=== PATIENT | female | born 1935 | race Caucasian/White ===

== ENCOUNTER → 2016-11-16 | Outpatient (CLI) | payer MEDICARE, BC ==
[2016-11-16 08:33] LABS: Appearance,Urine Clear (Clear); Bilirubin,Urine Negative (Negative); Glucose,Urine (UA) Negative (Negative); Ketones,Urine Negative (Negative); Leukocyte Esterase,Urine Negative (Negative); Nitrite,Urine Negative (Negative); PH, Urine 5.5 (5.0-8.0); Protein,Urine Trace (Negative); Specific Gravity,Urine 1.008 (1.001-1.035); UA Billing (MACRO vs. MICRO) CHEM; Urobilinogen,Urine <2.0 mg/dL (<2.0)
[2016-11-16 08:43] LABS: CH 29.8; CHCM 31.8; HCT 41.2 % (34.0-46.0); HDW 2.59; HGB 13.1 gm/dL (11.4-16.0); MCH 29.9 pg (25.0-35.0); MCHC 31.7 g/dL (31.0-37.0); MCV 94.3 fL (80.0-100.0); Mean Platelet Volume 8.5; RBC 4.37 m/uL (3.80-5.40); RDW 14.5 % (11.5-15.5); WBC 6.6 k/uL (3.8-10.6)
[2016-11-16 11:36] LABS: Magnesium 2.4 mg/dL (1.6-2.3); Phosphorous 4.2 mg/dL (2.5-4.5)
[2016-11-16 11:46] LABS: % Iron Saturation 26.4 % (20-50); Potassium 4.2 mmol/L (3.5-5.1)
== END | disposition home or self-care (01) ==
LOC: LABWHC1 07:32
PROVIDERS: ATTEND Nurse Practitioner Family
DX: D63.1 Anemia in chronic kidney disease (principal); N25.81 Secondary hyperparathyroidism of renal origin; N18.3 Chronic kidney disease, stage 3 (moderate); N39.0 Urinary tract infection, site not specified; E83.39 Other disorders of phosphorus metabolism; R80.9 Proteinuria, unspecified; M10.9 Gout, unspecified
CPT/HCPCS: 36415; 80048; 81003; 82043; 82306; 82728; 83540; 83550; 83735; 83970; 84100; 84550; 85027

== ENCOUNTER → 2017-01-28 | Outpatient (CLI) | payer MEDICARE, BC ==
[2017-01-28 10:37] LABS: Calcium 9.3 mg/dL (8.4-10.2); Potassium 4.5 mmol/L (3.5-5.1)
== END | disposition home or self-care (01) ==
LOC: LABWHC1 09:25
PROVIDERS: ATTEND Nurse Practitioner Family
DX: N18.3 Chronic kidney disease, stage 3 (moderate) (principal)
CPT/HCPCS: 36415; 80048

== ENCOUNTER → 2017-03-21 | Outpatient (CLI) | payer MEDICARE, BC ==
[2017-03-21 08:11] LABS: Appearance,Urine Clear (Clear); Bacteria,Urine Rare /hpf; Bilirubin,Urine Negative (Negative); Glucose,Urine (UA) Negative (Negative); Ketones,Urine Negative (Negative); Leukocyte Esterase,Urine Moderate (Negative); Mucus,Urine Rare /hpf; Nitrite,Urine Negative (Negative); Particle Count 2143; Protein,Urine Trace (Negative); RBC,Urine 1 /hpf (0-5); Specific Gravity,Urine 1.009 (1.001-1.035); Squamous Epithelial Cell,Urine 1 /hpf (0-4); UA Billing (MACRO vs. MICRO) MICRO; Urobilinogen,Urine <2.0 mg/dL (<2.0); WBC,Urine 7 /hpf (0-5)
[2017-03-21 08:36] LABS: CH 29.7; CHCM 32.3; HCT 42.3 % (34.0-46.0); HDW 2.65; HGB 13.6 gm/dL (11.4-16.0); MCH 29.8 pg (25.0-35.0); MCHC 32.2 g/dL (31.0-37.0); MCV 92.5 fL (80.0-100.0); RBC 4.58 m/uL (3.80-5.40); RDW 14.3 % (11.5-15.5); WBC 7.5 k/uL (3.8-10.6)
[2017-03-21 11:06] LABS: Calcium 9.3 mg/dL (8.4-10.2); Magnesium 2.4 mg/dL (1.6-2.3); Phosphorous 4.2 mg/dL (2.5-4.5); Potassium 4.4 mmol/L (3.5-5.1); Uric Acid 6.2 mg/dL (3.7-7.4)
[2017-03-21 11:15] LABS: % Iron Saturation 48.1 % (20-50)
== END | disposition home or self-care (01) ==
LOC: LABWHC1 07:30
PROVIDERS: ATTEND Nurse Practitioner Family
DX: N25.81 Secondary hyperparathyroidism of renal origin (principal); D63.1 Anemia in chronic kidney disease; N18.3 Chronic kidney disease, stage 3 (moderate); N39.0 Urinary tract infection, site not specified; M10.9 Gout, unspecified; R80.9 Proteinuria, unspecified
CPT/HCPCS: 36415; 80048; 81001; 82043; 82306; 82728; 83540; 83550; 83735; 83970; 84100; 84550; 85027

== ENCOUNTER → 2017-05-30 | Outpatient (CLI) | payer MEDICARE, BC ==
[2017-05-30 08:10] LABS: Calcium 8.9 mg/dL (8.4-10.2); Potassium 4.8 mmol/L (3.5-5.1)
== END | disposition home or self-care (01) ==
LOC: LABWHC1 07:07
PROVIDERS: ATTEND Nurse Practitioner Family
DX: N18.3 Chronic kidney disease, stage 3 (moderate) (principal)
CPT/HCPCS: 36415; 80048

== ENCOUNTER 2017-06-15 09:55 | Inpatient (IN) | payer MEDICARE, BC ==
[~2017-06-15 09:55] MED LIST: NITROGLYCERIN SL TABS 0.4 MG TAB SUBLINGUAL ONE
[2017-06-15] MEDS ORDERED: ALPRAZolam 0.25 MG TAB PO PRN (10:50)
[2017-06-15] MEDS ORDERED: ASPIRIN 325 MG TAB PO STA (10:50)
[2017-06-15] MEDS ORDERED: ALPRAZolam 0.5 MG TAB PO PRN (10:50)
[2017-06-15] MEDS ORDERED: ATORVASTATIN 80 MG TAB PO STA (10:50)
[2017-06-15] MEDS ORDERED: SODIUM CHLORIDE 0.9% 1,000 ML in EMPTY BAG 1 BAG IV ONE (10:50)
[2017-06-15] MEDS ORDERED: NITROGLYCERIN SL TABS 0.4 MG TAB SUBLINGUAL PRN (10:50)
[2017-06-15 11:46] LABS: Glucose,Whole Blood 134 mg/dL (75-99)
[2017-06-15] MEDS ORDERED: HEPARIN SODIUM,PORCINE 5,000 UNIT/ML 1 ML VIAL IV ONE (12:20)
[2017-06-15] MEDS ORDERED: HEPARIN SODIUM,PORCINE 5,000 UNIT/ML 1 ML VIAL IV PRN (12:20)
[2017-06-15] MEDS ORDERED: HEPARIN SODIUM,PORCINE/D5W PMX 25,000 UNIT in DEXTROSE/WATER 1 500ML.BAG IV SCH (12:30)
--- NOTE | 2017-06-15 13:10 | EST ---
DATE OF SERVICE: 06/15/2017 TYPE OF REPORT: Regular Stress Test INDICATION: BASELINE HEART RATE: 86 BASELINE BLOOD PRESSURE: 158/88 MAXIMUM HEART RATE: 110 MAXIMUM BLOOD PRESSURE: 153/88 85% MPHR: 116 100% MPHR: 137 METS: MAX STAGE REACHED: II TOTAL EXERCISE TIME: 4 minutes Baseline EKG revealed sinus mechanism with an inferolateral nonspecific ST abnormality, baseline artifact, poor R wave progression. Patient walked for 4 minutes on a standard Best protocol, developed chest pain suggestive of angina with ST segment depression indicative of ischemia. Inferolateral ST segment depression was noted. Patient received sublingual nitroglycerin and obtained relief of chest discomfort. By EKG criteria, this is a positive stress test in the inferolateral distribution suggestive of ischemia. Results were discussed with the patient and family and she will be admitted to the hospital with unstable angina and will undergo cardiac catheterization tomorrow. I discussed my thoughts with the patient and her grandson who was available. I also made an effort to contact Dr. Bai and he was paged and a message was left at his office. Positive stress test suggestive of ischemia by EKG criteria. ELVIS
[2017-06-15] MEDS: ASPIRIN 81 MG CHEW PO SCH (13:59)
[2017-06-15] MEDS: LOSARTAN 25 MG TAB PO SCH (14:00)
[2017-06-15] MEDS: SODIUM CHLORIDE 0.9% 1,000 ML IV SCH (14:01)
[2017-06-15] MEDS: INSULIN LISPRO (humaLOG) 300 UNIT/3 ML VIAL SQ SCH ×2 (14:01→17:54)
--- NOTE | 2017-06-15 14:53 | CONS ---
CONSULTATION Chantell Tom is an 82-year-old lady with history of type 2 diabetes, hypertension, hypercholesterolemia and CAD with a previous bypass surgery that was performed in 1998. She used to see Dr. Aviva Blue and has not seen him in a few months. Because of increasing shortness of breath, she saw her primary care physician, was sent for a stress test here. She was scheduled for a stress echo, did not wish to have dobutamine, but I had her walk on the treadmill no more than 4 minute. She developed chest pain and inferolateral ST-segment depression. Therefore, I stopped the stress test. Did not do an echocardiogram, did not do any stress echo but I advised cardiac catheterization. Explained to the patient and her grandson that she will require coronary angiography and selective injection of bypass grafts. The rationale, risks, benefits, and options were discussed. Patient understands and wishes to proceed with the procedure that is scheduled for tomorrow. Her blood sugar control apparently is good. She has a questionable allergy to IODINE CONTRAST and therefore I am giving her Benadryl and Pepcid and also 2 doses of steroids only. Patient understands the rationale, risks, benefits, options and wishes to proceed with cardiac catheterization. PAST MEDICAL HISTORY: 1. CAD with previous bypass surgery in 1998, details are not available. 2. Hypertension. 3. Hypercholesterolemia. 4. Type 2 diabetes mellitus. MEDICATIONS: At home included glargine and NovoLog insulin, she also takes Zestril, Lopressor 50 mg b.i.d., and sublingual nitroglycerin p.r.n. and also simvastatin. PHYSICAL EXAMINATION: Blood pressure was 130/80, pulse rate was about 84 per minute. HEENT unremarkable, fundus was not examined by me. Neck is supple. There is evidence of a soft right carotid bruit. Heart exam reveals S1, S2 with a short systolic murmur along left lower sternal border. Lungs are clear. Abdomen is soft, nontender. Lower extremities reveal diminished pulses. Central nervous system is grossly within normal limits. EKG revealed inferior sinus mechanism with nonspecific ST-T changes, but the stress test revealed inferolateral ST-segment depression suggestive of ischemia. IMPRESSION: 1. Unstable angina with a strongly positive stress test in a patient with a prior aortocoronary bypass surgery. 2. Type 2 diabetes mellitus. 3. Hypertension. 4. Hypercholesterolemia. 5. History of abnormal stress test. RECOMMENDATION: I am recommending hospitalization, IV heparin, serial troponins, resume beta blockers, add nitrates. Proceed with cardiac catheterization and selective bypass graft rejection. Rationale, risks, benefits, and options were explained to the patient and family. They understand and wish to proceed with the procedure scheduled for tomorrow. I also spoke to her primary care physician, Dr. Bai. Thank you very much for the consult. BRENDA / KAREEMN: [id number] /
[2017-06-15 15:24] LABS: Basophils % (A) 0 %; CH 29.7; CHCM 32.1; Eosinophils # (A) 0.2 k/uL (0-0.7); Eosinophils % (A) 3 %; HCT 39.3 % (34.0-46.0); HDW 2.39; HGB 12.9 gm/dL (11.4-16.0); Luc # (Auto) 0.12; Luc % (Auto) 2; Lymphocytes # (A) 1.7 k/uL (1.0-4.8); Lymphocytes % (A) 25 %; MCH 30.5 pg (25.0-35.0); MCHC 32.8 g/dL (31.0-37.0); MCV 92.9 fL (80.0-100.0); Mean Platelet Volume 8.6; Monocytes # (A) 0.4 k/uL (0-1.0); Monocytes % (A) 5 %; Neutrophils # (A) 4.3 k/uL (1.3-7.7); Neutrophils % (A) 64 %; RBC 4.23 m/uL (3.80-5.40); RDW 14.5 % (11.5-15.5); WBC 6.8 k/uL (3.8-10.6); WBC (Perox) 6.96
[2017-06-15 15:34] LABS: INR 1.1 (<1.2); Prothrombin Time 11.4 sec (9.0-12.0)
[2017-06-15 15:47] LABS: Calcium 8.4 mg/dL (8.4-10.2); Potassium 4.2 mmol/L (3.5-5.1)
[2017-06-15 15:50] LABS: Partial Thromboplastin Time 99.1 sec (22.0-30.0)
[2017-06-15 16:48] LABS: Glucose,Whole Blood 136 mg/dL (75-99)
[2017-06-15] MEDS ORDERED: INSULIN ASPART 6 UNIT SQ PRN (16:53)
--- NOTE | 2017-06-15 16:53 | P.HPIM ---
History of Present Illness H&P Date: 06/15/17 Chief Complaint: Chest pressure. The patient is an 82-year-old white female with known history of previous coronary disease diabetes and hypertension who saw me about a week ago and was complaining of dyspnea on exertion. EKG showed some odd changes and I referred her for appropriate stress testing. Cardiology has called me and stated that because of her symptomatology and previous history, she will need cardiac catheterization. The patient was seen prior to this. She states no significant insomnia. She has not underlying history of well-controlled blood sugar. She is fairly compliant but unfortunate, she recently lost her about 5 months ago due to illness. She did not complain of any nausea or diaphoresis but mainly mostly dyspnea on exertion. No syncope or dizziness stated. No visual loss. No TIA type symptoms or amaurosis fugax stated. Review of Systems Constitutional: Denies chills, Denies fever Eyes: denies blurred vision, denies pain Ears, nose, mouth and throat: Reports as per HPI Cardiovascular: Reports chest pain, Reports lightheadedness, Reports shortness of breath, Denies edema, Denies irregular heart beat Respiratory: Denies cough Gastrointestinal: Denies abdominal pain, Denies diarrhea, Denies nausea, Denies vomiting Genitourinary: Denies dysuria, Denies hematuria Past Medical History Past Medical History: Coronary Artery Disease (CAD), Diabetes Mellitus, GERD/ Reflux, Hyperlipidemia, Hypertension, Osteoarthritis (OA), Thyroid Disorder Additional Past Medical History / Comment(s): HEPATITIS FROM BLOOD TRANSFUSION ( 1971)., BACK PAIN, CYST ON KIDNEY, STATES SORE ON RIGHT HAND., STATES "BURNING" IN HER LEGS AND "SHORT WINDED" WITH ACTIVITY. SEE CARDIOLOGY H & P. History of Any Multi-Drug Resistant Organisms: None Reported Past Surgical History: Appendectomy, Cholecystectomy, Hernia Repair Additional Past Surgical History / Comment(s): carpal tunnel; right and left finger release; CABG - 1998. Spinal cord stimulator implantation (2009) AND REMOVED. Bilateral cataract removal. Right hip surgery - too put in. HIATAL HERNIA REPAIR. Additional Past Anesthesia/Blood Transfusion Reaction / Comment(s): contracted hepatits after blood transfusion (1971) Past Psychological History: No Psychological Hx Reported Smoking Status: Never smoker Past Alcohol Use History: Rare Past Drug Use History: None Reported - Past Family History Mother Family Medical History: Cancer Additional Family Medical History / Comment(s): HODGKINS Son(s) Family Medical History: Cancer Additional Family Medical History / Comment(s): KIDNEY CANCER Medications and Allergies Home Medications Medication Instructions Recorded Confirmed Type Levothyroxine Sodium [Synthroid] 125 mcg PO DAILY 07/07/14 06/15/17 History Aspirin 81 mg PO DAILY 10/16/14 06/15/17 History Atorvastatin [Lipitor] 80 mg PO HS 10/16/14 06/15/17 History Cholecalciferol [Vitamin D3] 5,000 unit PO DAILY 10/16/14 06/15/17 History Metoprolol Tartrate [Lopressor] 50 mg PO BID 10/16/14 06/15/17 History Nitroglycerin Sl Tabs [Nitrostat] 0.4 mg SUBLINGUAL Q5M PRN 11/07/14 06/15/17 History Gabapentin [Neurontin] 800 mg PO QID 02/21/15 06/15/17 History Insulin Aspart [NovoLOG] 6 units SQ AC-BID PRN 04/03/15 06/15/17 History Calcitriol 0.25 mcg PO SUTH 09/09/16 06/15/17 History Insulin Glargine,Hum.rec.anlog 24 units SQ HS@2100 09/09/16 06/15/17 History [T[place]o Solostar] Ferrous Sulfate [Iron] 325 mg PO DAILY 06/15/17 06/15/17 History Furosemide [Lasix] 40 mg PO DAILY@1500 06/15/17 06/15/17 History Furosemide [Lasix] 80 mg PO DAILY 06/15/17 06/15/17 History Allergies Allergy/AdvReac Type Severity Reaction Status Date / Time Iodinated Contrast- Oral and Allergy Severe Anaphylaxis Verified 06/15/17 11:59 IV Dye [Iodinated Contrast Media - IV Dye] captopril [From Capoten] Allergy Unknown PASSED OUT Verified 06/15/17 11:59 morphine Allergy Unknown Verified 06/15/17 11:59 Penicillins Allergy Unknown Verified 06/15/17 11:59 sulfamethoxazole AdvReac Unknown Diarrhea Verified 06/15/17 11:59 [From Bactrim] trimethoprim [From Bactrim] AdvReac Unknown Diarrhea Verified 06/15/17 11:59 X-RAY CONTRAST Allergy Unknown Unknown Uncoded 12/01/16 16:16 Physical Exam Vitals: Intake and Output 06/15/17 06/15/17 06/15/17 06:59 14:59 22:59 Other: Weight 84.822 kg Patient Weight 06/16/17 06:59 Weight 84.822 kg - Constitutional General appearance: no acute distress - EENT Eyes: EOMI - Neck Neck: no lymphadenopathy - Respiratory Respiratory: bilateral: CTA - Cardiovascular Rhythm: regular Heart sounds: normal: S1, S2 - Gastrointestinal General gastrointestinal: soft, no tenderness - Integumentary Integumentary: no cellulitis - Musculoskeletal Musculoskeletal: generalized weakness - Psychiatric Psychiatric: A&O x's 3 Results CBC & Chem 7: 06/15/17 14:57 06/15/17 14:57 Labs: Abnormal Lab Results - Last 24 Hours (Table) 06/15/17 06/15/17 06/15/17 Range/Units 11:38 14:57 14:57 APTT 99.1 H* (22.0-30.0) sec BUN 38 H (7-17) mg/dL Creatinine 1.83 H (0.52-1.04) mg/dL Glucose 158 H (74-99) mg/dL POC Glucose (mg/dL) 134 H (75-99) mg/dL 06/15/17 Range/Units 16:41 APTT (22.0-30.0) sec BUN (7-17) mg/dL Creatinine (0.52-1.04) mg/dL Glucose (74-99) mg/dL POC Glucose (mg/dL) 136 H (75-99) mg/dL Assessment and Plan (1) Lipidemia Status: Chronic (2) Hypertension Status: Chronic (3) Coronary artery disease Status: Chronic (4) Unstable angina pectoris Status: Acute (5) Type II diabetes mellitus with peripheral circulatory disorder, uncontrolled Status: Chronic Plan: Await cardiac catheterization in the a.m. I do appreciate cardiology input, obviously. Reconcile home medications. I discussed CODE STATUS with the patient, she wishes to be full code at this time. However, in a vegetative or poor prognostic state with life-support, she does not wish to continue any type of aggressive treatment. See orders otherwise. Time with Patient: Greater than 30
[2017-06-15] MEDS: GABAPENTIN 400 MG CAP PO SCH ×2 (17:55→20:45)
[2017-06-15] MEDS: NITROGLYCERIN OINT 1 INCH/GM PACKET TOPICAL SCH ×2 (17:57→23:20)
[2017-06-15] MEDS: diphenhydrAMINE 25 MG CAP PO SCH (20:46)
[2017-06-15] MEDS: METOPROLOL TARTRATE 50 MG TAB PO SCH (20:46)
[2017-06-15] MEDS: ATORVASTATIN 80 MG TAB PO SCH (20:46)
[2017-06-15 20:59] LABS: Glucose,Whole Blood 73 mg/dL (75-99)
[2017-06-15] MEDS ORDERED: methylPREDNISolone SOD SUCCI 125 MG/2 ML VIAL IV SCH (21:00)
[2017-06-15] MEDS ORDERED: FAMOTIDINE 20 MG TAB PO SCH (21:00)
[2017-06-15] MEDS ORDERED: INSULIN GLARGINE HUM REC ANLOG 12 UNIT SQ SCH (21:00)
[2017-06-15 21:31] VITALS: RESP 16
[2017-06-15] MEDS: INSULIN GLARGINE 100 UNIT/ML 10 ML VIAL SQ SCH (21:43)
[2017-06-15 21:56] LABS: Appearance,Urine Clear (Clear); Bilirubin,Urine Negative (Negative); Glucose,Urine (UA) Negative (Negative); Ketones,Urine Negative (Negative); Leukocyte Esterase,Urine Moderate (Negative); Nitrite,Urine Negative (Negative); PH, Urine 6.5 (5.0-8.0); Particle Count 706; Protein,Urine Trace (Negative); RBC,Urine 1 /hpf (0-5); Specific Gravity,Urine 1.008 (1.001-1.035); Squamous Epithelial Cell,Urine 1 /hpf (0-4); UA Billing (MACRO vs. MICRO) MICRO; Urobilinogen,Urine <2.0 mg/dL (<2.0); WBC,Urine 7 /hpf (0-5)
[2017-06-15 22:03] LABS: Hemoglobin A1C 7.6 % (4.2-6.1)
[2017-06-16] MEDS: SODIUM CHLORIDE 0.9% 1,000 ML IV SCH ×3 (01:40→13:34)
[2017-06-16] MEDS: INSULIN LISPRO (humaLOG) 300 UNIT/3 ML VIAL SQ SCH ×5 (02:20→21:44)
[2017-06-16 03:49] LABS: Basophils % (A) 1 %; CH 30.9; CHCM 33.1; Eosinophils % (A) 0 %; HCT 39.4 % (34.0-46.0); HDW 2.42; HGB 12.4 gm/dL (11.4-16.0); Luc # (Auto) 0.03; Luc % (Auto) 1; Lymphocytes # (A) 0.8 k/uL (1.0-4.8); Lymphocytes % (A) 15 %; MCH 29.6 pg (25.0-35.0); MCHC 31.5 g/dL (31.0-37.0); MCV 93.9 fL (80.0-100.0); Mean Platelet Volume 9.9; Monocytes # (A) 0.1 k/uL (0-1.0); Monocytes % (A) 1 %; Neutrophils # (A) 4.2 k/uL (1.3-7.7); Neutrophils % (A) 83 %; WBC 5.1 k/uL (3.8-10.6); WBC (Perox) 5.26
[2017-06-16 06:01] LABS: Glucose,Whole Blood 281 mg/dL (75-99)
[2017-06-16] MEDS: NITROGLYCERIN OINT 1 INCH/GM PACKET TOPICAL SCH ×3 (06:10→12:19)
[2017-06-16] MEDS: FAMOTIDINE 20 MG TAB PO SCH (06:11)
[2017-06-16] MEDS: LEVOTHYROXINE 100 MCG TAB PO SCH (06:11)
[2017-06-16] MEDS: ASPIRIN 81 MG CHEW PO SCH (06:11)
[2017-06-16] MEDS: FERROUS SULFATE 325 MG TAB PO SCH (06:12)
[2017-06-16] MEDS: LOSARTAN 25 MG TAB PO SCH (06:12)
[2017-06-16] MEDS: METOPROLOL TARTRATE 50 MG TAB PO SCH ×2 (06:12→20:39)
[2017-06-16] MEDS: GABAPENTIN 400 MG CAP PO SCH ×4 (06:12→20:39)
[2017-06-16] MEDS: diphenhydrAMINE 25 MG CAP PO SCH ×2 (06:34→20:39)
--- NOTE | 2017-06-16 07:05 | P.PN ---
Subjective Principal diagnosis: Unstable angina The patient has been a symptomatic with shortness of breath as of yesterday. Await cardiac catheterization today. We did talk about possible scenarios which relate to her discharge plan. Otherwise no voiding difficulties. No significant nausea or vomiting. Objective - Vital Signs Vital signs: Vital Signs Temp 97 F L 06/16/17 03:32 Pulse 65 06/16/17 03:32 Resp 16 06/16/17 03:32 BP 116/94 06/16/17 03:32 Pulse Ox 97 06/16/17 03:32 Intake & Output 06/15/17 06/16/17 06/16/17 18:59 06:59 18:59 Intake Total 180 903.743 Output Total 200 Balance 180 703.743 Weight 84.822 kg 85.2 kg Intake: IV 750 Sodium Chloride 0.9% 1, 750 000 ml @ 75 mls/hr IV . [id number] FRITZ Rx#:[id number] Intake, IV Titration 153.743 Amount Heparin Sodium,Porcine/ 153.743 D5w Pmx 25,000 unit In Dextrose/Water 1 500ml. bag @ 11.8 UNITS/KG/HR 20 .01 mls/hr IV .Q24H FRITZ Rx#:[id number] Oral 180 Output: Urine 200 Other: # Voids 2 - Constitutional General appearance: Present: average body habitus - EENT Eyes: Absent: abnormal pupil - Respiratory Respiratory: bilateral: CTA - Cardiovascular Rhythm: regular Heart sounds: normal: S1, S2 - Gastrointestinal General gastrointestinal: Present: soft. Absent: tenderness - Neurologic Neurologic: Present: CNII-XII intact - Psychiatric Psychiatric: Present: A&O x's 3, appropriate affect, intact judgment & insight - Labs CBC & Chem 7: 06/16/17 03:15 06/15/17 14:57 Labs: Abnormal Lab Results - Last 24 Hours (Table) 06/15/17 06/15/17 06/15/17 Range/Units 11:38 14:57 14:57 Lymphocytes # (1.0-4.8) k/uL APTT 99.1 H* (22.0-30.0) sec BUN 38 H (7-17) mg/dL Creatinine 1.83 H (0.52-1.04) mg/dL Glucose 158 H (74-99) mg/dL POC Glucose (mg/dL) 134 H (75-99) mg/dL Hemoglobin A1c (4.2-6.1) % Urine Protein (Negative) Ur Leukocyte Esterase (Negative) Urine WBC (0-5) /hpf 06/15/17 06/15/17 06/15/17 Range/Units 16:41 20:36 20:36 Lymphocytes # (1.0-4.8) k/uL APTT 92.5 H (22.0-30.0) sec BUN (7-17) mg/dL Creatinine (0.52-1.04) mg/dL Glucose (74-99) mg/dL POC Glucose (mg/dL) 136 H (75-99) mg/dL Hemoglobin A1c 7.6 H (4.2-6.1) % Urine Protein (Negative) Ur Leukocyte Esterase (Negative) Urine WBC (0-5) /hpf 06/15/17 06/15/17 06/16/17 Range/Units 20:58 21:30 03:15 Lymphocytes # 0.8 L (1.0-4.8) k/uL APTT (22.0-30.0) sec BUN (7-17) mg/dL Creatinine (0.52-1.04) mg/dL Glucose (74-99) mg/dL POC Glucose (mg/dL) 73 L (75-99) mg/dL Hemoglobin A1c (4.2-6.1) % Urine Protein Trace H (Negative) Ur Leukocyte Esterase Moderate H (Negative) Urine WBC 7 H (0-5) /hpf 06/16/17 06/16/17 Range/Units 03:15 05:59 Lymphocytes # (1.0-4.8) k/uL APTT 58.8 H (22.0-30.0) sec BUN (7-17) mg/dL Creatinine (0.52-1.04) mg/dL Glucose (74-99) mg/dL POC Glucose (mg/dL) 281 H (75-99) mg/dL Hemoglobin A1c (4.2-6.1) % Urine Protein (Negative) Ur Leukocyte Esterase (Negative) Urine WBC (0-5) /hpf Assessment and Plan (1) Lipidemia Status: Chronic (2) Hypertension Status: Chronic (3) Coronary artery disease Status: Chronic (4) Unstable angina pectoris Status: Acute (5) Type II diabetes mellitus with peripheral circulatory disorder, uncontrolled Status: Chronic Plan: Await cardiac catheterization. Anticipate discharge in next [address] on sliding scale while nothing by mouth. Restart home insulin after she starts eating.
--- NOTE | 2017-06-16 07:11 | ECHOF ---
Referral Reason:chest pain MEASUREMENTS -------- HEIGHT: 149.9 cm WEIGHT: 84.8 kg BP: 158/88 RVIDd: 3.2 cm (< 3.3) IVSd: 1.2 cm (0.6 - 1.1) LVIDd: 4.4 cm (3.9 - 5.3) LVPWd: 1.2 cm (0.6 - 1.1) IVSs: 1.6 cm LVIDs: 3.5 cm LVPWs: 2.0 cm LA Diam: 4.1 cm (2.7 - 3.8) LAESV Index (A-L): 32.69 ml/m Ao Diam: 3.0 cm (2.0 - 3.7) AV Cusp: 1.8 cm (1.5 - 2.6) MV EXCURSION: 10.759 mm (> 18.000) MV EF SLOPE: 39 mm/s (70 - 150) EPSS: 1.3 cm MV E Ezequiel: 0.49 m/s MV DecT: 649 ms MV A Ezequiel: 0.98 m/s MV E/A Ratio: 0.50 RAP: 5.00 mmHg RVSP: 32.12 mmHg FINDINGS -------- Sinus rhythm. This was a technically adequate study. The left ventricular size is normal. There is borderline concentric left ventricular hypertrophy. Overall left ventricular systolic function is mildly impaired with, an EF between 45 - 50 %. Septal wall motion is delayed and consistent with prior cardiac surgery. Apical septum LV wall motion is hypokinetic. Posterior hypokinesis The right ventricle is normal in size. LA is midly dilated 29-33ml/m2. The right atrium is normal in size. The aortic valve is trileaflet and appears structurally normal. The mitral valve leaflets are mildly thickened. Mild mitral annular calcification present. There is trace to mild mitral regurgitation. Mild tricuspid regurgitation present. Right ventricular systolic pressure is normal at < 35 mmHg. There is no pulmonic regurgitation present. The aortic root size is normal. There is no pericardial effusion. CONCLUSIONS -------- 1. Sinus rhythm. 2. LA is midly dilated 29-33ml/m2. 3. The right atrium is normal in size. 4. The aortic valve is trileaflet and appears structurally normal. 5. The mitral valve leaflets are mildly thickened. 6. Mild mitral annular calcification present. 7. There is trace to mild mitral regurgitation. 8. Mild tricuspid regurgitation present. 9. Right ventricular systolic pressure is normal at < 35 mmHg. 10. There is no pulmonic regurgitation present. 11. The aortic root size is normal. 12. This was a technically adequate study. 13. There is no pericardial effusion. 14. The left ventricular size is normal. 15. There is borderline concentric left ventricular hypertrophy. 16. Overall left ventricular systolic function is mildly impaired with, an EF between 45 - 50 %. 17. Septal wall motion is delayed and consistent with prior cardiac surgery. 18. Apical septum LV wall motion is hypokinetic. 19. Posterior hypokinesis 20. The right ventricle is normal in size. UNDERGROUND TRUCK OPERATOR: Martine Campbell RDCS
[2017-06-16] MEDS ORDERED: IV FLUID CONTINUATION 1,000 ML IV ONE (08:20)
[2017-06-16] MEDS ORDERED: CALCITRIOL 0.25 MCG CAP PO SCH (09:00)
[2017-06-16] MEDS ORDERED: diphenhydrAMINE 50 MG/ML 1 ML VIAL IVP ONE (09:16)
[2017-06-16] MEDS ORDERED: MIDAZOLAM 2 MG/2 ML VIAL IV ONE (09:16)
[2017-06-16] MEDS ORDERED: LIDOCAINE 2% INJ 20 MG/ML SQ ONE (09:19)
[2017-06-16] MEDS ORDERED: NITROGLYCERIN SL TABS 0.4 MG TAB SUBLINGUAL ONE (09:24)
[2017-06-16] MEDS ORDERED: IODIXANOL 320 MG/ML 100 ML INTRAARTER ONE (09:43)
[2017-06-16 10:57] LABS: Glucose,Whole Blood 191 mg/dL (75-99)
[2017-06-16] MEDS ORDERED: ISOSORBIDE MONONITRATE ER 30 MG TAB.ER.24H PO STA (12:20)
[2017-06-16] MEDS ORDERED: FUROSEMIDE 40 MG TAB PO SCH (15:00)
[2017-06-16 17:05] LABS: Glucose,Whole Blood 174 mg/dL (75-99)
[2017-06-16] MEDS: ATORVASTATIN 80 MG TAB PO SCH (20:39)
[2017-06-16 21:38] LABS: Glucose,Whole Blood 136 mg/dL (75-99)
[2017-06-16] MEDS: INSULIN GLARGINE 100 UNIT/ML 10 ML VIAL SQ SCH (21:44)
[2017-06-17] MEDS: SODIUM CHLORIDE 0.9% 1,000 ML IV SCH ×2 (01:21→03:46)
[2017-06-17 06:20] LABS: Glucose,Whole Blood 81 mg/dL (75-99)
[2017-06-17] MEDS: INSULIN LISPRO (humaLOG) 300 UNIT/3 ML VIAL SQ SCH ×2 (06:33→11:45)
[2017-06-17 06:38] LABS: Basophils % (A) 1 %; CH 29.4; CHCM 31.8; Eosinophils # (A) 0.2 k/uL (0-0.7); Eosinophils % (A) 3 %; HCT 35.5 % (34.0-46.0); HDW 2.35; HGB 11.4 gm/dL (11.4-16.0); Luc % (Auto) 1; Lymphocytes # (A) 2.2 k/uL (1.0-4.8); Lymphocytes % (A) 29 %; MCH 29.9 pg (25.0-35.0); MCHC 32.1 g/dL (31.0-37.0); Mean Platelet Volume 8.9; Monocytes # (A) 0.4 k/uL (0-1.0); Monocytes % (A) 5 %; Neutrophils # (A) 4.6 k/uL (1.3-7.7); Neutrophils % (A) 61 %; RBC 3.82 m/uL (3.80-5.40); RDW 14.5 % (11.5-15.5); WBC 7.6 k/uL (3.8-10.6); WBC (Perox) 7.82
[2017-06-17] MEDS: LEVOTHYROXINE 100 MCG TAB PO SCH (06:43)
[2017-06-17 07:46] LABS: Calcium 8.6 mg/dL (8.4-10.2); Potassium 4.1 mmol/L (3.5-5.1)
--- NOTE | 2017-06-17 07:57 | CC ---
CARDIAC CATHETERIZATION REPORT DATE OF PROCEDURE: 06/16/2017 PROCEDURE: Left heart catheterization, coronary angiography and selective injection of bypass graft. PERFORMED BY: Dr. Miri Blue. CLINICAL INFORMATION: Mrs. Chantell Tom is an 82-year-old lady with history of type 2 diabetes, hypertension, hyperlipidemia, and also chronic CKD with a creatinine of 1.83. Yesterday she came in for a stress test, had significant ST segment depression, chest pain and therefore she was advised cardiac catheterization. Troponins were normal. She was placed on IV heparin and brought in for the procedure electively after adequate hydration. The patient underwent stenting of LAD in the midportion prior to the graft attachment in 2006. This lady underwent aortocoronary bypass surgery in 1998 with a HERNANDEZ to LAD and vein graft to the obtuse marginal branch of circumflex. Both the grafts were patent in 2006 and proximal LAD had a lesion which was attempted by Dr. Aviva Blue and the proximal portion of the LAD before the attachment of the graft was stented. At that time, she was found to have total occlusion of the RCA and the circumflex had no critical stenosis, but the first obtuse marginal had moderate disease. PROCEDURE NOTE: Under local anesthesia and strict aseptic precautions, a 6-Frisian introducer was placed in the right femoral artery. Using standard left Wenceslao catheter, I performed selective coronary angiography of the left system. Using a Gabe catheter I attempted to gain access into the left subclavian but I noted that there was extreme tortuosity and therefore I did not force the issue. Using the same catheter, I performed selective injection of the vein graft to the obtuse marginal. Right coronary artery was totally occluded. Subselective injection of the subclavian and HERNANDEZ was achieved. I checked LV pressures, but did not performed LV gram. There was no gradient across the aortic valve. I gave only 55 mL of dye and explained to the patient that she will need a left radial catheter to assess the patency of the HERNANDEZ and then consider intervention of the circumflex at the ostium as it came off from the left main. This can be done electively and I will speak to Dr. Callahan who will be seeing her next week. CARDIAC CATHETERIZATION FINDINGS: The left ventricle end-diastolic pressure was about 18 to 19 mmHg and there was no gradient across aortic valve. CORONARY ANGIOGRAPHY FINDINGS: LEFT MAIN CORONARY ARTERY: Short patent vessel that bifurcates into LAD and circumflex. Left main has mild calcification free of significant disease. Distal left main has moderate calcification. LEFT ANTERIOR DESCENDING CORONARY ARTERY: This vessel has a very sluggish flow. It appears to be subtotally occluded right at the ostium as it comes off the left main. LEFT POSTERIOR CIRCUMFLEX CORONARY ARTERY: This gives off a high first obtuse marginal that has a 50% to 60% stenosis. The circumflex itself as it comes off from the left main has a heavy calcification and at least a 70% stenosis at the ostium. It runs in the AV groove and gives off smaller branches. The obtuse marginal was totally occluded and this has already been bypassed. RIGHT CORONARY ARTERY: This was known to be totally occluded. SAPHENOUS VEIN GRAFT TO THE OBTUSE MARGINAL BRANCH OF CIRCUMFLEX: This graft at its origin has a 30% narrowing. In the body of the graft, there is a 40% narrowing but the attachment site is free of significant disease, opacifies the circumflex marginal which is a good distribution. No significant disease is noted in the tangirnaq circumflex other than minor irregularities but the graft itself has a 40% lesion in the body. LEFT INTERNAL MAMMARY ARTERY GRAFT TO LAD: This graft was only subselectively injected from the subclavian because of extreme tortuosity and I feel it is safer and wiser to approach this graft from the left radial approach. However subselectively there appears to be decent flow in the HERNANDEZ. Left ventriculogram was not performed, but LV pressures were checked. FINAL IMPRESSION: This patient has a total occlusion of LAD, which is actually a subtotal occlusion without much antegrade flow. A 70% ostial disease involving circumflex with calcification and first obtuse marginal has a 70% stenosis as well. The RCA is totally occluded, not selectively cannulated. The vein graft to the obtuse marginal has a 40% lesion with some disease at the proximal portion of the body of the graft as well of about 30%. HERNANDEZ to LAD was subselectively opacified appears to be patent; however, this needs to be reinjected from left radial approach at a later date. RECOMMENDATIONS: I am recommending that we will hydrate the patient for now. Recheck kidney function tomorrow. Possibly discharged her on medical therapy. Advised not to do strenuous activity. In the next week or so after checking renal function, we should do a left radial approach to check patency of circumflex and then perform intervention of the proximal portion of the circumflex or the ostium of circumflex which is heavily calcified. This is a very angulated calcified lesion. The risk is high. This was explained to the patient and her family. For now we will do medical therapies, hydrate, check renal function and discharge her on medical therapy. MMBENITO / IJN: [id number] /
[2017-06-17 08:14] VITALS: TEMP 96.7
[2017-06-17] MEDS: FAMOTIDINE 20 MG TAB PO SCH (08:14)
[2017-06-17] MEDS: ASPIRIN 81 MG CHEW PO SCH (08:15)
[2017-06-17] MEDS: LOSARTAN 25 MG TAB PO SCH (08:15)
[2017-06-17] MEDS: GABAPENTIN 400 MG CAP PO SCH (08:15)
--- NOTE | 2017-06-17 08:18 | LTR ---
Date: Dear Dr. Bai: Please find enclosed my detailed cardiac cath report for your records. I am recommending that we pursue medical therapy with the understanding she needs selective angiography from the left radial approach of the HERNANDEZ and consider intervention of the circumflex at the ostium which I will talk to Dr. Callahan. For now, our plan is to optimize medical therapy, add Imdur, and hopefully discharge her tomorrow after checking renal function. Thank you for your referral. Please call for questions. With kindest regards, Sincerely yours, MD BRENDA Moctezuma / CLIVE: [id number] /
[2017-06-17] MEDS ORDERED: ISOSORBIDE MONONITRATE ER 30 MG TAB.ER.24H PO SCH (09:00)
[2017-06-17 11:14] LABS: Glucose,Whole Blood 85 mg/dL (75-99)
[2017-06-17 11:41] VITALS: BP 148/80; PULSE 59
[2017-06-17] MEDS: FERROUS SULFATE 325 MG TAB PO SCH (11:43)
[2017-06-17] MEDS: METOPROLOL TARTRATE 50 MG TAB PO SCH (11:44)
[2017-06-17] MEDS: diphenhydrAMINE 25 MG CAP PO SCH (12:30)
--- NOTE | 2017-06-17 15:30 | P.PN ---
Subjective This is a pleasant 82-year-old female who previously followed with Dr. River and will be following up with Dr. Callahan. She has a history of type 2 diabetes, hypertension, hyperlipidemia and CAD with previous bypass surgery that was performed in 1998. She was having some increasing shortness of breath and was sent for an outpatient stress test here in the hospital by her primary care physician she walked on the treadmill for about 4 minutes and developed chest discomfort with inferolateral ST segment depression and the stress test was stopped. Patient subsequently underwent cardiac catheterization by Dr. BOBBY Blue H revealed any percent ostial disease involving the circumflex with calcification and first obtuse marginal has 70% stenosis as well due to is recommended to follow-up with Dr. Abernathy and undergo cardiac catheterization via radial approach to check patency of circumflex and intervention of the proximal portion of the circumflex or the ostium of the circumflex with it which is heavily calcified. On examination today, patient is resting comfortably in bed. She denies complaints of shortness of breath. She's been advised to avoid all strenuous activities following discharge. Objective - Vital Signs Vital signs: Vital Signs Temp 96.7 F L 06/17/17 08:00 Pulse 59 L 06/17/17 11:41 Resp 16 06/17/17 11:41 BP 148/80 06/17/17 11:41 Pulse Ox 99 06/17/17 11:41 Intake & Output 06/16/17 06/17/17 06/17/17 18:59 06:59 18:59 Intake Total 460 675 360 Output Total 400 1200 400 Balance 60 -525 -40 Weight 86.8 kg Intake: IV 100 675 Sodium Chloride 0.9% 1, 675 000 ml @ 75 mls/hr IV . [id number] [facility] Rx#:[id number] Oral 360 360 Output: Urine 400 1200 400 Other: # Voids 2 - Exam PHYSICAL EXAMINATION: HEENT: Head is atraumatic, normocephalic. Pupils equal, round. Neck is supple. There is no elevated jugular venous pressure. HEART EXAMINATION: Heart sounds regular, S1 and S2 normal with a systolic murmur. CHEST EXAMINATION: Lungs are clear to auscultation and precussion. No chest wall tenderness is noted on palpation or with deep breathing. ABDOMEN: Soft, nontender. Bowel sounds are heard. No organomegaly noted. EXTREMITIES: 2+ peripheral pulses with no evidence of peripheral edema and no calf tenderness noted. Right groin puncture site soft without ecchymosis or hematoma.. NEUROLOGIC patient is awake, alert and oriented x3. . - Labs CBC & Chem 7: 06/17/17 05:50 06/17/17 05:50 Labs: Abnormal Lab Results - Last 24 Hours (Table) 06/16/17 06/16/17 06/17/17 Range/Units 16:55 21:35 05:50 Chloride 111 H (98-107) mmol/L BUN 49 H (7-17) mg/dL Creatinine 1.65 H (0.52-1.04) mg/dL POC Glucose (mg/dL) 174 H 136 H (75-99) mg/dL Assessment and Plan Plan: Assessment and plan #1 unstable angina with strongly positive stress test and heavily calcified ostial circumflex #2 type 2 diabetes #3 hypertension #4 hypercholesterolemia From cardiology perspective, patient may be discharged home today. She will avoid all strenuous activities. She'll follow-up next week with Dr. Callahan in the office and likely be scheduled for further intervention at that time. The above dictated assessment and findings were discussed with signing physician. The impression and plan of care have been directed as dictated. Sara Bauer, Nurse Practitioner, acting as scribe for signing physician.
== END 2017-06-17 15:05 | disposition home or self-care (01) | DRG 287 ==
LOC: RADNMMAIN 09:55 → 6SEL 11:04
PROVIDERS: ADMIT Family Medicine; ATTEND Family Medicine
PROC: B2111ZZ Fluoroscopy of Multiple Coronary Arteries using Low Osmolar Contrast (ICD-10-PCS; principal; 2017-06-16 08:20)
PROC: 4A023N7 Measurement of Cardiac Sampling and Pressure, Left Heart, Percutaneous Approach (ICD-10-PCS; principal; 2017-06-16 08:20)
PROC: B2181ZZ Fluoroscopy of Left Internal Mammary Bypass Graft using Low Osmolar Contrast (ICD-10-PCS; principal; 2017-06-16 08:20)
PROC: B2121ZZ Fluoroscopy of Single Coronary Artery Bypass Graft using Low Osmolar Contrast (ICD-10-PCS; principal; 2017-06-16 08:20)
DX: I25.110 Atherosclerotic heart disease of native coronary artery with unstable angina pectoris (principal); E11.51 Type 2 diabetes mellitus with diabetic peripheral angiopathy without gangrene; I25.82 Chronic total occlusion of coronary artery; I25.710 Atherosclerosis of autologous vein coronary artery bypass graft(s) with unstable angina pectoris; E78.00 Pure hypercholesterolemia, unspecified; E78.5 Hyperlipidemia, unspecified; I10 Essential (primary) hypertension; K21.9 Gastro-esophageal reflux disease without esophagitis; Z79.4 Long term (current) use of insulin; Z79.82 Long term (current) use of aspirin; Z79.899 Other long term (current) drug therapy; Z80.51 Family history of malignant neoplasm of kidney; Z80.7 Family history of other malignant neoplasms of lymphoid, hematopoietic and related tissues; Z88.5 Allergy status to narcotic agent; Z91.041 Radiographic dye allergy status
CPT/HCPCS: 80048; 81001; 83036; 84484; 85025; 85610; 85730; 93017; 93306; 93459

== ENCOUNTER 2017-07-08 06:52 | Day surgery (SDC) | payer MEDICARE, BC ==
[~2017-07-08 06:52] MED LIST changes: +ALPRAZolam 0.25 MG TAB PO PRN; +ALPRAZolam 0.5 MG TAB PO PRN; +ASPIRIN 325 MG TAB PO STA; +ATORVASTATIN 80 MG TAB PO STA; -NITROGLYCERIN SL TABS 0.4 MG TAB SUBLINGUAL ONE; +NITROGLYCERIN SL TABS 0.4 MG TAB SUBLINGUAL PRN; +SODIUM CHLORIDE 0.9% 1,000 ML in EMPTY BAG 1 BAG IV ONE
[2017-07-08] MEDS: SODIUM CHLORIDE 0.9% 1,000 ML IV SCH ×2 (07:32→17:23)
[2017-07-08] MEDS ORDERED: LOSARTAN 25 MG TAB PO STA (07:38)
[2017-07-08] MEDS ORDERED: ISOSORBIDE MONONITRATE ER 30 MG TAB.ER.24H PO STA (07:38)
[2017-07-08] MEDS ORDERED: METOPROLOL TARTRATE 50 MG TAB PO STA (07:38)
[2017-07-08] MEDS ORDERED: GABAPENTIN 400 MG CAP PO STA (07:38)
[2017-07-08] MEDS ORDERED: INSULIN LISPRO (humaLOG) 300 UNIT/3 ML VIAL SQ STA (07:46)
[2017-07-08 07:54] LABS: Calcium 9.4 mg/dL (8.4-10.2); Potassium 4.7 mmol/L (3.5-5.1)
[2017-07-08 08:17] LABS: Glucose,Whole Blood 353 mg/dL (75-99)
[2017-07-08 09:03] LABS: Glucose,Whole Blood 345 mg/dL (75-99)
[2017-07-08] MEDS ORDERED: INSULIN LISPRO (humaLOG) 300 UNIT/3 ML VIAL SQ ONE (09:04)
[2017-07-08] MEDS ORDERED: LIDOCAINE 2% INJ 20 MG/ML (20 ML MDV) ONE (09:22)
[2017-07-08] MEDS ORDERED: MIDAZOLAM 2 MG/2 ML VIAL ONE (09:45)
[2017-07-08] MEDS ORDERED: MIDAZOLAM 2 MG/2 ML VIAL IVP ONE ×2 (10:02→10:24)
[2017-07-08] MEDS ORDERED: LIDOCAINE 2% INJ 20 MG/ML SQ ONE (10:10)
[2017-07-08] MEDS ORDERED: BIVALIRUDIN BOLUS 250 MG/50 ML IV ONE (10:24)
[2017-07-08] MEDS ORDERED: BIVALIRUDIN 250 MG in SODIUM CHLORIDE 0.9% 50 ML IV ONE ×2 (10:25→10:28)
[2017-07-08] MEDS ORDERED: CLOPIDOGREL 75 MG TAB ONE (11:03)
[2017-07-08] MEDS ORDERED: CLOPIDOGREL 75 MG TAB PO ONE (11:05)
[2017-07-08] MEDS ORDERED: NITROGLYCERIN SL TABS 0.4 MG TAB SUBLINGUAL PRN ×2 (11:08→11:10)
[2017-07-08] MEDS ORDERED: IODIXANOL 320 MG/ML 100 ML INTRAARTER ONE (11:08)
[2017-07-08] MEDS ORDERED: ZOLPIDEM 5 MG TAB PO PRN (11:10)
[2017-07-08] MEDS ORDERED: ATROPINE SULFATE 0.1 MG/ML 10ML SYRINGE IV PRN (11:10)
[2017-07-08] MEDS ORDERED: RX INFO: IV CONTRAST WAS GIVEN 1 EACH MISC MISCELLANE PRN (11:10)
[2017-07-08] MEDS ORDERED: MAG HYDROX/AL HYDROX/SIMETH 30 ML CUP PO PRN (11:10)
[2017-07-08] MEDS ORDERED: SODIUM CHLORIDE 0.9% 1,000 ML IV SCH (11:15)
[2017-07-08 12:11] LABS: Glucose,Whole Blood 140 mg/dL (75-99)
--- NOTE | 2017-07-08 12:19 | PTCA ---
PERCUTANEOUSTRANS CORORONARY ANGIOGRAPHY DATE OF SERVICE: July 08, 2017 PERFORMING PHYSICIAN: Dandre Callahan MD, etl informatica architect. PROCEDURE PERFORMED: Successful stenting of the ostial/proximal with good angiographic results. INDICATION: This is a pleasant 82-year-old female patient who presented to the hospital a few weeks ago with chest discomfort and was diagnosed with unstable angina. She underwent a heart catheterization at that time by Dr. Dinorah Blue and was found to have severe disease involving an ostial proximal left circumflex, which was protected. She was brought today to undergo a percutaneous coronary intervention. APPROACH: Right common femoral artery. COMPLICATION: None. LEVEL OF SEDATION: Moderate with sedation length of 55 minutes. PROCEDURE DESCRIPTION: After obtaining an informed consent, the patient was brought to the cardiac label tacker. The right common femoral artery was cannulated using micropuncture technique, the micropuncture wire passed easily. Plavix was given. Then I placed a 6-Guyanese sheath in the right common femoral artery. Subsequently I did start anticoagulation using Angiomax. After that, I did engage the left main using an XB3.5 guide. Subsequently I did wire the left circumflex using a whisper wire. I did predilatation initially using 2.0 x 12 and then 3.0 x 12 mm balloon. After that, I deployed a 3.5 x 16 mm Promus Premier drug-eluting stent where the stent was positioned under fluoroscopy guidance and deployed under 14 atmospheres for 30 seconds. The following angiogram showed good angiographic results. I attempted doing an angiogram of the HERNANDEZ, but I was unable to bypass the proximal left subclavian, which was quite tortuous. The procedure was completed without any complication. POSTPROCEDURE MANAGEMENT: 1. Dual anti-platelet therapy. 2. Risk factors modifications. 3. Follow up with the patient. MMODL / IJN: [id number] /
[2017-07-08 16:42] LABS: Glucose,Whole Blood 76 mg/dL (75-99)
[2017-07-08] MEDS: GABAPENTIN 400 MG CAP PO SCH ×3 (17:21→21:05)
[2017-07-08 20:54] LABS: Glucose,Whole Blood 216 mg/dL (75-99)
[2017-07-08] MEDS ORDERED: INSULIN GLARGINE 100 UNIT/ML 10 ML VIAL SQ SCH (21:00)
[2017-07-08] MEDS ORDERED: ATORVASTATIN 80 MG TAB PO SCH (21:00)
[2017-07-08] MEDS: METOPROLOL TARTRATE 50 MG TAB PO SCH (21:04)
[2017-07-09] MEDS: SODIUM CHLORIDE 0.9% 1,000 ML IV SCH (01:33)
[2017-07-09 01:58] VITALS: RESP 16
[2017-07-09 06:28] LABS: Basophils % (A) 0 %; CH 29.8; CHCM 31.4; Eosinophils # (A) 0.1 k/uL (0-0.7); Eosinophils % (A) 1 %; HCT 39.5 % (34.0-46.0); HDW 2.31; HGB 12.4 gm/dL (11.4-16.0); Luc # (Auto) 0.12; Luc % (Auto) 1; Lymphocytes # (A) 2.1 k/uL (1.0-4.8); Lymphocytes % (A) 25 %; MCH 29.9 pg (25.0-35.0); MCHC 31.4 g/dL (31.0-37.0); MCV 95.2 fL (80.0-100.0); Mean Platelet Volume 7.7; Monocytes # (A) 0.5 k/uL (0-1.0); Monocytes % (A) 6 %; Neutrophils # (A) 5.5 k/uL (1.3-7.7); Neutrophils % (A) 66 %; RBC 4.15 m/uL (3.80-5.40); RDW 14.4 % (11.5-15.5); WBC 8.3 k/uL (3.8-10.6); WBC (Perox) 8.56
[2017-07-09] MEDS ORDERED: LEVOTHYROXINE 100 MCG TAB PO SCH ×2 (06:30)
[2017-07-09 06:37] LABS: Calcium 8.7 mg/dL (8.4-10.2); Potassium 3.7 mmol/L (3.5-5.1)
[2017-07-09 06:41] LABS: Glucose,Whole Blood 135 mg/dL (75-99)
[2017-07-09] MEDS ORDERED: INSULIN LISPRO (humaLOG) 300 UNIT/3 ML VIAL SQ SCH (07:30)
--- NOTE | 2017-07-09 08:24 | DS ---
DISCHARGE SUMMARY HISTORY: This is a pleasant 82-year-old female patient who was admitted to the hospital and underwent successful stenting of the proximal left circumflex with good angiographic results using drug-eluting stent. The patient will be discharged home today on dual anti-platelet therapy as well as statin. The patient will be followed in the office in a week from now. BRENDA / CLIVE: [id number] /
[2017-07-09] MEDS ORDERED: CHOLECALCIFEROL 1,000 UNIT TAB PO SCH (09:00)
[2017-07-09] MEDS ORDERED: CLOPIDOGREL 75 MG TAB PO SCH (09:00)
[2017-07-09] MEDS ORDERED: ASPIRIN 81 MG PO SCH (09:00)
[2017-07-09] MEDS ORDERED: ISOSORBIDE MONONITRATE ER 30 MG TAB.ER.24H PO SCH (09:00)
[2017-07-09] MEDS ORDERED: LOSARTAN 25 MG TAB PO SCH (09:00)
[2017-07-09] MEDS ORDERED: FERROUS SULFATE 325 MG TAB PO SCH (09:00)
[2017-07-09] MEDS: METOPROLOL TARTRATE 50 MG TAB PO SCH (09:29)
[2017-07-09] MEDS: GABAPENTIN 400 MG CAP PO SCH (09:30)
[2017-07-09 09:41] VITALS: BP 160/72; PULSE 65; TEMP 97.7
[2017-07-09 09:57] VITALS: BMI 38.0
[2017-07-09 13:52] LABS: Hemoglobin A1C 8.1 % (4.2-6.1)
[2017-07-10] MEDS ORDERED: CALCITRIOL 0.25 MCG CAP PO SCH (09:00)
== END 2017-07-09 11:21 | disposition home or self-care (01) ==
LOC: CATHCVL 06:52 → 6SEL 11:29 → CATHCVL 07-09 11:21
PROVIDERS: ATTEND Internal Medicine Interventional Cardiology
DX: I25.110 Atherosclerotic heart disease of native coronary artery with unstable angina pectoris (principal); I25.710 Atherosclerosis of autologous vein coronary artery bypass graft(s) with unstable angina pectoris; Q43.8 Other specified congenital malformations of intestine; E78.5 Hyperlipidemia, unspecified; E11.51 Type 2 diabetes mellitus with diabetic peripheral angiopathy without gangrene; N18.9 Chronic kidney disease, unspecified; I12.9 Hypertensive chronic kidney disease with stage 1 through stage 4 chronic kidney disease, or unspecified chronic kidney disease; E03.9 Hypothyroidism, unspecified; G62.9 Polyneuropathy, unspecified; Z88.8 Allergy status to other drugs, medicaments and biological substances; Z79.82 Long term (current) use of aspirin; Z79.899 Other long term (current) drug therapy; Z79.52 Long term (current) use of systemic steroids; Z79.4 Long term (current) use of insulin; Z82.49 Family history of ischemic heart disease and other diseases of the circulatory system; Z88.5 Allergy status to narcotic agent; Z88.0 Allergy status to penicillin; Z95.1 Presence of aortocoronary bypass graft
CPT/HCPCS: 99153 ×3; 99152; 93005; 80048 ×2; 83036; 85025; C9600; C1769 ×7; C1725 ×2; C1887 ×2; C1894; C1874; J2001; J2250; Q9967; J0583

== ENCOUNTER 2017-07-11 05:53 | Inpatient (IN) | payer MEDICARE, BC ==
[2017-07-11 07:19] LABS: ALT 29 U/L (9-52); AST 20 U/L (14-36); Alkaline Phosphatase 103 U/L (38-126); Amylase <30 U/L (30-110); Anion Gap 9 mmol/L; Blood Urea Nitrogen 35 mg/dL (7-17); Calcium 8.8 mg/dL (8.4-10.2); Carbon Dioxide 27 mmol/L (22-30); Chloride 105 mmol/L (98-107); Glucose 215 mg/dL (74-99); Magnesium 2.1 mg/dL (1.6-2.3); Non-African American GFR(MDRD) 30 (>60 ml/min/1.73 sqM); Potassium 3.9 mmol/L (3.5-5.1); Sodium 141 mmol/L (137-145); Total Bilirubin 0.4 mg/dL (0.2-1.3); Total Protein 6.4 g/dL (6.3-8.2)
[2017-07-11 07:26] LABS: Basophils % (A) 1 %; CH 29.8; CHCM 31.6; Eosinophils # (A) 0.3 k/uL (0-0.7); Eosinophils % (A) 5 %; HCT 43.7 % (34.0-46.0); HDW 2.35; HGB 13.9 gm/dL (11.4-16.0); Luc # (Auto) 0.12; Luc % (Auto) 2; Lymphocytes # (A) 2.5 k/uL (1.0-4.8); Lymphocytes % (A) 35 %; MCH 30.1 pg (25.0-35.0); MCHC 31.7 g/dL (31.0-37.0); MCV 94.9 fL (80.0-100.0); Mean Platelet Volume 9.3; Monocytes # (A) 0.5 k/uL (0-1.0); Monocytes % (A) 7 %; Neutrophils # (A) 3.7 k/uL (1.3-7.7); Neutrophils % (A) 52 %; RDW 14.4 % (11.5-15.5); WBC 7.1 k/uL (3.8-10.6); WBC (Perox) 7.34
[2017-07-11] MEDS ORDERED: HYDROmorphone 1 MG/ML 1 ML SYRINGE IVP STA (07:32)
[2017-07-11 07:33] LABS: INR 1.1 (<1.2); Partial Thromboplastin Time 23.4 sec (22.0-30.0); Prothrombin Time 10.8 sec (9.0-12.0)
[2017-07-11] MEDS: HYDROmorphone 0.5 MG/0.5 ML SYRINGE IVP STA ×2 (07:36→12:26)
[2017-07-11] MEDS ORDERED: HEPARIN SODIUM,PORCINE 5,000 UNIT/ML 1 ML VIAL IV PRN (07:38)
[2017-07-11] MEDS ORDERED: HEPARIN SODIUM,PORCINE 5,000 UNIT/ML 1 ML VIAL IV ONE (07:38)
[2017-07-11 07:54] LABS: Troponin I 0.073 ng/mL (0.000-0.034)
--- NOTE | 2017-07-11 08:01 | XR ---
EXAMINATION TYPE: XR chest 1V portable DATE OF EXAM: 07/11/2017 COMPARISON: 07/07/2014 HISTORY: Shortness of breath TECHNIQUE: Frontal and lateral views of the chest are obtained. FINDINGS: Scattered senescent parenchymal changes noted. Hyperinflation compatible with COPD. No evidence for infiltrate. No evidence for atelectasis. Heart size is stable. Mediastinal structures are stable and grossly unremarkable. No evidence for hilar prominence. Degenerative changes dorsal spine. IMPRESSION: 1. No evidence for acute pulmonary disease.
[2017-07-11] MEDS: HEPARIN SODIUM,PORCINE/D5W PMX 25,000 UNIT in DEXTROSE/WATER 1 500ML.BAG IV SCH (08:13)
[2017-07-11] MEDS ORDERED: SODIUM CHLORIDE 0.9% 1,000 ML IV STA (08:20)
--- NOTE | 2017-07-11 10:25 | ED ---
Chest Pain HPI - General Chief Complaint: Chest Pain Stated Complaint: chest pain Time Seen by Provider: 07/11/17 06:24 Source: patient, EMS, RN notes reviewed Mode of arrival: EMS Limitations: no limitations - History of Present Illness Initial Comments: This is an 82-year-old female who was originally seen by Dr. Adan in the emergency department before my shift started who states she had the onset at 5 AM this morning of 24/07 midsternal chest pain it was heavy in nature. She states it is improved at this time however. Is very mild now she denied any fevers chills nausea vomiting sweats or other symptoms. Patient did just recently had a cardiac catheterization and stent placement. She denies any other symptoms MD Complaint: chest pain - Related Data Home Medications Medication Instructions Recorded Confirmed Aspirin 81 mg PO DAILY 10/16/14 07/11/17 Atorvastatin [Lipitor] 80 mg PO HS 10/16/14 07/11/17 Cholecalciferol [Vitamin D3] 5,000 unit PO DAILY 10/16/14 07/11/17 Metoprolol Tartrate [Lopressor] 50 mg PO BID 10/16/14 07/11/17 Nitroglycerin Sl Tabs [Nitrostat] 0.4 mg SUBLINGUAL Q5M PRN 11/07/14 07/11/17 Gabapentin [Neurontin] 800 mg PO QID 02/21/15 07/11/17 Calcitriol 0.25 mcg PO SUTH 09/09/16 07/11/17 Ferrous Sulfate [Iron] 325 mg PO DAILY 06/15/17 07/11/17 Furosemide [Lasix] 40 mg PO TID 06/15/17 07/11/17 INSULIN LISPRO (HumaLOG) [humaLOG] 6 unit SQ -BRKFST 07/08/17 07/11/17 Previous Rx's Medication Instructions Recorded Insulin Glargine,Hum.rec.anlog 20 units SQ HS@2100 #0 06/17/17 [[place] Solostar] Isosorbide Mononitrate ER [Imdur] 30 mg PO DAILY #30 tab 06/17/17 Levothyroxine Sodium [Synthroid] 100 mcg PO DAILY@0630 #30 tab 06/17/17 Losartan [Cozaar] 25 mg PO DAILY #30 tab 06/17/17 Clopidogrel [Plavix] 75 mg PO DAILY #90 tab 07/09/17 Allergies Allergy/AdvReac Type Severity Reaction Status Date / Time Iodinated Contrast- Oral and Allergy Severe Anaphylaxis Verified 07/11/17 08:37 IV Dye [Iodinated Contrast Media - IV Dye] captopril [From Capoten] Allergy Unknown PASSED OUT Verified 07/11/17 08:37 morphine Allergy Unknown Verified 07/11/17 08:37 Penicillins Allergy Unknown Verified 07/11/17 08:37 sulfamethoxazole AdvReac Unknown Diarrhea Verified 07/11/17 08:37 [From Bactrim] trimethoprim [From Bactrim] AdvReac Unknown Diarrhea Verified 07/11/17 08:37 X-RAY CONTRAST Allergy Unknown Unknown Uncoded 07/11/17 06:02 Review of Systems ROS Statement: Those systems with pertinent positive or pertinent negative responses have been documented in the HPI. ROS Other: All systems not noted in ROS Statement are negative. EKG Findings - EKG Results: EKG: interpreted by ERMD, sinus rhythm (Sinus rhythm with first-degree AV block rate was 83. Arrival 214 QRS 94 QT since QTC of 42/472 poor R-wave progression this was compared with EKG dated 06/15/17 no acute changes) Past Medical History Past Medical History: Coronary Artery Disease (CAD), Chest Pain / Angina, Diabetes Mellitus, GERD/Reflux, Hyperlipidemia, Hypertension, Osteoarthritis (OA ), Thyroid Disorder Additional Past Medical History / Comment(s): HEPATITIS FROM BLOOD TRANSFUSION ( 1971), BACK PAIN, CAN ONLY STAND A FEW MINS AT A TIME. CYST ON KIDNEY, STATES "BURNING" FEELING UNDER SKIN AND "SHORT WINDED" WITH ACTIVITY. SEE CARDIOLOGY H & P. History of Any Multi-Drug Resistant Organisms: None Reported Past Surgical History: Appendectomy, Cholecystectomy, Heart Catheterization, Hernia Repair Additional Past Surgical History / Comment(s): carpal tunnel; right and left finger release; CABG - 1998. Spinal cord stimulator implantation (2009) AND REMOVED. Bilateral cataract removal. Right hip surgery - too put in. HIATAL HERNIA REPAIR. Stents placed 07/09/17. Past Anesthesia/Blood Transfusion Reactions: No Reported Reaction Additional Past Anesthesia/Blood Transfusion Reaction / Comment(s): contracted hepatits after blood transfusion (1971) Past Psychological History: No Psychological Hx Reported Smoking Status: Never smoker Past Alcohol Use History: Rare Past Drug Use History: None Reported - Past Family History Mother Family Medical History: Cancer Additional Family Medical History / Comment(s): HODGKINS Son(s) Family Medical History: Cancer Additional Family Medical History / Comment(s): KIDNEY CANCER General Exam - General Exam Comments Initial Comments: Is a well-developed well-nourished awake alert oriented 3 female Limitations: no limitations General appearance: alert, in no apparent distress Head exam: Present: atraumatic, normocephalic, normal inspection Eye exam: Present: normal appearance, PERRL, EOMI. Absent: scleral icterus, conjunctival injection, periorbital swelling ENT exam: Present: normal exam, mucous membranes moist Neck exam: Present: normal inspection. Absent: tenderness, meningismus, lymphadenopathy Respiratory exam: Present: normal lung sounds bilaterally. Absent: respiratory distress, wheezes, rales, rhonchi, stridor Cardiovascular Exam: Present: regular rate, normal rhythm, normal heart sounds. Absent: systolic murmur, diastolic murmur, rubs, gallop, clicks GI/Abdominal exam: Present: soft, normal bowel sounds. Absent: distended, tenderness, guarding, rebound, rigid Extremities exam: Present: normal inspection, full ROM, normal capillary refill. Absent: tenderness, pedal edema, joint swelling, calf tenderness Back exam: Present: normal inspection Neurological exam: Present: alert, oriented X3, CN II-XII intact Psychiatric exam: Present: normal affect, normal mood Skin exam: Present: warm, dry, intact, normal color. Absent: rash Course Vital Signs 07/11/17 07/11/17 07/11/17 05:57 07:30 07:39 Temperature 97.6 F Pulse Rate 97 77 Respiratory 18 18 Rate Blood Pressure 169/95 198/95 187/80 O2 Sat by Pulse 97 96 Oximetry 07/11/17 07/11/17 08:27 09:43 Temperature 97.8 F Pulse Rate 80 76 Respiratory 16 20 Rate Blood Pressure 169/77 169/77 O2 Sat by Pulse 96 99 Oximetry - Reevaluation(s) Reevaluation #1: 07/11/17 10:25 Repeat EKG showed a sinus rhythm a 73 first-degree AV block ME interval 222 QRS 94 daily since QTC of 426/469 nonspecific changes no change seen with compared to previous EKGs. Chest Pain MDM - MDM I did review the imaging and report no acute findings. I did discuss findings with the patient family patient will be admitted I did discuss case with Dr. Bai. Cardiology will be consulted Critical Care Time Critical Care Time: Yes Critical Care Time: 31 minutes of critical care time which includes initial handoff this morning reevaluation the patient history physical labs x-rays reevaluation of the same reevaluation the patient response to treatment admission orders documentation the above discussed with Dr. Bai Disposition Clinical Impression: Unstable angina pectoris, Chest pain Disposition: ADMITTED IP TO THIS [facility] Condition: Stable Referrals: Johan Bai MD [Primary Care Provider] - 1-2 days
[2017-07-11] MEDS ORDERED: NITROGLYCERIN SL TABS 0.4 MG TAB SUBLINGUAL PRN (10:31)
[2017-07-11 12:03] LABS: Hemoglobin A1C 8.1 % (4.2-6.1)
[2017-07-11 12:31] LABS: Creatine Kinase MB 1.4 ng/mL (0.0-2.4)
[2017-07-11] MEDS ORDERED: ONDANSETRON 4 MG/2 ML VIAL IVP STA ×2 (12:34→17:10)
[2017-07-11 12:47] LABS: Troponin I 0.274 ng/mL (0.000-0.034)
[2017-07-11] MEDS ORDERED: FUROSEMIDE 40 MG TAB PO SCH (16:00)
[2017-07-11 16:57] LABS: Glucose,Whole Blood 209 mg/dL (75-99)
[2017-07-11] MEDS: INSULIN LISPRO (humaLOG) 300 UNIT/3 ML VIAL SQ SCH ×3 (17:03→21:28)
[2017-07-11] MEDS: GABAPENTIN 400 MG CAP PO SCH ×3 (17:04→21:26)
[2017-07-11] MEDS: SODIUM CHLORIDE 0.9% 1,000 ML IV SCH (17:12)
[2017-07-11] MEDS: FUROSEMIDE 40 MG TAB PO SCH (17:12)
[2017-07-11] MEDS: amLODIPine 5 MG TAB PO SCH (17:15)
[2017-07-11] MEDS: NITROGLYCERIN SL TABS 0.4 MG TAB SUBLINGUAL PRN ×2 (17:19→17:24)
[2017-07-11] MEDS ORDERED: HYDROmorphone 0.5 MG/0.5 ML SYRINGE IVP PRN (17:54)
[2017-07-11] MEDS ORDERED: ZOLPIDEM 5 MG TAB PO PRN (18:28)
[2017-07-11 19:21] LABS: Creatine Kinase MB 1.9 ng/mL (0.0-2.4)
[2017-07-11 19:25] LABS: Troponin I 0.393 ng/mL (0.000-0.034)
--- NOTE | 2017-07-11 20:06 | P.HPIM ---
History of Present Illness H&P Date: 07/11/17 Chief Complaint: Recurrent chest pain This is a history and physical and 82-year-old white female who was recently admitted for stent placement last week. She states today severe chest pressure without any exertional activity. No significant nausea but the pressure was substernal in nature. Retrosternal has improved her symptomatology but she still feels significant pain. No nausea stated. However lack of sleep in the last several days as made her even more tired. She is a nonsmoker but has history of diabetes with renal impairment.She has enzymatic elevation but I suspect this is related to leakage from recent procedure. After being given pain medication and nitroglycerin, she seems stabilized but tired. Review of Systems Constitutional: Reports fatigue, Denies chills, Denies fever Eyes: denies blurred vision, denies pain Ears, nose, mouth and throat: Denies headache, Denies sore throat Cardiovascular: Reports chest pain, Reports dyspnea on exertion Gastrointestinal: Denies abdominal pain, Denies diarrhea, Denies nausea, Denies vomiting Genitourinary: Denies dysuria, Denies hematuria Musculoskeletal: Denies myalgias Integumentary: Denies pruritus, Denies rash Past Medical History Past Medical History: Coronary Artery Disease (CAD), Chest Pain / Angina, Diabetes Mellitus, GERD/Reflux, Hyperlipidemia, Hypertension, Osteoarthritis (OA ), Renal Disease, Thyroid Disorder Additional Past Medical History / Comment(s): IDDM TYPE II, 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 History of Any Multi-Drug Resistant Organisms: None Reported Past Surgical History: Appendectomy, Cholecystectomy, Heart Catheterization, Heart Catheterization With Stent, Hernia Repair Additional Past Surgical History / Comment(s): 07/08/17 PCI with stent to LCX, bilateral carpal tunnel; right and left finger release; CABG - 1998. Spinal cord stimulator implantation (2009) AND REMOVED. Bilateral cataract removal with lens implants,. Right hip surgery - too put in. HIATAL HERNIA REPAIR. Stents placed 07/09/17. Past Anesthesia/Blood Transfusion Reactions: No Reported Reaction Additional Past Anesthesia/Blood Transfusion Reaction / Comment(s): contracted hepatits after blood transfusion (1971) Date of Last Stent Placement:: 07/08/17 Smoking Status: Never smoker - Past Family History Mother Family Medical History: Cancer Additional Family Medical History / Comment(s): HODGKINS Son(s) Family Medical History: Cancer Additional Family Medical History / Comment(s): KIDNEY CANCER Medications and Allergies Home Medications Medication Instructions Recorded Confirmed Type Aspirin 81 mg PO DAILY 10/16/14 07/11/17 History Atorvastatin [Lipitor] 80 mg PO HS 10/16/14 07/11/17 History Cholecalciferol [Vitamin D3] 5,000 unit PO DAILY 10/16/14 07/11/17 History Metoprolol Tartrate [Lopressor] 50 mg PO BID 10/16/14 07/11/17 History Nitroglycerin Sl Tabs [Nitrostat] 0.4 mg SUBLINGUAL Q5M PRN 11/07/14 07/11/17 History Gabapentin [Neurontin] 800 mg PO QID 02/21/15 07/11/17 History Calcitriol 0.25 mcg PO SUTH 09/09/16 07/11/17 History Ferrous Sulfate [Iron] 325 mg PO DAILY 06/15/17 07/11/17 History Furosemide [Lasix] 40 mg PO TID 06/15/17 07/11/17 History Insulin Glargine,Hum.rec.anlog 20 units SQ HS@2100 #0 06/17/17 07/11/17 Rx [[place] Solostar] Isosorbide Mononitrate ER [Imdur] 30 mg PO DAILY #30 tab 06/17/17 07/11/17 Rx Levothyroxine Sodium [Synthroid] 100 mcg PO DAILY@0630 #30 tab 06/17/17 Rx Losartan [Cozaar] 25 mg PO DAILY #30 tab 06/17/17 07/11/17 Rx INSULIN LISPRO (HumaLOG) [humaLOG] 6 unit SQ AC-BRKFST 07/08/17 07/11/17 History Clopidogrel [Plavix] 75 mg PO DAILY #90 tab 07/09/17 07/11/17 Rx Allergies Allergy/AdvReac Type Severity Reaction Status Date / Time Iodinated Contrast- Oral and Allergy Severe Anaphylaxis Verified 07/11/17 08:37 IV Dye [Iodinated Contrast Media - IV Dye] captopril [From Capoten] Allergy Unknown PASSED OUT Verified 07/11/17 08:37 morphine Allergy Unknown Verified 07/11/17 08:37 Penicillins Allergy Unknown Verified 07/11/17 08:37 sulfamethoxazole AdvReac Unknown Diarrhea Verified 07/11/17 08:37 [From Bactrim] trimethoprim [From Bactrim] AdvReac Unknown Diarrhea Verified 07/11/17 08:37 X-RAY CONTRAST Allergy Unknown Unknown Uncoded 07/11/17 06:02 Physical Exam Vitals: Vital Signs Temp Pulse Pulse Resp BP BP Pulse Ox 07/11/17 15:01 96.5 F L 66 18 161/84 96 07/11/17 14:41 97.8 F 67 16 180/84 97 07/11/17 13:36 97.7 F 65 16 126/78 97 07/11/17 11:55 71 18 171/83 97 07/11/17 09:43 76 20 169/77 99 07/11/17 08:27 97.8 F 80 16 169/77 96 07/11/17 07:39 187/80 07/11/17 07:30 77 18 198/95 96 07/11/17 05:57 97.6 F 97 18 169/95 97 Intake and Output 07/11/17 07/11/17 07/11/17 06:59 14:59 22:59 Output Total 400 Balance -400 Output: Urine 400 Other: # Bowel Movements 0 Weight 83.007 kg - Constitutional General appearance: no acute distress - EENT Eyes: EOMI - Neck Neck: no lymphadenopathy - Respiratory Respiratory: bilateral: CTA - Cardiovascular Rhythm: regular Heart sounds: normal: S1, S2 - Gastrointestinal General gastrointestinal: soft, no tenderness - Integumentary Integumentary: no cellulitis, no cyanotic, normal turgor - Neurologic Neurologic: CNII-XII intact - Psychiatric Psychiatric: A&O x's 3, appropriate affect, intact judgment & insight Results CBC & Chem 7: 07/11/17 06:03 07/11/17 06:03 Labs: Abnormal Lab Results - Last 24 Hours (Table) 07/11/17 07/11/17 07/11/17 Range/Units 06:03 06:03 06:03 D-Dimer 1.30 H (<0.60) mg/L FEU BUN 35 H (7-17) mg/dL Creatinine 1.62 H (0.52-1.04) mg/dL Glucose 215 H (74-99) mg/dL POC Glucose (mg/dL) (75-99) mg/dL Hemoglobin A1c (4.2-6.1) % Troponin I 0.073 H* (0.000-0.034) ng/mL Albumin 3.4 L (3.5-5.0) g/dL Amylase <30 L (30-110) U/L 07/11/17 07/11/17 07/11/17 Range/Units 11:16 11:16 16:37 D-Dimer (<0.60) mg/L FEU BUN (7-17) mg/dL Creatinine (0.52-1.04) mg/dL Glucose (74-99) mg/dL POC Glucose (mg/dL) 209 H (75-99) mg/dL Hemoglobin A1c 8.1 H (4.2-6.1) % Troponin I 0.274 H* (0.000-0.034) ng/mL Albumin (3.5-5.0) g/dL Amylase (30-110) U/L 07/11/17 Range/Units 18:33 D-Dimer (<0.60) mg/L FEU BUN (7-17) mg/dL Creatinine (0.52-1.04) mg/dL Glucose (74-99) mg/dL POC Glucose (mg/dL) (75-99) mg/dL Hemoglobin A1c (4.2-6.1) % Troponin I 0.393 H* (0.000-0.034) ng/mL Albumin (3.5-5.0) g/dL Amylase (30-110) U/L Thrombosis Risk Factor Assmnt - Choose All That Apply Any of the Below Risk Factors Present?: Yes Each Factor Represents 1 point: Obesity (BMI >25) Each Risk Factor Represents 3 Points: Age 75 years or older Other congenital or acquired thrombophilia - If yes, enter type in comment: No Thrombosis Risk Factor Assessment Total Risk Factor Score: 4 Thrombosis Risk Factor Assessment Level: Moderate Risk Assessment and Plan (1) Chest pain Status: Acute (2) Coronary artery disease Status: Chronic (3) Hypertension Status: Chronic (4) Lipidemia Status: Chronic (5) Type II diabetes mellitus with peripheral circulatory disorder, uncontrolled Status: Chronic Plan: Ascertain if she's had any acute injury. This is somewhat unlikely given the fact that she is appropriately anticoagulated. However, given the fact that she has recently had stent placed, this is an obvious risk for her. Reconcile medications. Continue sliding scale insulin. We'll continue to follow with cardiology. Prognosis guarded secondary to her advanced age and multiple comorbidities. Time with Patient: Less than 30
[2017-07-11 20:51] LABS: Glucose,Whole Blood 238 mg/dL (75-99)
[2017-07-11] MEDS ORDERED: ONDANSETRON 4 MG/2 ML VIAL IVP PRN (21:15)
[2017-07-11] MEDS: ATORVASTATIN 80 MG TAB PO SCH (21:26)
[2017-07-11] MEDS: METOPROLOL TARTRATE 50 MG TAB PO SCH (21:26)
[2017-07-11] MEDS: INSULIN GLARGINE 100 UNIT/ML 10 ML VIAL SQ SCH (21:26)
--- NOTE | 2017-07-12 05:17 | CONS ---
CONSULTATION Mrs. Tom is an 82-year-old female with known history of coronary artery disease, status post bypass grafting in 1998, history of recent stenting of the proximal left circumflex done by Dr. Callahan a few days ago and discharged home on Tuesday who at home had chest heaviness that was persistent. Because of that, she came into the emergency room and subsequently admitted. The patient has undergone the cardiac catheterization on June 16 and at that time, she had a total occlusion of the LAD, 70% ostial circumflex and 1st obtuse marginal branch. RCA was totally occluded. The vein graft to the obtuse marginal branch is a 40% lesion involving the body of the graft. The patient has undergone stenting of the left circumflex done on July 08 and at that time received a 3.5 x 16 mm PROMUS stent with good result. She feels the discomfort in the chest at times. At time she feels that it is worse with movement and there is some improvement with nitroglycerin, but according to her, she had those symptoms for a long time. She has some dizziness. She feels fatigue overall. She has some dyspnea on exertion. No clear PND or orthopnea. No syncope. Her coronary risk factors are remarkable for history of diabetes, hypertension, and hyperlipidemia. She is nonsmoker. Her medication include aspirin, Lipitor 80 mg daily, Plavix 75 mg daily, iron, furosemide 40 mg 3 times a day, gabapentin, insulin, isosorbide mononitrate 30 mg daily, levothyroxine, losartan 25 mg daily, and metoprolol tartrate 50 mg twice a day. REVIEW OF SYSTEMS: RESPIRATORY SYSTEM: She had dyspnea on exertion. No recent wheezing or cough. GI SYSTEM: No recent GI bleed. No peptic ulcer disease. SYSTEM: No dysuria or hematuria. NERVOUS SYSTEM: No history of stroke or seizure. Prior echocardiogram revealed ejection fraction of 45-50%. PHYSICAL EXAMINATION: She is an 82-year-old female, alert, oriented, in no apparent distress. Blood pressure running in the 160s with a heart rate in the 60s. HEAD: Normocephalic. EYES: Sclerae anicteric. NECK: No jugular venous distention. LUNGS: Clear to auscultation. HEART: Regular rate and rhythm. S1, S2. No S3 with systolic murmur, 2/6 heard at the left sternal border. No diastolic murmur. No rub. ABDOMEN: Soft, nontender. Positive bowel sounds. No megaly. EXTREMITIES: No edema. LAB DATA: BUN and creatinine 35 and 1.62, potassium 3.9. Troponin 0.073 and 0.274. Her hemoglobin is 13.9. Her EKG revealed a sinus mechanism with a normal axis and intervals and nonspecific ST-T wave changes with no evolution compared with the prior EKG. IMPRESSION: 1. Chest discomfort of unclear etiology in a patient with known history of coronary artery disease and recent stenting. There is no evidence to suggest acute stent thrombosis. 2. Status post bypass grafting. 3. History of chronic kidney disease. 4. Hypertension. 5. Hyperlipidemia. 6. Diabetes mellitus. RECOMMENDATION: I will adjust her medical regimen and will observe her until tomorrow and find out if she has any further symptoms that she will require repeat coronary angiography. I have discussed her case with Dr. Callahan, her primary sergeant at arms. Thank you for this consult. We will follow with you. MMKUNL / IJN: [id number] /
[2017-07-12 06:06] LABS: Glucose,Whole Blood 184 mg/dL (75-99)
[2017-07-12] MEDS: LEVOTHYROXINE 100 MCG TAB PO SCH (06:48)
[2017-07-12 08:40] LABS: Basophils % (A) 0 %; CH 29.6; CHCM 31.2; Eosinophils # (A) 0.2 k/uL (0-0.7); Eosinophils % (A) 2 %; HCT 39.2 % (34.0-46.0); HDW 2.34; HGB 12.5 gm/dL (11.4-16.0); Hypochromasia Slight; Luc # (Auto) 0.05; Luc % (Auto) 1; Lymphocytes # (A) 1.4 k/uL (1.0-4.8); Lymphocytes % (A) 19 %; MCH 30.5 pg (25.0-35.0); MCHC 31.9 g/dL (31.0-37.0); MCV 95.6 fL (80.0-100.0); Mean Platelet Volume 9.4; Monocytes # (A) 0.4 k/uL (0-1.0); Monocytes % (A) 6 %; Neutrophils # (A) 5.2 k/uL (1.3-7.7); Neutrophils % (A) 72 %; RDW 14.5 % (11.5-15.5); WBC 7.2 k/uL (3.8-10.6)
[2017-07-12] MEDS ORDERED: ATORVASTATIN 80 MG TAB PO STA (08:42)
[2017-07-12] MEDS ORDERED: SODIUM CHLORIDE 0.9% 1,000 ML in EMPTY BAG 1 BAG IV ONE (08:42)
[2017-07-12] MEDS ORDERED: ALPRAZolam 0.5 MG TAB PO PRN (08:42)
[2017-07-12] MEDS ORDERED: NITROGLYCERIN SL TABS 0.4 MG TAB SUBLINGUAL PRN (08:42)
[2017-07-12] MEDS ORDERED: ASPIRIN 325 MG TAB PO STA (08:42)
[2017-07-12] MEDS ORDERED: ALPRAZolam 0.25 MG TAB PO PRN (08:42)
[2017-07-12] MEDS: INSULIN LISPRO (humaLOG) 300 UNIT/3 ML VIAL SQ SCH ×5 (08:52→21:19)
[2017-07-12] MEDS: GABAPENTIN 400 MG CAP PO SCH ×4 (08:55→21:20)
[2017-07-12] MEDS: CHOLECALCIFEROL 1,000 UNIT TAB PO SCH (08:55)
[2017-07-12] MEDS: FUROSEMIDE 40 MG TAB PO SCH ×2 (08:55→20:21)
[2017-07-12] MEDS: ASPIRIN 81 MG PO SCH (08:56)
[2017-07-12] MEDS: METOPROLOL TARTRATE 50 MG TAB PO SCH ×2 (08:56→21:20)
[2017-07-12] MEDS: CLOPIDOGREL 75 MG TAB PO SCH (08:56)
[2017-07-12] MEDS: ISOSORBIDE MONONITRATE ER 30 MG TAB.ER.24H PO SCH (08:56)
[2017-07-12] MEDS: LOSARTAN 25 MG TAB PO SCH (08:56)
[2017-07-12] MEDS ORDERED: ISOSORBIDE MONONITRATE ER 30 MG TAB.ER.24H PO SCH (09:00)
[2017-07-12] MEDS ORDERED: ASPIRIN 325 MG TAB PO SCH (09:00)
[2017-07-12 09:02] LABS: Calcium 8.4 mg/dL (8.4-10.2); Potassium 4.2 mmol/L (3.5-5.1)
--- NOTE | 2017-07-12 09:15 | PN ---
PROGRESS NOTE Mrs. Tom is an 82-year-old female with known history of coronary artery disease, status post coronary artery bypass grafting and recent percutaneous revascularization who presented again to the hospital with chest heaviness. She is feeling better today, but she has discomfort when she walks around. She denies any dizziness or palpitation. She denies any change in her breathing. She denies any clear PND nor orthopnea. She continues to be on aspirin once a day, Lipitor 80 mg daily, Plavix 75 mg daily, iron and Lasix 40 mg twice a day, IV heparin, insulin, isosorbide mononitrate 60 mg daily, losartan 25 mg daily. PHYSICAL EXAMINATION: Blood pressure 143/60 with the heart rate in the 70s. LUNGS: Clear. HEART: Regular rate and rhythm. S1, S2. No S3, no rub with a systolic murmur. ABDOMEN: Soft, nontender. EXTREMITIES: No edema. LAB DATA: Lab data revealed troponin 0.393. Her BUN and creatinine are pending this morning. IMPRESSION: 1. Symptoms of chest discomfort and evidence of enzymatic changes consistent with non- ST elevation myocardial infarction in a patient with recent percutaneous revascularization. The trend is upward for her enzymes. 2. Status post coronary artery bypass grafting. 3. Chronic kidney disease. 4. Hypertension. 5. Hyperlipidemia. RECOMMENDATION: I have discussed with the patient the finding, I have recommend proceeding with coronary angiography to assess her status and guide her treatment. The rationale behind the procedure as well as risks and complications were discussed with her. The procedure will be done by Dr. Callahan. Those findings were discussed with Dr. Callahan. BRENDA / CLIVE: [id number] /
[2017-07-12 11:33] LABS: Glucose,Whole Blood 151 mg/dL (75-99)
[2017-07-12] MEDS ORDERED: IV FLUID CONTINUATION 450 ML IV ONE (13:00)
[2017-07-12] MEDS ORDERED: LIDOCAINE 2% INJ 20 MG/ML (20 ML MDV) ONE (13:04)
[2017-07-12] MEDS ORDERED: MIDAZOLAM 2 MG/2 ML VIAL ONE (13:10)
[2017-07-12] MEDS: MIDAZOLAM 2 MG/2 ML VIAL IV ONE ×2 (13:10→13:26)
[2017-07-12] MEDS ORDERED: diphenhydrAMINE 50 MG/ML 1 ML VIAL IVP ONE (13:13)
[2017-07-12] MEDS ORDERED: diphenhydrAMINE 50 MG/ML 1 ML VIAL ONE (13:13)
[2017-07-12] MEDS ORDERED: methylPREDNISolone SOD SUCCI 125 MG/2 ML VIAL ONE (13:16)
[2017-07-12] MEDS ORDERED: LIDOCAINE 2% INJ 20 MG/ML SQ ONE (13:16)
[2017-07-12] MEDS ORDERED: methylPREDNISolone SOD SUCCI 125 MG/2 ML VIAL IV ONE (13:24)
[2017-07-12] MEDS ORDERED: niCARdipine Syringe (1,000 mcg/10 mL) INTRACORON ONE (13:29)
[2017-07-12] MEDS ORDERED: IODIXANOL 320 MG/ML 100 ML INTRAARTER ONE (13:37)
[2017-07-12] MEDS ORDERED: RX INFO: IV CONTRAST WAS GIVEN 1 EACH MISC MISCELLANE PRN (13:37)
[2017-07-12] MEDS ORDERED: SODIUM CHLORIDE 0.9% 1,000 ML IV SCH (13:45)
[2017-07-12 13:56] VITALS: BMI 37.7
[2017-07-12 16:49] LABS: Glucose,Whole Blood 134 mg/dL (75-99)
[2017-07-12] MEDS: HEPARIN SODIUM,PORCINE/D5W PMX 25,000 UNIT in DEXTROSE/WATER 1 500ML.BAG IV SCH (19:48)
--- NOTE | 2017-07-12 20:18 | CC ---
CARDIAC CATHETERIZATION REPORT 07/12/2017 PERFORMING PHYSICIAN: Dandre Callahan MD, interventional risks. PROCEDURE PERFORMED: 1. Selective left coronary angiogram. 2. SVG to a circumflex angiogram. INDICATION: This is a pleasant 82-year-old female patient who presented to the hospital with chest discomfort and ruled in for acute non STEMI. She underwent stenting to the distal left main, proximal left circumflex a few days ago. She was discharged at that time with a stable medical condition. APPROACH: Right common femoral artery. COMPLICATION: None. LEVEL OF SEDATION: Moderate with sedation length of 15 minutes. PROCEDURE DESCRIPTION: After obtaining informed consent, the patient was brought to the cardiac cardiac catheterization technician. The right common femoral artery was cannulated using micropuncture technique, the micropuncture wire passed easily then I placed a 6-Ukrainian sheath in the right common femoral artery. Subsequently I did selective right and left coronary angiogram using JL4 and SVG to left circumflex angiogram using JR4 catheter. The procedure was completed without any complication. SELECTIVE CORONARY ANGIOGRAM: 1. The left main is stented distally and the stent extends to the proximal left circumflex. The stent is patent. The mid and distal left circumflex appeared to be angiographically normal. 2. The LAD is chronically occluded in the proximal portion and is protected by a HERNANDEZ. 3. SVG to left circumflex is patent and there is what seems to be an air bubble in the mid portion of that SVG. CONCLUSION: 1. Patent stent in the distal left main, proximal left circumflex coronary arteries. 2. Patent SVG to left circumflex. POSTPROCEDURE MANAGEMENT: Maximize medical treatment and follow up with the patient. MMODL / IJN: [id number] /
[2017-07-12] MEDS: amLODIPine 5 MG TAB PO SCH (20:20)
[2017-07-12] MEDS: SODIUM CHLORIDE 0.9% 1,000 ML IV SCH (20:20)
[2017-07-12] MEDS: FERROUS SULFATE 325 MG TAB PO SCH (20:21)
[2017-07-12 20:54] LABS: Glucose,Whole Blood 212 mg/dL (75-99)
[2017-07-12] MEDS: INSULIN GLARGINE 100 UNIT/ML 10 ML VIAL SQ SCH (21:19)
[2017-07-12] MEDS: ATORVASTATIN 80 MG TAB PO SCH (21:19)
[2017-07-13] MEDS: HEPARIN SODIUM,PORCINE/D5W PMX 25,000 UNIT in DEXTROSE/WATER 1 500ML.BAG IV SCH (05:18)
[2017-07-13 06:03] LABS: Glucose,Whole Blood 209 mg/dL (75-99)
[2017-07-13 06:15] LABS: Basophils % (A) 0 %; CH 29.7; CHCM 30.6; Eosinophils % (A) 0 %; HCT 37.1 % (34.0-46.0); HDW 2.32; HGB 11.3 gm/dL (11.4-16.0); Hypochromasia Slight; Luc # (Auto) 0.07; Luc % (Auto) 1; Lymphocytes # (A) 1.2 k/uL (1.0-4.8); Lymphocytes % (A) 14 %; MCH 29.8 pg (25.0-35.0); MCHC 30.5 g/dL (31.0-37.0); MCV 97.6 fL (80.0-100.0); Mean Platelet Volume 8.5; Monocytes # (A) 0.5 k/uL (0-1.0); Monocytes % (A) 6 %; Neutrophils # (A) 6.8 k/uL (1.3-7.7); Neutrophils % (A) 80 %; RDW 14.6 % (11.5-15.5); WBC 8.5 k/uL (3.8-10.6); WBC (Perox) 9.23
[2017-07-13 06:32] LABS: Calcium 8.5 mg/dL (8.4-10.2); Potassium 4.1 mmol/L (3.5-5.1)
[2017-07-13] MEDS: INSULIN LISPRO (humaLOG) 300 UNIT/3 ML VIAL SQ SCH ×5 (06:56→21:32)
[2017-07-13] MEDS: LEVOTHYROXINE 100 MCG TAB PO SCH (06:56)
[2017-07-13] MEDS: CHOLECALCIFEROL 1,000 UNIT TAB PO SCH (07:48)
[2017-07-13] MEDS: amLODIPine 5 MG TAB PO SCH (07:48)
[2017-07-13] MEDS: METOPROLOL TARTRATE 50 MG TAB PO SCH ×2 (07:49→21:32)
[2017-07-13] MEDS: LOSARTAN 25 MG TAB PO SCH (07:49)
[2017-07-13] MEDS: GABAPENTIN 400 MG CAP PO SCH ×4 (07:49→21:32)
[2017-07-13] MEDS: FUROSEMIDE 40 MG TAB PO SCH ×2 (07:49→16:56)
[2017-07-13] MEDS: CLOPIDOGREL 75 MG TAB PO SCH (07:49)
[2017-07-13] MEDS: ISOSORBIDE MONONITRATE ER 30 MG TAB.ER.24H PO SCH (07:49)
[2017-07-13] MEDS: FERROUS SULFATE 325 MG TAB PO SCH (07:49)
[2017-07-13] MEDS: ASPIRIN 81 MG PO SCH (07:49)
[2017-07-13] MEDS: SODIUM CHLORIDE 0.9% 1,000 ML IV SCH (11:09)
[2017-07-13 12:25] LABS: Glucose,Whole Blood 214 mg/dL (75-99)
--- NOTE | 2017-07-13 13:01 | P.PN ---
Subjective Progress Note Date: 07/13/17 This is a pleasant 82-year-old female with history of recent stenting to the distal left main and proximal left circumflex. Following this she was discharged in a stable medical condition. She presented yet again to the hospital with complaints of chest discomfort and was ruled in for an non-ST elevated myocardial infarction. She underwent cardiac catheterization yesterday which showed patent stent to the distal left main and proximal left circumflex arteries, patent SVG to left circumflex chronically occluded LAD in the proximal portion protected by a HERNANDEZ. SVG to left circumflex is patent but there seemed to be an air bubble in the midportion of SVG. On examination this morning, patient is resting completely embedded. She continues to complain of a full feeling in her upper chest and throat, since this seems to be related to eating. She is otherwise feeling well. Objective - Vital Signs Vital signs: Vital Signs Temp 97 F L 07/13/17 07:56 Pulse 52 L 07/13/17 11:13 Resp 16 07/13/17 11:15 BP 110/45 07/13/17 11:13 Pulse Ox 99 07/13/17 11:13 Intake & Output 07/12/17 07/13/17 07/13/17 18:59 06:59 18:59 Intake Total 500 1200 236 Balance 500 1200 236 Weight 84.7 kg 85.3 kg Intake: IV 100 Intake, IV Titration 400 1200 Amount Sodium Chloride 0.9% 1, 1200 000 ml @ 100 mls/hr IV . Q10H [facility] Rx#:[id number] Sodium Chloride 0.9% 1, 400 000 ml In Empty Bag 1 bag @ 1 ML/KG/HR 84.7 mls/hr IV .[id number] Rx#: [id number] Oral 236 Other: Voiding Method Toilet Toilet Toilet # Voids 1 1 1 - Exam PHYSICAL EXAMINATION: HEENT: Head is atraumatic, normocephalic. Pupils equal, round. Neck is supple. There is no elevated jugular venous pressure. HEART EXAMINATION: Heart sounds regular, S1 and S2 with a systolic murmur. CHEST EXAMINATION: Lungs are clear to auscultation and precussion. No chest wall tenderness is noted on palpation or with deep breathing. ABDOMEN: Soft, nontender. Bowel sounds are heard. No organomegaly noted. EXTREMITIES: Diminished peripheral pulses with no evidence of peripheral edema and no calf tenderness noted. Right groin puncture site soft without ecchymosis or hematoma. NEUROLOGIC patient is awake, alert and oriented x3. . - Labs CBC & Chem 7: 07/13/17 05:39 07/13/17 05:39 Labs: Abnormal Lab Results - Last 24 Hours (Table) 07/12/17 07/12/17 07/13/17 Range/Units 16:47 20:53 05:39 Hgb 11.3 L (11.4-16.0) gm/dL MCHC 30.5 L (31.0-37.0) g/dL BUN (7-17) mg/dL Creatinine (0.52-1.04) mg/dL Glucose (74-99) mg/dL POC Glucose (mg/dL) 134 H 212 H (75-99) mg/dL 07/13/17 07/13/17 07/13/17 Range/Units 05:39 06:01 11:33 Hgb (11.4-16.0) gm/dL MCHC (31.0-37.0) g/dL BUN 32 H (7-17) mg/dL Creatinine 1.70 H (0.52-1.04) mg/dL Glucose 212 H (74-99) mg/dL POC Glucose (mg/dL) 209 H 214 H (75-99) mg/dL Assessment and Plan Plan: Assessment and plan #1 non-ST elevated DC #2 status post coronary artery bypass grafting #3 status post recent stent placement of the distal left main and proximal left circumflex #4 chronic kidney disease #5 hypertension #6 hyperlipidemia From cardiology's perspective, we will maximize medical therapy. Encourage increase activity. Within the patient will be discharged home tomorrow. We will recheck renal functions in the morning. NAIL SPECIALIST note has been reviewed, I agree with a documented findings and plan of care. Patient was seen and examined.
[2017-07-13 16:40] LABS: Glucose,Whole Blood 174 mg/dL (75-99)
[2017-07-13 21:26] LABS: Glucose,Whole Blood 150 mg/dL (75-99)
[2017-07-13] MEDS: ATORVASTATIN 80 MG TAB PO SCH (21:32)
[2017-07-13] MEDS: INSULIN GLARGINE 100 UNIT/ML 10 ML VIAL SQ SCH (21:33)
--- NOTE | 2017-07-13 22:35 | P.PN ---
Subjective Progress Note Date: 07/13/17 Principal diagnosis: Chest pain/continuing care. This is an 82-year-old white female who was recently had cardiac stenting. She is reported has non-ST elevation OK. Cardiology is following. She still complains of chest pressure. We'll maximize medical management with nitrates and anticoagulants. She seems to be getting up and voiding without difficulty. She does use a walker. Objective - Vital Signs Vital signs: Vital Signs Temp 97 F L 07/13/17 07:56 Pulse 52 L 07/13/17 11:13 Resp 16 07/13/17 11:15 BP 110/45 07/13/17 11:13 Pulse Ox 99 07/13/17 11:13 Intake & Output 07/13/17 07/13/17 07/14/17 06:59 18:59 06:59 Intake Total 1200 652 Balance 1200 652 Weight 85.3 kg Intake: Intake, IV Titration 1200 Amount Sodium Chloride 0.9% 1, 1200 000 ml @ 100 mls/hr IV . Q10H [facility] Rx#:[id number] Oral 652 Other: Voiding Method Toilet Toilet # Voids 1 1 - Constitutional General appearance: Present: average body habitus - EENT Eyes: Absent: abnormal pupil - Neck Neck: Absent: lymphadenopathy - Respiratory Respiratory: bilateral: CTA - Cardiovascular Rhythm: regular Heart sounds: normal: S1, S2 - Gastrointestinal General gastrointestinal: Present: soft. Absent: tenderness - Neurologic Neurologic: Present: CNII-XII intact. Absent: focal deficits - Labs CBC & Chem 7: 07/13/17 05:39 07/13/17 05:39 Labs: Abnormal Lab Results - Last 24 Hours (Table) 07/13/17 07/13/17 07/13/17 Range/Units 05:39 05:39 06:01 Hgb 11.3 L (11.4-16.0) gm/dL MCHC 30.5 L (31.0-37.0) g/dL BUN 32 H (7-17) mg/dL Creatinine 1.70 H (0.52-1.04) mg/dL Glucose 212 H (74-99) mg/dL POC Glucose (mg/dL) 209 H (75-99) mg/dL 07/13/17 07/13/17 07/13/17 Range/Units 11:33 16:24 20:55 Hgb (11.4-16.0) gm/dL MCHC (31.0-37.0) g/dL BUN (7-17) mg/dL Creatinine (0.52-1.04) mg/dL Glucose (74-99) mg/dL POC Glucose (mg/dL) 214 H 174 H 150 H (75-99) mg/dL Assessment and Plan (1) Chest pain Status: Acute (2) Coronary artery disease Status: Chronic (3) Hypertension Status: Chronic (4) Lipidemia Status: Chronic (5) Type II diabetes mellitus with peripheral circulatory disorder, uncontrolled Status: Chronic Plan: We'll continue follow cardiology. Maximize medical treatment. Anticipate discharge in a.m.
[2017-07-14] MEDS: HEPARIN SODIUM,PORCINE/D5W PMX 25,000 UNIT in DEXTROSE/WATER 1 500ML.BAG IV SCH (06:21)
[2017-07-14 06:22] LABS: Glucose,Whole Blood 158 mg/dL (75-99)
[2017-07-14] MEDS: LEVOTHYROXINE 100 MCG TAB PO SCH (06:23)
[2017-07-14] MEDS: INSULIN LISPRO (humaLOG) 300 UNIT/3 ML VIAL SQ SCH ×2 (06:24)
[2017-07-14 06:27] LABS: Basophils % (A) 0 %; CH 30.7; CHCM 32.4; Eosinophils # (A) 0.2 k/uL (0-0.7); Eosinophils % (A) 3 %; HCT 36.9 % (34.0-46.0); HDW 2.37; Luc # (Auto) 0.08; Luc % (Auto) 1; Lymphocytes # (A) 1.6 k/uL (1.0-4.8); Lymphocytes % (A) 25 %; MCHC 32.5 g/dL (31.0-37.0); MCV 95.4 fL (80.0-100.0); Mean Platelet Volume 8.8; Monocytes # (A) 0.5 k/uL (0-1.0); Monocytes % (A) 7 %; Neutrophils % (A) 63 %; RBC 3.87 m/uL (3.80-5.40); RDW 15.5 % (11.5-15.5); WBC 6.4 k/uL (3.8-10.6); WBC (Perox) 5.69
[2017-07-14 06:40] LABS: Calcium 8.4 mg/dL (8.4-10.2); Potassium 3.8 mmol/L (3.5-5.1)
[2017-07-14] MEDS: GABAPENTIN 400 MG CAP PO SCH (08:54)
[2017-07-14] MEDS: CHOLECALCIFEROL 1,000 UNIT TAB PO SCH (08:54)
[2017-07-14] MEDS: FERROUS SULFATE 325 MG TAB PO SCH (08:55)
[2017-07-14] MEDS: METOPROLOL TARTRATE 50 MG TAB PO SCH (08:55)
[2017-07-14] MEDS: FUROSEMIDE 40 MG TAB PO SCH (08:55)
[2017-07-14] MEDS: ISOSORBIDE MONONITRATE ER 30 MG TAB.ER.24H PO SCH (08:55)
[2017-07-14] MEDS: ASPIRIN 81 MG PO SCH (08:55)
[2017-07-14] MEDS: LOSARTAN 25 MG TAB PO SCH (08:55)
[2017-07-14] MEDS: CLOPIDOGREL 75 MG TAB PO SCH (08:55)
[2017-07-14 10:32] VITALS: BP 159/74; PULSE 58; RESP 16; TEMP 96.9
--- NOTE | 2017-07-14 10:41 | PN ---
PROGRESS NOTE Mrs Tom is an 82-year-old female with a history of coronary artery disease who presented with chest discomfort and mild troponin elevation. She underwent repeat cardiac catheterization by Dr. Callahan and was found to have no evidence of progression of disease. She is doing well this morning. She has some epigastric pain but no chest pain. Her breathing has been stable. She denies any dizziness, palpitation. She continues to be on aspirin once a day, Lipitor 80 mg daily, amlodipine 5 mg daily, Plavix 75 mg daily, Lasix 40 mg twice a day, isosorbide mononitrate 60 mg daily, losartan 25 mg daily, metoprolol tartrate 50 mg twice a day. PHYSICAL EXAMINATION: Blood pressure 142/60 with a heart in the 50s. LUNGS: Clear. HEART: Regular rate and rhythm, S1, S2. No S3, no rub, with a systolic murmur. ABDOMEN: Soft, nontender. EXTREMITIES: No significant edema. LAB DATA: Revealed BUN and creatinine 36 and 1.5, which is improved compared with yesterday. Potassium 3.8. IMPRESSION: 1. History of coronary artery disease with no progression of disease with patent stented. 2. Hypertension. 3. Hyperlipidemia. 4. Chronic kidney disease. RECOMMENDATION: She should be able to be discharged home today and follow with Dr. Callahan as an outpatient. MMODL / IJN: [id number] /
--- NOTE | 2017-07-14 11:06 | CDI ---
In responding to this query, please exercise your independent professional judgment. The [facility] Coding Staff and Clinical Documentation Specialists appreciate your assistance in clarifying documentation, maintaining compliance with coding guidelines, accurately documenting patients condition and capturing severity of illness. The fact that a question is asked does not imply that any particular answer is desired or expected. Communication forms are a method of clarifying documentation and are not made part of the Legal Health Record. Thank you in advance for your clarification. Last Revision, August 2015 Darrion Buchanan [address] [place] [address] Documentation Clarification Form Date: 07/14/2017 10:51:00 AM From: Violet Ribera RN, CCDS Admit Date: 07/12/2017 2:09:00 PM Patient Name: Chantell Tom Visit Number: [id number] Dr. Johan Bai Chronic renal failure is documented in progress notes and requires further specificity. History/Risk Factors: CAD, CABG, Stents, hyperlipidemia, HTN, OA, renal disease, IDDM 2 Clinical Indicators: Current BUN: 35/27/32/36 CR: 1.62/1.42/1.7/1.5 GFR: /// Patients Baseline: BUN: 38/49/35/27 CR:1.83/1.56/1.62/1.42 GFR: / Treatment: IVF: 0.9@ 20 In order to capture the severity of condition, please clarify if the condition signifies: CKD Stage 1 (GFR > 90) CKD Stage 2 (GFR 60-89) CKD Stage 3 (GFR 30-59) CKD Stage 4 (GFR 15-29) CKD Stage 5 (GFR <15) ESRD Unable to determine Other condition, please specify Please document in your progress notes and discharge summary in order to capture severity of illness and risk of mortality. Include clinical findings that support your diagnosis. FYI: Press F11 to launch patient chart. ELVIS
[2017-07-14] MEDS ORDERED: CALCITRIOL 0.25 MCG CAP PO SCH (12:00)
== END 2017-07-14 10:42 | disposition home or self-care (01) | DRG 282 ==
LOC: EC 05:53 → 6SEL 10:29 → OBSVTOIN 07-12 14:09
PROVIDERS: ADMIT Family Medicine; ATTEND Family Medicine
PROC: B212YZZ Fluoroscopy of Single Coronary Artery Bypass Graft using Other Contrast (ICD-10-PCS; 2017-07-12)
PROC: B211YZZ Fluoroscopy of Multiple Coronary Arteries using Other Contrast (ICD-10-PCS; principal; 2017-07-12 13:00)
DX: I21.4 Non-ST elevation (NSTEMI) myocardial infarction (principal); E11.22 Type 2 diabetes mellitus with diabetic chronic kidney disease; E11.51 Type 2 diabetes mellitus with diabetic peripheral angiopathy without gangrene; Z95.1 Presence of aortocoronary bypass graft; I12.9 Hypertensive chronic kidney disease with stage 1 through stage 4 chronic kidney disease, or unspecified chronic kidney disease; N18.9 Chronic kidney disease, unspecified; E03.9 Hypothyroidism, unspecified; E78.5 Hyperlipidemia, unspecified; K21.9 Gastro-esophageal reflux disease without esophagitis; G89.29 Other chronic pain; M54.9 Dorsalgia, unspecified; M19.91 Primary osteoarthritis, unspecified site; I44.0 Atrioventricular block, first degree; I25.10 Atherosclerotic heart disease of native coronary artery without angina pectoris; Z79.82 Long term (current) use of aspirin; Z79.02 Long term (current) use of antithrombotics/antiplatelets; Z79.4 Long term (current) use of insulin; Z79.899 Other long term (current) drug therapy; Z95.5 Presence of coronary angioplasty implant and graft; Z96.1 Presence of intraocular lens; Z98.41 Cataract extraction status, right eye; Z98.42 Cataract extraction status, left eye; Z90.49 Acquired absence of other specified parts of digestive tract; Z86.19 Personal history of other infectious and parasitic diseases; Z88.5 Allergy status to narcotic agent; Z88.0 Allergy status to penicillin; Z88.2 Allergy status to sulfonamides; Z88.8 Allergy status to other drugs, medicaments and biological substances; Z91.041 Radiographic dye allergy status
CPT/HCPCS: 36415; 71010; 80048; 80053; 80061; 82150; 82550; 82553; 83036; 83690; 83735; 84484; 85025; 85379; 85610; 85730; 93005; 93455; 96365; 96366; 96375; 96376; 99291

== ENCOUNTER 2018-04-24 16:53 | Observation (INO) | payer MEDICARE, BC ==
[2018-04-24] MEDS ORDERED: ASPIRIN 81 MG PO STA (17:12)
[2018-04-24] MEDS ORDERED: NITROGLYCERIN SL TABS 0.4 MG TAB SUBLINGUAL STA ×3 (17:12)
--- NOTE | 2018-04-24 17:14 | ED ---
General Adult HPI - General Chief complaint: Chest Pain Stated complaint: Chest pain Time Seen by Provider: 04/24/18 17:07 Source: patient, family, RN notes reviewed Mode of arrival: wheelchair Limitations: no limitations - History of Present Illness Initial comments: Patient is a pleasant 83-year-old female presenting to the emergency Department with complaints of chest discomfort. Onset of symptoms was earlier in the day. Discomfort is sharp. Discomfort is moderate at this time. Patient does have some associated dyspnea and sweating. No nausea vomiting. Patient does have a history of similar symptoms previously associated with cardiac disease. Patient has had previous open-heart and previous NM. No leg pain or leg swelling. - Related Data Home Medications Medication Instructions Recorded Confirmed Atorvastatin [Lipitor] 80 mg PO HS 10/16/14 04/24/18 Cholecalciferol [Vitamin D3] 5,000 unit PO DAILY 10/16/14 04/24/18 Metoprolol Tartrate [Lopressor] 50 mg PO BID 10/16/14 04/24/18 Nitroglycerin Sl Tabs [Nitrostat] 0.4 mg SUBLINGUAL Q5M PRN 11/07/14 04/24/18 Gabapentin [Neurontin] 800 mg PO QID 02/21/15 04/24/18 Calcitriol 0.25 mcg PO SUTH 09/09/16 04/24/18 Ferrous Sulfate [Iron] 325 mg PO DAILY 06/15/17 04/24/18 Furosemide [Lasix] 40 mg PO TID 06/15/17 04/24/18 INSULIN LISPRO (HumaLOG) [humaLOG] 6 unit SQ BID 07/08/17 04/24/18 Previous Rx's Medication Instructions Recorded Insulin Glargine,Hum.rec.anlog 20 units SQ HS@2100 #0 06/17/17 [Toujeo Solostar] Levothyroxine Sodium [Synthroid] 100 mcg PO DAILY@0630 #30 tab 06/17/17 Losartan [Cozaar] 25 mg PO DAILY #30 tab 06/17/17 Clopidogrel [Plavix] 75 mg PO DAILY #90 tab 07/09/17 Isosorbide Mononitrate ER [Imdur] 60 mg PO DAILY #30 tab 07/14/17 Allergies Allergy/AdvReac Type Severity Reaction Status Date / Time Iodinated Contrast- Oral and Allergy Severe Anaphylaxis Verified 04/24/18 17:25 IV Dye [Iodinated Contrast Media - IV Dye] captopril [From Capoten] Allergy Unknown PASSED OUT Verified 04/24/18 17:25 morphine Allergy Unknown Verified 04/24/18 17:25 Penicillins Allergy Unknown Verified 04/24/18 17:25 sulfamethoxazole AdvReac Unknown Diarrhea Verified 04/24/18 17:25 [From Bactrim] trimethoprim [From Bactrim] AdvReac Unknown Diarrhea Verified 04/24/18 17:25 X-RAY CONTRAST Allergy Unknown Unknown Uncoded 04/24/18 16:57 Review of Systems ROS Statement: Those systems with pertinent positive or pertinent negative responses have been documented in the HPI. ROS Other: All systems not noted in ROS Statement are negative. Constitutional: Denies: fever Eyes: Denies: eye pain ENT: Denies: ear pain Respiratory: Denies: cough Cardiovascular: Reports: chest pain Endocrine: Denies: fatigue Gastrointestinal: Denies: abdominal pain Genitourinary: Denies: dysuria Musculoskeletal: Denies: back pain Skin: Denies: rash Neurological: Denies: weakness Past Medical History Past Medical History: Coronary Artery Disease (CAD), Chest Pain / Angina, Diabetes Mellitus, GERD/Reflux, Hyperlipidemia, Hypertension, Osteoarthritis (OA ), Renal Disease, Thyroid Disorder Additional Past Medical History / Comment(s): IDDM TYPE II, 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 History of Any Multi-Drug Resistant Organisms: None Reported Past Surgical History: Appendectomy, Cholecystectomy, Heart Catheterization, Heart Catheterization With Stent, Hernia Repair Additional Past Surgical History / Comment(s): 07/08/17 PCI with stent to LCX, bilateral carpal tunnel; right and left finger release; CABG - 1998. Spinal cord stimulator implantation (2009) AND REMOVED. Bilateral cataract removal with lens implants,. Right hip surgery - too put in. HIATAL HERNIA REPAIR. Stents placed 07/09/17. Past Anesthesia/Blood Transfusion Reactions: No Reported Reaction Additional Past Anesthesia/Blood Transfusion Reaction / Comment(s): contracted hepatits after blood transfusion (1971) Date of Last Stent Placement:: 07/08/17 Past Psychological History: No Psychological Hx Reported Smoking Status: Never smoker Past Alcohol Use History: None Reported Past Drug Use History: None Reported - Past Family History Mother Family Medical History: Cancer Additional Family Medical History / Comment(s): HODGKINS Son(s) Family Medical History: Cancer Additional Family Medical History / Comment(s): KIDNEY CANCER General Exam Limitations: no limitations General appearance: alert, in no apparent distress Head exam: Present: atraumatic Eye exam: Present: normal appearance, PERRL ENT exam: Present: normal oropharynx Neck exam: Present: normal inspection Respiratory exam: Present: normal lung sounds bilaterally, chest wall tenderness Cardiovascular Exam: Present: regular rate, normal rhythm Expanded Peripheral pulses: 2+: Radial (R), Radial (L), Posterior Tibialis (R), Posterior Tibialis (L), Dorsalis Pedis (R), Dorsalis Pedis (L) GI/Abdominal exam: Present: soft. Absent: tenderness Extremities exam: Present: normal inspection. Absent: pedal edema, calf tenderness Neurological exam: Present: alert Psychiatric exam: Present: normal affect, normal mood Skin exam: Present: normal color Course Vital Signs 04/24/18 04/24/18 04/24/18 16:57 17:57 18:00 Temperature 98.4 F Pulse Rate 72 70 66 Pulse Rate [ Bilateral Sitting Radial] Respiratory 18 18 18 Rate Blood Pressure 160/74 160/74 161/72 O2 Sat by Pulse 94 L 97 98 Oximetry 04/24/18 04/24/18 04/24/18 18:02 18:11 19:52 Temperature Pulse Rate 66 60 Pulse Rate [ 66 Bilateral Sitting Radial] Respiratory 18 18 18 Rate Blood Pressure 164/61 157/68 O2 Sat by Pulse 97 100 Oximetry EKG Findings - EKG Comments: EKG Findings:: Normal sinus rhythm at 69. For screening AV block with MD of 210. QRS 94. QT 434. QTC 465. Left axis. Normal QRS. Biphasic T waves leads V5 and V6. Medical Decision Making - Medical Decision Making Patient reevaluated and resting comfortably in bed. Patient and family updated on results and plan. Case was discussed in detail with Dr. Bai, who will admit his patient. - Lab Data Result diagrams: 04/24/18 19:29 04/24/18 19:29 Lab Results 04/24/18 04/24/18 04/24/18 Range/Units 19:29 19:29 19:29 WBC 8.4 (3.8-10.6) k/uL RBC 3.93 (3.80-5.40) m/uL Hgb 11.7 (11.4-16.0) gm/dL Hct 35.6 (34.0-46.0) % MCV 90.8 (80.0-100.0) fL MCH 29.9 (25.0-35.0) pg MCHC 32.9 (31.0-37.0) g/dL RDW 14.2 (11.5-15.5) % Plt Count 220 (150-450) k/uL Neutrophils % 69 % Lymphocytes % 21 % Monocytes % 6 % Eosinophils % 3 % Basophils % 0 % Neutrophils # 5.8 (1.3-7.7) k/uL Lymphocytes # 1.7 (1.0-4.8) k/uL Monocytes # 0.5 (0-1.0) k/uL Eosinophils # 0.2 (0-0.7) k/uL Basophils # 0.0 (0-0.2) k/uL PT (9.0-12.0) sec INR (<1.2) APTT (22.0-30.0) sec Sodium 139 (137-145) mmol/L Potassium 4.9 (3.5-5.1) mmol/L Chloride 103 (98-107) mmol/L Carbon Dioxide 31 H (22-30) mmol/L Anion Gap 5 mmol/L BUN 49 H (7-17) mg/dL Creatinine 1.80 H (0.52-1.04) mg/dL Est GFR (CKD-EPI)AfAm 29 (>60 ml/min/1.73 sqM) Est GFR (CKD-EPI)NonAf 25 (>60 ml/min/1.73 sqM) Glucose 108 H (74-99) mg/dL POC Glucose (mg/dL) (75-99) mg/dL POC Glu Refrigeration Manager ID Calcium 8.9 (8.4-10.2) mg/dL Magnesium 2.4 H (1.6-2.3) mg/dL Total Bilirubin 0.3 (0.2-1.3) mg/dL AST 27 (14-36) U/L ALT 29 (9-52) U/L Alkaline Phosphatase 77 (38-126) U/L Total Creatine Kinase 90 (30-135) U/L CK-MB (CK-2) 0.6 (0.0-2.4) ng/mL CK-MB (CK-2) Rel Index 0.7 Troponin I <0.012 (0.000-0.034) ng/mL Total Protein 6.1 L (6.3-8.2) g/dL Albumin 3.5 (3.5-5.0) g/dL 04/24/18 04/24/18 Range/Units 19:29 20:13 WBC (3.8-10.6) k/uL RBC (3.80-5.40) m/uL Hgb (11.4-16.0) gm/dL Hct (34.0-46.0) % MCV (80.0-100.0) fL MCH (25.0-35.0) pg MCHC (31.0-37.0) g/dL RDW (11.5-15.5) % Plt Count (150-450) k/uL Neutrophils % % Lymphocytes % % Monocytes % % Eosinophils % % Basophils % % Neutrophils # (1.3-7.7) k/uL Lymphocytes # (1.0-4.8) k/uL Monocytes # (0-1.0) k/uL Eosinophils # (0-0.7) k/uL Basophils # (0-0.2) k/uL PT 10.1 (9.0-12.0) sec INR 1.0 (<1.2) APTT 23.9 (22.0-30.0) sec Sodium (137-145) mmol/L Potassium (3.5-5.1) mmol/L Chloride (98-107) mmol/L Carbon Dioxide (22-30) mmol/L Anion Gap mmol/L BUN (7-17) mg/dL Creatinine (0.52-1.04) mg/dL Est GFR (CKD-EPI)AfAm (>60 ml/min/1.73 sqM) Est GFR (CKD-EPI)NonAf (>60 ml/min/1.73 sqM) Glucose (74-99) mg/dL POC Glucose (mg/dL) 109 H (75-99) mg/dL POC Glu Refrigeration Manager ID Vivian Ortiz Calcium (8.4-10.2) mg/dL Magnesium (1.6-2.3) mg/dL Total Bilirubin (0.2-1.3) mg/dL AST (14-36) U/L ALT (9-52) U/L Alkaline Phosphatase (38-126) U/L Total Creatine Kinase (30-135) U/L CK-MB (CK-2) (0.0-2.4) ng/mL CK-MB (CK-2) Rel Index Troponin I (0.000-0.034) ng/mL Total Protein (6.3-8.2) g/dL Albumin (3.5-5.0) g/dL - Radiology Data Radiology results: image reviewed (Chest x-ray shows no acute process.) Disposition Clinical Impression: Chest pain Disposition: ADMITTED IP TO THIS HOSP Is patient prescribed a controlled substance at d/c from ED?: No Referrals: Johan Bai MD [Primary Care Provider] - 1-2 days Decision Time: 20:34
[2018-04-24] MEDS ORDERED: HYDROmorphone 0.5 MG/0.5 ML SYRINGE IVP STA (18:46)
--- NOTE | 2018-04-24 18:47 | XR ---
EXAMINATION TYPE: XR chest 2V DATE OF EXAM: 04/24/2018 COMPARISON: 07/11/2017 HISTORY: Chest pain TECHNIQUE: Frontal and lateral views of the chest are obtained. FINDINGS: There is no heart failure nor confluent pneumonic infiltrate. Costophrenic angles are khadar r. There are sternal wires. There is osteopenia. IMPRESSION: No active cardiopulmonary disease. No change.
[2018-04-24 19:38] LABS: Basophils % (A) 0 %; Eosinophils # (A) 0.2 k/uL (0-0.7); Eosinophils % (A) 3 %; HCT 35.6 % (34.0-46.0); HGB 11.7 gm/dL (11.4-16.0); Lymphocytes # (A) 1.7 k/uL (1.0-4.8); Lymphocytes % (A) 21 %; MCH 29.9 pg (25.0-35.0); MCHC 32.9 g/dL (31.0-37.0); MCV 90.8 fL (80.0-100.0); Mean Platelet Volume 7.1; Monocytes # (A) 0.5 k/uL (0-1.0); Monocytes % (A) 6 %; Neutrophils # (A) 5.8 k/uL (1.3-7.7); Neutrophils % (A) 69 %; Platelet Count 220 k/uL (150-450); RBC 3.93 m/uL (3.80-5.40); RDW 14.2 % (11.5-15.5); WBC 8.4 k/uL (3.8-10.6)
[2018-04-24 19:49] LABS: Creatine Kinase 90 U/L (30-135)
[2018-04-24 19:51] LABS: Albumin 3.5 g/dL (3.5-5.0); Calcium 8.9 mg/dL (8.4-10.2); Magnesium 2.4 mg/dL (1.6-2.3); Potassium 4.9 mmol/L (3.5-5.1); Total Bilirubin 0.3 mg/dL (0.2-1.3); Total Protein 6.1 g/dL (6.3-8.2)
[2018-04-24 19:52] LABS: Partial Thromboplastin Time 23.9 sec (22.0-30.0); Prothrombin Time 10.1 sec (9.0-12.0)
[2018-04-24 20:02] LABS: Creatine Kinase MB 0.6 ng/mL (0.0-2.4); Troponin I <0.012 ng/mL (0.000-0.034)
[2018-04-24 20:15] LABS: Glucose,Whole Blood 109 mg/dL (75-99)
[2018-04-24] MEDS ORDERED: NITROGLYCERIN SL TABS 0.4 MG TAB SUBLINGUAL PRN (20:34)
[2018-04-24] MEDS ORDERED: METOPROLOL TARTRATE 50 MG TAB PO SCH (21:00)
[2018-04-24] MEDS ORDERED: ATORVASTATIN 80 MG TAB PO SCH (21:00)
[2018-04-24] MEDS: FUROSEMIDE 40 MG TAB PO SCH (22:22)
[2018-04-25 00:12] LABS: Cholesterol 153 mg/dL (<200); HDL Cholesterol 33 mg/dL (40-60); LDL Cholesterol,Calculated 81 mg/dL (0-99); Triglycerides 196 mg/dL (<150)
[2018-04-25] MEDS: NITROGLYCERIN OINT 1 INCH/GM PACKET TOPICAL SCH ×2 (01:41→05:33)
[2018-04-25 02:48] LABS: Creatine Kinase 78 U/L (30-135)
[2018-04-25 03:01] LABS: Creatine Kinase MB 0.6 ng/mL (0.0-2.4); Troponin I <0.012 ng/mL (0.000-0.034)
[2018-04-25 06:53] LABS: Glucose,Whole Blood 149 mg/dL (75-99)
[2018-04-25 07:58] LABS: Creatine Kinase 74 U/L (30-135)
[2018-04-25 08:03] VITALS: RESP 18
[2018-04-25 08:07] LABS: Creatine Kinase MB 0.7 ng/mL (0.0-2.4)
[2018-04-25 08:11] LABS: Troponin I <0.012 ng/mL (0.000-0.034)
[2018-04-25] MEDS: FUROSEMIDE 40 MG TAB PO SCH (08:58)
[2018-04-25] MEDS ORDERED: CLOPIDOGREL 75 MG TAB PO SCH (09:00)
[2018-04-25] MEDS ORDERED: ASPIRIN 81 MG PO SCH (09:00)
[2018-04-25] MEDS ORDERED: METOPROLOL TARTRATE 25 MG TAB PO SCH (09:00)
[2018-04-25] MEDS ORDERED: ISOSORBIDE MONONITRATE ER 30 MG TAB.ER.24H PO SCH (09:00)
[2018-04-25] MEDS ORDERED: ASPIRIN 325 MG TAB PO SCH (09:00)
[2018-04-25] MEDS ORDERED: METOPROLOL TARTRATE 50 MG TAB PO SCH (09:00)
[2018-04-25] MEDS ORDERED: LOSARTAN 25 MG TAB PO SCH (09:00)
--- NOTE | 2018-04-25 09:46 | P.CRDCN ---
History of Present Illness History of present illness: Mrs. Tom is a pleasant 83-year-old female past medical history significant for coronary artery disease s/p bypass grafting with subsequent angioplasty, diabetes mellitus, dyslipidemia, hypertension, chronic kidney disease and former smoker. She follows with Dr. Callahan in the office. She states since yesterday she has been having sharp pain in the left precordial region, no radiation to the arm, back, neck or jaw. Associated with shortness of breath at times due to the severe pain. She denies dizziness, palpitations, nausea, vomiting or diaphoresis. The pain is very brief but frequent. It has been intermittent since yesterday. She also states on Tuesday she slipped and fell in the bathroom. The pain is reproducible on palpitation and she is grimacing in pain with palpation of the area. EKG reveals sinus mechanism nonspecific ST abnormalities. Not indicative of an acute coronary event. Chest x-ray negative for an acute cardiopulmonary process. Cardiac enzymes negative 2. LSL 81, Cr 1.8, hgb 11.7. Most recent catheterization in July 2017 revealed a patent stent to the left main and circumflex, patent SVG to diagonal and unable to visualize the HERNANDEZ to LAD. Review of Systems At the time of my exam: CONSTITUTIONAL: Denies fever. Denies chills. EYES: Denies blurred vision. Denies vision changes. Denies eye pain. EARS, NOSE, MOUTH & THROAT: Denies headache. Denies sore throat. Denies ear pain. CARDIOVASCULAR: Denies chest pain. Denies shortness of breath. Denies orthopnea. Denies PND. Denies palpitations. RESPIRATORY: Denies cough. GASTROINTESTINAL: Denies abdominal pain. Denies diarrhea. Denies constipation. Denies nausea. Denies vomiting. MUSCULOSKELETAL: Complains of reproducible pleuritic pain. INTEGUMENTARY: Denies pruitis. Denies rash. NEUROLOGIC: Denies numbness. Denies tingling. Denies weakness. PSYCHIATRIC: Denies anxiety. Denies depression. ENDOCRINE: Denies fatigue. Denies weight change. Denies polydipsia. Denies polyurina. GENITOURINARY: Denies burning, hematuria or urgency with micturation. HEMATOLOGIC: Denies history of anemia. Denies bleeding. 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 History of Any Multi-Drug Resistant Organisms: None Reported Past Surgical History: Appendectomy, Cholecystectomy, Heart Catheterization, Heart Catheterization With Stent, Hernia Repair Additional Past Surgical History / Comment(s): 07/08/17 PCI with stent to LCX, bilateral carpal tunnel; right and left finger release; CABG - 1998. Spinal cord stimulator implantation (2009) AND REMOVED. Bilateral cataract removal with lens implants,. Right hip surgery - too put in, T LT HIP REPLACEMENT. HIATAL HERNIA REPAIR. Stents placed 07/09/17. Past Anesthesia/Blood Transfusion Reactions: No Reported Reaction Additional Past Anesthesia/Blood Transfusion Reaction / Comment(s): contracted hepatits after blood transfusion (1971) Date of Last Stent Placement:: 07/08/17 Smoking Status: Never smoker - Past Family History Mother Family Medical History: Cancer Additional Family Medical History / Comment(s): HODGKINS Son(s) Family Medical History: Cancer Additional Family Medical History / Comment(s): KIDNEY CANCER Medications and Allergies Home Medications Medication Instructions Recorded Confirmed Type Atorvastatin [Lipitor] 80 mg PO HS 10/16/14 04/24/18 History Cholecalciferol [Vitamin D3] 5,000 unit PO DAILY 10/16/14 04/24/18 History Metoprolol Tartrate [Lopressor] 50 mg PO BID 10/16/14 04/24/18 History Nitroglycerin Sl Tabs [Nitrostat] 0.4 mg SUBLINGUAL Q5M PRN 11/07/14 04/24/18 History Gabapentin [Neurontin] 800 mg PO QID 02/21/15 04/24/18 History Calcitriol 0.25 mcg PO SUTH 09/09/16 04/24/18 History Ferrous Sulfate [Iron] 325 mg PO DAILY 06/15/17 04/24/18 History Furosemide [Lasix] 40 mg PO TID 06/15/17 04/24/18 History Insulin Glargine,Hum.rec.anlog 20 units SQ HS@2100 #0 06/17/17 04/24/18 Rx [Toujeo Solostar] Levothyroxine Sodium [Synthroid] 100 mcg PO DAILY@0630 #30 tab 06/17/17 Rx Losartan [Cozaar] 25 mg PO DAILY #30 tab 06/17/17 04/24/18 Rx INSULIN LISPRO (HumaLOG) [humaLOG] 6 unit SQ BID 07/08/17 04/24/18 History Clopidogrel [Plavix] 75 mg PO DAILY #90 tab 07/09/17 04/24/18 Rx Isosorbide Mononitrate ER [Imdur] 60 mg PO DAILY #30 tab 07/14/17 04/24/18 Rx Allergies Allergy/AdvReac Type Severity Reaction Status Date / Time Iodinated Contrast- Oral and Allergy Severe Anaphylaxis Verified 04/24/18 17:25 IV Dye [Iodinated Contrast Media - IV Dye] captopril [From Capoten] Allergy Unknown PASSED OUT Verified 04/24/18 17:25 morphine Allergy Unknown Verified 04/24/18 17:25 Penicillins Allergy Unknown Verified 04/24/18 17:25 sulfamethoxazole AdvReac Unknown Diarrhea Verified 04/24/18 17:25 [From Bactrim] trimethoprim [From Bactrim] AdvReac Unknown Diarrhea Verified 04/24/18 17:25 X-RAY CONTRAST Allergy Unknown Unknown Uncoded 04/24/18 16:57 Physical Exam Vitals: Vital Signs Temp Pulse Pulse Pulse Resp BP BP 04/25/18 07:45 97.8 F 59 L 18 04/25/18 03:50 97.7 F 57 L 16 141/58 04/25/18 03:37 56 L 16 04/25/18 00:00 57 L 16 04/24/18 23:50 98.4 F 54 L 16 162/65 04/24/18 21:31 98.1 F 69 16 196/71 04/24/18 20:52 97.7 F 60 18 185/72 04/24/18 19:52 60 18 157/68 04/24/18 18:11 66 18 164/61 04/24/18 18:02 66 18 04/24/18 18:00 66 18 161/72 04/24/18 17:57 70 18 160/74 04/24/18 16:57 98.4 F 72 18 160/74 BP Pulse Ox 04/25/18 07:45 165/78 97 04/25/18 03:50 96 04/25/18 03:37 04/25/18 00:00 04/24/18 23:50 97 04/24/18 21:31 99 04/24/18 20:52 99 04/24/18 19:52 100 04/24/18 18:11 97 04/24/18 18:02 04/24/18 18:00 98 04/24/18 17:57 97 04/24/18 16:57 94 L Intake and Output 04/24/18 04/25/18 04/25/18 22:59 06:59 14:59 Other: Voiding Method Toilet # Voids 2 2 Weight 86.636 kg Blood pressure 141/58 heart rate 57 afebrile maintaining oxygen saturation on room air GENERAL: This is a 83-year-old occasion female in no apparent distress at the time of my examination. Obese. HEENT: Head is atraumatic, normocephalic. Pupils are equal, round. Sclerae anicteric. Conjunctivae are clear. Mucous membranes of the mouth are moist. Neck is supple. There is no jugular venous distention. No carotid bruit is heard. LUNGS: Clear to auscultation no wheezes, rales or rhonchi. No chest wall tenderness is noted on palpation or with deep breathing. HEART: Regular rate and rhythm with systolic ejection murmur at the base, no rubs or gallops. S1 and S2 heard. ABDOMEN: Soft, nontender. Bowel sounds are heard. No organomegaly noted. EXTREMITIES: No evidence of peripheral edema and no calf tenderness noted. VASCULAR: Radial and dorsalis pedis pulses palpated, no evidence of clubbing. NEUROLOGIC: Patient is awake, alert and oriented x3. Results 04/24/18 19:29 04/24/18 19:29 Cardiac Enzymes 04/24/18 04/24/18 04/25/18 Range/Units 19:29 19:29 01:41 AST 27 (14-36) U/L CK-MB (CK-2) 0.6 0.6 (0.0-2.4) ng/mL Troponin I <0.012 <0.012 (0.000-0.034) ng/mL Coagulation 04/24/18 Range/Units 19:29 PT 10.1 (9.0-12.0) sec APTT 23.9 (22.0-30.0) sec Lipids 04/24/18 Range/Units 19:29 Triglycerides 196 H (<150) mg/dL Cholesterol 153 (<200) mg/dL HDL Cholesterol 33 L (40-60) mg/dL CBC 04/24/18 Range/Units 19:29 WBC 8.4 (3.8-10.6) k/uL RBC 3.93 (3.80-5.40) m/uL Hgb 11.7 (11.4-16.0) gm/dL Hct 35.6 (34.0-46.0) % Plt Count 220 (150-450) k/uL Comprehensive Metabolic Panel 04/24/18 Range/Units 19:29 Sodium 139 (137-145) mmol/L Potassium 4.9 (3.5-5.1) mmol/L Chloride 103 (98-107) mmol/L Carbon Dioxide 31 H (22-30) mmol/L BUN 49 H (7-17) mg/dL Creatinine 1.80 H (0.52-1.04) mg/dL Glucose 108 H (74-99) mg/dL Calcium 8.9 (8.4-10.2) mg/dL AST 27 (14-36) U/L ALT 29 (9-52) U/L Alkaline Phosphatase 77 (38-126) U/L Total Protein 6.1 L (6.3-8.2) g/dL Albumin 3.5 (3.5-5.0) g/dL Current Medications Generic Name Dose Route Start Last Admin Trade Name Freq PRN Reason Stop Dose Admin Aspirin 81 mg 04/25/18 09:00 Aspirin PO DAILY [facility] Atorvastatin Calcium 80 mg 04/24/18 21:00 04/24/18 22:22 Lipitor PO 80 mg HS FRITZ Administration Clopidogrel Bisulfate 75 mg 04/25/18 09:00 Plavix PO DAILY [facility] Furosemide 40 mg 04/24/18 22:00 04/24/18 22:22 Lasix PO 40 mg TID FRITZ Administration Losartan Potassium 25 mg 04/25/18 09:00 Cozaar PO DAILY [facility] Nitroglycerin 0.4 mg 04/24/18 20:34 Nitrostat SUBLINGUAL Q5M PRN Chest Pain Intake and Output 04/24/18 04/25/18 04/25/18 22:59 06:59 14:59 Other: Voiding Method Toilet # Voids 2 2 Weight 86.636 kg 04/24/18 19:29 04/24/18 19:29 Assessment and Plan Assessment: ASSESSMENT Musculoskeletal chest pain History of coronary artery disease status post bypass grafting and subsequent angioplasty Hypertension Dyslipidemia Diabetes mellitus Chronic kidney disease PLAN Obtain 2-D echocardiogram and Doppler study to assess cardiac structure and function. Stable from a cardiac perspective. Pain is reproducible and musculoskeletal in nature. Follow-up with Dr. Callahan in 2-3 weeks. Thank you kindly for this consultation. Nurse Practitioner note has been reviewed, I agree with a documented findings and plan of care. Patient was seen and examined.
--- NOTE | 2018-04-25 10:49 | ECHOF ---
Referral Reason:cp MEASUREMENTS -------- HEIGHT: 149.9 cm WEIGHT: 86.6 kg BP: 165/78 RVIDd: 2.7 cm (< 3.3) IVSd: 1.1 cm (0.6 - 1.1) LVIDd: 5.5 cm (3.9 - 5.3) LVPWd: 1.1 cm (0.6 - 1.1) IVSs: 1.2 cm LVIDs: 4.5 cm LVPWs: 1.2 cm LAESV Index (A-L): 33.11 ml/m Ao Diam: 2.9 cm (2.0 - 3.7) AV Cusp: 1.6 cm (1.5 - 2.6) LA Diam: 5.2 cm (2.7 - 3.8) EPSS: 1.6 cm MV E Ezequiel: 0.70 m/s MV DecT: 231 ms MV A Ezequiel: 1.20 m/s MV E/A Ratio: 0.58 RAP: 5.00 mmHg RVSP: 28.02 mmHg MV EF SLOPE: 77.69 mm/s (70 - 150) MV EXCURSION: 1.07 cm (> 18.000) FINDINGS -------- Sinus rhythm. This was a technically difficult study with suboptimal views. The left ventricular size is normal. There is borderline concentric left ventricular hypertrophy. There is moderate global hypokinesis of LV . Overall left ventricular systolic function is moderat buck impaired with, an EF between 35 - 40 %. The right ventricle is normal in size and function. LA is midly dilated 29-33ml/m2. The right atrium is normal in size. 3ml of Lumason was utilized for enhancement of images. Aortic valve is trileaflet and is mildly thickened. There is no evidence of aortic regurgitation. There is no evidence of aortic stenosis. The mitral valve leaflets are mildly thickened. Moderate mitral regurgitation is present. Mild tricuspid regurgitation present. Right ventricular systolic pressure is normal at < 35 mmHg. There is no evidence of pulmonary hypertension. The pulmonic valve was not well visualized. The aortic root size is normal. IVC Not well visulized. There is no pericardial effusion. CONCLUSIONS -------- 1. Sinus rhythm. 2. This was a technically difficult study with suboptimal views. 3. The left ventricular size is normal. 4. There is borderline concentric left ventricular hypertrophy. 5. There is moderate global hypokinesis of LV . 6. Overall left ventricular systolic function is moderately impaired with, an EF between 35 - 40 %. 7. LA is midly dilated 29-33ml/m2. 8. 3ml of Lumason was utilized for enhancement of images. 9. Aortic valve is trileaflet and is mildly thickened. 10. The mitral valve leaflets are mildly thickened. 11. Moderate mitral regurgitation is present. 12. Mild tricuspid regurgitation present. 13. Right ventricular systolic pressure is normal at < 35 mmHg. 14. There is no evidence of pulmonary hypertension. 15. The pulmonic valve was not well visualized. 16. The aortic root size is normal. 17. IVC Not well visulized. 18. There is no pericardial effusion. CARDIAC/VASCULAR SONOGRAPHER: Cal Fraser RDCS
[2018-04-25 12:04] LABS: Glucose,Whole Blood 172 mg/dL (75-99)
[2018-04-25 12:05] VITALS: BP 172/66; PULSE 57; TEMP 98.5
[2018-04-25 12:45] LABS: Hemoglobin A1C 7.7 % (4.0-6.0)
--- NOTE | 2018-04-25 12:51 | P.HPIM ---
History of Present Illness H&P Date: 04/25/18 Chief Complaint: Chest pressure. This is an 83-year-old white female with known history coronary disease who complained of substernal chest pressure without exacerbation with food. No nausea no diaphoresis. She was not doing anything aggressive as far as physical activity at the time. No fever or chills are stated. No cough. She states sternal chest pain otherwise. Given her overall history and advancing age, she was appropriately admitted to rule out myocardial infraction. Cardiology is now consulted. Review of Systems Eyes: denies blurred vision, denies pain Ears, nose, mouth and throat: Denies headache, Denies sore throat Cardiovascular: Reports as per HPI, Reports chest pain, Reports shortness of breath Respiratory: Denies cough Gastrointestinal: Denies abdominal pain, Denies diarrhea, Denies nausea, Denies vomiting Genitourinary: Denies dysuria, Denies hematuria Musculoskeletal: Denies myalgias Integumentary: Denies pruritus, Denies rash Past Medical History Past Medical History: Coronary Artery Disease (CAD), Chest Pain / Angina, Diabetes Mellitus, GERD/Reflux, Hyperlipidemia, Hypertension, Osteoarthritis (OA ), Renal Disease, Thyroid Disorder Additional Past Medical History / Comment(s): IDDM TYPE II, 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 History of Any Multi-Drug Resistant Organisms: None Reported Past Surgical History: Appendectomy, Cholecystectomy, Heart Catheterization, Heart Catheterization With Stent, Hernia Repair Additional Past Surgical History / Comment(s): 07/08/17 PCI with stent to LCX, bilateral carpal tunnel; right and left finger release; CABG - 1998. Spinal cord stimulator implantation (2009) AND REMOVED. Bilateral cataract removal with lens implants,. Right hip surgery - too put in, T LT HIP REPLACEMENT. HIATAL HERNIA REPAIR. Stents placed 07/09/17. Past Anesthesia/Blood Transfusion Reactions: No Reported Reaction Additional Past Anesthesia/Blood Transfusion Reaction / Comment(s): contracted hepatits after blood transfusion (1971) Date of Last Stent Placement:: 07/08/17 Smoking Status: Never smoker - Past Family History Mother Family Medical History: Cancer Additional Family Medical History / Comment(s): HODGKINS Son(s) Family Medical History: Cancer Additional Family Medical History / Comment(s): KIDNEY CANCER Medications and Allergies Home Medications Medication Instructions Recorded Confirmed Type Atorvastatin [Lipitor] 80 mg PO HS 10/16/14 04/24/18 History Cholecalciferol [Vitamin D3] 5,000 unit PO DAILY 10/16/14 04/24/18 History Metoprolol Tartrate [Lopressor] 50 mg PO BID 10/16/14 04/24/18 History Nitroglycerin Sl Tabs [Nitrostat] 0.4 mg SUBLINGUAL Q5M PRN 11/07/14 04/24/18 History Gabapentin [Neurontin] 800 mg PO QID 02/21/15 04/24/18 History Calcitriol 0.25 mcg PO SUTH 09/09/16 04/24/18 History Ferrous Sulfate [Iron] 325 mg PO DAILY 06/15/17 04/24/18 History Furosemide [Lasix] 40 mg PO TID 06/15/17 04/24/18 History Insulin Glargine,Hum.rec.anlog 20 units SQ HS@2100 #0 06/17/17 04/24/18 Rx [Toujeo Solostar] Levothyroxine Sodium [Synthroid] 100 mcg PO DAILY@0630 #30 tab 06/17/17 Rx Losartan [Cozaar] 25 mg PO DAILY #30 tab 06/17/17 04/24/18 Rx INSULIN LISPRO (HumaLOG) [humaLOG] 6 unit SQ BID 07/08/17 04/24/18 History Clopidogrel [Plavix] 75 mg PO DAILY #90 tab 07/09/17 04/24/18 Rx Isosorbide Mononitrate ER [Imdur] 60 mg PO DAILY #30 tab 07/14/17 04/24/18 Rx Allergies Allergy/AdvReac Type Severity Reaction Status Date / Time Iodinated Contrast- Oral and Allergy Severe Anaphylaxis Verified 04/24/18 17:25 IV Dye [Iodinated Contrast Media - IV Dye] captopril [From Capoten] Allergy Unknown PASSED OUT Verified 04/24/18 17:25 morphine Allergy Unknown Verified 04/24/18 17:25 Penicillins Allergy Unknown Verified 04/24/18 17:25 sulfamethoxazole AdvReac Unknown Diarrhea Verified 04/24/18 17:25 [From Bactrim] trimethoprim [From Bactrim] AdvReac Unknown Diarrhea Verified 04/24/18 17:25 X-RAY CONTRAST Allergy Unknown Unknown Uncoded 04/24/18 16:57 Physical Exam Vitals: Vital Signs Temp Pulse Pulse Pulse Resp BP BP 04/25/18 11:50 98.5 F 57 L 18 04/25/18 08:00 18 04/25/18 07:45 97.8 F 59 L 18 04/25/18 03:50 97.7 F 57 L 16 141/58 04/25/18 03:37 56 L 16 04/25/18 00:00 57 L 16 04/24/18 23:50 98.4 F 54 L 16 162/65 04/24/18 21:31 98.1 F 69 16 196/71 04/24/18 20:52 97.7 F 60 18 185/72 04/24/18 19:52 60 18 157/68 04/24/18 18:11 66 18 164/61 04/24/18 18:02 66 18 04/24/18 18:00 66 18 161/72 04/24/18 17:57 70 18 160/74 04/24/18 16:57 98.4 F 72 18 160/74 BP Pulse Ox 04/25/18 11:50 172/66 97 04/25/18 08:00 04/25/18 07:45 165/78 97 04/25/18 03:50 96 04/25/18 03:37 04/25/18 00:00 04/24/18 23:50 97 04/24/18 21:31 99 04/24/18 20:52 99 04/24/18 19:52 100 04/24/18 18:11 97 04/24/18 18:02 04/24/18 18:00 98 04/24/18 17:57 97 04/24/18 16:57 94 L Intake and Output 04/24/18 04/25/18 04/25/18 22:59 06:59 14:59 Other: Voiding Method Toilet # Voids 2 1 1 Weight 86.636 kg - Constitutional General appearance: no acute distress - EENT Eyes: EOMI - Neck Neck: no lymphadenopathy - Respiratory Respiratory: bilateral: CTA - Cardiovascular Rhythm: regular Heart sounds: normal: S1, S2 Abnormal Heart Sounds: no S3 Gallop - Gastrointestinal General gastrointestinal: scaphoid, no tenderness - Musculoskeletal Musculoskeletal: gait normal - Psychiatric Psychiatric: A&O x's 3 Results CBC & Chem 7: 04/24/18 19:29 04/24/18 19:29 Labs: Abnormal Lab Results - Last 24 Hours (Table) 04/24/18 04/24/18 04/24/18 Range/Units 19:29 19:29 20:13 Carbon Dioxide 31 H (22-30) mmol/L BUN 49 H (7-17) mg/dL Creatinine 1.80 H (0.52-1.04) mg/dL Glucose 108 H (74-99) mg/dL POC Glucose (mg/dL) 109 H (75-99) mg/dL Magnesium 2.4 H (1.6-2.3) mg/dL Total Protein 6.1 L (6.3-8.2) g/dL Triglycerides 196 H (<150) mg/dL HDL Cholesterol 33 L (40-60) mg/dL 04/25/18 04/25/18 Range/Units 06:50 12:02 Carbon Dioxide (22-30) mmol/L BUN (7-17) mg/dL Creatinine (0.52-1.04) mg/dL Glucose (74-99) mg/dL POC Glucose (mg/dL) 149 H 172 H (75-99) mg/dL Magnesium (1.6-2.3) mg/dL Total Protein (6.3-8.2) g/dL Triglycerides (<150) mg/dL HDL Cholesterol (40-60) mg/dL Thrombosis Risk Factor Assmnt - Choose All That Apply Each Factor Represents 1 point: Obesity (BMI >25) Each Risk Factor Represents 3 Points: Age 75 years or older Thrombosis Risk Factor Assessment Total Risk Factor Score: 4 Thrombosis Risk Factor Assessment Level: Moderate Risk Assessment and Plan (1) Chest pain Current Visit: Yes Status: Acute Code(s): R07.9 - CHEST PAIN, UNSPECIFIED SNOMED Code(s): 14519381 (2) Chronic kidney disease, stage 3 Current Visit: No Status: Acute Code(s): N18.3 - CHRONIC KIDNEY DISEASE, STAGE 3 (MODERATE) SNOMED Code(s): 927649537 (3) Coronary artery disease Current Visit: No Status: Chronic Code(s): I25.10 - ATHSCL HEART DISEASE OF [place] CORONARY ARTERY W/O ANG PCTRS SNOMED Code(s): 89425781 (4) Hypertension Current Visit: No Status: Chronic Code(s): I10 - ESSENTIAL (PRIMARY) HYPERTENSION SNOMED Code(s): 27428698 (5) Type II diabetes mellitus with peripheral circulatory disorder, uncontrolled Current Visit: No Status: Chronic Priority: Medium Code(s): E11.51 - TYPE 2 DIABETES W DIABETIC PERIPHERAL ANGIOPATH W/O GANGRENE SNOMED Code(s): 17844780 Plan: Rule out myocardial infraction. Echocardiogram is now pending. Cardiology is not consulted. Reconcile home medications. Prognosis is guarded secondary to advancing age. See orders otherwise. Time with Patient: Greater than 30
== END 2018-04-25 15:00 | disposition home or self-care (01) ==
LOC: EC 16:53 → 3OBS 20:34
PROVIDERS: ADMIT Family Medicine; ATTEND Family Medicine
DX: R07.89 Other chest pain (principal); I12.9 Hypertensive chronic kidney disease with stage 1 through stage 4 chronic kidney disease, or unspecified chronic kidney disease; N18.3 Chronic kidney disease, stage 3 (moderate); E11.22 Type 2 diabetes mellitus with diabetic chronic kidney disease; I25.10 Atherosclerotic heart disease of native coronary artery without angina pectoris; E78.5 Hyperlipidemia, unspecified; E11.51 Type 2 diabetes mellitus with diabetic peripheral angiopathy without gangrene; E03.9 Hypothyroidism, unspecified; E11.65 Type 2 diabetes mellitus with hyperglycemia; E66.9 Obesity, unspecified; K21.9 Gastro-esophageal reflux disease without esophagitis; N28.1 Cyst of kidney, acquired; M19.90 Unspecified osteoarthritis, unspecified site; M54.9 Dorsalgia, unspecified; G89.29 Other chronic pain; Z68.38 Body mass index [BMI] 38.0-38.9, adult; I25.2 Old myocardial infarction; Z79.4 Long term (current) use of insulin; Z79.02 Long term (current) use of antithrombotics/antiplatelets; Z79.890 Hormone replacement therapy; Z79.899 Other long term (current) drug therapy; Z88.0 Allergy status to penicillin; Z88.2 Allergy status to sulfonamides; Z88.8 Allergy status to other drugs, medicaments and biological substances; Z88.1 Allergy status to other antibiotic agents; Z91.041 Radiographic dye allergy status; Z90.49 Acquired absence of other specified parts of digestive tract; Z90.89 Acquired absence of other organs; Z95.5 Presence of coronary angioplasty implant and graft; Z95.1 Presence of aortocoronary bypass graft; Z91.81 History of falling; Z87.891 Personal history of nicotine dependence; Z96.642 Presence of left artificial hip joint; Z80.7 Family history of other malignant neoplasms of lymphoid, hematopoietic and related tissues; Z80.51 Family history of malignant neoplasm of kidney
CPT/HCPCS: 99285 ×2; 96374 ×2; 36415; 93005; 80061; 80053; 82550 ×2; 82553 ×2; 83735; 84484 ×2; 85025; 85610; 85730; 83036; 71046; G0378 ×2; C8929; J1170; Q9950; 93306

== ENCOUNTER → 2018-08-02 | Outpatient (CLI) | payer MEDICARE, BC ==
--- NOTE | 2018-08-02 14:36 | US ---
EXAMINATION TYPE: US abdomen complete DATE OF EXAM: 08/02/2018 COMPARISON: CT 02/21/2015 CLINICAL HISTORY: R10.31 R10.11 RT UPPER AND LOWER QUADRANT PAIN. right sided pain for 2 weeks, marizol cystectomy, appendectomy, known renal cyst EXAM MEASUREMENTS: Liver Length: 15.6 cm Gallbladder Wall: Surgically absent cm CBD: 0.9 cm Spleen: 9.8 cm Right Kidney: 9.2 x 3.3 x 5.5 cm Left Kidney: 8.9 x 4.1 x 5.7 cm extreme bowel gas limits exam on elderly patient Pancreas: not seen Liver: very limited views, intercostal only, no obvious abnormality Gallbladder: Surgically absent Evidence for sonographic Alexander's sign: no CBD: dilated Spleen: wnl Right Kidney: 1.2cm superior pole cyst seen and no hydronephrosis Left Kidney: No hydronephrosis Upper IVC: wnl Abd Aorta: not seen Exam is limited. No ascites. Coarse echotexture within the liver could be due to hepatic steatosis or hepatocellular disease. Dilation of the common bile duct may be due to postcholecystectomy change. H ypoechoic focus at the upper pole the right kidney thought likely to be simple cyst. Cortical thinnin g noted within both kidneys. IMPRESSION: There is cortical thinning within the kidneys. Limited exam. The could be underlying hepa tic steatosis, hepatocellular disease. Additional findings above. Postop changes.
== END | disposition home or self-care (01) ==
LOC: RADUSWWP 10:45
PROVIDERS: ATTEND Family Medicine
DX: R10.31 Right lower quadrant pain (principal); R10.11 Right upper quadrant pain; Z98.890 Other specified postprocedural states
CPT/HCPCS: 76700

== ENCOUNTER 2018-08-27 12:09 | Inpatient (IN) | payer MEDICARE, BC ==
--- NOTE | 2018-08-27 12:32 | ED ---
Syncope HPI - General Chief Complaint: Syncope Stated Complaint: Dizziness Time Seen by Provider: 08/27/18 12:11 Source: patient, EMS Mode of arrival: EMS Limitations: no limitations - History of Present Illness Initial Comments: 83-year-old female presenting with multiple syncopal symptoms. Patient states at 3 AM this morning she went to use the restroom and woke up on the bathroom floor. She states prior to arrival she had the same kind of episode. She denies any presyncopal symptoms. At this time she is complaining of midline cervical spine pain but otherwise denies any headache, focal weakness, change in vision. Patient states since the end of July she's been having episodes of room spinning dizziness that occur spontaneously, resolve spontaneously, and her not alleviated or exacerbated by anything. Patient states she is on Plavix but denies any anticoagulation use. She denies any chest pain or shortness of breath. Denies any new medications. She admits to worsening generalized weakness over the last 1 month which is been treating to poor by mouth intake. She currently denies any nausea vomiting or diarrhea. - Related Data Home Medications Medication Instructions Recorded Confirmed Atorvastatin [Lipitor] 80 mg PO HS 10/16/14 08/27/18 Cholecalciferol [Vitamin D3] 5,000 unit PO DAILY 10/16/14 08/27/18 Metoprolol Tartrate [Lopressor] 50 mg PO BID 10/16/14 08/27/18 Nitroglycerin Sl Tabs [Nitrostat] 0.4 mg SUBLINGUAL Q5M PRN 11/07/14 08/27/18 Gabapentin [Neurontin] 800 mg PO QID 02/21/15 08/27/18 Calcitriol 0.25 mcg PO SUTH 09/09/16 08/27/18 Furosemide [Lasix] 40 mg PO TID 06/15/17 08/27/18 INSULIN LISPRO (HumaLOG) [humaLOG] 6 unit SQ BID 07/08/17 04/24/18 Ondansetron [Zofran] 4 mg PO Q8HR PRN 08/27/18 08/27/18 Sertraline [Zoloft] 50 mg PO DAILY 08/27/18 08/27/18 Previous Rx's Medication Instructions Recorded Insulin Glargine,Hum.rec.anlog 20 units SQ HS@2100 #0 06/17/17 [[address]] Levothyroxine Sodium [Synthroid] 100 mcg PO DAILY@0630 #30 tab 06/17/17 Losartan [Cozaar] 25 mg PO DAILY #30 tab 06/17/17 Clopidogrel [Plavix] 75 mg PO DAILY #90 tab 07/09/17 Isosorbide Mononitrate ER [Imdur] 60 mg PO DAILY #30 tab 07/14/17 Allergies Allergy/AdvReac Type Severity Reaction Status Date / Time Iodinated Contrast- Oral and Allergy Severe Anaphylaxis Verified 08/27/18 15:31 IV Dye [Iodinated Contrast Media - IV Dye] captopril [From Capoten] Allergy Unknown PASSED OUT Verified 08/27/18 15:31 morphine Allergy Unknown Verified 08/27/18 15:31 Penicillins Allergy Unknown Verified 08/27/18 15:31 sulfamethoxazole AdvReac Unknown Diarrhea Verified 08/27/18 15:31 [From Bactrim] trimethoprim [From Bactrim] AdvReac Unknown Diarrhea Verified 08/27/18 15:31 X-RAY CONTRAST Allergy Unknown Unknown Uncoded 08/27/18 12:15 Review of Systems ROS Statement: Those systems with pertinent positive or pertinent negative responses have been documented in the HPI. Review of Systems Constitutional: Denies fever, chills Eyes: Denies change in vision, Denies pain Ears, nose, mouth, throat: Denies headaches, Denies sore throat Cardiovascular: Denies chest pain. Denies palpitations. Positive syncope Respiratory: Denies shortness of breath, Denies cough Gastrointestinal: Denies abdominal pain. Denies nausea, vomiting, diarrhea. Genitourinary: Denies hematuria, Denies infections Musculoskeletal: Positive neck pain, Denies swelling Integumentary: Denies rash Neurological: Denies headache, focal weakness, focal numbness Psychiatric: Denies anxiety, Denies depression Hematologic/Lymphatic: Denies easy bleeding or bruising ROS Other: All systems not noted in ROS Statement are negative. 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 History of Any Multi-Drug Resistant Organisms: None Reported Past Surgical History: Appendectomy, Cholecystectomy, Heart Catheterization, Heart Catheterization With Stent, Hernia Repair Additional Past Surgical History / Comment(s): 07/08/17 PCI with stent to LCX, bilateral carpal tunnel; right and left finger release; CABG - 1998. Spinal cord stimulator implantation (2009) AND REMOVED. Bilateral cataract removal with lens implants,. Right hip surgery - too put in, T LT HIP REPLACEMENT. HIATAL HERNIA REPAIR. Stents placed 07/09/17. Past Anesthesia/Blood Transfusion Reactions: No Reported Reaction Additional Past Anesthesia/Blood Transfusion Reaction / Comment(s): contracted hepatits after blood transfusion (1971) Date of Last Stent Placement:: 07/08/17 Past Psychological History: No Psychological Hx Reported Smoking Status: Never smoker Past Alcohol Use History: None Reported Past Drug Use History: None Reported - Past Family History Mother Family Medical History: Cancer Additional Family Medical History / Comment(s): HODGKINS Son(s) Family Medical History: Cancer Additional Family Medical History / Comment(s): KIDNEY CANCER General Exam - General Exam Comments Initial Comments: General: Awake, alert, No acute Distress HENT: Normocephalic. Atraumatic. Eyes: PERRL. EOMI. No scleral icterus. No injected conjunctiva. No nystagmus. No hemotympanum bilaterally, negative Bhandari sign bilaterally, no midface instability or facial trauma. Neck: Full ROM. Midline C4 cervical spine pain. Chest/Lungs: Clear to auscultation bilaterally. No wheezing, rhonchi, or rales Cardiac: Regular rate, rhythm. No murmurs or rubs. No abdominal or carotid bruit Abdomen/GI: Soft, nontender, nondistended. No rebound, guarding, or rigidity. Musculoskeletal: Full ROM. No tenderness to palpation of lumbar or thoracic spine. no tenderness to palpation of the hips bilaterally. Skin: Warm, dry, intact Neurologic: A/Ox3, no weakness, no sensory deficit, no abdnormal gait, no coordination deficit. C5 through T1 sensation intact bilaterally. 5 out of 5 strength in all muscle groups of upper and lower extremities. GCS 15 Limitations: no limitations Course Vital Signs 08/27/18 08/27/1808/27/18 12:12 12:46 14:21 Temperature 96.9 F L Pulse Rate 55 L 60 Respiratory 20 18 Rate Blood Pressure 149/79 88/58 O2 Sat by Pulse 98 98 Oximetry 08/27/18 08/27/18 08/27/18 14:30 15:00 15:30 Temperature Pulse Rate 58 L 57 L 56 L Respiratory 14 15 20 Rate Blood Pressure 88/58 110/58 105/73 O2 Sat by Pulse 100 98 97 Oximetry 08/27/18 08/27/18 08/27/18 16:00 16:30 17:19 Temperature Pulse Rate 59 L 63 64 Respiratory 15 17 16 Rate Blood Pressure 115/62 121/66 93/58 O2 Sat by Pulse 94 L 95 Oximetry Medical Decision Making - Medical Decision Making 83-year-old female presenting with multiple syncopal episodes. Initial exam the patient's awake, alert, no acute distress. VSS. Attempted to place patient in c-collar she is having midline cervical spine tenderness however the patient was unable to tolerate the c-collar refused to wear it. At this time concern for cardiac syncope as the patient is not having any presyncopal symptoms. EKG shows sinus bradycardia with first-degree A-V block similar to April 24 2018. Patient's laboratory workup revealed an elevated BNP but no signs of failure on patient's physical exam or CXR. She ambulates with a walker at home but here was too weak to ambulate to a commode and required a two-person assist. I spoke with the admitting physician who is agreeable to admission with cardiology on consult. Patient currently stable for transfer to the floor. - Lab Data Result diagrams: 08/27/18 12:35 08/27/18 12:35 Lab Results 08/27/18 08/27/18 08/27/18 Range/Units 12:35 12:35 12:35 WBC 7.6 (3.8-10.6) k/uL RBC 4.35 (3.80-5.40) m/uL Hgb 13.2 (11.4-16.0) gm/dL Hct 40.6 (34.0-46.0) % MCV 93.2 (80.0-100.0) fL MCH 30.2 (25.0-35.0) pg MCHC 32.4 (31.0-37.0) g/dL RDW 14.3 (11.5-15.5) % Plt Count 223 (150-450) k/uL Neutrophils % 75 % Lymphocytes % 16 % Monocytes % 7 % Eosinophils % 1 % Basophils % 0 % Neutrophils # 5.7 (1.3-7.7) k/uL Lymphocytes # 1.3 (1.0-4.8) k/uL Monocytes # 0.5 (0-1.0) k/uL Eosinophils # 0.1 (0-0.7) k/uL Basophils # 0.0 (0-0.2) k/uL Sodium 139 (137-145) mmol/L Potassium 3.9 (3.5-5.1) mmol/L Chloride 104 (98-107) mmol/L Carbon Dioxide 27 (22-30) mmol/L Anion Gap 8 mmol/L BUN 22 H (7-17) mg/dL Creatinine 1.97 H (0.52-1.04) mg/dL Est GFR (CKD-EPI)AfAm 26 (>60 ml/min/1.73 sqM) Est GFR (CKD-EPI)NonAf 23 (>60 ml/min/1.73 sqM) Glucose 143 H (74-99) mg/dL Calcium 8.9 (8.4-10.2) mg/dL Magnesium 2.1 (1.6-2.3) mg/dL Troponin I (0.000-0.034) ng/mL NT-Pro-B Natriuret Pep 1330 pg/mL Urine Color Urine Appearance (Clear) Urine pH (5.0-8.0) Ur Specific [place] (1.001-1.035) Urine Protein (Negative) Urine Glucose (UA) (Negative) Urine Ketones (Negative) Urine Blood (Negative) Urine Nitrite (Negative) Urine Bilirubin (Negative) Urine Urobilinogen (<2.0) mg/dL Ur Leukocyte Esterase (Negative) 08/27/18 08/27/18 Range/Units 12:35 14:15 WBC (3.8-10.6) k/uL RBC (3.80-5.40) m/uL Hgb (11.4-16.0) gm/dL Hct (34.0-46.0) % MCV (80.0-100.0) fL MCH (25.0-35.0) pg MCHC (31.0-37.0) g/dL RDW (11.5-15.5) % Plt Count (150-450) k/uL Neutrophils % % Lymphocytes % % Monocytes % % Eosinophils % % Basophils % % Neutrophils # (1.3-7.7) k/uL Lymphocytes # (1.0-4.8) k/uL Monocytes # (0-1.0) k/uL Eosinophils # (0-0.7) k/uL Basophils # (0-0.2) k/uL Sodium (137-145) mmol/L Potassium (3.5-5.1) mmol/L Chloride (98-107) mmol/L Carbon Dioxide (22-30) mmol/L Anion Gap mmol/L BUN (7-17) mg/dL Creatinine (0.52-1.04) mg/dL Est GFR (CKD-EPI)AfAm (>60 ml/min/1.73 sqM) Est GFR (CKD-EPI)NonAf (>60 ml/min/1.73 sqM) Glucose (74-99) mg/dL Calcium (8.4-10.2) mg/dL Magnesium (1.6-2.3) mg/dL Troponin I 0.015 (0.000-0.034) ng/mL NT-Pro-B Natriuret Pep pg/mL Urine Color Light Yellow Urine Appearance Clear (Clear) Urine pH 6.0 (5.0-8.0) Ur Specific [place] 1.008 (1.001-1.035) Urine Protein Trace H (Negative) Urine Glucose (UA) Negative (Negative) Urine Ketones Negative (Negative) Urine Blood Negative (Negative) Urine Nitrite Negative (Negative) Urine Bilirubin Negative (Negative) Urine Urobilinogen <2.0 (<2.0) mg/dL Ur Leukocyte Esterase Negative (Negative) Disposition Clinical Impression: Syncope Disposition: ADMITTED IP TO THIS [facility] Condition: Good Decision to Admit Reason: Admit from EC Decision Date: 08/27/18 Decision Time: 16:23
[2018-08-27 12:50] LABS: Basophils % (A) 0 %; Eosinophils # (A) 0.1 k/uL (0-0.7); Eosinophils % (A) 1 %; HCT 40.6 % (34.0-46.0); HGB 13.2 gm/dL (11.4-16.0); Lymphocytes # (A) 1.3 k/uL (1.0-4.8); Lymphocytes % (A) 16 %; MCH 30.2 pg (25.0-35.0); MCHC 32.4 g/dL (31.0-37.0); MCV 93.2 fL (80.0-100.0); Mean Platelet Volume 7.7; Monocytes # (A) 0.5 k/uL (0-1.0); Monocytes % (A) 7 %; Neutrophils # (A) 5.7 k/uL (1.3-7.7); Neutrophils % (A) 75 %; Platelet Count 223 k/uL (150-450); RBC 4.35 m/uL (3.80-5.40); RDW 14.3 % (11.5-15.5); WBC 7.6 k/uL (3.8-10.6)
--- NOTE | 2018-08-27 13:12 | XR ---
EXAMINATION TYPE: XR chest 2V DATE OF EXAM: 08/27/2018 HISTORY: Pain. REFERENCE: Previous study dated 04/24/2018. FINDINGS: There has been a midline sternotomy. Heart size is upper limits of normal. The lungs are cl ear. Pleural spaces are clear. There is evidence of right-sided rotator cuff disease. IMPRESSION: NO ACTIVE INTRATHORACIC DISEASE.
--- NOTE | 2018-08-27 13:18 | CT ---
EXAMINATION TYPE: CT brain [facility]renden davidson DATE OF EXAM: 08/27/2018 COMPARISON: Previous CT scan of the brain dated 03/09/2012 HISTORY: dizziness, fall CT DLP: 852.3 mGycm Automated exposure control for dose reduction was used. TECHNIQUE: CT scan of the head and cervical spine are performed without contrast. FINDINGS: BRAIN: There are generalized changes of sulcal prominence and ventriculomegaly, compatible with atrop hic change. There is diffuse periventricular white matter lucency, compatible with chronic white devon er ischemic change. There is no acute focal lesion, mass effect or midline shift identified. I do not see evidence of intracranial blood. There is vascular calcification present. There is chronic mucoperiosteal thickening involving the anterior ethmoid air cells bilaterally. The remainder the paranasal sinuses and mastoids are clear. Bony calvarium is intact. IMPRESSION: 1. NO ACUTE OSSEOUS LESION. 2. DEGENERATIVE CHANGE. 3. CHRONIC ETHMOIDAL SINUS MUCOSAL DISEASE. CERVICAL SPINE: Visualized portions of the lungs are clear. There is moderate atheromatous calcification of the carotid bulbs bilaterally. Prevertebral soft tiss ues are otherwise unremarkable. There is a mild, degenerative grade 1 spondylolisthesis of C2 on C3 alignment is otherwise normal. At lantoaxial relationships are normal. There is diffuse degenerative disc disease with relative sparing of C2-3. This hypertrophic spondylos is most marked at C5-6. There is diffuse uncovertebral joint disease with relative sparing of C2-3 an d C6-7. No fractures are seen. No definite protrusion is identified.
[2018-08-27 13:20] LABS: Calcium 8.9 mg/dL (8.4-10.2); Magnesium 2.1 mg/dL (1.6-2.3); Potassium 3.9 mmol/L (3.5-5.1)
[2018-08-27] MEDS ORDERED: SODIUM CHLORIDE 0.9% 1,000 ML IV ONE (14:04)
[2018-08-27 15:35] LABS: Appearance,Urine Clear (Clear); Bilirubin,Urine Negative (Negative); Blood,Urine Negative (Negative); Color,Urine Light Yellow; Glucose,Urine (UA) Negative (Negative); Ketones,Urine Negative (Negative); Leukocyte Esterase,Urine Negative (Negative); Nitrite,Urine Negative (Negative); Protein,Urine Trace (Negative); Specific Gravity,Urine 1.008 (1.001-1.035); Urobilinogen,Urine <2.0 mg/dL (<2.0)
[2018-08-27] MEDS ORDERED: ACETAMINOPHEN TAB 325 MG TAB PO PRN (16:18)
[2018-08-27] MEDS ORDERED: ONDANSETRON 4 MG/2 ML VIAL IVP PRN (16:18)
[2018-08-27] MEDS ORDERED: NALOXONE 0.4 MG/ML 1 ML VIAL IV PRN (16:18)
[2018-08-27] MEDS ORDERED: BISACODYL 5 MG TABLET.DR PO PRN (16:18)
[2018-08-27 17:46] LABS: Glucose,Whole Blood 163 mg/dL (75-99)
[2018-08-27] MEDS: CALCITRIOL 0.25 MCG CAP PO SCH (17:53)
[2018-08-27] MEDS: GABAPENTIN 400 MG CAP PO SCH ×2 (18:05→21:19)
[2018-08-27 19:25] LABS: Creatine Kinase MB 0.6 ng/mL (0.0-2.4)
[2018-08-27 20:45] LABS: Glucose,Whole Blood 191 mg/dL (75-99)
[2018-08-27] MEDS ORDERED: METOPROLOL TARTRATE 50 MG TAB PO SCH (21:00)
[2018-08-27] MEDS: ATORVASTATIN 80 MG TAB PO SCH (21:19)
[2018-08-27] MEDS: INSULIN ASPART 100 UNIT/ML 1 ML 10 ML VIAL SQ SCH (21:20)
[2018-08-27] MEDS: INSULIN DETEMIR 100 UNIT/ML 10 ML VIAL SQ SCH (21:20)
[2018-08-27] MEDS ORDERED: FUROSEMIDE 40 MG TAB PO SCH (22:00)
--- NOTE | 2018-08-27 22:27 | P.HPIM ---
History of Present Illness H&P Date: 08/27/18 Chief Complaint: Syncope Patient is a 83-year-old female with a known history of coronary artery disease and stent placement, diabetes type 2, hypertension, hyperlipidemia, hypothyroidism and other multiple medical problems came to ER with complaints of syncopal episode. Patient states at 3 AM this morning she went to use the restroom and woke up on the bathroom floor. She states prior to arrival she had the same kind of episode. Patient lives in assisted living Facility. Patient went to the bathroom this morning and suddenly fell and hit her head. Patient presents emergency button and assess arrived to the scene and ambulance was called. Patient was recently treated for urinary tract infection with ciprofloxacin. Since then she has been having multiple episodes of dizziness and room spinning. Denied any complaints of chest pain or shortness of breath. She admits to worsening generalized weakness over the last 1 month which is been treating to poor by mouth intake. She currently denies any nausea vomiting or diarrhea. BUN and creatinine 1.97 BNP 1330 UA negative for infection Chest x-ray showed no acute process CT head and cervical spine showed no acute abnormality. EKG showed sinus bradycardia and first-degree AV block. Troponin 0.015 Review of Systems Constitutional: Patient denies any fever or chills . Does have generalized weakness.. Abdomen: Patient denied nausea vomiting and diarrhea and abdominal pain. Cardiovascular: Patient denies any chest pain or short of breath no palpitations. Respiratory: patient denied any cough is from production. No shortness of breath Neurologic: Patient denied any numbness or tingling headache. Musculoskeletal: Patient denies any complaints of joint swelling or deformity. Skin: Negative Psychiatric: Negative Endocrine: No heat or cold intolerance. No recent weight gain. Genitourinary: No dysuria or hematuria. All other 14 point ROS negative except the above Past Medical History Past Medical History: Coronary Artery Disease (CAD), Chest Pain / Angina, Diabetes Mellitus, GERD/Reflux, Hyperlipidemia, Hypertension, Osteoarthritis (OA ), Renal Disease, Thyroid Disorder Additional Past Medical History / Comment(s): IDDM TYPE II, 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 History of Any Multi-Drug Resistant Organisms: None Reported Past Surgical History: Appendectomy, Cholecystectomy, Heart Catheterization, Heart Catheterization With Stent, Hernia Repair Additional Past Surgical History / Comment(s): 07/08/17 PCI with stent to LCX, bilateral carpal tunnel; right and left finger release; CABG - 1998. Spinal cord stimulator implantation (2009) AND REMOVED. Bilateral cataract removal with lens implants,. Right hip surgery - too put in, T LT HIP REPLACEMENT. HIATAL HERNIA REPAIR. Stents placed 07/09/17. Past Anesthesia/Blood Transfusion Reactions: No Reported Reaction Additional Past Anesthesia/Blood Transfusion Reaction / Comment(s): contracted hepatits after blood transfusion (1971) Date of Last Stent Placement:: 07/08/17 Past Psychological History: No Psychological Hx Reported Smoking Status: Never smoker Past Alcohol Use History: None Reported Past Drug Use History: None Reported - Past Family History Mother Family Medical History: Cancer Additional Family Medical History / Comment(s): HODGKINS Son(s) Family Medical History: Cancer Additional Family Medical History / Comment(s): KIDNEY CANCER Medications and Allergies Home Medications Medication Instructions Recorded Confirmed Type Atorvastatin [Lipitor] 80 mg PO HS 10/16/14 08/27/18 History Cholecalciferol [Vitamin D3] 5,000 unit PO DAILY 10/16/14 08/27/18 History Metoprolol Tartrate [Lopressor] 50 mg PO BID 10/16/14 08/27/18 History Nitroglycerin Sl Tabs [Nitrostat] 0.4 mg SUBLINGUAL Q5M PRN 11/07/14 08/27/18 History Gabapentin [Neurontin] 800 mg PO QID 02/21/15 08/27/18 History Calcitriol 0.25 mcg PO SUTH 09/09/16 08/27/18 History Furosemide [Lasix] 40 mg PO TID 06/15/17 08/27/18 History Insulin Glargine,Hum.rec.anlog 20 units SQ HS@2100 #0 06/17/17 04/24/18 Rx [Toujeo Solostar] Levothyroxine Sodium [Synthroid] 100 mcg PO DAILY@0630 #30 tab 06/17/17 Rx Losartan [Cozaar] 25 mg PO DAILY #30 tab 06/17/17 08/27/18 Rx INSULIN LISPRO (HumaLOG) [humaLOG] 6 unit SQ BID 07/08/17 04/24/18 History Clopidogrel [Plavix] 75 mg PO DAILY #90 tab 07/09/17 08/27/18 Rx Isosorbide Mononitrate ER [Imdur] 60 mg PO DAILY #30 tab 07/14/17 08/27/18 Rx Ondansetron [Zofran] 4 mg PO Q8HR PRN 08/27/18 08/27/18 History Sertraline [Zoloft] 50 mg PO DAILY 08/27/18 08/27/18 History Allergies Allergy/AdvReac Type Severity Reaction Status Date / Time Iodinated Contrast- Oral and Allergy Severe Anaphylaxis Verified 08/27/18 15:31 IV Dye [Iodinated Contrast Media - IV Dye] captopril [From Capoten] Allergy Unknown PASSED OUT Verified 08/27/18 15:31 morphine Allergy Unknown Verified 08/27/18 15:31 Penicillins Allergy Unknown Verified 08/27/18 15:31 sulfamethoxazole AdvReac Unknown Diarrhea Verified 08/27/18 15:31 [From Bactrim] trimethoprim [From Bactrim] AdvReac Unknown Diarrhea Verified 08/27/18 15:31 X-RAY CONTRAST Allergy Unknown Unknown Uncoded 08/27/18 12:15 Physical Exam Vitals: Vital Signs Temp Pulse Pulse Resp BP BP Pulse Ox 08/27/18 20:00 16 08/27/18 19:33 97.9 F 63 16 95/59 95 08/27/18 18:01 62 16 08/27/18 17:29 97.4 F L 62 16 123/69 95 08/27/18 17:19 64 16 93/58 95 08/27/18 16:30 63 17 121/66 94 L 08/27/18 16:00 59 L 15 115/62 08/27/18 15:30 56 L 20 105/73 97 08/27/18 15:00 57 L 15 110/58 98 08/27/18 14:30 58 L 14 88/58 100 08/27/18 14:21 60 18 88/58 98 08/27/18 12:46 96.9 F L 08/27/18 12:12 55 L 20 149/79 98 Intake and Output 08/27/18 08/27/18 08/27/18 06:59 14:59 22:59 Other: Voiding Method Toilet Weight 84.368 kg 84.368 kg PHYSICAL EXAMINATION: Patient is lying in the bed comfortably, no acute distress, awake alert and oriented.. HEENT: Normocephalic. Neck is supple. Pupils reactive. Nostrils clear. Oral cavity is moist. Ears reveal no drainage. Neck reveals no JVD, carotid bruits, or thyromegaly. CHEST EXAMINATION: Trachea is central. Symmetrical expansion. Bibasilar diminished air entry. Lung chao clear to auscultation and percussion. CARDIAC: Normal S1, S2 with no gallops. No murmurs ABDOMEN: Soft. Bowel sounds normal. No organomegaly. No abdominal bruits. Extremities: reveal no edema. No clubbing or cyanosis Neurologically awake, alert, oriented x3 with well-coordinated movements. No focal deficits noted Skin: No rash or skin lesions. Psychiatric: Coperative. Nonsuicidal Musculoskeletal: No joint swelling or deformity. Normal range of motion. Results CBC & Chem 7: 08/27/18 12:35 08/27/18 12:35 Labs: Abnormal Lab Results - Last 24 Hours (Table) 08/27/18 08/27/18 08/27/18 Range/Units 12:35 14:15 17:44 BUN 22 H (7-17) mg/dL Creatinine 1.97 H (0.52-1.04) mg/dL Glucose 143 H (74-99) mg/dL POC Glucose (mg/dL) 163 H (75-99) mg/dL Urine Protein Trace H (Negative) 08/27/18 Range/Units 20:36 BUN (7-17) mg/dL Creatinine (0.52-1.04) mg/dL Glucose (74-99) mg/dL POC Glucose (mg/dL) 191 H (75-99) mg/dL Urine Protein (Negative) Thrombosis Risk Factor Assmnt - DVT/VTE Prophylaxis DVT/VTE Prophylaxis: Pharmacologic Prophylaxis ordered - Choose All That Apply Any of the Below Risk Factors Present?: Yes Each Factor Represents 1 point: Obesity (BMI >25) Each Risk Factor Represents 3 Points: Age 75 years or older Thrombosis Risk Factor Assessment Total Risk Factor Score: 4 Thrombosis Risk Factor Assessment Level: Moderate Risk Assessment and Plan Assessment: Syncope likely due to orthostatic hypotension Sinus bradycardia with heart rate 55 on admission Poor oral intake and dehydration Hypotension Recent urinary tract infection and antibiotic use in the form of ciprofloxacin Nonoliguric Acute kidney injury Coronary artery disease with history of stent placement and GERD Diabetes type 2 insulin-dependent Hypertension Hyperlipidemia Osteoarthritis Chronic back pain Chronic bilateral leg numbness and burning Diabetic peripheral neuropathy DVT prophylaxis Plan: Patient was given fluid bolus in the ER. will check orthostatic vitals. Hold Lasix and continue with metoprolol and low-dose losartan. Follow-up renal function. Encourage oral intake. Cardiology was consulted. Further recommendations based on the clinical course. Prognosis is guarded. Time with Patient: Greater than 30
[2018-08-28] MEDS: HEPARIN SODIUM,PORCINE 5,000 UNIT/ML 1 ML VIAL SQ SCH ×4 (00:02→23:04)
[2018-08-28 01:42] LABS: Creatine Kinase MB 0.5 ng/mL (0.0-2.4)
[2018-08-28] MEDS: LEVOTHYROXINE 100 MCG TAB PO SCH (05:08)
[2018-08-28 06:37] LABS: Glucose,Whole Blood 110 mg/dL (75-99)
[2018-08-28] MEDS ORDERED: LOSARTAN 25 MG TAB PO SCH ×2 (09:00)
[2018-08-28] MEDS ORDERED: ISOSORBIDE MONONITRATE ER 60 MG TAB.ER.24H PO SCH (09:00)
[2018-08-28 09:57] LABS: Basophils % (A) 0 %; Eosinophils # (A) 0.2 k/uL (0-0.7); Eosinophils % (A) 3 %; HCT 38.7 % (34.0-46.0); HGB 12.3 gm/dL (11.4-16.0); Lymphocytes # (A) 1.6 k/uL (1.0-4.8); Lymphocytes % (A) 22 %; MCHC 31.9 g/dL (31.0-37.0); MCV 94.2 fL (80.0-100.0); Mean Platelet Volume 8.7; Monocytes # (A) 0.5 k/uL (0-1.0); Monocytes % (A) 6 %; Neutrophils # (A) 5.1 k/uL (1.3-7.7); Neutrophils % (A) 68 %; Platelet Count 171 k/uL (150-450); RBC 4.11 m/uL (3.80-5.40); RDW 14.4 % (11.5-15.5); WBC 7.5 k/uL (3.8-10.6)
[2018-08-28 10:02] LABS: Calcium 9.2 mg/dL (8.4-10.2); Potassium 3.9 mmol/L (3.5-5.1)
[2018-08-28] MEDS ORDERED: SODIUM CHLORIDE 0.9% 500 ML 250 ML IV ONE (10:07)
[2018-08-28] MEDS: CLOPIDOGREL 75 MG TAB PO SCH (10:19)
[2018-08-28] MEDS: GABAPENTIN 400 MG CAP PO SCH ×4 (10:19→21:34)
[2018-08-28] MEDS: CHOLECALCIFEROL 1,000 UNIT TAB PO SCH (10:20)
[2018-08-28] MEDS: INSULIN ASPART 100 UNIT/ML 1 ML 10 ML VIAL SQ SCH ×2 (10:20→21:34)
[2018-08-28] MEDS: ISOSORBIDE MONONITRATE ER 30 MG TAB.ER.24H PO SCH (10:20)
[2018-08-28] MEDS: SERTRALINE 50 MG TAB PO SCH (10:21)
[2018-08-28] MEDS: SODIUM CHLORIDE 0.9% 1,000 ML IV SCH (10:22)
--- NOTE | 2018-08-28 10:41 | P.CRDCN ---
History of Present Illness History of present illness: This is a pleasant 83-year-old female past medical history significant for coronary artery disease status post bypass grafting with subsequent angioplasty with an SVG to the diagonal branch and HERNANDEZ to LAD, diabetes mellitus, dyslipidemia, hypertension, chronic kidney disease and former nicotine dependence. She follows with Dr. Callahan in the office. We have been asked to see him in consultation for dizziness with possible syncope and fall. She states she went to the restroom yesterday morning upon waking up and urinated without difficulty. She denies feeling dizzy, chest pain, nausea, vomiting, diaphoresis ro shortness of breath. Upon standing from the toilet she became acutely dizzy and fell. She is unsure if she lost consciousness or not but doesn't recall exactly what happened. She denies having any chest pain, shortness of breath, nausea, vomiting or diaphoresis thereafter. She states she recently was diagnosed and treated for a kidney infection around [facility] and since then she has been increasingly weak, tired and has had a poor appetite. She states she has not been eating or drinking much at all. EKG reveals sinus bradycardia with first degree AVB with T-wave inversion in lateral leads. No change from previous. Chest x-ray is negative for an acute cardiopulmonary process. CT brain negative for an acute intracranial process. Laboratory data reviewed, WBC 7.5, hemoglobin 12.3, platelets 171, sodium 138, potassium 3.9, creatinine 2.5 with a GFR of 17, cardiac enzymes negative 3, NT proBNP 1330. Current cardiac medications include imdur 60 mg daily, lopressor 50 mg BID, losartan 25 mg daily, plavix 75 mg daily, lasix 40 mg TID and atorvastatin 80 mg daily. Most recent catheterization in July 2017 revealed patent stent to the left main and circumflex artery as well as a patent SVG to diagonal branch. Unable to visualize HERNANDEZ to LAD. Most recent echocardiogram performed April 2018 reveals moderately impaired LV systolic function with EF 35-40%, mildly dilated LA, moderate MR and mild TR. At the time of my exam: CONSTITUTIONAL: Denies fever. Denies chills. EYES: Denies blurred vision. Denies vision changes. Denies eye pain. EARS, NOSE, MOUTH & THROAT: Denies headache. Denies sore throat. Denies ear pain. CARDIOVASCULAR: Denies chest pain. Denies shortness of breath. Denies orthopnea. Denies PND. Denies palpitations. RESPIRATORY: Denies cough. GASTROINTESTINAL: Denies abdominal pain. Denies diarrhea. Denies constipation. Denies nausea. Denies vomiting. MUSCULOSKELETAL: Denies myalgias. INTEGUMENTARY: Denies pruitis. Denies rash. NEUROLOGIC: Denies numbness. Denies tingling. Denies weakness. PSYCHIATRIC: Denies anxiety. Denies depression. ENDOCRINE: Denies fatigue. Denies weight change. Denies polydipsia. Denies polyurina. GENITOURINARY: Denies burning, hematuria or urgency with micturation. HEMATOLOGIC: Denies history of anemia. Denies bleeding. blood pressure 100/62 heart rate 54 afebrile maintaining oxygen saturation on room air. GENERAL: This is a 83-year-old female in no apparent distress at the time of my examination. Obese. HEENT: Head is atraumatic, normocephalic. Pupils are equal, round. Sclerae anicteric. Conjunctivae are clear. Mucous membranes of the mouth are moist. Neck is supple. There is no jugular venous distention. No carotid bruit is heard. LUNGS: Clear to auscultation no wheezes, rales or rhonchi. No chest wall tenderness is noted on palpation or with deep breathing. HEART: Regular rate and rhythm with systolic ejection murmur at the left sternal border, no rubs or gallops. S1 and S2 heard. ABDOMEN: Soft, nontender. Bowel sounds are heard. No organomegaly noted. EXTREMITIES: No evidence of peripheral edema and no calf tenderness noted. VASCULAR: Radial and dorsalis pedis pulses palpated, no evidence of clubbing. NEUROLOGIC: Patient is awake, alert and oriented x3. ASSESSMENT Syncope with orthostatic changes noted and ongoing dizziness. History of coronary artery disease s/p bypass grafting. Hypertension, currently with low blood pressures Dyslipidemia Diabetes mellitus Acute on chronic kidney disease, GFR 17. Secondary to hypotension. Recent kidney infection Poor oral intake and generalized weakness PLAN Repeat orthostatic vital signs. Decrease imdur to 30 mg daily and lopressor to 25 mg BID. Hold losartan and today. Hydrate the patient with 0.9% sodium chloride bolus of 250 cc then 75cc/hr. Continue to monitor closely and provide assistance with ambulation. Further recommendations to follow based on clinical course. Thank you kindly for this consultation. Nurse Practitioner note has been reviewed, I agree with a documented findings and plan of care. Patient was seen and examined. 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 History of Any Multi-Drug Resistant Organisms: None Reported Past Surgical History: Appendectomy, Cholecystectomy, Heart Catheterization, Heart Catheterization With Stent, Hernia Repair Additional Past Surgical History / Comment(s): 07/08/17 PCI with stent to LCX, bilateral carpal tunnel; right and left finger release; CABG - 1998. Spinal cord stimulator implantation (2009) AND REMOVED. Bilateral cataract removal with lens implants,. Right hip surgery - too put in, T LT HIP REPLACEMENT. HIATAL HERNIA REPAIR. Stents placed 07/09/17. Past Anesthesia/Blood Transfusion Reactions: No Reported Reaction Additional Past Anesthesia/Blood Transfusion Reaction / Comment(s): contracted hepatits after blood transfusion (1971) Date of Last Stent Placement:: 07/08/17 Past Psychological History: No Psychological Hx Reported Smoking Status: Never smoker Past Alcohol Use History: None Reported Past Drug Use History: None Reported - Past Family History Mother Family Medical History: Cancer Additional Family Medical History / Comment(s): HODGKINS Son(s) Family Medical History: Cancer Additional Family Medical History / Comment(s): KIDNEY CANCER Medications and Allergies Home Medications Medication Instructions Recorded Confirmed Type Atorvastatin [Lipitor] 80 mg PO HS 10/16/14 08/27/18 History Cholecalciferol [Vitamin D3] 5,000 unit PO DAILY 10/16/14 08/27/18 History Metoprolol Tartrate [Lopressor] 50 mg PO BID 10/16/14 08/27/18 History Nitroglycerin Sl Tabs [Nitrostat] 0.4 mg SUBLINGUAL Q5M PRN 11/07/14 08/27/18 History Gabapentin [Neurontin] 800 mg PO QID 02/21/15 08/27/18 History Calcitriol 0.5 mcg PO SUTH 09/09/16 08/28/18 History Furosemide [Lasix] 40 mg PO TID 06/15/17 08/27/18 History Insulin Glargine,Hum.rec.anlog 20 units SQ HS@2100 #0 06/17/17 04/24/18 Rx [Toujeo Solostar] Levothyroxine Sodium [Synthroid] 100 mcg PO DAILY@0630 #30 tab 06/17/17 Rx Losartan [Cozaar] 25 mg PO DAILY #30 tab 06/17/17 08/27/18 Rx INSULIN LISPRO (HumaLOG) [humaLOG] 6 unit SQ BID 07/08/17 04/24/18 History Clopidogrel [Plavix] 75 mg PO DAILY #90 tab 07/09/17 08/27/18 Rx Isosorbide Mononitrate ER [Imdur] 60 mg PO DAILY #30 tab 07/14/17 08/27/18 Rx Ondansetron [Zofran] 4 mg PO Q8HR PRN 08/27/18 08/27/18 History Sertraline [Zoloft] 50 mg PO DAILY 08/27/18 08/27/18 History Allergies Allergy/AdvReac Type Severity Reaction Status Date / Time Iodinated Contrast- Oral and Allergy Severe Anaphylaxis Verified 08/27/18 15:31 IV Dye [Iodinated Contrast Media - IV Dye] captopril [From Capoten] Allergy Unknown PASSED OUT Verified 08/27/18 15:31 morphine Allergy Unknown Verified 08/27/18 15:31 Penicillins Allergy Unknown Verified 08/27/18 15:31 sulfamethoxazole AdvReac Unknown Diarrhea Verified 08/27/18 15:31 [From Bactrim] trimethoprim [From Bactrim] AdvReac Unknown Diarrhea Verified 08/27/18 15:31 X-RAY CONTRAST Allergy Unknown Unknown Uncoded 08/27/18 12:15 Physical Exam Vitals: Vital Signs Temp Pulse Pulse Pulse Pulse Pulse Resp 08/28/18 08:00 54 L 18 08/28/18 07:00 98.0 F 54 L 18 08/28/18 03:53 16 08/28/18 03:46 98.3 F 55 L 16 08/28/18 00:00 97.6 F 64 79 57 L 18 08/27/18 20:00 16 08/27/18 19:33 97.9 F 63 16 18 18:01 62 16 18 17:29 97.4 F L 62 16 18 17:19 64 16 18 16:30 63 17 18 16:00 59 L 15 08/27/18 15:30 56 L 20 08/27/18 15:00 57 L 15 08/27/18 14:30 58 L 14 08/27/18 14:21 60 18 08/27/18 12:46 96.9 F L 08/27/18 12:12 55 L 20 BP BP BP BP Pulse Ox 08/28/18 08:00 08/28/18 07:00 100/62 95 08/28/18 03:53 08/28/18 03:46 97/58 96 08/28/18 00:00 82/49 100/62 93 L 08/27/18 20:00 08/27/18 19:33 95/59 95 08/27/18 18:01 08/27/18 17:29 123/69 95 18 17:19 93/58 95 08/27/18 16:30 121/66 94 L 08/27/18 16:00 115/62 08/27/18 15:30 105/73 97 08/27/18 15:00 110/58 98 18 14:30 88/58 100 18 14:21 88/58 98 18 12:46 08/27/18 12:12 149/79 98 Intake and Output 08/27/18 08/28/18 08/28/18 22:59 06:59 14:59 Other: Voiding Method Toilet Toilet Toilet # Voids 1 Weight 84.368 kg Results 08/27/18 12:35 08/27/18 12:35 Cardiac Enzymes 08/27/18 08/27/18 08/27/18 Range/Units 12:35 18:24 18:24 CK-MB (CK-2) 0.6 (0.0-2.4) ng/mL Troponin I 0.015 0.028 (0.000-0.034) ng/mL 08/28/18 08/28/18 Range/Units 00:32 00:32 CK-MB (CK-2) 0.5 (0.0-2.4) ng/mL Troponin I 0.028 (0.000-0.034) ng/mL CBC 08/27/18 Range/Units 12:35 WBC 7.6 (3.8-10.6) k/uL RBC 4.35 (3.80-5.40) m/uL Hgb 13.2 (11.4-16.0) gm/dL Hct 40.6 (34.0-46.0) % Plt Count 223 (150-450) k/uL Comprehensive Metabolic Panel 08/27/18 Range/Units 12:35 Sodium 139 (137-145) mmol/L Potassium 3.9 (3.5-5.1) mmol/L Chloride 104 (98-107) mmol/L Carbon Dioxide 27 (22-30) mmol/L BUN 22 H (7-17) mg/dL Creatinine 1.97 H (0.52-1.04) mg/dL Glucose 143 H (74-99) mg/dL Calcium 8.9 (8.4-10.2) mg/dL Current Medications Generic Name Dose Route Start Last Admin Trade Name Freq PRN Reason Stop Dose Admin Acetaminophen 650 mg 08/27/18 16:18 Tylenol Tab PO Q6HR PRN Mild Pain or Fever > 100.5 Atorvastatin Calcium 80 mg 08/27/18 21:00 08/27/18 21:19 Lipitor PO 80 mg HS FRITZ Administration Bisacodyl 5 mg 08/27/18 16:18 Dulcolax PO DAILY PRN Constipation Calcitriol 0.25 mcg 08/27/18 09:00 08/27/18 17:53 Rocaltrol PO Not Given [facility] Cholecalciferol 5,000 unit 08/28/18 09:00 Vitamin D3 PO DAILY [facility] Clopidogrel Bisulfate 75 mg 08/28/18 09:00 Plavix PO DAILY [facility] Gabapentin 800 mg 08/27/18 18:00 08/27/18 21:19 Neurontin PO 800 mg QID [facility] Administration Heparin Sodium (Porcine) 5,000 unit 08/28/18 00:00 08/28/18 00:02 Heparin SQ 5,000 unit Q8HR FRITZ Administration Insulin Aspart 6 unit 08/27/18 21:00 08/27/18 21:20 Novolog SQ 6 unit BID FRITZ Administration Insulin Detemir 20 unit 08/27/18 21:00 08/27/18 21:20 Levemir SQ 20 unit HS@2100 FRITZ Administration Isosorbide Mononitrate 30 mg 08/28/18 09:00 Imdur PO DAILY FRITZ Levothyroxine Sodium 100 mcg 08/28/18 06:30 08/28/18 05:08 Synthroid PO 100 mcg DAILY@0630 FRITZ Administration Losartan Potassium 12.5 mg 08/28/18 09:00 Cozaar PO DAILY FRITZ Metoprolol Tartrate 25 mg 08/28/18 09:00 Lopressor PO BID FRITZ Naloxone HCl 0.2 mg 08/27/18 16:18 Narcan IV Q2M PRN Opioid Reversal Ondansetron HCl 4 mg 08/27/18 16:18 Zofran IVP Q8HR PRN Nausea And Vomiting Sertraline HCl 50 mg 08/28/18 09:00 Zoloft PO DAILY FRITZ Intake and Output 08/27/18 08/28/18 08/28/18 22:59 06:59 14:59 Other: Voiding Method Toilet Toilet Toilet # Voids 1 Weight 84.368 kg 08/27/18 12:35 08/27/18 12:35
[2018-08-28] MEDS: METOPROLOL TARTRATE 25 MG TAB PO SCH ×2 (11:54→20:02)
[2018-08-28 12:03] LABS: Glucose,Whole Blood 110 mg/dL (75-99)
[2018-08-28 13:58] VITALS: BMI 37.5
[2018-08-28 16:54] LABS: Glucose,Whole Blood 144 mg/dL (75-99)
[2018-08-28] MEDS: ATORVASTATIN 80 MG TAB PO SCH (20:02)
[2018-08-28 21:16] LABS: Glucose,Whole Blood 131 mg/dL (75-99)
[2018-08-28] MEDS: INSULIN DETEMIR 100 UNIT/ML 10 ML VIAL SQ SCH (21:34)
--- NOTE | 2018-08-28 23:17 | P.PN ---
Subjective Progress Note Date: 08/28/18 Principal diagnosis: The patient is here essentially because of significant syncopal episodes. Multiple falls are noted. She has had significant hypotension at home. Heart rate has been somewhat the low side as far as heart rate. Appreciate cardiac input. She seems fatigued this morning. As per chief complaint Objective - Vital Signs Vital signs: Vital Signs Temp 97.6 F 08/28/18 19:00 Pulse 63 08/28/18 19:00 Resp 18 08/28/18 19:57 BP 134/69 08/28/18 19:00 Pulse Ox 97 08/28/18 19:00 Intake & Output 08/28/18 08/28/18 08/29/18 06:59 18:59 06:59 Intake Total 622 Balance 622 Weight 84.368 kg Intake: Oral 622 Other: Voiding Method Toilet Toilet Toilet # Voids 1 1 - Constitutional General appearance: Present: obese - EENT Eyes: Absent: abnormal pupil - Respiratory Respiratory: bilateral: CTA - Cardiovascular Rhythm: regular Heart sounds: normal: S1, S2 Abnormal Heart Sounds: Absent: S3 Gallop - Gastrointestinal General gastrointestinal: Present: normal bowel sounds - Musculoskeletal Musculoskeletal: Present: generalized weakness - Psychiatric Psychiatric: Present: A&O x's 3 - Labs CBC & Chem 7: 08/28/18 09:16 08/28/18 09:16 Labs: Abnormal Lab Results - Last 24 Hours (Table) 08/28/18 08/28/18 08/28/18 Range/Units 00:32 06:35 09:16 BUN 32 H (7-17) mg/dL Creatinine 2.50 H (0.52-1.04) mg/dL POC Glucose (mg/dL) 110 H (75-99) mg/dL Total Creatine Kinase 28 L (30-135) U/L 08/28/18 08/28/18 08/28/18 Range/Units 12:01 16:45 20:54 BUN (7-17) mg/dL Creatinine (0.52-1.04) mg/dL POC Glucose (mg/dL) 110 H 144 H 131 H (75-99) mg/dL Total Creatine Kinase (30-135) U/L Assessment and Plan (1) Syncope Current Visit: Yes Status: Acute Code(s): R55 - SYNCOPE AND COLLAPSE SNOMED Code(s): 334888105 (2) Hypertension Current Visit: No Status: Chronic Code(s): I10 - ESSENTIAL (PRIMARY) HYPERTENSION SNOMED Code(s): 07601489 (3) Type II diabetes mellitus with peripheral circulatory disorder, uncontrolled Current Visit: No Status: Chronic Priority: Medium Code(s): E11.51 - TYPE 2 DIABETES W DIABETIC PERIPHERAL ANGIOPATH W/O GANGRENE SNOMED Code(s): 89200371 Plan: Titrate cardiac medications as per cardiology. Check CMP in the a.m. Question need to repeat echocardiogram if no better. Increase ambulation as possible. New preop consider PT.
[2018-08-29] MEDS: SODIUM CHLORIDE 0.9% 1,000 ML IV SCH (00:11)
[2018-08-29] MEDS: LEVOTHYROXINE 100 MCG TAB PO SCH (04:48)
[2018-08-29 06:38] LABS: Glucose,Whole Blood 72 mg/dL (75-99)
--- NOTE | 2018-08-29 07:23 | P.PN ---
Subjective Principal diagnosis: The patient is here essentially because of significant syncopal episodes. Multiple falls are noted. She has had significant hypotension at home. Heart rate has been somewhat the low side as far as heart rate. Appreciate cardiac input. She seems fatigued this morning. This is a continue progress on an 83-year-old white female essentially admitted for multiple episodes of fall and syncope. The patient has had bradycardia and hypotension recently. Medications have been adjusted by cardiology. No new complaints stated. No more falling. She seems to have no significant voiding difficulties. But has significant weakness. We will go ahead and ask physical therapy to see the patient today. Objective - Vital Signs Vital signs: Vital Signs Temp 98 F 08/29/18 03:05 Pulse 53 L 08/29/18 03:05 Resp 18 08/29/18 03:18 BP 154/66 08/29/18 03:05 Pulse Ox 97 08/29/18 03:05 Intake & Output 08/28/18 08/29/18 08/29/18 18:59 06:59 18:59 Intake Total 622 375 Balance 622 375 Weight 84.368 kg Intake: IV 375 Sodium Chloride 0.9% 1, 375 000 ml @ 75 mls/hr IV . [id number] Rx#:[id number] Oral 622 Other: Voiding Method Toilet Bedside Commode # Voids 1 2 - Constitutional General appearance: Present: obese - EENT Eyes: Absent: abnormal pupil - Neck Neck: Absent: lymphadenopathy - Respiratory Respiratory: bilateral: CTA - Cardiovascular Rhythm: regular Abnormal Heart Sounds: Absent: S3 Gallop - Gastrointestinal General gastrointestinal: Present: soft. Absent: tenderness - Neurologic Neurologic: Present: CNII-XII intact - Musculoskeletal Musculoskeletal: Present: generalized weakness - Psychiatric Psychiatric: Present: A&O x's 3 - Labs CBC & Chem 7: 08/28/18 09:16 08/28/18 09:16 Labs: Abnormal Lab Results - Last 24 Hours (Table) 08/28/18 08/28/18 08/28/18 Range/Units 09:16 12:01 16:45 BUN 32 H (7-17) mg/dL Creatinine 2.50 H (0.52-1.04) mg/dL POC Glucose (mg/dL) 110 H 144 H (75-99) mg/dL 11/19/18 11/20/18 Range/Units 20:54 06:35 BUN (7-17) mg/dL Creatinine (0.52-1.04) mg/dL POC Glucose (mg/dL) 131 H 72 L (75-99) mg/dL Assessment and Plan (1) Syncope Current Visit: Yes Status: Acute Code(s): R55 - SYNCOPE AND COLLAPSE SNOMED Code(s): 486003469 (2) Hypertension Current Visit: No Status: Chronic Code(s): I10 - ESSENTIAL (PRIMARY) HYPERTENSION SNOMED Code(s): 20524964 (3) Type II diabetes mellitus with peripheral circulatory disorder, uncontrolled Current Visit: No Status: Chronic Priority: Medium Code(s): E11.51 - TYPE 2 DIABETES W DIABETIC PERIPHERAL ANGIOPATH W/O GANGRENE SNOMED Code(s): 58327772 Plan: Continue watch vital signs closely with orthostatics. PT for ambulatory assistance. Question need for discharge planning for possible ECF if weakness continues. Anticipate discharge in next 24-48 hours. Time with Patient: Less than 30
[2018-08-29] MEDS: HEPARIN SODIUM,PORCINE 5,000 UNIT/ML 1 ML VIAL SQ SCH ×3 (08:17→23:17)
[2018-08-29] MEDS: CHOLECALCIFEROL 1,000 UNIT TAB PO SCH (08:17)
[2018-08-29] MEDS: CLOPIDOGREL 75 MG TAB PO SCH (08:17)
[2018-08-29] MEDS: GABAPENTIN 400 MG CAP PO SCH ×4 (08:17→20:21)
[2018-08-29] MEDS: ISOSORBIDE MONONITRATE ER 30 MG TAB.ER.24H PO SCH (08:17)
[2018-08-29] MEDS: SERTRALINE 50 MG TAB PO SCH (08:18)
[2018-08-29] MEDS: METOPROLOL TARTRATE 25 MG TAB PO SCH ×2 (08:19→20:21)
[2018-08-29 10:30] LABS: Calcium 8.8 mg/dL (8.4-10.2); Potassium 4.1 mmol/L (3.5-5.1)
--- NOTE | 2018-08-29 10:40 | P.PN ---
Subjective This is a pleasant 83-year-old female past medical history significant for coronary artery disease status post bypass grafting with subsequent angioplasty with an SVG to the diagonal branch and HERNANDEZ to LAD, diabetes mellitus, dyslipidemia, hypertension, chronic kidney disease and former nicotine dependence. She follows with Dr. Callahan in the office. She is seen and examined resting comfortably in bed in no acute distress. She states she has been getting up from using the commode without difficulty. She states she is feeling better, but not completely back to baseline. She continues to feel generally weak. She denies chest pain, shortness of breath, dizziness or palpitations. Blood pressure this morning 160/70 heart rate 57 afebrile and maintaining oxygen saturation on room air. Labs for today pending. PT has been consulted per primary. GENERAL: No acute distress. HEENT: No JVD or thyromegaly. LUNGS: Clear to auscultation no wheezes, rales or rhonchi. No chest wall tenderness is noted on palpation or with deep breathing. HEART: Regular rate and rhythm with systolic ejection murmur at the left sternal border, no rubs or gallops. S1 and S2 heard. EXTREMITIES: No evidence of peripheral edema and no calf tenderness noted. VASCULAR: Radial and dorsalis pedis pulses palpated, no evidence of clubbing. ASSESSMENT Syncope with orthostatic changes noted and ongoing dizziness. Slowly improving. History of coronary artery disease s/p bypass grafting. Hypertension, currently with low blood pressures. Losartan discontinued. Dyslipidemia Diabetes mellitus Acute on chronic kidney disease, GFR 17. Secondary to hypotension. Recent kidney infection Poor oral intake and generalized weakness PLAN Repeat orthostatic vital signs. Follow up on renal function. Ongoing medical management. Agree with the need for physical therapy. Nurse Practitioner note has been reviewed, I agree with a documented findings and plan of care. Patient was seen and examined. Objective - Vital Signs Vital signs: Vital Signs Temp 97.8 F 08/29/18 07:36 Pulse 57 L 08/29/18 08:00 Resp 18 08/29/18 08:00 BP 160/70 08/29/18 07:36 Pulse Ox 97 08/29/18 07:36 Intake & Output 08/28/18 08/29/18 08/29/18 18:59 06:59 18:59 Intake Total 622 375 340 Balance 622 375 340 Weight 84.368 kg Intake: IV 375 Sodium Chloride 0.9% 1, 375 000 ml @ 75 mls/hr IV . [id number] [facility] Rx#:[id number] Oral 622 240 Other 100 Other: Voiding Method Toilet Bedside Commode Bedside Commode # Voids 1 2 1 - Labs CBC & Chem 7: 08/28/18 09:16 08/28/18 09:16 Labs: Abnormal Lab Results - Last 24 Hours (Table) 08/28/18 08/28/18 08/28/18 Range/Units 12:01 16:45 20:54 POC Glucose (mg/dL) 110 H 144 H 131 H (75-99) mg/dL 08/29/18 Range/Units 06:35 POC Glucose (mg/dL) 72 L (75-99) mg/dL
[2018-08-29 12:22] LABS: Glucose,Whole Blood 137 mg/dL (75-99)
[2018-08-29] MEDS: INSULIN ASPART 100 UNIT/ML 1 ML 10 ML VIAL SQ SCH ×2 (14:01→20:21)
[2018-08-29 16:43] LABS: Glucose,Whole Blood 129 mg/dL (75-99)
[2018-08-29] MEDS: ATORVASTATIN 80 MG TAB PO SCH (20:21)
[2018-08-29] MEDS: INSULIN DETEMIR 100 UNIT/ML 10 ML VIAL SQ SCH (20:21)
[2018-08-29 20:26] LABS: Glucose,Whole Blood 209 mg/dL (75-99)
[2018-08-30] MEDS: LEVOTHYROXINE 100 MCG TAB PO SCH (06:16)
[2018-08-30 06:40] LABS: Glucose,Whole Blood 103 mg/dL (75-99)
[2018-08-30] MEDS: INSULIN ASPART 100 UNIT/ML 1 ML 10 ML VIAL SQ SCH ×2 (08:45→21:52)
[2018-08-30] MEDS: METOPROLOL TARTRATE 25 MG TAB PO SCH ×2 (08:46→20:33)
[2018-08-30] MEDS: CHOLECALCIFEROL 1,000 UNIT TAB PO SCH (08:46)
[2018-08-30] MEDS: CLOPIDOGREL 75 MG TAB PO SCH (08:46)
[2018-08-30] MEDS: GABAPENTIN 400 MG CAP PO SCH ×4 (08:46→20:33)
[2018-08-30] MEDS: HEPARIN SODIUM,PORCINE 5,000 UNIT/ML 1 ML VIAL SQ SCH ×3 (08:46→23:05)
[2018-08-30] MEDS: ISOSORBIDE MONONITRATE ER 30 MG TAB.ER.24H PO SCH (08:46)
[2018-08-30] MEDS: SERTRALINE 50 MG TAB PO SCH (08:47)
[2018-08-30 09:34] LABS: Calcium 8.8 mg/dL (8.4-10.2); Potassium 4.8 mmol/L (3.5-5.1); Total Bilirubin 0.5 mg/dL (0.2-1.3); Total Protein 5.5 g/dL (6.3-8.2)
--- NOTE | 2018-08-30 09:41 | P.PN ---
Subjective This is a pleasant 83-year-old female past medical history significant for coronary artery disease status post bypass grafting with subsequent angioplasty with an SVG to the diagonal branch and HERNANDEZ to LAD, diabetes mellitus, dyslipidemia, hypertension, chronic kidney disease and former nicotine dependence. She follows with Dr. Callahan in the office. She is seen and examined resting comfortably in bed in no acute distress. She states she has been getting up using the restroom without significant dizziness. She denies chest pain, shortness of breath or palpitations. This morning she feels nauseated with no vomiting. Blood pressure 159/77 heart rate 60. Drop in blood pressure noted from sitting to standing. Laboratory data reviewed, creatinine 1.71, sodium 139, potassium 4.8. Currently maintained on atorvastatin, plavix, lopressor and imdur. Losartan and lasix have been discontinued since admission. GENERAL: No acute distress seen laying flat in bed. HEENT: No JVD or thyromegaly. LUNGS: Clear to auscultation no wheezes, rales or rhonchi. No chest wall tenderness is noted on palpation or with deep breathing. HEART: Regular rate and rhythm with systolic ejection murmur at the left sternal border, no rubs or gallops. S1 and S2 heard. EXTREMITIES: No evidence of peripheral edema and no calf tenderness noted. VASCULAR: Radial and dorsalis pedis pulses palpated, no evidence of clubbing. ASSESSMENT Syncope with orthostatic changes noted and ongoing dizziness. Slowly improving. History of coronary artery disease s/p bypass grafting. Hypertension, currently with low blood pressures. Losartan discontinued. Dyslipidemia Diabetes mellitus Acute on chronic kidney disease, GFR 17. Secondary to hypotension. Recent kidney infection Poor oral intake and generalized weakness PLAN Stable from a cardiac perspective. 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 We will continue to see as needed, please feel free to call with further questions of concerns. Follow up with Dr. Callahan in 2 weeks. Nurse Practitioner note has been reviewed, I agree with a documented findings and plan of care. Patient was seen and examined. Objective - Vital Signs Vital signs: Vital Signs Temp 98.3 F 08/30/18 08:00 Pulse 60 08/30/18 08:54 Resp 18 08/30/18 08:00 BP 159/77 08/30/18 08:54 Pulse Ox 98 08/30/18 08:00 Intake & Output 08/29/18 08/30/18 08/30/18 18:59 06:59 18:59 Intake Total 920 Balance 920 Intake: Oral 720 Other 200 Other: Voiding Method Bedside Commode Toilet # Voids 1 2 - Labs CBC & Chem 7: 08/28/18 09:16 08/30/18 08:36 Labs: Abnormal Lab Results - Last 24 Hours (Table) 08/29/18 08/29/18 08/29/18 Range/Units 08:20 12:02 16:40 Chloride 108 H (98-107) mmol/L BUN 33 H (7-17) mg/dL Creatinine 2.02 H (0.52-1.04) mg/dL Glucose (74-99) mg/dL POC Glucose (mg/dL) 137 H 129 H (75-99) mg/dL Total Protein (6.3-8.2) g/dL Albumin (3.5-5.0) g/dL 08/29/18 08/30/18 08/30/18 Range/Units 20:16 06:35 08:36 Chloride (98-107) mmol/L BUN 32 H (7-17) mg/dL Creatinine 1.71 H (0.52-1.04) mg/dL Glucose 158 H (74-99) mg/dL POC Glucose (mg/dL) 209 H 103 H (75-99) mg/dL Total Protein 5.5 L (6.3-8.2) g/dL Albumin 3.0 L (3.5-5.0) g/dL
[2018-08-30 12:06] LABS: Glucose,Whole Blood 138 mg/dL (75-99)
--- NOTE | 2018-08-30 14:24 | P.DS ---
Providers Date of admission: 08/28/18 15:50 Expected date of discharge: 08/30/18 Attending physician: Johan Bai Consults: 08/27/18 16:19 Consult Physician Routine Consulting Provider: Dandre Callahan Consult Reason/Comments: Syncope Do you want consulting provider notified?: Yes Primary care physician: Johan Bai - Discharge Diagnosis(es) (1) Syncope Current Visit: Yes Status: Acute (2) Hypertension Current Visit: No Status: Chronic (3) Type II diabetes mellitus with peripheral circulatory disorder, uncontrolled Current Visit: No Status: Chronic Priority: Medium Hospital Course: This is discharge summary an 83-year-old white female essentially admitted for syncope and fall. The patient has had significant cardiac workup which is negative at this time. She has an underlying history of diabetes which is fairly stable. However, due to her overall weakness she will be transferred to [facility] care facility for appropriate rehabilitation. Patient Condition at Discharge: Good Plan - Discharge Summary Discharge Rx Participant: No New Discharge Prescriptions: New Metoprolol Tartrate [Lopressor] 25 mg PO BID tab Acetaminophen Tab [Tylenol] 650 mg PO Q6HR PRN tab PRN Reason: Mild Pain Or Fever > 100.5 Bisacodyl [Dulcolax] 5 mg PO DAILY PRN tablet. PRN Reason: Constipation Furosemide [Lasix] 20 mg PO BID #180 tab Insulin Aspart [NovoLOG (formulary)] 6 unit SQ BID vial Insulin Detemir [Levemir] 20 unit SQ HS@2100 syr Continue Atorvastatin [Lipitor] 80 mg PO HS Cholecalciferol [Vitamin D3] 5,000 unit PO DAILY Nitroglycerin Sl Tabs [Nitrostat] 0.4 mg SUBLINGUAL Q5M PRN PRN Reason: Chest Pain Gabapentin [Neurontin] 800 mg PO QID Calcitriol 0.5 mcg PO SUTH Levothyroxine Sodium [Synthroid] 100 mcg PO DAILY@0630 #30 tab Clopidogrel [Plavix] 75 mg PO DAILY #90 tab Isosorbide Mononitrate ER [Imdur] 60 mg PO DAILY #30 tab Sertraline [Zoloft] 50 mg PO DAILY Ondansetron [Zofran] 4 mg PO Q8HR PRN PRN Reason: Nausea Discontinued Metoprolol Tartrate [Lopressor] 50 mg PO BID Furosemide [Lasix] 40 mg PO TID Losartan [Cozaar] 25 mg PO DAILY #30 tab Insulin Glargine,Hum.rec.anlog [Toujeo Solostar] 24 units SQ HS Insulin Aspart [NovoLOG (formulary)] 7 unit SQ AC-BID Discharge Medication List Atorvastatin [Lipitor] 80 mg PO HS 10/16/14 [History] Cholecalciferol [Vitamin D3] 5,000 unit PO DAILY 10/16/14 [History] Nitroglycerin Sl Tabs [Nitrostat] 0.4 mg SUBLINGUAL Q5M PRN 11/07/14 [History] Gabapentin [Neurontin] 800 mg PO QID 02/21/15 [History] Calcitriol 0.5 mcg PO SUTH 09/09/16 [History] Levothyroxine Sodium [Synthroid] 100 mcg PO DAILY@0630 #30 tab 06/17/17 [Rx] Clopidogrel [Plavix] 75 mg PO DAILY #90 tab 07/09/17 [Rx] Isosorbide Mononitrate ER [Imdur] 60 mg PO DAILY #30 tab 07/14/17 [Rx] Ondansetron [Zofran] 4 mg PO Q8HR PRN 08/27/18 [History] Sertraline [Zoloft] 50 mg PO DAILY 08/27/18 [History] Acetaminophen Tab [Tylenol] 650 mg PO Q6HR PRN tab 08/30/18 [Rx] Bisacodyl [Dulcolax] 5 mg PO DAILY PRN tablet. 08/30/18 [Rx] Furosemide [Lasix] 20 mg PO BID #180 tab 08/30/18 [Rx] Insulin Aspart [NovoLOG (formulary)] 6 unit SQ BID vial 08/30/18 [Rx] Insulin Detemir [Levemir] 20 unit SQ HS@2100 syr 08/30/18 [Rx] Metoprolol Tartrate [Lopressor] 25 mg PO BID tab 08/30/18 [Rx] Follow up Appointment(s)/Referral(s): Dandre Callahan MD [STAFF PHYSICIAN] - 2 Weeks Johan Bai MD [Primary Care Provider] - 1 Week Discharge Disposition: TRANSFER TO SNF/ECF
--- NOTE | 2018-08-30 14:32 | CDI ---
Last Revision, September 2017 Documentation Clarification Form Date: 08/30/2018 2:11:22 PM From: Beth Soto RN, CCDS Admit Date: 08/28/2018 3:50:00 PM Patient Name: Chantell Tom Visit Number: [id number] Discharge Date: ATTENTION: The Clinical Documentation Specialists (CDI) and [facility] Coding Staff appreciate your assistance in clarifying documentation. Please respond to the clarification below the line at the bottom and electronically sign. The CDI & [facility] Coding staff will review the response and follow-up if needed. Please note: Queries are made part of the Legal Health Record. If you have any questions, please contact the author of this message via ITS. Johan Brennan MD Type II diabetes mellitus with peripheral circulatory disorder, uncontrolled in noted in your progress note on 08/28 and on going progress notes. Patient history/risk factors Diabetes Mellitus, Hypertension Clinical Indicators: Present with generalized weakness, multiple falls and was hypotensive at home. Lab findings: Glucose 163, 191,110, 144, 131, 72 Treatment: Monitor Glucose Nevolog SQ per orders Levemir SQ per orders In your professional opinion, can you please further clarify Type II diabetes mellitus, ,uncontrolled? Hyperglycemia Hypoglycemia Other, please specify Unable to determine Please continue to document in your progress notes and discharge summary in order to capture severity of illness and risk of mortality. Include clinical findings that support your diagnosis. MTDD
[2018-08-30 17:04] LABS: Glucose,Whole Blood 159 mg/dL (75-99)
[2018-08-30] MEDS: ATORVASTATIN 80 MG TAB PO SCH (20:33)
[2018-08-30 20:37] LABS: Glucose,Whole Blood 207 mg/dL (75-99)
[2018-08-30] MEDS: INSULIN DETEMIR 100 UNIT/ML 10 ML VIAL SQ SCH (21:52)
[2018-08-31 04:06] VITALS: RESP 18
[2018-08-31] MEDS: LEVOTHYROXINE 100 MCG TAB PO SCH (05:48)
[2018-08-31 06:45] LABS: Glucose,Whole Blood 98 mg/dL (75-99)
[2018-08-31 07:15] VITALS: BP 94/62; PULSE 62; TEMP 97.8
[2018-08-31] MEDS: INSULIN ASPART 100 UNIT/ML 1 ML 10 ML VIAL SQ SCH (08:38)
[2018-08-31] MEDS: CHOLECALCIFEROL 1,000 UNIT TAB PO SCH (08:40)
[2018-08-31] MEDS: ISOSORBIDE MONONITRATE ER 30 MG TAB.ER.24H PO SCH (08:41)
[2018-08-31] MEDS: HEPARIN SODIUM,PORCINE 5,000 UNIT/ML 1 ML VIAL SQ SCH (08:41)
[2018-08-31] MEDS: CLOPIDOGREL 75 MG TAB PO SCH (08:41)
[2018-08-31] MEDS: SERTRALINE 50 MG TAB PO SCH (08:41)
[2018-08-31] MEDS: CALCITRIOL 0.25 MCG CAP PO SCH (08:41)
[2018-08-31] MEDS: METOPROLOL TARTRATE 25 MG TAB PO SCH (08:41)
[2018-08-31] MEDS: GABAPENTIN 400 MG CAP PO SCH (08:41)
--- NOTE | 2018-09-14 07:49 | CDI ---
Last Revision, September 2017 Documentation Clarification Form Date: 09/14/18 From: FREDDY Godfrey Phone: If you have question, contact Nuvia Quijano at [phone] M-F 8:30 am to 6pm Admit Date: 08/28/2018 3:50:00 PM Patient Name: Chantell Tom Visit Number: [id number] Discharge Date: 08/31/18 ATTENTION: The Clinical Documentation Specialists (CDI) and [facility] Coding Staff appreciate your assistance in clarifying documentation. Please respond to the clarification below the line at the bottom and electronically sign. The CDI & [facility] Coding staff will review the response and follow-up if needed. Please note: Queries are made part of the Legal Health Record. If you have any questions, please contact the author of this message via ITS. Johan Brennan MD Type II diabetes mellitus with peripheral circulatory disorder , uncontrolled in noted in your progress note on 08/28 and on going progress notes. Patient history/risk factors Diabetes Mellitus, Hypertension Clinical Indicators: Present with generalized weakness, multiple falls and was hypotensive at home. Lab findings: Glucose 163, 191,110, 144, 131, 72 Treatment: Monitor Glucose Nevolog SQ per orders Levemir SQ per orders In your professional opinion, can you please further clarify Type II diabetes mellitus, uncontrolled? Hyperglycemia Hypoglycemia Other, please specify Unable to determine MTDD
== END 2018-08-31 10:15 | DRG 312 ==
LOC: EC 12:09 → 1SOBS 16:52 → OBSVTOIN 08-28 15:50
PROVIDERS: ADMIT Family Medicine; ATTEND Family Medicine
DX: I95.1 Orthostatic hypotension (principal); N17.9 Acute kidney failure, unspecified; N18.4 Chronic kidney disease, stage 4 (severe); R29.6 Repeated falls; I10 Essential (primary) hypertension; E11.51 Type 2 diabetes mellitus with diabetic peripheral angiopathy without gangrene; I25.10 Atherosclerotic heart disease of native coronary artery without angina pectoris; E78.5 Hyperlipidemia, unspecified; E03.9 Hypothyroidism, unspecified; E11.42 Type 2 diabetes mellitus with diabetic polyneuropathy; E86.0 Dehydration; M46.90 Unspecified inflammatory spondylopathy, site unspecified; I12.9 Hypertensive chronic kidney disease with stage 1 through stage 4 chronic kidney disease, or unspecified chronic kidney disease; K21.9 Gastro-esophageal reflux disease without esophagitis; Z96.1 Presence of intraocular lens; Z96.642 Presence of left artificial hip joint; I08.1 Rheumatic disorders of both mitral and tricuspid valves; I44.0 Atrioventricular block, first degree; E11.22 Type 2 diabetes mellitus with diabetic chronic kidney disease; W01.198A Fall on same level from slipping, tripping and stumbling with subsequent striking against other object, initial encounter; Z79.899 Other long term (current) drug therapy; Z79.4 Long term (current) use of insulin; Z79.02 Long term (current) use of antithrombotics/antiplatelets; Z79.890 Hormone replacement therapy; Z88.5 Allergy status to narcotic agent; Z88.0 Allergy status to penicillin; Z88.2 Allergy status to sulfonamides; Z88.8 Allergy status to other drugs, medicaments and biological substances; Z91.041 Radiographic dye allergy status; Z95.1 Presence of aortocoronary bypass graft; Z87.891 Personal history of nicotine dependence; Z95.5 Presence of coronary angioplasty implant and graft; Y93.9 Activity, unspecified; Y92.091 Bathroom in other non-institutional residence as the place of occurrence of the external cause; Z87.440 Personal history of urinary (tract) infections; Z98.42 Cataract extraction status, left eye; Z98.41 Cataract extraction status, right eye; Z90.49 Acquired absence of other specified parts of digestive tract; Z86.19 Personal history of other infectious and parasitic diseases; Z80.7 Family history of other malignant neoplasms of lymphoid, hematopoietic and related tissues; E11.65 Type 2 diabetes mellitus with hyperglycemia; Z80.51 Family history of malignant neoplasm of kidney
CPT/HCPCS: 36415; 70450; 71046; 72125; 80048; 80053; 81003; 82550; 82553; 83735; 83880; 84484; 85025; 93005; 96360; 96361; 99285

== ENCOUNTER 2019-02-02 12:52 | Observation (INO) | payer MEDICARE, BC ==
[2019-02-02] MEDS ORDERED: SODIUM CHLORIDE 0.9% 500 ML 500 ML IV STA (13:14)
--- NOTE | 2019-02-02 13:20 | ED ---
General Adult HPI - General Chief complaint: Syncope Stated complaint: near syncope Time Seen by Provider: 02/02/19 13:07 Source: patient, EMS, RN notes reviewed, old records reviewed Mode of arrival: EMS - History of Present Illness Initial comments: 83-year-old female patient past history of coronary artery disease, type 2 diabetes, hyperlipidemia, hypertension presents to ED for evaluation of possible syncopal episode. Patient [facility] that she was [facility] when she states that she was told that her head drooped down and she may have had a transient loss of consciousness. Patient states that she was told that she was quickly arousable. Patient did not fall. Patient is otherwise asymptomatic. Patient denies any headache, weakness, paresthesias, chest pain, shortness of breath, abdominal pain, nausea vomiting or diarrhea. Patient does report that she has had episodes of hypotension recently, she states that she believes this is what occurred. Systemic: Pt denies fatigue, myalgia, fever/chills, rash. Pt denies weakness, night sweats, weight loss. Neuro: Pt denies headache, syncope or pre-syncope. HEENT: Pt denies ocular discharge or irritation, otalgia, rhinorrhea, pharyngitis or notable lymphadenopathy. Cardiopulmonary: Pt denies chest pain, SOB, heart palpitations, dyspnea on exertion. Abdominal/GI: Pt denies abdominal pain, n/v/d. : Pt denies dysuria, burning w/ urination, frequency/urgency. Denies new onset urinary or bowel incontinence. MSK: Pt denies myalgia, loss of strength or function in extremities. Neuro: Pt denies new onset weakness, paresthesias. - Related Data Home Medications Medication Instructions Recorded Confirmed Atorvastatin [Lipitor] 80 mg PO HS 10/16/14 02/02/19 Nitroglycerin Sl Tabs [Nitrostat] 0.4 mg SUBLINGUAL Q5M PRN 11/07/14 02/02/19 Gabapentin [Neurontin] 800 mg PO QID 02/21/15 02/02/19 Calcitriol 0.5 mcg PO SUTH 09/09/16 02/02/19 Ondansetron [Zofran] 4 mg PO Q8HR PRN 08/27/18 02/02/19 Sertraline [Zoloft] 50 mg PO DAILY 08/27/18 02/02/19 Cholecalciferol [Vitamin D3] 1,000 unit PO DAILY 02/02/19 02/02/19 Isosorbide Mononitrate ER [Imdur] 60 mg PO DAILY 02/02/19 02/02/19 Losartan [Cozaar] 25 mg PO BID 02/02/19 02/02/19 Metoprolol Tartrate [Lopressor] 50 mg PO BID 02/02/19 02/02/19 Previous Rx's Medication Instructions Recorded Levothyroxine Sodium [Synthroid] 100 mcg PO DAILY@0630 #30 tab 06/17/17 Clopidogrel [Plavix] 75 mg PO DAILY #90 tab 07/09/17 Acetaminophen Tab [Tylenol] 650 mg PO Q6HR PRN tab 08/30/18 Furosemide [Lasix] 20 mg PO BID #180 tab 08/30/18 INSULIN ASPART (NovoLOG) [NovoLOG 6 unit SQ BID vial 08/30/18 (formulary)] Insulin Detemir (Levemir) [Levemir] 20 unit SQ HS@2100 syr 08/30/18 Allergies Allergy/AdvReac Type Severity Reaction Status Date / Time Iodinated Contrast- Oral and Allergy Severe Anaphylaxis Verified 02/02/19 13:30 IV Dye [Iodinated Contrast Media - IV Dye] captopril [From Capoten] Allergy Unknown PASSED OUT Verified 02/02/19 13:30 morphine Allergy Unknown Verified 02/02/19 13:30 Penicillins Allergy Unknown Verified 02/02/19 13:30 sulfamethoxazole AdvReac Unknown Diarrhea Verified 02/02/19 13:30 [From Bactrim] trimethoprim [From Bactrim] AdvReac Unknown Diarrhea Verified 02/02/19 13:30 X-RAY CONTRAST Allergy Unknown Unknown Uncoded 08/27/18 12:15 Review of Systems ROS Statement: Those systems with pertinent positive or pertinent negative responses have been documented in the HPI. ROS Other: All systems not noted in ROS Statement are negative. 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 History of Any Multi-Drug Resistant Organisms: None Reported Past Surgical History: Appendectomy, Cholecystectomy, Heart Catheterization, Heart Catheterization With Stent, Hernia Repair Additional Past Surgical History / Comment(s): 07/08/17 PCI with stent to LCX, bilateral carpal tunnel; right and left finger release; CABG - 1998. Spinal cord stimulator implantation (2009) AND REMOVED. Bilateral cataract removal with lens implants,. Right hip surgery - too put in, T LT HIP REPLACEMENT. HIATAL HERNIA REPAIR. Stents placed 07/09/17. Past Anesthesia/Blood Transfusion Reactions: No Reported Reaction Additional Past Anesthesia/Blood Transfusion Reaction / Comment(s): contracted hepatits after blood transfusion (1971) Date of Last Stent Placement:: 07/08/17 Past Psychological History: No Psychological Hx Reported Smoking Status: Never smoker Past Alcohol Use History: None Reported Past Drug Use History: None Reported - Past Family History Mother Family Medical History: Cancer Additional Family Medical History / Comment(s): HODGKINS Son(s) Family Medical History: Cancer Additional Family Medical History / Comment(s): KIDNEY CANCER General Exam - General Exam Comments Initial Comments: Constitutional: NAD, AOX3, Pt has pleasant affect. HEENT: NC/AT, trachea midline, neck supple, no lymphadenopathy. Posterior pharynx non erythematous, without exudates. External ears appear normal, without discharge. Mucous membranes moist. Eyes PERRLA, EOM intact. There is no scleral icterus. No pallor noted. Cardiopulmonary: RRR, no murmurs, rubs or gallops, no JVD noted. Lungs CTAB in anterior and posterior chao. No peripheral edema. Abdominal exam: Abdomen soft and non-distended. Abdomen non-tender to palpation in all 4 quadrants. Bowel sounds active in LLQ. No hepatosplenomegaly. No ecchymosis Neuro: CN II-XII intact. No nuchal rigidity. No focal deficit, no facial droop. MSK: No posterior calf tenderness bilaterally, homans sign negative bilaterally. Posterior tibialis and radial pulse +2 bilaterally. Sensation intact in upper and lower extremities. Full active ROM in upper and lower extremities, 5/5 stregnth. Course Vital Signs 02/02/19 02/02/19 12:55 15:57 Temperature 98 F Pulse Rate 83 Pulse Rate [ 74 Sitting] Pulse Rate [ 75 Standing] Pulse Rate [ 63 Supine] Respiratory 18 Rate Blood Pressure 108/62 Blood Pressure 124/67 [Sitting] Blood Pressure 132/73 [Standing] Blood Pressure 145/68 [Supine] O2 Sat by Pulse 96 Oximetry Medical Decision Making - Medical Decision Making 83-year-old female patient past history of coronary artery disease, type 2 diabetes, hyperlipidemia, hypertension presents to ED for evaluation of possible syncopal episode. Patient works that she was at the [employer] when she states that she was told that her head drooped down and she may have had a transient loss of consciousness. Patient states that she was told that she was quickly arousable. Patient did not fall. Patient is otherwise asymptomatic. Patient denies any headache, weakness, paresthesias, chest pain, shortness of breath, abdominal pain, nausea vomiting or diarrhea. Patient does report that she has had episodes of hypotension recently, she states that she believes this is what occurred. Patient vital signs stable, afebrile. Physical exam displayed: CN II- XII intact. No nuchal rigidity. No focal deficit, no facial droop. Physical exam did not display any acute pathology. Labs investigation revealed non- impressive CBC. CMP revealed mild increase in creatinine. Troponin negative. UA displayed mild urinary tract infection. Chest x-ray brain CT did not display acute process. EKG not concerning for acute ischemia. No significant change from prior EKG. Patient will be admitted observation for evaluation of syncope and cardiology evaluation. case discussed with Dr. Bryant. - Lab Data Result diagrams: 02/02/19 13:40 02/02/19 14:18 Lab Results 02/02/19 02/02/19 02/02/19 Range/Units 13:40 13:40 14:18 WBC 7.7 (3.8-10.6) k/uL RBC 3.84 (3.80-5.40) m/uL Hgb 11.7 (11.4-16.0) gm/dL Hct 35.3 (34.0-46.0) % MCV 91.9 (80.0-100.0) fL MCH 30.6 (25.0-35.0) pg MCHC 33.3 (31.0-37.0) g/dL RDW 14.6 (11.5-15.5) % Plt Count 175 D (150-450) k/uL Neutrophils % 76 % Lymphocytes % 15 % Monocytes % 5 % Eosinophils % 2 % Basophils % 0 % Neutrophils # 5.9 (1.3-7.7) k/uL Lymphocytes # 1.1 (1.0-4.8) k/uL Monocytes # 0.4 (0-1.0) k/uL Eosinophils # 0.2 (0-0.7) k/uL Basophils # 0.0 (0-0.2) k/uL PT 10.2 (9.0-12.0) sec INR 0.9 (<1.2) APTT 24.1 (22.0-30.0) sec Sodium 141 (137-145) mmol/L Potassium 5.0 (3.5-5.1) mmol/L Chloride 109 H (98-107) mmol/L Carbon Dioxide 27 (22-30) mmol/L Anion Gap 5 mmol/L BUN 56 H (7-17) mg/dL Creatinine 2.14 H (0.52-1.04) mg/dL Est GFR (CKD-EPI)AfAm 24 (>60 ml/min/1.73 sqM) Est GFR (CKD-EPI)NonAf 21 (>60 ml/min/1.73 sqM) Glucose 106 H (74-99) mg/dL Calcium 9.0 (8.4-10.2) mg/dL Magnesium 2.5 H (1.6-2.3) mg/dL Total Bilirubin 0.4 (0.2-1.3) mg/dL AST 22 (14-36) U/L ALT 28 (9-52) U/L Alkaline Phosphatase 86 (38-126) U/L Troponin I (0.000-0.034) ng/mL Total Protein 6.2 L (6.3-8.2) g/dL Albumin 3.5 (3.5-5.0) g/dL Urine Color Urine Appearance (Clear) Urine pH (5.0-8.0) Ur Specific Foll[place]bee (1.001-1.035) Urine Protein (Negative) Urine Glucose (UA) (Negative) Urine Ketones (Negative) Urine Blood (Negative) Urine Nitrite (Negative) Urine Bilirubin (Negative) Urine Urobilinogen (<2.0) mg/dL Ur Leukocyte Esterase (Negative) Urine RBC (0-5) /hpf Urine WBC (0-5) /hpf Ur Squamous Epith Cells (0-4) /hpf Amorphous Sediment (None) /hpf Urine Bacteria (None) /hpf Hyaline Casts (0-2) /lpf Urine Mucus (None) /hpf 02/02/19 02/02/19 Range/Units 14:18 15:55 WBC (3.8-10.6) k/uL RBC (3.80-5.40) m/uL Hgb (11.4-16.0) gm/dL Hct (34.0-46.0) % MCV (80.0-100.0) fL MCH (25.0-35.0) pg MCHC (31.0-37.0) g/dL RDW (11.5-15.5) % Plt Count (150-450) k/uL Neutrophils % % Lymphocytes % % Monocytes % % Eosinophils % % Basophils % % Neutrophils # (1.3-7.7) k/uL Lymphocytes # (1.0-4.8) k/uL Monocytes # (0-1.0) k/uL Eosinophils # (0-0.7) k/uL Basophils # (0-0.2) k/uL PT (9.0-12.0) sec INR (<1.2) APTT (22.0-30.0) sec Sodium (137-145) mmol/L Potassium (3.5-5.1) mmol/L Chloride (98-107) mmol/L Carbon Dioxide (22-30) mmol/L Anion Gap mmol/L BUN (7-17) mg/dL Creatinine (0.52-1.04) mg/dL Est GFR (CKD-EPI)AfAm (>60 ml/min/1.73 sqM) Est GFR (CKD-EPI)NonAf (>60 ml/min/1.73 sqM) Glucose (74-99) mg/dL Calcium (8.4-10.2) mg/dL Magnesium (1.6-2.3) mg/dL Total Bilirubin (0.2-1.3) mg/dL AST (14-36) U/L ALT (9-52) U/L Alkaline Phosphatase (38-126) U/L Troponin I <0.012 (0.000-0.034) ng/mL Total Protein (6.3-8.2) g/dL Albumin (3.5-5.0) g/dL Urine Color Yellow Urine Appearance Cloudy H (Clear) Urine pH 5.0 (5.0-8.0) Ur Specific Foll[place]bee 1.013 (1.001-1.035) Urine Protein 1+ H (Negative) Urine Glucose (UA) Negative (Negative) Urine Ketones Negative (Negative) Urine Blood Negative (Negative) Urine Nitrite Negative (Negative) Urine Bilirubin Negative (Negative) Urine Urobilinogen <2.0 (<2.0) mg/dL Ur Leukocyte Esterase Large H (Negative) Urine RBC 5 (0-5) /hpf Urine WBC 49 H (0-5) /hpf Ur Squamous Epith Cells 7 H (0-4) /hpf Amorphous Sediment Rare H (None) /hpf Urine Bacteria Occasional H (None) /hpf Hyaline Casts 61 H (0-2) /lpf Urine Mucus Rare H (None) /hpf Disposition Clinical Impression: Syncope Disposition: ADMITTED IP TO THIS [facility] Condition: Serious Is patient prescribed a controlled substance at d/c from ED?: No Referrals: Johan Bai MD [Primary Care Provider] - 1-2 days
--- NOTE | 2019-02-02 13:52 | CT ---
EXAMINATION TYPE: CT brain wo con DATE OF EXAM: 02/02/2019 COMPARISON: 08/27/2018 HISTORY: syncopal episode. CT DLP: 1068.[address] of the brain was performed. The ventricles, basal cisterns and sulci overlying the cerebral convexities demonstrate mild enlargem ent. There is no evidence for intracranial hemorrhage or sulcal effacement. There is decreased attenuation about the periventricular white matter and deep white matter of both c erebral hemispheres, compatible with chronic small vessel ischemia. Differential diagnosis does inclu de demyelination. No mass effects are seen.No midline shift. Osseous calvarium is intact. If symptoms persist consider MRI. IMPRESSION: 1. Age related atrophic and chronic small vessel ischemic change without acute intracranial process s een at this time.
[2019-02-02 13:53] LABS: Basophils % (A) 0 %; Eosinophils # (A) 0.2 k/uL (0-0.7); Eosinophils % (A) 2 %; HCT 35.3 % (34.0-46.0); HGB 11.7 gm/dL (11.4-16.0); Lymphocytes # (A) 1.1 k/uL (1.0-4.8); Lymphocytes % (A) 15 %; MCH 30.6 pg (25.0-35.0); MCHC 33.3 g/dL (31.0-37.0); MCV 91.9 fL (80.0-100.0); Mean Platelet Volume 8.6; Monocytes # (A) 0.4 k/uL (0-1.0); Monocytes % (A) 5 %; Neutrophils # (A) 5.9 k/uL (1.3-7.7); Neutrophils % (A) 76 %; RBC 3.84 m/uL (3.80-5.40); RDW 14.6 % (11.5-15.5); WBC 7.7 k/uL (3.8-10.6)
[2019-02-02 14:08] LABS: Platelet Count 175 k/uL (150-450)
--- NOTE | 2019-02-02 14:18 | XR ---
EXAMINATION TYPE: XR chest 2V DATE OF EXAM: 02/02/2019 COMPARISON: 08/27/2018 HISTORY: Shortness of breath TECHNIQUE: Frontal and lateral views of the chest are obtained. FINDINGS: Scattered senescent parenchymal changes noted. Hyperinflation compatible with COPD. No evidence for infiltrate. No evidence for atelectasis. Heart size is stable. Mediastinal structures are stable and grossly unremarkable. No evidence for hilar prominence. Degenerative changes dorsal spine. IMPRESSION: 1. No evidence for acute pulmonary disease.
[2019-02-02 14:19] LABS: INR 0.9 (<1.2); Partial Thromboplastin Time 24.1 sec (22.0-30.0); Prothrombin Time 10.2 sec (9.0-12.0)
[2019-02-02 14:39] LABS: Albumin 3.5 g/dL (3.5-5.0); Magnesium 2.5 mg/dL (1.6-2.3); Total Bilirubin 0.4 mg/dL (0.2-1.3); Total Protein 6.2 g/dL (6.3-8.2)
[2019-02-02 16:23] LABS: Amorphous Sediment,Urine Rare /hpf; Appearance,Urine Cloudy (Clear); Bacteria,Urine Occasional /hpf; Bilirubin,Urine Negative (Negative); Blood,Urine Negative (Negative); Color,Urine Yellow; Glucose,Urine (UA) Negative (Negative); Hyaline Casts,Urine 61 /lpf (0-2); Ketones,Urine Negative (Negative); Leukocyte Esterase,Urine Large (Negative); Mucus,Urine Rare /hpf; Nitrite,Urine Negative (Negative); Protein,Urine 1+ (Negative); RBC,Urine 5 /hpf (0-5); Specific Gravity,Urine 1.013 (1.001-1.035); Squamous Epithelial Cell,Urine 7 /hpf (0-4); Urobilinogen,Urine <2.0 mg/dL (<2.0); WBC,Urine 49 /hpf (0-5)
[2019-02-02] MEDS ORDERED: NALOXONE 0.4 MG/ML 1 ML VIAL IV PRN (16:47)
[2019-02-02] MEDS: SODIUM CHLORIDE 0.9% 1,000 ML IV SCH (17:54)
[2019-02-02] MEDS ORDERED: NITROGLYCERIN SL TABS 0.4 MG TAB SUBLINGUAL PRN (19:49)
[2019-02-02] MEDS ORDERED: ONDANSETRON 4 MG/2 ML VIAL IVP PRN (19:57)
[2019-02-02] MEDS: GABAPENTIN 300 MG CAP PO SCH (20:32)
[2019-02-02] MEDS: METOPROLOL TARTRATE 50 MG TAB PO SCH (20:32)
[2019-02-02] MEDS: ISOSORBIDE MONONITRATE ER 60 MG TAB.ER.24H PO SCH (20:33)
[2019-02-02] MEDS ORDERED: ATORVASTATIN 80 MG TAB PO SCH (21:00)
[2019-02-02] MEDS ORDERED: INSULIN DETEMIR (LEVEMIR) 100 UNIT/ML SYR SQ SCH (21:00)
[2019-02-02] MEDS ORDERED: LOSARTAN 25 MG TAB PO SCH (21:00)
[2019-02-02] MEDS ORDERED: CEPHALEXIN 500 MG CAP PO SCH (21:00)
[2019-02-02 21:04] LABS: Glucose,Whole Blood 162 mg/dL (75-99)
[2019-02-02] MEDS: INSULIN ASPART (NovoLOG) 100 UNIT/ML VIAL SQ SCH (21:24)
[2019-02-02] MEDS: ACETAMINOPHEN TAB 325 MG TAB PO PRN (21:25)
[2019-02-03 03:14] LABS: Basophils % (A) 0 %; Eosinophils # (A) 0.2 k/uL (0-0.7); Eosinophils % (A) 3 %; HCT 33.4 % (34.0-46.0); HGB 10.8 gm/dL (11.4-16.0); Lymphocytes # (A) 1.3 k/uL (1.0-4.8); Lymphocytes % (A) 19 %; MCH 29.7 pg (25.0-35.0); MCHC 32.3 g/dL (31.0-37.0); MCV 92.1 fL (80.0-100.0); Mean Platelet Volume 8.5; Monocytes # (A) 0.5 k/uL (0-1.0); Monocytes % (A) 7 %; Neutrophils # (A) 4.8 k/uL (1.3-7.7); Neutrophils % (A) 69 %; Platelet Count 235 k/uL (150-450); RBC 3.63 m/uL (3.80-5.40); RDW 14.4 % (11.5-15.5)
[2019-02-03 03:25] LABS: Albumin 3.1 g/dL (3.5-5.0); Potassium 4.9 mmol/L (3.5-5.1); Total Bilirubin 0.4 mg/dL (0.2-1.3); Total Protein 5.6 g/dL (6.3-8.2)
[2019-02-03] MEDS ORDERED: LEVOTHYROXINE 100 MCG TAB PO SCH (06:30)
[2019-02-03 06:45] LABS: Glucose,Whole Blood 76 mg/dL (75-99)
[2019-02-03] MEDS: INSULIN ASPART (NovoLOG) 100 UNIT/ML VIAL SQ SCH ×3 (07:59→17:29)
--- NOTE | 2019-02-03 08:34 | CONS ---
CONSULTATION Mrs. Tom is an 83-year-old female with known history of coronary artery disease status post coronary artery bypass grafting who presented with possible syncopal episode. She is not quite sure about what happened. According to her, she was at the chair and she may have her head dropped down. There may have been a loss of conscious, but very brief. She did not have any associated chest discomfort. She did not have any palpitation or change in her breathing. She came into the emergency room and subsequently admitted. At the time of my evaluation, she is feeling well except that she is feeling tired, but that has been going on according to her since . The patient denies any palpitation. She has chronic peripheral edema. No clear PND. No orthopnea. She has been followed by Dr. Callahan on a regular basis and in 2017, has underwent a percutaneous revascularization. She had bypass surgery in 1998. She had stenting of the proximal left circumflex. She has a totally occluded LAD, significant stenosis in the proximal circumflex and totally occluded right coronary artery with a subsequent stenting of the left circumflex. She had no anginal symptoms. She has some right-sided chest discomfort that appears to be positional. She has no history of malignant arrhythmia. In the past, her left ventricular systolic function was moderately impaired, most recently by echocardiography done less than a year ago. The patient was admitted to the hospital in August of 2018 for dizziness and possible syncope and at that time, no acute changes were noted. Her ejection fraction in the past was 35-40 percent. Her coronary risk factors are positive for history of hypertension, hyperlipidemia and diabetes. She is nonsmoker. MEDICATION: Her medications at home include Lipitor 80 mg daily, vitamin D, Plavix 75 mg daily, Lasix 20 mg twice a day, insulin, isosorbide mononitrate 60 mg daily, levothyroxine 100 mcg daily, losartan 25 mg twice a day, metoprolol tartrate 50 mg twice a day, and Zoloft. REVIEW OF SYSTEMS: RESPIRATORY system: She has no documented history of asthma, emphysema or bronchitis. GI system: No recent GI bleed. No peptic ulcer disease. She has diarrhea. system: No dysuria or hematuria. NERVOUS SYSTEM: No history of stroke or seizure. PHYSICAL EXAMINATION: She is an 83-year-old female, alert, oriented, in no apparent distress. Blood pressure running in the 150s with a heart rate in 60s. HEAD: Normocephalic. EYES: Sclerae anicteric. NECK: Good upstroke. No bruit. No jugular venous distention. LUNGS: Clear to auscultation. HEART: Regular rate and rhythm. S1, S2. No S3. No S4 with a systolic murmur. No diastolic murmur. No rub. ABDOMEN: Soft, nontender. EXTREMITIES: No edema. LAB DATA: Lab data revealed a hemoglobin of 10.8. BUN and creatinine 54 and 1.84. Troponin less than 0.012. On admission, her BUN and creatinine were 56 and 2.14. Her EKG revealed a sinus mechanism with normal axis, first-degree block with nonspecific T-wave inversion in the lateral leads that could be ischemia unchanged. Her chest x-ray shows no acute infiltrate. IMPRESSION: 1. Probable syncopal episode, could be related to orthostatic hypotension. 2. History of coronary artery disease status post coronary artery bypass grafting and percutaneous revascularization. No evidence of acute coronary syndrome. 3. Chronic kidney disease with possible dehydration. 4. Hypertension. 5. Hyperlipidemia. 6. Diabetes mellitus. 7. Anemia. 8. History of moderate cardiomyopathy with no evidence of heart failure. RECOMMENDATIONS: From the cardiac standpoint, I will continue present therapy. I see no evidence of active ischemic heart disease at this time. Her syncopal episode does not appear to be related to a malignant arrhythmia. I will increase her activity, continue hydration. If she remains stable, expect she should be able to be discharged home soon and followed as an outpatient with Dr. Callahan. Thank you for this consult. We will follow with you. MMODL / IJN: [id number] /
[2019-02-03] MEDS ORDERED: ASPIRIN 81 MG PO SCH (09:00)
[2019-02-03] MEDS ORDERED: CHOLECALCIFEROL 1,000 UNIT TAB PO SCH (09:00)
[2019-02-03] MEDS ORDERED: SERTRALINE 50 MG TAB PO SCH (09:00)
[2019-02-03] MEDS ORDERED: CLOPIDOGREL 75 MG TAB PO SCH (09:00)
[2019-02-03] MEDS: ISOSORBIDE MONONITRATE ER 60 MG TAB.ER.24H PO SCH (09:31)
[2019-02-03] MEDS: GABAPENTIN 300 MG CAP PO SCH ×3 (09:31→18:21)
[2019-02-03] MEDS: METOPROLOL TARTRATE 50 MG TAB PO SCH (09:31)
[2019-02-03 11:46] LABS: Glucose,Whole Blood 128 mg/dL (75-99)
[2019-02-03] MEDS: ACETAMINOPHEN TAB 325 MG TAB PO PRN (12:00)
[2019-02-03 12:40] VITALS: RESP 18
[2019-02-03 16:18] VITALS: BP 147/73; PULSE 56; TEMP 98.1
[2019-02-03 16:43] LABS: Glucose,Whole Blood 92 mg/dL (75-99)
--- NOTE | 2019-02-03 17:07 | P.DS ---
Providers Date of admission: 02/02/19 16:32 Attending physician: Glo Pickering Consults: 02/02/19 16:47 Consult Physician Stat Consulting Provider: Lisa Hanna Consult Reason/Comments: syncope, uti, chacorta Do you want consulting provider notified?: Yes Primary care physician: Johan Bai [facility] Course: Please refer to my HPI for further details Patient Condition at Discharge: Serious Plan - Discharge Summary New Discharge Prescriptions: New hydrALAZINE HCL [Apresoline] 75 mg PO TID #90 tab Pregabalin [Lyrica] 150 mg PO BID 14 Days #30 cap Continue Atorvastatin [Lipitor] 80 mg PO HS Nitroglycerin Sl Tabs [Nitrostat] 0.4 mg SUBLINGUAL Q5M PRN PRN Reason: Chest Pain Calcitriol 0.5 mcg PO SUTH Levothyroxine Sodium [Synthroid] 100 mcg PO DAILY@0630 #30 tab Clopidogrel [Plavix] 75 mg PO DAILY #90 tab Sertraline [Zoloft] 50 mg PO DAILY Ondansetron [Zofran] 4 mg PO Q8HR PRN PRN Reason: Nausea Acetaminophen Tab [Tylenol] 650 mg PO Q6HR PRN tab PRN Reason: Mild Pain Or Fever > 100.5 INSULIN ASPART (NovoLOG) [NovoLOG (formulary)] 6 unit SQ BID vial Insulin Detemir (Levemir) [Levemir] 20 unit SQ HS@2100 syr Isosorbide Mononitrate ER [Imdur] 60 mg PO DAILY Metoprolol Tartrate [Lopressor] 50 mg PO BID Cholecalciferol [Vitamin D3] 1,000 unit PO DAILY Changed Furosemide [Lasix] 20 mg PO DAILY #180 tab Discontinued Gabapentin [Neurontin] 800 mg PO QID Losartan [Cozaar] 25 mg PO BID Discharge Medication List Atorvastatin [Lipitor] 80 mg PO HS 10/16/14 [History] Nitroglycerin Sl Tabs [Nitrostat] 0.4 mg SUBLINGUAL Q5M PRN 11/07/14 [History] Calcitriol 0.5 mcg PO SUTH 09/09/16 [History] Levothyroxine Sodium [Synthroid] 100 mcg PO DAILY@0630 #30 tab 06/17/17 [Rx] Clopidogrel [Plavix] 75 mg PO DAILY #90 tab 07/09/17 [Rx] Ondansetron [Zofran] 4 mg PO Q8HR PRN 08/27/18 [History] Sertraline [Zoloft] 50 mg PO DAILY 08/27/18 [History] Acetaminophen Tab [Tylenol] 650 mg PO Q6HR PRN tab 08/30/18 [Rx] INSULIN ASPART (NovoLOG) [NovoLOG (formulary)] 6 unit SQ BID vial 08/30/18 [Rx] Insulin Detemir (Levemir) [Levemir] 20 unit SQ HS@2100 syr 08/30/18 [Rx] Cholecalciferol [Vitamin D3] 1,000 unit PO DAILY 02/02/19 [History] Isosorbide Mononitrate ER [Imdur] 60 mg PO DAILY 02/02/19 [History] Metoprolol Tartrate [Lopressor] 50 mg PO BID 02/02/19 [History] Furosemide [Lasix] 20 mg PO DAILY #180 tab 02/03/19 [Rx] Pregabalin [Lyrica] 150 mg PO BID 14 Days #30 cap 02/03/19 [Rx] hydrALAZINE HCL [Apresoline] 75 mg PO TID #90 tab 02/03/19 [Rx] Follow up Appointment(s)/Referral(s): Dandre Callahan MD [STAFF PHYSICIAN] - 02/16/19 3:00 pm Johan Bai MD [Primary Care Provider] - 3 Days Discharge Disposition: HOME SELF-CARE
--- NOTE | 2019-02-03 17:07 | P.HPIM ---
History of Present Illness 83-year-old female with history of coronary artery bypass grafting in the can start failure chronic distal systolic dysfunction ejection fraction of around 35-40% that came in with the complaints of the loss of consciousness appears to have a syncopal episode did have some lightheadedness patient's blood pressure was low yesterday. Patient appears to have chronic kidney disease stage III with baseline creatinine around 1.7 when she came in her creatinine was about 2 patient is also on 20 twice a day of Lasix she says uses it for both bilateral pedal edema although she denied any hospitalization related to heart failure exacerbation. Patient denied any fever chills patient and dysuria patient Urine is abnormal and is a contaminated urine sample with elevated epithelial cells and will not require any antibiotics for that patient is feeling better today is hoping to go home if she is medically stable. is having diarrhea mostly soft stools 1 loose stools secondary to Rocephin which we do not believe is necessary upon discharge as the patient has contaminated urine sample and did not believe patient has urinary tract infection patient doesn't have any symptoms of that patient denied any fever doesn't have any leukocytosis. Patient was evaluated by cardiology and the cleared for discharge Review of Systems REVIEW OF SYSTEMS: CONSTITUTIONAL: No fever, no malaise, no fatigue. HEENT: No recent visual problems or hearing problems. Denied any sore throat. CARDIOVASCULAR: No chest pain, orthopnea, PND, no palpitations, PULMONARY: No shortness of breath, no cough, no hemoptysis. GASTROINTESTINAL: No diarrhea, no nausea, no vomiting, no abdominal pain. NEUROLOGICAL: No headaches, no weakness, no numbness. HEMATOLOGICAL: Denies any bleeding or petechiae. GENITOURINARY: Denies any burning micturition, frequency, or urgency. MUSCULOSKELETAL/RHEUMATOLOGICAL: Denies any joint pain, swelling, or any muscle pain. ENDOCRINE: Denies any polyuria or polydipsia. The rest of the 14-point review of systems is negative. Past Medical History Past Medical History: Coronary Artery Disease (CAD), Chest Pain / Angina, Diabetes Mellitus, GERD/Reflux, Hyperlipidemia, Hypertension, Osteoarthritis (OA), Renal Disease, Thyroid Disorder Additional Past Medical History / Comment(s): IDDM TYPE II, ARTHRITIS GENERALI ZED AND ESPECIALLY IN BACK, CHRONIC BACK PAIN-CAN ONLY STAND FEW MINUTES AT A TIME, CHRONIC BILATERAL LEG NUMBNESS/BURNING, HYPOTHYROID, PAST HEPATITIS IN 1971 R/T BLOOD TRANSFUSION, CURRENT KIDNEY CYST, SOB WITH ACTIVITY. History of Any Multi-Drug Resistant Organisms: None Reported Past Surgical History: Appendectomy, Cholecystectomy, Heart Catheterization, Heart Catheterization With Stent, Hernia Repair Additional Past Surgical History / Comment(s): 07/08/17 PCI with stent to LCX, bilateral carpal tunnel; right and left finger release; CABG - 1998. Spinal cord stimulator implantation (2009) AND REMOVED. Bilateral cataract removal with lens implants,. Right hip surgery - too put in, T LT HIP REPLACEMENT. HIATAL HERNIA REPAIR. Stents placed 07/09/17. Past Anesthesia/Blood Transfusion Reactions: No Reported Reaction Additional Past Anesthesia/Blood Transfusion Reaction / Comment(s): contracted hepatits after blood transfusion (1971) Date of Last Stent Placement:: 07/08/17 Past Psychological History: No Psychological Hx Reported Smoking Status: Never smoker Past Alcohol Use History: None Reported Past Drug Use History: None Reported - Past Family History Mother Family Medical History: Cancer Additional Family Medical History / Comment(s): HODGKINS Son(s) Family Medical History: Cancer Additional Family Medical History / Comment(s): KIDNEY CANCER Medications and Allergies Home Medications Medication Instructions Recorded Confirmed Type Atorvastatin [Lipitor] 80 mg PO HS 10/16/14 02/02/19 History Nitroglycerin Sl Tabs [Nitrostat] 0.4 mg SUBLINGUAL Q5M PRN 11/07/14 02/02/19 History Calcitriol 0.5 mcg PO SUTH 09/09/16 02/02/19 History Levothyroxine Sodium [Synthroid] 100 mcg PO DAILY@0630 #30 tab 06/17/17 02/02/19 Rx Clopidogrel [Plavix] 75 mg PO DAILY #90 tab 07/09/17 02/02/19 Rx Ondansetron [Zofran] 4 mg PO Q8HR PRN 08/27/18 02/02/19 History Sertraline [Zoloft] 50 mg PO DAILY 08/27/18 02/02/19 History Acetaminophen Tab [Tylenol] 650 mg PO Q6HR PRN tab 08/30/18 02/02/19 Rx INSULIN ASPART (NovoLOG) [NovoLOG 6 unit SQ BID vial 08/30/18 02/02/19 Rx (formulary)] Insulin Detemir (Levemir) [Levemir] 20 unit SQ HS@2100 syr 08/30/18 02/02/19 Rx Cholecalciferol [Vitamin D3] 1,000 unit PO DAILY 02/02/19 02/02/19 History Isosorbide Mononitrate ER [Imdur] 60 mg PO DAILY 02/02/19 02/02/19 History Metoprolol Tartrate [Lopressor] 50 mg PO BID 02/02/19 02/02/19 History Furosemide [Lasix] 20 mg PO DAILY #180 tab 02/03/19 02/02/19 Rx Pregabalin [Lyrica] 150 mg PO BID 14 Days #30 cap 02/03/19 Rx hydrALAZINE HCL [Apresoline] 75 mg PO TID #90 tab 02/03/19 Rx Allergies Allergy/AdvReac Type Severity Reaction Status Date / Time Iodinated Contrast- Oral and Allergy Severe Anaphylaxis Verified 02/02/19 13:30 IV Dye [Iodinated Contrast Media - IV Dye] captopril [From Capoten] Allergy Unknown PASSED OUT Verified 02/02/19 13:30 morphine Allergy Unknown Verified 02/02/19 13:30 Penicillins Allergy Unknown Verified 02/02/19 13:30 sulfamethoxazole AdvReac Unknown Diarrhea Verified 02/02/19 13:30 [From Bactrim] trimethoprim [From Bactrim] AdvReac Unknown Diarrhea Verified 02/02/19 13:30 X-RAY CONTRAST Allergy Unknown Unknown Uncoded 08/27/18 12:15 Physical Exam Vitals: Vital Signs Temp Pulse Pulse Resp BP BP BP 02/03/19 16:32 02/03/19 16:00 98.1 F 56 L 18 147/73 02/03/19 12:00 97.6 F 61 18 180/81 02/03/19 06:16 97.9 F 62 16 162/76 02/03/19 03:40 17 02/03/19 03:29 97.5 F L 63 17 155/66 02/03/19 00:00 16 02/02/19 23:40 97.8 F 56 L 16 151/64 02/02/19 20:00 18 02/02/19 18:15 97.4 F L 68 18 175/73 02/02/19 17:00 80 132/73 Pulse Ox 02/03/19 16:32 97 02/03/19 16:00 96 02/03/19 12:00 98 02/03/19 06:16 97 02/03/19 03:40 02/03/19 03:29 98 02/03/19 00:00 02/02/19 23:40 99 02/02/19 20:00 02/02/19 18:15 92 L 02/02/19 17:00 98 Intake and Output 02/03/19 02/03/19 02/03/19 06:59 14:59 22:59 Other: Voiding Method Toilet Toilet # Voids 1 1 # Bowel Movements 1 PHYSICAL EXAMINATION: GENERAL: The patient is alert and oriented x3, not in any acute distress. Well developed, well nourished. HEENT: Pupils are round and equally reacting to light. EOMI. No scleral icterus. No conjunctival pallor. Normocephalic, atraumatic. No pharyngeal erythema. No thyromegaly. CARDIOVASCULAR: S1 and S2 present. No murmurs, rubs, or gallops. PULMONARY: Chest is clear to auscultation, no wheezing or crackles. ABDOMEN: Soft, nontender, nondistended, normoactive bowel sounds. No palpable organomegaly. MUSCULOSKELETAL: No joint swelling or deformity. EXTREMITIES: No cyanosis, clubbing, or pedal edema. NEUROLOGICAL: Gross neurological examination did not reveal any focal deficits. SKIN: No rashes. Results CBC & Chem 7: 02/03/19 02:22 02/03/19 02:22 Labs: Abnormal Lab Results - Last 24 Hours (Table) 02/02/19 02/03/19 02/03/19 Range/Units 21:01 02:22 02:22 RBC 3.63 L (3.80-5.40) m/uL Hgb 10.8 L (11.4-16.0) gm/dL Hct 33.4 L (34.0-46.0) % Chloride 110 H (98-107) mmol/L BUN 54 H (7-17) mg/dL Creatinine 1.84 H (0.52-1.04) mg/dL POC Glucose (mg/dL) 162 H (75-99) mg/dL Total Protein 5.6 L (6.3-8.2) g/dL Albumin 3.1 L (3.5-5.0) g/dL 02/03/19 Range/Units 11:44 RBC (3.80-5.40) m/uL Hgb (11.4-16.0) gm/dL Hct (34.0-46.0) % Chloride (98-107) mmol/L BUN (7-17) mg/dL Creatinine (0.52-1.04) mg/dL POC Glucose (mg/dL) 128 H (75-99) mg/dL Total Protein (6.3-8.2) g/dL Albumin (3.5-5.0) g/dL Thrombosis Risk Factor Assmnt - Choose All That Apply Any of the Below Risk Factors Present?: Yes Each Factor Represents 1 point: Obesity (BMI >25) Other Risk Factors: Yes Each Risk Factor Represents 2 Points: Age 61-74 years Thrombosis Risk Factor Assessment Total Risk Factor Score: 3 Thrombosis Risk Factor Assessment Level: Moderate Risk Assessment and Plan Plan: -Syncope: Secondary to intravascular volume depletion hypotension, JANINA inhibitor will be discontinued and instead I'll had hydralazine because of her heart failure patient is already on Imdur, because of the acute renal failure and I'm discontinuing JANINA inhibitor. We'll also cut down Lasix 20 mg daily not sure whether she will needed are not made not be much effective counseling has CKD stage III today patient will need to closely follow up with the primary care physician and associate research scientist as an outpatient. -Congestive heart failure chronic systolic dysfunction without any acute exacerbation, patient is actually volume depleted. -Coronary artery disease -type 2 diabetes mellitus -Gases visual reflux disease -Hyperlipidemia -Hypertension -Chronic kidney disease secondary to diabetic nephropathy -Acute renal failure secondary to excessive diuretic therapy and JANINA inhibitor. -Asymptomatic bacteriuria will not require any antibiotics -Primary osteoarthritis. For above-mentioned chronic medical problems patient was resumed on appropriate home medications. Patient is presently now being discharged with the above- mentioned medication changes.
[2019-02-03] MEDS: SODIUM CHLORIDE 0.9% 1,000 ML IV SCH (18:21)
[2019-02-04] MEDS ORDERED: CALCITRIOL 0.25 MCG CAP PO SCH (09:00)
== END 2019-02-03 18:37 | disposition home or self-care (01) ==
LOC: EC 12:52 → 1SOBS 16:32
PROVIDERS: ADMIT Internal Medicine; ATTEND Internal Medicine
DX: R55 Syncope and collapse (principal); E03.9 Hypothyroidism, unspecified; E78.5 Hyperlipidemia, unspecified; I25.82 Chronic total occlusion of coronary artery; I25.10 Atherosclerotic heart disease of native coronary artery without angina pectoris; R60.9 Edema, unspecified; N17.9 Acute kidney failure, unspecified; T50.1X5A Adverse effect of loop [high-ceiling] diuretics, initial encounter; E11.22 Type 2 diabetes mellitus with diabetic chronic kidney disease; I13.0 Hypertensive heart and chronic kidney disease with heart failure and stage 1 through stage 4 chronic kidney disease, or unspecified chronic kidney disease; D64.9 Anemia, unspecified; I50.22 Chronic systolic (congestive) heart failure; M19.91 Primary osteoarthritis, unspecified site; N18.3 Chronic kidney disease, stage 3 (moderate); K21.9 Gastro-esophageal reflux disease without esophagitis; Z79.02 Long term (current) use of antithrombotics/antiplatelets; Z79.4 Long term (current) use of insulin; Z79.890 Hormone replacement therapy; Z95.5 Presence of coronary angioplasty implant and graft; Z96.1 Presence of intraocular lens; Z98.41 Cataract extraction status, right eye; Z98.42 Cataract extraction status, left eye; Z96.642 Presence of left artificial hip joint; Z95.1 Presence of aortocoronary bypass graft; Z80.51 Family history of malignant neoplasm of kidney; Z80.7 Family history of other malignant neoplasms of lymphoid, hematopoietic and related tissues
CPT/HCPCS: 96361 ×3; 96365; 96366; 99285; 36415; 93005; 80053 ×2; 83735; 84484 ×2; 85025 ×2; 85610; 85730; 81001; 71046; 70450; G0378 ×2; J0696 ×2

== ENCOUNTER 2019-02-09 14:43 | Emergency (ER) | payer MEDICARE, BC ==
[2019-02-09 14:55] VITALS: TEMP 97.6
[2019-02-09] MEDS ORDERED: methylPREDNISolone SOD SUCCI 125 MG/2 ML VIAL IV STA (15:30)
[2019-02-09] MEDS ORDERED: SODIUM CHLORIDE 0.9% 1,000 ML IV STA (15:30)
[2019-02-09] MEDS ORDERED: FAMOTIDINE 20 MG/2 ML VIAL IV STA (15:31)
[2019-02-09] MEDS ORDERED: diphenhydrAMINE 50 MG/ML 1 ML VIAL IVP STA (15:31)
--- NOTE | 2019-02-09 15:45 | ED ---
General Adult HPI - General Chief complaint: Allergic Reaction Stated complaint: ALLERGY Time Seen by Provider: 02/09/19 15:15 Source: patient Mode of arrival: wheelchair Limitations: no limitations - History of Present Illness Initial comments: Dictation was produced using [employer] dictation software. please excuse any grammatical, word or spelling errors. Chief Complaint: 83-year-old female sent in for premedications prior to CT angiography of the chest for elevated d-dimer. History of Present Illness: Patient's 83-year-old female she was worked up on an outpatient basis by primary care physician for dyspnea. Outpatient labs are performed and outpatient x-ray was performed. She was found to have an elevated d-dimer. She was sent to outpatient CT for outpatient CT angios the chest. Patient had a d-dimer 1.3 outpatient. She was at outpatient CT with breeding technician told patient to come to the emergency department for premedication given that patient has a contrast ALLERGY. Patient does not know what her reaction is to contrast however she was told that she is ALLERGIC. Does not know of one specific time where she's had a ALLERGY to contrast. Patient states she is worked up at Dr. Bai's office for some upper abdomen and lower chest pain. The ROS documented in this emergency department record has been reviewed and confirmed by me. Those systems with pertinent positive or negative responses have been documented in the HPI. All other systems are other negative and/or noncontributory. PHYSICAL EXAM: General Impression: Alert and oriented x3, not in acute distress HEENT: Normocephalic atraumatic, extra-ocular movements intact, pupils equal and reactive to light bilaterally, mucous membranes moist. Cardiovascular: Heart regular rate and rhythm, S1&S2 audible, no murmurs, rubs or gallops Chest: Lungs clear to auscultation bilaterally, no rhonchi, no wheeze, no rales Abdomen: Bowel sounds present, abdomen soft, non-tender, non-distended, no organomegaly Musculoskeletal: Pulses present and equal in all extremities, no peripheral edema Motor: no focal deficits noted Neurological: CN II-XII grossly intact, no focal motor or sensory deficits noted Skin: Intact with no visualized rashes Psych: Normal affect and mood ED course: 83-year-old female presents to the emergency department for premedication prior to CT angioma for contrast ALLERGY. She had a CT angios ordered by her PCP Dr. Bai for elevated d-dimer. Signs upon arrival are within acceptable limits. Patient initially went to outpatient CT however they were not able to give her premedication so they sent her to the emergency department for premedications. I was able to contact Dr. Bai who wants patient to receive premedication. Patient had outpatient labs performed on February 03 approximately 6 days ago which were reviewed by myself. Labs from that time did not show any abnormalities on the CBC, coag panel, metabolic panel. There was not an order for prematurity peptide. Furthermore patient's urine was positive for white blood cells however there was swims epithelial cells. EKG interpretation: Ventricular rate 65, sinus rhythm, NC interval 232 punctures 90, QTC 480. no QTC prolongation, no ST or T-wave changes noted. EKG compared to 02/02/2019 showing no changes. Overall, this EKG is unremarkable Labs reviewed. ProBNP was ordered with elevation in 3850. More history was obtained from patient she states she has been trying to be weaned from her Lasix patient currently takes 20 mg once a day. Nuclear medicine scan was performed showing low scintigraphic evidence for pulmonary embolism. Patient is stable appearing at this time. Patient not showing any signs of respiratory distress. She is however reporting some shortness of breath with exertion. Patient given 5 mg of IV Lasix here. She is told to increase her Lasix to 20 mg twice a day. This plan was discussed with her primary care physician Dr. Bai. Patient told to follow with Dr. Bai early next week. Patient is understandable and agreeable to plan. - Related Data Home Medications Medication Instructions Recorded Confirmed Atorvastatin [Lipitor] 80 mg PO HS 10/16/14 02/09/19 Nitroglycerin Sl Tabs [Nitrostat] 0.4 mg SUBLINGUAL Q5M PRN 11/07/14 02/09/19 Calcitriol 0.5 mcg PO SUTH 09/09/16 02/09/19 Ondansetron [Zofran] 4 mg PO Q8HR PRN 08/27/18 02/09/19 Sertraline [Zoloft] 50 mg PO DAILY 08/27/18 02/09/19 Cholecalciferol [Vitamin D3 (25 1,000 unit PO DAILY 02/02/19 02/09/19 Mcg = 1000 Iu)] Isosorbide Mononitrate ER [Imdur] 60 mg PO DAILY 02/02/19 02/09/19 Metoprolol Tartrate [Lopressor] 50 mg PO BID 02/02/19 02/09/19 Previous Rx's Medication Instructions Recorded Levothyroxine Sodium [Synthroid] 100 mcg PO DAILY@0630 #30 tab 06/17/17 Clopidogrel [Plavix] 75 mg PO DAILY #90 tab 07/09/17 Acetaminophen Tab [Tylenol] 650 mg PO Q6HR PRN tab 08/30/18 INSULIN ASPART (NovoLOG) [NovoLOG 6 unit SQ BID vial 08/30/18 (formulary)] Insulin Detemir (Levemir) [Levemir] 20 unit SQ HS@2100 syr 08/30/18 Furosemide [Lasix] 20 mg PO DAILY #180 tab 02/03/19 Pregabalin [Lyrica] 150 mg PO BID 14 Days #30 cap 02/03/19 hydrALAZINE HCL [Apresoline] 75 mg PO TID #90 tab 02/03/19 Allergies Allergy/AdvReac Type Severity Reaction Status Date / Time Iodinated Contrast- Oral and Allergy Severe Anaphylaxis Verified 02/09/19 15:24 IV Dye [Iodinated Contrast Media - IV Dye] captopril [From Capoten] Allergy Unknown PASSED OUT Verified 02/09/19 15:24 morphine Allergy Unknown Verified 02/09/19 15:24 Penicillins Allergy Unknown Verified 02/09/19 15:24 sulfamethoxazole AdvReac Unknown Diarrhea Verified 02/09/19 15:24 [From Bactrim] trimethoprim [From Bactrim] AdvReac Unknown Diarrhea Verified 02/09/19 15:24 X-RAY CONTRAST Allergy Unknown Unknown Uncoded 02/09/19 14:54 Review of Systems ROS Statement: Those systems with pertinent positive or pertinent negative responses have been documented in the HPI. ROS Other: All systems not noted in ROS Statement are negative. 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 History of Any Multi-Drug Resistant Organisms: None Reported Past Surgical History: Appendectomy, Cholecystectomy, Heart Catheterization, Heart Catheterization With Stent, Hernia Repair Additional Past Surgical History / Comment(s): 07/08/17 PCI with stent to LCX, bilateral carpal tunnel; right and left finger release; CABG - 1998. Spinal cord stimulator implantation (2009) AND REMOVED. Bilateral cataract removal with lens implants,. Right hip surgery - too put in, T LT HIP REPLACEMENT. HIATAL HERNIA REPAIR. Stents placed 07/09/17. Past Anesthesia/Blood Transfusion Reactions: No Reported Reaction Additional Past Anesthesia/Blood Transfusion Reaction / Comment(s): contracted hepatits after blood transfusion (1971) Date of Last Stent Placement:: 07/08/17 Past Psychological History: No Psychological Hx Reported Smoking Status: Never smoker Past Alcohol Use History: Rare Past Drug Use History: None Reported - Past Family History Mother Family Medical History: Cancer Additional Family Medical History / Comment(s): HODGKINS Son(s) Family Medical History: Cancer Additional Family Medical History / Comment(s): KIDNEY CANCER General Exam Limitations: no limitations Course Vital Signs 02/09/19 02/09/19 14:48 16:23 Temperature 97.6 F Pulse Rate 63 74 Respiratory 18 16 Rate Blood Pressure 160/62 186/93 O2 Sat by Pulse 98 97 Oximetry Medical Decision Making - Lab Data Lab Results 02/09/19 Range/Units 16:10 NT-Pro-B Natriuret Pep 3850 pg/mL Disposition Clinical Impression: Elevated d-dimer Disposition: HOME SELF-CARE Condition: Good Instructions (If sedation given, give patient instructions): Dyspnea (ED) Additional Instructions: increase lasix to 20 mg BID. follow up with Dr. Bai Is patient prescribed a controlled substance at d/c from ED?: No Referrals: Johan Bai MD [Primary Care Provider] - 1-2 days Time of Disposition: 19:21
[2019-02-09 16:24] VITALS: RESP 16
--- NOTE | 2019-02-09 19:04 | NM ---
EXAMINATION TYPE: NM pul vent and perfuse DATE OF EXAM: 02/09/2019 COMPARISON: Chest x-ray February 02, 2019. HISTORY: Elevated outpatient d-dimer. TECHNIQUE: Utilizing inhalation of 70 mCi Tc 99m DTPA aerosol and intravenous injection of 5.01 mCi of Tc 99m MAA, ventilation and perfusion images are acquired post injection in multiple projections. FINDINGS: Some central clumping of ventilation images is consistent with underlying COPD. Some small matching d efects are present. There is no evidence of mismatched defects. IMPRESSION: Low scintigraphic evidence for pulmonary embolism.
[2019-02-09] MEDS ORDERED: FUROSEMIDE 10 MG/ML 4 ML VIAL IV STA (19:21)
[2019-02-09 19:41] VITALS: BP 181/88; PULSE 70
== END 2019-02-09 19:45 | disposition home or self-care (01) ==
LOC: EC 14:43
DX: R79.1 Abnormal coagulation profile (principal); I26.99 Other pulmonary embolism without acute cor pulmonale; R06.02 Shortness of breath; I25.119 Atherosclerotic heart disease of native coronary artery with unspecified angina pectoris; E78.5 Hyperlipidemia, unspecified; I10 Essential (primary) hypertension; M19.90 Unspecified osteoarthritis, unspecified site; Z88.0 Allergy status to penicillin; Z88.2 Allergy status to sulfonamides; Z88.5 Allergy status to narcotic agent; Z88.8 Allergy status to other drugs, medicaments and biological substances; Z91.041 Radiographic dye allergy status; Z79.899 Other long term (current) drug therapy; Z95.1 Presence of aortocoronary bypass graft; Z95.5 Presence of coronary angioplasty implant and graft; Z96.642 Presence of left artificial hip joint
CPT/HCPCS: 99284 ×2; 96374 ×2; 96375 ×4; 96361 ×3; 36415; 93005; 83880; 78582; A9540; A9567; J1200; J1940; J2930

== ENCOUNTER 2019-04-25 20:17 | Inpatient (IN) | payer MEDICARE, BC ==
[2019-04-25] MEDS ORDERED: SODIUM CHLORIDE 0.9% 500 ML 500 ML IV ONE (20:37)
[2019-04-25 20:52] LABS: Basophils % (A) 0 %; Eosinophils # (A) 0.2 k/uL (0-0.7); Eosinophils % (A) 1 %; HCT 41.7 % (34.0-46.0); HGB 13.6 gm/dL (11.4-16.0); Lymphocytes # (A) 1.3 k/uL (1.0-4.8); Lymphocytes % (A) 9 %; MCH 29.5 pg (25.0-35.0); MCHC 32.5 g/dL (31.0-37.0); MCV 90.8 fL (80.0-100.0); Mean Platelet Volume 7.6; Monocytes # (A) 0.6 k/uL (0-1.0); Monocytes % (A) 5 %; Neutrophils # (A) 12.1 k/uL (1.3-7.7); Neutrophils % (A) 84 %; Platelet Count 202 k/uL (150-450); RDW 15.2 % (11.5-15.5); WBC 14.3 k/uL (3.8-10.6)
[2019-04-25 20:57] LABS: Albumin 4.1 g/dL (3.5-5.0); Calcium 9.5 mg/dL (8.4-10.2); Phosphorus 3.3 mg/dL (2.5-4.5); Potassium 3.8 mmol/L (3.5-5.1); Total Bilirubin 0.6 mg/dL (0.2-1.3); Total Protein 6.9 g/dL (6.3-8.2)
[2019-04-25 21:00] LABS: INR 0.9 (<1.2); Partial Thromboplastin Time 24.8 sec (22.0-30.0)
--- NOTE | 2019-04-25 21:12 | CT ---
EXAMINATION TYPE: CT brain brenden melo con DATE OF EXAM: 04/25/2019 COMPARISON: 08/27/2018 HISTORY: pt fall CT DLP: 1436.4 mGycm Automated exposure control for dose reduction was used. TECHNIQUE: CT scan of the head and cervical spine are performed without contrast. FINDINGS: There is cerebral cortical atrophy. There is no mass effect nor midline shift. There is n o sign of intracranial hemorrhage. The calvarium is intact. The cervical vertebra have normal alignment. There is narrowing of C5-6 disc space. There is mild com pression deformity of C7 vertebra with 20% loss of height. The skull base is intact. There is mild mu ltilevel hypertrophic facet arthropathy. There is a nondisplaced fracture of the superior articular facet of C6 vertebra and lamina and spinou s process on the right side. IMPRESSION: There is mild compression fracture of C7 vertebra that is a change compared to old exam. This is prob ably an acute fracture. There is nondisplaced facet and lamina fracture of C6 vertebra on the right s candy.. Cerebral atrophy. No acute intracranial abnormality. Brain unchanged compared to old exam.
--- NOTE | 2019-04-25 21:32 | ED ---
General Adult HPI - General Source: patient, family, RN notes reviewed, old records reviewed Mode of arrival: wheelchair <Lalito Moffett - Last Filed: 04/26/19 00:44> <Saúl Adan - Last Filed: 04/29/19 12:34> - General Chief complaint: Fall Stated complaint: Fall Time Seen by Provider: 04/25/19 20:23 - History of Present Illness Initial comments: 84-year-old female patient with extensive past medical history presents to ED after a fall. Patient ports that she fell at her assisted living facility. Patient does not know how she fell. Patient reports pain in neck. Does not know if she lost consciousness. Patient chief complaint is neck pain. Denies any pain in any other locations. Denies any numbness tingling, paresthesias, upper or lower extremity weakness, abdominal pain, back pain, loss of bowel or bladder control, chest pain, shortness of breath, nausea vomiting or diarrhea. Systemic: Pt denies fatigue, fever/chills, rash. Pt denies weakness, night sweats, weight loss. Neuro: Pt denies headache, visual disturbances, syncope or pre-syncope. HEENT: Pt denies ocular discharge or irritation, otalgia, rhinorrhea, pharyngitis or notable lymphadenopathy. Cardiopulmonary: Pt denies chest pain, SOB, heart palpitations, dyspnea on exertion. Abdominal/GI: Pt denies abdominal pain, n/v/d. : Pt denies dysuria, burning w/ urination, frequency/urgency. Denies new onset urinary or bowel incontinence. MSK: Pt denies myalgia, loss of strength or function in extremities. Neuro: Pt denies new onset weakness, paresthesias. (Lalito Moffett) - Related Data Home Medications Medication Instructions Recorded Confirmed Atorvastatin [Lipitor] 80 mg PO HS 10/16/14 04/26/19 Nitroglycerin Sl Tabs [Nitrostat] 0.4 mg SUBLINGUAL Q5M PRN 11/07/14 04/26/19 Calcitriol 0.5 mcg PO SUTH 09/09/16 04/26/19 Sertraline [Zoloft] 50 mg PO DAILY 08/27/18 04/26/19 Cholecalciferol [Vitamin D3 (25 1,000 unit PO DAILY 02/02/19 04/26/19 Mcg = 1000 Iu)] Furosemide [Lasix] 20 mg PO BID 04/26/19 04/26/19 Insulin Aspart [NovoLOG Flexpen] 7 units SQ BID 04/26/19 04/26/19 Insulin Glargine,Hum.rec.anlog 24 units SQ HS 04/26/19 04/26/19 [Lantus Solostar] Metoprolol Succinate (ER) [Toprol 25 mg PO DAILY 04/26/19 04/26/19 XL] Omeprazole Magnesium [PriLOSEC 20 mg PO DAILY 04/26/19 04/26/19 Oral Susp] Tolterodine Tartrate [Detrol LA] 4 mg PO DAILY 04/26/19 04/26/19 Previous Rx's Medication Instructions Recorded Levothyroxine Sodium [Synthroid] 100 mcg PO DAILY@0630 #30 tab 06/17/17 Clopidogrel [Plavix] 75 mg PO DAILY #90 tab 07/09/17 Pregabalin [Lyrica] 150 mg PO BID 14 Days #30 cap 02/03/19 Allergies Allergy/AdvReac Type Severity Reaction Status Date / Time Iodinated Contrast- Oral and Allergy Severe Anaphylaxis Verified 04/26/19 08:19 IV Dye [Iodinated Contrast Media - IV Dye] captopril [From Capoten] Allergy Unknown PASSED OUT Verified 04/26/19 08:19 morphine Allergy Unknown Verified 04/26/19 08:19 Penicillins Allergy Unknown Verified 04/26/19 08:19 sulfamethoxazole AdvReac Unknown Diarrhea Verified 04/26/19 08:19 [From Bactrim] trimethoprim [From Bactrim] AdvReac Unknown Diarrhea Verified 04/26/19 08:19 X-RAY CONTRAST Allergy Unknown Unknown Uncoded 02/09/19 14:54 Review of Systems ROS Other: All systems not noted in ROS Statement are negative. <Lalito Moffett - Last Filed: 04/26/19 00:44> ROS Other: All systems not noted in ROS Statement are negative. <Saúl Adan - Last Filed: 04/29/19 12:34> ROS Statement: Those systems with pertinent positive or pertinent negative responses have been documented in the HPI. 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 History of Any Multi-Drug Resistant Organisms: None Reported Past Surgical History: Appendectomy, Cholecystectomy, Heart Catheterization, Heart Catheterization With Stent, Hernia Repair Additional Past Surgical History / Comment(s): 07/08/17 PCI with stent to LCX, bilateral carpal tunnel; right and left finger release; CABG - 1998. Spinal cord stimulator implantation (2009) AND REMOVED. Bilateral cataract removal with lens implants,. Right hip surgery - too put in, T LT HIP REPLACEMENT. HIATAL HERNIA REPAIR. Stents placed 07/09/17. Past Anesthesia/Blood Transfusion Reactions: No Reported Reaction Additional Past Anesthesia/Blood Transfusion Reaction / Comment(s): contracted hepatits after blood transfusion (1971) Date of Last Stent Placement:: 07/08/17 Past Psychological History: No Psychological Hx Reported Smoking Status: Never smoker Past Alcohol Use History: Rare Past Drug Use History: None Reported - Past Family History Mother Family Medical History: Cancer Additional Family Medical History / Comment(s): HODGKINS Son(s) Family Medical History: Cancer Additional Family Medical History / Comment(s): KIDNEY CANCER <Lalito Moffett - Last Filed: 04/26/19 00:44> - Past Family History Father History Unknown: Yes Additional Family Medical History / Comment(s): Father at the age of 48yrs. Pt was little when he passed and is not sure what his cause of was. <Saúl Adan - Last Filed: 04/29/19 12:34> General Exam <Lalito Moffett - Last Filed: 04/26/19 00:44> - General Exam Comments Initial Comments: Constitutional: NAD, AOX3, Pt has pleasant affect. HEENT: NC/AT, trachea midline, neck supple, no lymphadenopathy. Posterior pharynx non erythematous, without exudates. External ears appear normal, without discharge. Mucous membranes moist. Eyes PERRLA, EOM intact. There is no scleral icterus. No pallor noted. Cardiopulmonary: RRR, no murmurs, rubs or gallops, no JVD noted. Lungs CTAB in anterior and posterior chao. No peripheral edema. Abdominal exam: Abdomen soft and non-distended. Abdomen non-tender to palpation in all 4 quadrants. Bowel sounds active in LLQ. No hepatosplenomegaly. No ecchymosis. NIH 0. Neuro: CN II-XII intact. No nuchal rigidity. No raccon eyes, no balderas sign, no hemotympanum. Mild amount of cervical spinal tenderness. MSK: No posterior calf tenderness bilaterally, homans sign negative bilaterally. Posterior tibialis and radial pulse +2 bilaterally. Full sensation intact in upper and lower extremities. Full active ROM in upper and lower extremities, 5/5 stregnth. (Lalito Moffett) Course <Saúl Adan - Last Filed: 04/29/19 12:34> Vital Signs 04/25/19 04/25/19 04/26/19 20:18 21:46 00:07 Temperature 97.3 F L Pulse Rate 85 68 71 Respiratory 16 18 18 Rate Blood Pressure 182/93 174/72 164/77 O2 Sat by Pulse 97 96 96 Oximetry 04/26/19 06:00 Temperature Pulse Rate 78 Respiratory 16 Rate Blood Pressure 151/77 O2 Sat by Pulse 99 Oximetry - Reevaluation(s) Reevaluation #1: 04/25/19 22:[address] Lo who will review the films and call back. (Saúl Adan) Medical Decision Making - Lab Data Result diagrams: 04/25/19 20:40 04/25/19 20:40 - EKG Data -: EKG Interpreted by Me (and Dr. Polanco) <Lalito Moffett - Last Filed: 04/26/19 00:44> - Lab Data Result diagrams: 04/28/19 06:43 04/28/19 06:43 <Salú Adan - Last Filed: 04/29/19 12:34> - Medical Decision Making 84-year-old female patient with extensive past medical history presents to ED after a fall. Patient ports that she fell at her assisted living facility. Patient does not know how she fell. Patient reports pain in neck. Does not know if she lost consciousness. Patient chief complaint is neck pain. Denies any pain in any other locations. Denies any numbness tingling, paresthesias, upper or lower extremity weakness, abdominal pain, back pain, loss of bowel or bladder control, chest pain, shortness of breath, nausea vomiting or diarrhea. Patient vital signs stable, afebrile. Physical exam displayed mild cervical spinal tenderness. Patient cervical spine was supported and patient was placed in cervical collar. Lymph investigations revealed mild looks cytosis of 14.3. Correlation studies non-impressive. CMP revealed creatinine of 1.37, improved from prior. Troponin elevated 0.070. Patient continues to deny any chest pain. CT brain and C-spine displayed a mild compression fracture of C7 vertebrae that is a change compared to old exam. Nondisplaced facet and lamina fracture of C6 on the right side. No acute intracranial abnormality. CXR revealed no acute disease. Case was discussed in depth with attending physician Dr. Polanco who contacted on-call orthopedic consult Dr. Alexander. Patient case and patient presentation was discussed in depth with orthopedic consult Dr. Lo who reviewed films. His recommendation was to place patient in rigid cervical collar and to admit patient to hospital at this facility. No rigid collar was avilable in the ED, pt will be kept in currect C collar. Patient troponins will be trended due to m ildly elevated troponin cardiology will be consulted. Case discussed in depth with Dr. Polanco. (Lalito Moffett) I saw this patient in conjunction with the physician auction assistant. I performed independent history and physical exam. Agree with case management. (Saúl Adan) - Lab Data Lab Results 04/25/19 04/25/19 04/25/19 Range/Units 20:40 20:40 20:40 WBC 14.3 H (3.8-10.6) k/uL RBC 4.60 (3.80-5.40) m/uL Hgb 13.6 (11.4-16.0) gm/dL Hct 41.7 (34.0-46.0) % MCV 90.8 (80.0-100.0) fL MCH 29.5 (25.0-35.0) pg MCHC 32.5 (31.0-37.0) g/dL RDW 15.2 (11.5-15.5) % Plt Count 202 (150-450) k/uL Neutrophils % 84 % Lymphocytes % 9 % Monocytes % 5 % Eosinophils % 1 % Basophils % 0 % Neutrophils # 12.1 H (1.3-7.7) k/uL Lymphocytes # 1.3 (1.0-4.8) k/uL Monocytes # 0.6 (0-1.0) k/uL Eosinophils # 0.2 (0-0.7) k/uL Basophils # 0.0 (0-0.2) k/uL PT 10.0 (9.0-12.0) sec INR 0.9 (<1.2) APTT 24.8 (22.0-30.0) sec Sodium 136 L (137-145) mmol/L Potassium 3.8 (3.5-5.1) mmol/L Chloride 101 (98-107) mmol/L Carbon Dioxide 24 (22-30) mmol/L Anion Gap 11 mmol/L BUN 29 H (7-17) mg/dL Creatinine 1.37 H (0.52-1.04) mg/dL Est GFR (CKD-EPI)AfAm 41 (>60 ml/min/1.73 sqM) Est GFR (CKD-EPI)NonAf 35 (>60 ml/min/1.73 sqM) Glucose 77 (74-99) mg/dL Estimated Ave Glu mg/dL Hemoglobin A1c (4.0-6.0) % Calcium 9.5 (8.4-10.2) mg/dL Phosphorus 3.3 (2.5-4.5) mg/dL Magnesium 2.0 (1.6-2.3) mg/dL Total Bilirubin 0.6 (0.2-1.3) mg/dL AST 31 (14-36) U/L ALT 25 (9-52) U/L Alkaline Phosphatase 96 (38-126) U/L Troponin I (0.000-0.034) ng/mL Total Protein 6.9 (6.3-8.2) g/dL Albumin 4.1 (3.5-5.0) g/dL Triglycerides (<150) mg/dL Cholesterol (<200) mg/dL LDL Cholesterol, Calc (0-99) mg/dL HDL Cholesterol (40-60) mg/dL 04/25/19 04/25/19 04/25/19 Range/Units 20:40 20:40 20:40 WBC (3.8-10.6) k/uL RBC (3.80-5.40) m/uL Hgb (11.4-16.0) gm/dL Hct (34.0-46.0) % MCV (80.0-100.0) fL MCH (25.0-35.0) pg MCHC (31.0-37.0) g/dL RDW (11.5-15.5) % Plt Count (150-450) k/uL Neutrophils % % Lymphocytes % % Monocytes % % Eosinophils % % Basophils % % Neutrophils # (1.3-7.7) k/uL Lymphocytes # (1.0-4.8) k/uL Monocytes # (0-1.0) k/uL Eosinophils # (0-0.7) k/uL Basophils # (0-0.2) k/uL PT (9.0-12.0) sec INR (<1.2) APTT (22.0-30.0) sec Sodium (137-145) mmol/L Potassium (3.5-5.1) mmol/L Chloride (98-107) mmol/L Carbon Dioxide (22-30) mmol/L Anion Gap mmol/L BUN (7-17) mg/dL Creatinine (0.52-1.04) mg/dL Est GFR (CKD-EPI)AfAm (>60 ml/min/1.73 sqM) Est GFR (CKD-EPI)NonAf (>60 ml/min/1.73 sqM) Glucose (74-99) mg/dL Estimated Ave Glu mg/dL 143 Hemoglobin A1c 6.6 H (4.0-6.0) % Calcium (8.4-10.2) mg/dL Phosphorus (2.5-4.5) mg/dL Magnesium (1.6-2.3) mg/dL Total Bilirubin (0.2-1.3) mg/dL AST (14-36) U/L ALT (9-52) U/L Alkaline Phosphatase (38-126) U/L Troponin I 0.070 H* (0.000-0.034) ng/mL Total Protein (6.3-8.2) g/dL Albumin (3.5-5.0) g/dL Triglycerides 149 (<150) mg/dL Cholesterol 156 (<200) mg/dL LDL Cholesterol, Calc 77 (0-99) mg/dL HDL Cholesterol 49 (40-60) mg/dL - EKG Data EKG Comments: Ventricular rate 74, painful and 98, QRS 88, QT/QTc 472/523. Normal sinus rhythm, nonspecific ST and T-wave abnormality. (Lalito Moffett) Disposition Is patient prescribed a controlled substance at d/c from ED?: No <Lalito Moffett - Last Filed: 04/26/19 00:44> <Saúl Adan - Last Filed: 04/29/19 12:34> Clinical Impression: Compression fracture of C7 vertebra, Fall Disposition: ADMITTED IP TO THIS HOSP Condition: Serious
[2019-04-25] MEDS ORDERED: HYDROmorphone 0.5 MG/0.5 ML SYRINGE IVP STA (22:41)
--- NOTE | 2019-04-26 00:13 | XR ---
EXAM: XR Chest, 1 View CLINICAL HISTORY: ITS.REASON XR Reason: Pain TECHNIQUE: Frontal view of the chest. COMPARISON: Chest radiograph on 02/02/2019 FINDINGS: Hardware: None. Lungs/pleura: Mild left basilar atelectasis. No focal consolidation. No pleural effusion or pneumothorax. Heart/mediastinum: Median sternotomy and CABG changes. Broken third median sternotomy wire again noted. Stable mild enlargement of the cardiac silhouette. Soft tissues: Unremarkable. Bones: No acute fracture. Osteopenia. Degenerative changes of the acromioclavicular joints. Upper abdomen: Normal. IMPRESSION: No acute disease identified. Mild left basilar atelectasis.
[2019-04-26] MEDS: HYDROmorphone 0.5 MG/0.5 ML SYRINGE IVP PRN ×3 (01:59→14:40)
[2019-04-26 02:58] LABS: Cholesterol 156 mg/dL (<200); HDL Cholesterol 49 mg/dL (40-60); LDL Cholesterol,Calculated 77 mg/dL (0-99); Triglycerides 149 mg/dL (<150)
[2019-04-26 03:22] LABS: Appearance,Urine Cloudy (Clear); Bilirubin,Urine Negative (Negative); Blood,Urine Negative (Negative); Color,Urine Light Yellow; Glucose,Urine (UA) Negative (Negative); Ketones,Urine Negative (Negative); Leukocyte Esterase,Urine Large (Negative); Nitrite,Urine Negative (Negative); PH, Urine 5.5 (5.0-8.0); Protein,Urine 2+ (Negative); RBC,Urine 2 /hpf (0-5); Squamous Epithelial Cell,Urine 5 /hpf (0-4); Urobilinogen,Urine <2.0 mg/dL (<2.0); WBC,Urine 74 /hpf (0-5)
[2019-04-26] MEDS ORDERED: NITROGLYCERIN SL TABS 0.4 MG TAB SUBLINGUAL PRN (08:44)
--- NOTE | 2019-04-26 08:44 | P.CONS ---
History of Present Illness - Reason for Consult Consult date: 04/26/19 Medical management Requesting physician: David Lo - Chief Complaint Status post fall with neck pain. - History of Present Illness This is a consultation on an 84-year-old white female who has an underlying history diabetes, hypertension and chronic kidney disease who states that she unwittingly fell. She is to and relates with her walker when she sees me in the office. C7 acute compression fracture has been noted. No fever or chills she is now stabilized with her neck brace. No complaints of numbness or tingling of the upper extremities stated. No voiding difficulties otherwise noted. Blood sugars usually fairly well-controlled in my office with nominal A1c around 8. Review of Systems Constitutional: Denies chills, Denies fever Eyes: denies blurred vision, denies pain Ears, nose, mouth and throat: Denies headache, Denies sore throat Cardiovascular: Denies chest pain, Denies shortness of breath Respiratory: Denies cough Gastrointestinal: Denies abdominal pain, Denies diarrhea, Denies nausea, Denies vomiting Genitourinary: Denies dysuria, Denies hematuria Past Medical History Past Medical History: Coronary Artery Disease (CAD), Chest Pain / Angina, Diabetes Mellitus, GERD/Reflux, Hyperlipidemia, Hypertension, Osteoarthritis (OA), Renal Disease, Thyroid Disorder Additional Past Medical History / Comment(s): IDDM TYPE II, 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 History of Any Multi-Drug Resistant Organisms: None Reported Past Surgical History: Appendectomy, Cholecystectomy, Heart Catheterization, Heart Catheterization With Stent, Hernia Repair Additional Past Surgical History / Comment(s): 07/08/17 PCI with stent to LCX, bilateral carpal tunnel; right and left finger release; CABG - 1998. Spinal cord stimulator implantation (2009) AND REMOVED. Bilateral cataract removal with lens implants,. Right hip surgery - too put in, T LT HIP REPLACEMENT. HIATAL HERNIA REPAIR. Stents placed 07/09/17. Past Anesthesia/Blood Transfusion Reactions: No Reported Reaction Additional Past Anesthesia/Blood Transfusion Reaction / Comm: contracted hepatits after blood transfusion (1971) Date of Last Stent Placement:: 09/29/17 Past Psychological History: No Psychological Hx Reported Smoking Status: Never smoker Past Alcohol Use History: Rare Past Drug Use History: None Reported - Past Family History Mother Family Medical History: Cancer Additional Family Medical History / Comment(s): HODGKINS Son(s) Family Medical History: Cancer Additional Family Medical History / Comment(s): KIDNEY CANCER Medications and Allergies Home Medications Medication Instructions Recorded Confirmed Type Atorvastatin [Lipitor] 80 mg PO HS 10/16/14 04/26/19 History Nitroglycerin Sl Tabs [Nitrostat] 0.4 mg SUBLINGUAL Q5M PRN 11/07/14 04/26/19 History Calcitriol 0.5 mcg PO SUTH 09/09/16 04/26/19 History Levothyroxine Sodium [Synthroid] 100 mcg PO DAILY@0630 #30 tab 06/17/17 04/26/19 Rx Clopidogrel [Plavix] 75 mg PO DAILY #90 tab 07/09/17 04/26/19 Rx Sertraline [Zoloft] 50 mg PO DAILY 08/27/18 04/26/19 History Cholecalciferol [Vitamin D3 (25 1,000 unit PO DAILY 02/02/19 04/26/19 History Mcg = 1000 Iu)] Pregabalin [Lyrica] 150 mg PO BID 14 Days #30 cap 02/03/19 04/26/19 Rx Furosemide [Lasix] 20 mg PO BID 04/26/19 04/26/19 History Insulin Aspart [NovoLOG Flexpen] 7 units SQ BID 04/26/19 04/26/19 History Insulin Glargine,Hum.rec.anlog 24 units SQ HS 04/26/19 04/26/19 History [Lantus Solostar] Metoprolol Succinate (ER) [Toprol 25 mg PO DAILY 04/26/19 04/26/19 History XL] Omeprazole Magnesium [PriLOSEC 20 mg PO DAILY 04/26/19 04/26/19 History Oral Susp] Tolterodine Tartrate [Detrol LA] 4 mg PO DAILY 04/26/19 04/26/19 History Allergies Allergy/AdvReac Type Severity Reaction Status Date / Time Iodinated Contrast- Oral and Allergy Severe Anaphylaxis Verified 04/26/19 08:19 IV Dye [Iodinated Contrast Media - IV Dye] captopril [From Capoten] Allergy Unknown PASSED OUT Verified 04/26/19 08:19 morphine Allergy Unknown Verified 04/26/19 08:19 Penicillins Allergy Unknown Verified 04/26/19 08:19 sulfamethoxazole AdvReac Unknown Diarrhea Verified 04/26/19 08:19 [From Bactrim] trimethoprim [From Bactrim] AdvReac Unknown Diarrhea Verified 04/26/19 08:19 X-RAY CONTRAST Allergy Unknown Unknown Uncoded 02/09/19 14:54 Physical Exam Vitals: Vital Signs Temp Pulse Resp BP Pulse Ox 04/26/19 06:00 78 16 151/77 99 04/26/19 00:07 71 18 164/77 96 04/25/19 21:46 68 18 174/72 96 04/25/19 20:18 97.3 F L 85 16 182/93 97 Intake and Output 04/25/19 04/26/19 04/26/19 22:59 06:59 14:59 Other: Weight 80.286 kg 84 kg - Constitutional General appearance: no no acute distress - EENT Eyes: EOMI - Neck Neck: no lymphadenopathy - Respiratory Respiratory: bilateral: CTA - Cardiovascular Rhythm: regular Heart sounds: normal: S1, S2 Abnormal Heart Sounds: no S3 Gallop - Gastrointestinal General gastrointestinal: soft, no tenderness - Neurologic Neurologic: CNII-XII intact Results CBC & Chem 7: 04/25/19 20:40 04/25/19 20:40 Labs: Abnormal Lab Results - Last 24 Hours (Table) 04/25/19 04/25/19 04/25/19 Range/Units 20:40 20:40 20:40 WBC 14.3 H (3.8-10.6) k/uL Neutrophils # 12.1 H (1.3-7.7) k/uL Sodium 136 L (137-145) mmol/L BUN 29 H (7-17) mg/dL Creatinine 1.37 H (0.52-1.04) mg/dL Troponin I 0.070 H* (0.000-0.034) ng/mL Urine Appearance (Clear) Urine Protein (Negative) Ur Leukocyte Esterase (Negative) Urine WBC (0-5) /hpf Ur Squamous Epith Cells (0-4) /hpf 04/26/19 04/26/19 Range/Units 01:23 03:00 WBC (3.8-10.6) k/uL Neutrophils # (1.3-7.7) k/uL Sodium (137-145) mmol/L BUN (7-17) mg/dL Creatinine (0.52-1.04) mg/dL Troponin I 0.282 H* (0.000-0.034) ng/mL Urine Appearance Cloudy H (Clear) Urine Protein 2+ H (Negative) Ur Leukocyte Esterase Large H (Negative) Urine WBC 74 H (0-5) /hpf Ur Squamous Epith Cells 5 H (0-4) /hpf Assessment and Plan (1) Compression fracture of C7 vertebra Current Visit: Yes Status: Acute Code(s): S12.690A - OTH DISP FX OF SEVENTH CERVICAL VERTEBRA, INIT FOR CLOS FX SNOMED Code(s): 711938798 (2) Fall Current Visit: Yes Status: Acute Code(s): W19.XXXA - UNSPECIFIED FALL, INITIAL ENCOUNTER SNOMED Code(s): 3293683 (3) Chronic kidney disease, stage 3 Current Visit: No Status: Chronic Code(s): N18.3 - CHRONIC KIDNEY DISEASE, STAGE 3 (MODERATE) SNOMED Code(s): 165055585 (4) Coronary artery disease Current Visit: No Status: Chronic Code(s): I25.10 - ATHSCL HEART DISEASE OF [place] CORONARY ARTERY W/O ANG PCTRS SNOMED Code(s): 28207569 (5) Hypertension Current Visit: No Status: Chronic Code(s): I10 - ESSENTIAL (PRIMARY) HYPERTENSION SNOMED Code(s): 31452966 (6) Type II diabetes mellitus with peripheral circulatory disorder, uncontrolled Current Visit: No Status: Chronic Priority: Medium Code(s): E11.51 - TYPE 2 DIABETES W DIABETIC PERIPHERAL ANGIOPATH W/O GANGRENE SNOMED Code(s): 40091413 Plan: Reconcile home medications. Place on sliding scale as necessary. Check CBC and CMP in a.m. Pain control as recommended by orthopedics. PT/OT as needed. Time with Patient: Greater than 30
[2019-04-26] MEDS ORDERED: CIPROFLOXACIN HCL 500 MG TAB PO SCH (09:00)
[2019-04-26] MEDS ORDERED: INSULIN ASPART (NovoLOG) 100 UNIT/ML VIAL SQ SCH (09:00)
[2019-04-26] MEDS: CALCITRIOL 0.25 MCG CAP PO SCH (09:42)
[2019-04-26] MEDS: PREGABALIN 75 MG CAP PO SCH ×2 (09:42→20:36)
[2019-04-26] MEDS: METOPROLOL SUCCINATE (ER) 25 MG TAB.ER.24H PO SCH (09:43)
[2019-04-26] MEDS: CLOPIDOGREL 75 MG TAB PO SCH (09:43)
[2019-04-26] MEDS: FUROSEMIDE 20 MG TAB PO SCH ×2 (09:43→20:36)
[2019-04-26] MEDS: OXYBUTYNIN 10 MG TAB.ER.24 PO SCH (09:43)
[2019-04-26] MEDS: CHOLECALCIFEROL 1,000 UNIT TAB PO SCH (09:43)
[2019-04-26] MEDS: SERTRALINE 50 MG TAB PO SCH (09:43)
[2019-04-26] MEDS: PANTOPRAZOLE 40 MG TABLET PO SCH (09:43)
[2019-04-26 09:54] LABS: Glucose,Whole Blood 138 mg/dL (75-99)
--- NOTE | 2019-04-26 10:10 | P.CRDCN ---
History of Present Illness Consult date: 04/26/19 Requesting physician: David Lo Reason for Consult (text): Abnormal troponins, syncope Chief complaint: Fall, syncope History of present illness: This is a pleasant 84-year-old female who follows regularly with Dr. Abernathy in the office. She has a past medical history significant for coronary artery disease and prior bypass surgery with an SVG to the diagonal branch of the HERNANDEZ to the LAD, prior angioplasty, diabetes, hyperlipidemia, hypertension, chronic kidney disease, former nicotine dependence. On review of prior admissions, it does appear that the patient had an admission to the hospital in August 2018 with syncope, she was found at that time to have significant ort hostatic hypotension. Medication adjustments have been made. On this occasion she presented to the hospital after finding herself on the kitchen floor between the fridge instilled. Patient does not recall passing out, only remembers waking up on the floor. She does state however that she has been more short of breath than usual, with exertion, walking short distances, she also states that she has been quite dizzy, more than her usual. Her appetite overall has been poor and she's recently lost approximately 20 pounds of weight. She denies any recent chest discomfort. Patient had a CT of the brain and C-spine performed which revealed a mild compression fracture of C7 which was new as compared with prior exam, likely representing an acute fracture. There is also a nondisplaced facet and lamina fracture of C6 on the right side. No acute intracranial abnormality. Chest x-ray did not reveal any acute disease. EKG shows a normal sinus rhythm with nonspecific ST-T wave changes noted. Blood pressure on arrival here 182/90 with a heart rate in the 80s, 97% on room air blood pressure this morning 150/70 with a heart rate in the 70s, 99% on room air. White blood cell count 14.3, hemoglobin 13.6, platelet count 202. Sodium 136, potassium 3.8, BUN 29 and creatinine 1.3. Magnesium 2.0. Troponin 0.07, 0.28. Positive UTI. 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 History of Any Multi-Drug Resistant Organisms: None Reported Past Surgical History: Appendectomy, Cholecystectomy, Heart Catheterization, Heart Catheterization With Stent, Hernia Repair Additional Past Surgical History / Comment(s): 07/08/17 PCI with stent to LCX, bilateral carpal tunnel; right and left finger release; CABG - 1998. Spinal cord stimulator implantation (2009) AND REMOVED. Bilateral cataract removal with lens implants,. Right hip surgery - too put in, T LT HIP REPLACEMENT. HIATAL HERNIA REPAIR. Stents placed 07/09/17. Past Anesthesia/Blood Transfusion Reactions: No Reported Reaction Additional Past Anesthesia/Blood Transfusion Reaction / Comment(s): contracted hepatits after blood transfusion (1971) Date of Last Stent Placement:: 07/08/17 Past Psychological History: No Psychological Hx Reported Smoking Status: Never smoker Past Alcohol Use History: Rare Past Drug Use History: None Reported - Past Family History Mother Family Medical History: Cancer Additional Family Medical History / Comment(s): HODGKINS Son(s) Family Medical History: Cancer Additional Family Medical History / Comment(s): KIDNEY CANCER Medications and Allergies Home Medications Medication Instructions Recorded Confirmed Type Atorvastatin [Lipitor] 80 mg PO HS 10/16/14 04/26/19 History Nitroglycerin Sl Tabs [Nitrostat] 0.4 mg SUBLINGUAL Q5M PRN 11/07/14 04/26/19 History Calcitriol 0.5 mcg PO SUTH 09/09/16 04/26/19 History Levothyroxine Sodium [Synthroid] 100 mcg PO DAILY@0630 #30 tab 06/17/17 04/26/19 Rx Clopidogrel [Plavix] 75 mg PO DAILY #90 tab 07/09/17 04/26/19 Rx Sertraline [Zoloft] 50 mg PO DAILY 08/27/18 04/26/19 History Cholecalciferol [Vitamin D3 (25 1,000 unit PO DAILY 02/02/19 04/26/19 History Mcg = 1000 Iu)] Pregabalin [Lyrica] 150 mg PO BID 14 Days #30 cap 02/03/19 04/26/19 Rx Furosemide [Lasix] 20 mg PO BID 04/26/19 04/26/19 History Insulin Aspart [NovoLOG Flexpen] 7 units SQ BID 04/26/19 04/26/19 History Insulin Glargine,Hum.rec.anlog 24 units SQ HS 04/26/19 04/26/19 History [Lantus Solostar] Metoprolol Succinate (ER) [Toprol 25 mg PO DAILY 04/26/19 04/26/19 History XL] Omeprazole Magnesium [PriLOSEC 20 mg PO DAILY 04/26/19 04/26/19 History Oral Susp] Tolterodine Tartrate [Detrol LA] 4 mg PO DAILY 04/26/19 04/26/19 History Allergies Allergy/AdvReac Type Severity Reaction Status Date / Time Iodinated Contrast- Oral and Allergy Severe Anaphylaxis Verified 04/26/19 08:19 IV Dye [Iodinated Contrast Media - IV Dye] captopril [From Capoten] Allergy Unknown PASSED OUT Verified 04/26/19 08:19 morphine Allergy Unknown Verified 04/26/19 08:19 Penicillins Allergy Unknown Verified 04/26/19 08:19 sulfamethoxazole AdvReac Unknown Diarrhea Verified 04/26/19 08:19 [From Bactrim] trimethoprim [From Bactrim] AdvReac Unknown Diarrhea Verified 04/26/19 08:19 X-RAY CONTRAST Allergy Unknown Unknown Uncoded 02/09/19 14:54 Physical Exam Vitals: Vital Signs Temp Pulse Resp BP Pulse Ox 04/26/19 06:00 78 16 151/77 99 04/26/19 00:07 71 18 164/77 96 04/25/19 21:46 68 18 174/72 96 04/25/19 20:18 97.3 F L 85 16 182/93 97 Intake and Output 04/25/19 04/26/19 04/26/19 22:59 06:59 14:59 Other: Weight 80.286 kg 84 kg PHYSICAL EXAMINATION: GENERAL: 84-year-old female in no acute distress at the time of my examination HEENT: Head is atraumatic, normocephalic. Pupils equal, round. Sclera anicteric. Conjunctiva are clear. Mucous membranes of the mouth are moist. Neck is supple. C-collar in place. There is no elevated jugular venous pressure. No carotid bruit is heard. HEART EXAMINATION: Heart S1 and S2 systolic murmur is heard CHEST EXAMINATION: Lungs are clear to auscultation anteriorly . No chest wall tenderness is noted on palpation or with deep breathing. ABDOMEN: Soft, nontender. Bowel sounds are heard. No organomegaly noted. EXTREMITIES: 2+ peripheral pulses with no evidence of peripheral edema and no calf tenderness noted. NEUROLOGIC patient is awake, alert and oriented X3. . Results 04/25/19 20:40 04/25/19 20:40 Cardiac Enzymes 04/25/19 04/25/19 04/26/19 Range/Units 20:40 20:40 01:23 AST 31 (14-36) U/L Troponin I 0.070 H* 0.282 H* (0.000-0.034) ng/mL Coagulation 04/25/19 Range/Units 20:40 PT 10.0 (9.0-12.0) sec APTT 24.8 (22.0-30.0) sec Lipids 04/25/19 Range/Units 20:40 Triglycerides 149 (<150) mg/dL Cholesterol 156 (<200) mg/dL HDL Cholesterol 49 (40-60) mg/dL CBC 04/25/19 Range/Units 20:40 WBC 14.3 H (3.8-10.6) k/uL RBC 4.60 (3.80-5.40) m/uL Hgb 13.6 (11.4-16.0) gm/dL Hct 41.7 (34.0-46.0) % Plt Count 202 (150-450) k/uL Comprehensive Metabolic Panel 04/25/19 Range/Units 20:40 Sodium 136 L (137-145) mmol/L Potassium 3.8 (3.5-5.1) mmol/L Chloride 101 (98-107) mmol/L Carbon Dioxide 24 (22-30) mmol/L BUN 29 H (7-17) mg/dL Creatinine 1.37 H (0.52-1.04) mg/dL Glucose 77 (74-99) mg/dL Calcium 9.5 (8.4-10.2) mg/dL AST 31 (14-36) U/L ALT 25 (9-52) U/L Alkaline Phosphatase 96 (38-126) U/L Total Protein 6.9 (6.3-8.2) g/dL Albumin 4.1 (3.5-5.0) g/dL Current Medications Generic Name Dose Route Start Last Admin Trade Name Freq PRN Reason Stop Dose Admin Atorvastatin Calcium 80 mg 04/26/19 21:00 Lipitor PO HS [facility] Calcitriol 0.5 mcg 04/26/19 09:00 Rocaltrol PO SUTH [facility] Cholecalciferol 1,000 unit 04/26/19 09:00 Vitamin D3 (25 Mcg = 1000 Iu) PO DAILY [facility] Ciprofloxacin 500 mg 04/26/19 09:00 Cipro PO BID [facility] Clopidogrel Bisulfate 75 mg 04/26/19 09:00 Plavix PO DAILY [facility] Furosemide 20 mg 04/26/19 09:00 Lasix PO BID [facility] Hydromorphone HCl 0.5 mg 04/26/19 01:21 04/26/19 06:22 Dilaudid IVP 0.5 mg Q4HR PRN Administration Pain Insulin Aspart 7 unit 04/26/19 09:00 Novolog SQ BID [facility] Insulin Detemir 24 unit 04/26/19 21:00 Levemir SQ HS [facility] Levothyroxine Sodium 100 mcg 04/27/19 06:30 Synthroid PO DAILY@0630 [facility] Metoprolol Succinate 25 mg 04/26/19 09:00 Toprol Xl PO DAILY [facility] Nitroglycerin 0.4 mg 04/26/19 08:44 Nitrostat SUBLINGUAL Q5M PRN Chest Pain Oxybutynin Chloride 10 mg 04/26/19 09:00 Ditropan Xl PO DAILY [facility] Pantoprazole Sodium 40 mg 04/26/19 09:00 Protonix PO AC-BRKFST [facility] Pregabalin 150 mg 04/26/19 09:00 Lyrica PO BID [facility] Sertraline HCl 50 mg 04/26/19 09:00 Zoloft PO DAILY [facility] Intake and Output 04/25/19 04/26/19 04/26/19 22:59 06:59 14:59 Other: Weight 80.286 kg 84 kg Patient Weight 04/27/19 06:59 Weight 84 kg 04/25/19 20:40 04/25/19 20:40 EKG Interpretations (text) EKG shows a normal sinus rhythm with nonspecific ST-T wave changes Assessment and Plan Plan: Assessment and plan #1 syncope and fall with evidence of C7 fracture #2 known history of coronary artery disease with prior bypass surgery and PCI #3 diabetes #4 hypertension #5 hyperlipidemia #6 acute on chronic chronic kidney disease #7 abnormal troponins, cannot rule out acute coronary syndrome, patient however denies any chest discomfort, she has been experiencing exertional dyspnea. #8 2 prior hospitalizations with syncope, evidence of that time of orthostatic hypotension #9 positive UTI Plan We will obtain an echocardiogram with Doppler study, most recent echo performed here was in April 2018 revealed an ejection fraction of 35-40%, we will monitor the patient for any significant orthostatic hypotension, we will also monitor for any tachycardia or bradycardia arrhythmias. We will obtain a d-dimer. Third troponin. Put the patient on a baby aspirin. Continue Lipitor, Plavix, metoprolol, consider the addition of the JANINA inhibitor or angiotensin imani, Aldactone. Further recommendations to follow. DNP note has been reviewed, I agree with a documented findings and plan of care. Patient was seen and examined.
--- NOTE | 2019-04-26 11:21 | P.CNOR ---
History of Present Illness - [facility] Consult date: 04/26/19 Consult reason: neck pain History of present illness: This is an 84-year-old female admitted through the emergency department yesterday after a syncopal episode in her kitchen. She states that she does not recall falling but did wake up on the kitchen floor between the refrigerator and her cupboard. She had neck and head pain when she awoke. She was brought to the emergency department for evaluation. She is admitted for further evaluation of her cervical spine and of the syncope. 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 History of Any Multi-Drug Resistant Organisms: None Reported Past Surgical History: Appendectomy, Cholecystectomy, Heart Catheterization, Heart Catheterization With Stent, Hernia Repair Additional Past Surgical History / Comment(s): 07/08/17 PCI with stent to LCX, bilateral carpal tunnel; right and left finger release; CABG - 1998. Spinal cord stimulator implantation (2009) AND REMOVED. Bilateral cataract removal with lens implants,. Right hip surgery - too put in, T LT HIP REPLACEMENT. HIATAL HERNIA REPAIR. Stents placed 07/09/17. Past Anesthesia/Blood Transfusion Reactions: No Reported Reaction Additional Past Anesthesia/Blood Transfusion Reaction / Comm: contracted hepatits after blood transfusion (1971) Date of Last Stent Placement:: 07/08/17 Past Psychological History: No Psychological Hx Reported Smoking Status: Never smoker Past Alcohol Use History: Rare Past Drug Use History: None Reported - Past Family History Mother Family Medical History: Cancer Additional Family Medical History / Comment(s): HODGKINS Son(s) Family Medical History: Cancer Additional Family Medical History / Comment(s): KIDNEY CANCER Father History Unknown: Yes Additional Family Medical History / Comment(s): Father at the age of 48yrs. Pt was little when he passed and is not sure what his cause of was. Medications and Allergies Home Medications Medication Instructions Recorded Confirmed Type Atorvastatin [Lipitor] 80 mg PO HS 10/16/14 04/26/19 History Nitroglycerin Sl Tabs [Nitrostat] 0.4 mg SUBLINGUAL Q5M PRN 11/07/14 04/26/19 History Calcitriol 0.5 mcg PO SUTH 09/09/16 04/26/19 History Levothyroxine Sodium [Synthroid] 100 mcg PO DAILY@0630 #30 tab 06/17/17 04/26/19 Rx Clopidogrel [Plavix] 75 mg PO DAILY #90 tab 07/09/17 04/26/19 Rx Sertraline [Zoloft] 50 mg PO DAILY 08/27/18 04/26/19 History Cholecalciferol [Vitamin D3 (25 1,000 unit PO DAILY 02/02/19 04/26/19 History Mcg = 1000 Iu)] Pregabalin [Lyrica] 150 mg PO BID 14 Days #30 cap 02/03/19 04/26/19 Rx Furosemide [Lasix] 20 mg PO BID 04/26/19 04/26/19 History Insulin Aspart [NovoLOG Flexpen] 7 units SQ BID 04/26/19 04/26/19 History Insulin Glargine,Hum.rec.anlog 24 units SQ HS 04/26/19 04/26/19 History [Lantus Solostar] Metoprolol Succinate (ER) [Toprol 25 mg PO DAILY 04/26/19 04/26/19 History XL] Omeprazole Magnesium [PriLOSEC 20 mg PO DAILY 04/26/19 04/26/19 History Oral Susp] Tolterodine Tartrate [Detrol LA] 4 mg PO DAILY 04/26/19 04/26/19 History Allergies Allergy/AdvReac Type Severity Reaction Status Date / Time Iodinated Contrast- Oral and Allergy Severe Anaphylaxis Verified 04/26/19 08:19 IV Dye [Iodinated Contrast Media - IV Dye] captopril [From Capoten] Allergy Unknown PASSED OUT Verified 04/26/19 08:19 morphine Allergy Unknown Verified 04/26/19 08:19 Penicillins Allergy Unknown Verified 04/26/19 08:19 sulfamethoxazole AdvReac Unknown Diarrhea Verified 04/26/19 08:19 [From Bactrim] trimethoprim [From Bactrim] AdvReac Unknown Diarrhea Verified 04/26/19 08:19 X-RAY CONTRAST Allergy Unknown Unknown Uncoded 02/09/19 14:54 Physical Examination This is a pleasant 84-year-old female in no acute distress. She is alert and is oriented to person and place at this time. She does not recall her fall yes terday. She is in a hard cervical collar from the emergency department. Exam of the head neck reveal no obvious deformity. There is some tenderness with palpation about the back of her scalp. I am unable to palpate the cervical spine secondary to the collar. Exam of the shoulders reveals no obvious deformity. There is slight tenderness with palpation about the shoulders. She has full range of motion of the shoulders without difficulty or pain. She has full elbow, wrist and finger motion bilaterally. She has good strength with finger extension and thumb extension. 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 Neurovascular status the upper extremities is intact. Exam the lower extremities is unremarkable. No pain with logroll to the hips. She is able to lift each leg off the bed independently. Full foot and ankle motion bilaterally. Good strength with dorsiflexion of the great toe against resistance and plantar flexion bilaterally. Neurovascular status to the lower extremities is intact. Results X-rays and CT of the cervical spine reveal a right-sided facet and laminar fracture, nondisplaced, C6. There is also a slight compression deformity of C7. - Labs Labs: Abnormal Lab Results - Last 24 Hours (Table) 04/25/19 04/25/19 04/25/19 Range/Units 20:40 20:40 20:40 WBC 14.3 H (3.8-10.6) k/uL Neutrophils # 12.1 H (1.3-7.7) k/uL Sodium 136 L (137-145) mmol/L BUN 29 H (7-17) mg/dL Creatinine 1.37 H (0.52-1.04) mg/dL POC Glucose (mg/dL) (75-99) mg/dL Troponin I 0.070 H* (0.000-0.034) ng/mL Urine Appearance (Clear) Urine Protein (Negative) Ur Leukocyte Esterase (Negative) Urine WBC (0-5) /hpf Ur Squamous Epith Cells (0-4) /hpf 04/26/19 04/26/19 04/26/19 Range/Units 01:23 03:00 09:45 WBC (3.8-10.6) k/uL Neutrophils # (1.3-7.7) k/uL Sodium (137-145) mmol/L BUN (7-17) mg/dL Creatinine (0.52-1.04) mg/dL POC Glucose (mg/dL) (75-99) mg/dL Troponin I 0.282 H* 0.165 H* (0.000-0.034) ng/mL Urine Appearance Cloudy H (Clear) Urine Protein 2+ H (Negative) Ur Leukocyte Esterase Large H (Negative) Urine WBC 74 H (0-5) /hpf Ur Squamous Epith Cells 5 H (0-4) /hpf 04/26/19 Range/Units 09:50 WBC (3.8-10.6) k/uL Neutrophils # (1.3-7.7) k/uL Sodium (137-145) mmol/L BUN (7-17) mg/dL Creatinine (0.52-1.04) mg/dL POC Glucose (mg/dL) 138 H (75-99) mg/dL Troponin I (0.000-0.034) ng/mL Urine Appearance (Clear) Urine Protein (Negative) Ur Leukocyte Esterase (Negative) Urine WBC (0-5) /hpf Ur Squamous Epith Cells (0-4) /hpf Microbiology - Last 24 Hours (Table) 04/26/19 03:00 Urine Culture - Preliminary Urine,Voided H & H 04/25/19 Range/Units 20:40 Hgb 13.6 (11.4-16.0) gm/dL Hct 41.7 (34.0-46.0) % Coagulation 04/25/19 Range/Units 20:40 INR 0.9 (<1.2) Result Diagrams: 04/25/19 20:40 04/25/19 20:40 Assessment and Plan (1) Fracture of C6 vertebra, closed Current Visit: Yes Status: Acute Code(s): S12.500A - UNSP DISP FX OF SIXTH CERVICAL VERTEBRA, INIT FOR CLOS FX SNOMED Code(s): 824163180 (2) Compression fracture of C7 vertebra Current Visit: Yes Status: Acute Code(s): S12.690A - OTH DISP FX OF SEVENTH CERVICAL VERTEBRA, INIT FOR CLOS FX SNOMED Code(s): 856167398 (3) Fall Current Visit: Yes Status: Acute Code(s): W19.XXXA - UNSPECIFIED FALL, INITIAL ENCOUNTER SNOMED Code(s): 3787632 Plan: The clinical and x-ray findings are discussed with the patient. It is recommended she remain in a hard collar. I have ordered the [place] collar which will be here tomorrow. Keep her in the current collar. No surgical intervention indicated at this time. She may be up with assistance. We will continue to follow.
[2019-04-26 11:43] LABS: Glucose,Whole Blood 113 mg/dL (75-99)
[2019-04-26] MEDS: LISINOPRIL 2.5 MG TAB PO SCH (12:37)
[2019-04-26] MEDS: CIPROFLOXACIN HCL 500 MG TAB PO SCH ×2 (14:05→18:57)
[2019-04-26 16:45] LABS: Glucose,Whole Blood 206 mg/dL (75-99)
[2019-04-26] MEDS: INSULIN ASPART (NovoLOG) 100 UNIT/ML VIAL SQ SCH ×2 (16:51→20:36)
[2019-04-26 20:34] LABS: Glucose,Whole Blood 125 mg/dL (75-99)
[2019-04-26] MEDS: ATORVASTATIN 80 MG TAB PO SCH (20:36)
[2019-04-26] MEDS: INSULIN DETEMIR (LEVEMIR) 100 UNIT/ML SYR SQ SCH (20:36)
[2019-04-27] MEDS: PANTOPRAZOLE 40 MG TABLET PO SCH (06:18)
[2019-04-27] MEDS: LEVOTHYROXINE 100 MCG TAB PO SCH (06:18)
[2019-04-27 06:28] LABS: Glucose,Whole Blood 86 mg/dL (75-99)
[2019-04-27] MEDS: INSULIN ASPART (NovoLOG) 100 UNIT/ML VIAL SQ SCH ×6 (06:34→21:19)
[2019-04-27] MEDS: OXYBUTYNIN 10 MG TAB.ER.24 PO SCH (08:07)
[2019-04-27] MEDS: METOPROLOL SUCCINATE (ER) 25 MG TAB.ER.24H PO SCH (08:07)
[2019-04-27] MEDS: CHOLECALCIFEROL 1,000 UNIT TAB PO SCH (08:07)
[2019-04-27] MEDS: PREGABALIN 75 MG CAP PO SCH ×4 (08:07→20:52)
[2019-04-27] MEDS: CLOPIDOGREL 75 MG TAB PO SCH (08:07)
[2019-04-27] MEDS: ASPIRIN 81 MG PO SCH (08:07)
[2019-04-27] MEDS: FUROSEMIDE 20 MG TAB PO SCH ×2 (08:07→20:52)
[2019-04-27] MEDS: SERTRALINE 50 MG TAB PO SCH (08:07)
--- NOTE | 2019-04-27 08:50 | P.PN ---
Subjective Progress Note Date: 04/27/19 Principal diagnosis: Syncope with C7 fracture. This is a continue present on an 84-year-old white female with known history of diabetes who has status post fall with C7 fracture. She is now in a Pandora collar and doing well. But she has significant debility issues related to ADL. We will ask case management for possible rehab placement. Continue therapy otherwise. Blood sugar seems to be stable. Objective - Vital Signs Vital signs: Vital Signs Temp 97.8 F 04/27/19 08:00 Pulse 64 04/27/19 08:00 Resp 16 04/27/19 08:00 BP 94/52 04/27/19 08:00 Pulse Ox 96 04/27/19 08:00 Intake & Output 04/26/19 04/27/19 04/27/19 18:59 06:59 18:59 Intake Total 222 Output Total 300 Balance 222 -300 Weight 84 kg 84.5 kg Intake: Oral 222 Output: Urine 300 Other: # Bowel Movements 0 - Constitutional General appearance: Present: average body habitus - EENT Eyes: Absent: abnormal pupil - Neck Neck: Absent: lymphadenopathy - Respiratory Respiratory: bilateral: CTA - Cardiovascular Rhythm: regular Heart sounds: normal: S1, S2 Abnormal Heart Sounds: Absent: S3 Gallop - Gastrointestinal General gastrointestinal: Present: soft. Absent: tenderness - Labs CBC & Chem 7: 04/25/19 20:40 04/25/19 20:40 Labs: Abnormal Lab Results - Last 24 Hours (Table) 04/26/19 04/26/19 04/26/19 Range/Units 09:45 09:50 11:42 POC Glucose (mg/dL) 138 H 113 H (75-99) mg/dL Troponin I 0.165 H* (0.000-0.034) ng/mL 04/26/19 04/26/19 Range/Units 16:42 20:33 POC Glucose (mg/dL) 206 H 125 H (75-99) mg/dL Troponin I (0.000-0.034) ng/mL Microbiology - Last 24 Hours (Table) 04/26/19 03:00 Urine Culture - Preliminary Urine,Voided Assessment and Plan (1) Compression fracture of C7 vertebra Current Visit: Yes Status: Acute Code(s): S12.690A - OTH DISP FX OF SEVENTH CERVICAL VERTEBRA, INIT FOR CLOS FX SNOMED Code(s): 013719030 (2) Fall Current Visit: Yes Status: Acute Code(s): W19.XXXA - UNSPECIFIED FALL, INITIAL ENCOUNTER SNOMED Code(s): 5080081 (3) Chronic kidney disease, stage 3 Current Visit: No Status: Chronic Code(s): N18.3 - CHRONIC KIDNEY DISEASE, STAGE 3 (MODERATE) SNOMED Code(s): 914199369 (4) Coronary artery disease Current Visit: No Status: Chronic Code(s): I25.10 - ATHSCL HEART DISEASE OF [place] CORONARY ARTERY W/O ANG PCTRS SNOMED Code(s): 73366940 (5) Hypertension Current Visit: No Status: Chronic Code(s): I10 - ESSENTIAL (PRIMARY) HYPERTENSION SNOMED Code(s): 80017335 (6) Type II diabetes mellitus with peripheral circulatory disorder, uncontrolled Current Visit: No Status: Chronic Priority: Medium Code(s): E11.51 - TYPE 2 DIABETES W DIABETIC PERIPHERAL ANGIOPATH W/O [place]GR[place] SNOMED Code(s): 60384566 Plan: Continue rehab element. Appreciate cardiology and orthopedics input. Case management for possible placement. See orders otherwise. Time with Patient: Greater than 30
[2019-04-27] MEDS ORDERED: SPIRONOLACTONE 25 MG TAB PO SCH (09:00)
[2019-04-27] MEDS: HYDROmorphone 0.5 MG/0.5 ML SYRINGE IVP PRN ×2 (09:30→13:53)
[2019-04-27] MEDS: LISINOPRIL 2.5 MG TAB PO SCH (09:30)
[2019-04-27] MEDS: CIPROFLOXACIN HCL 500 MG TAB PO SCH (11:22)
[2019-04-27 12:20] LABS: Glucose,Whole Blood 134 mg/dL (75-99)
[2019-04-27 12:52] LABS: Hemoglobin A1C 6.6 % (4.0-6.0)
--- NOTE | 2019-04-27 13:43 | P.PN ---
Subjective Progress Note Date: 04/27/19 Principal diagnosis: Cervical fractures. This is an 84-year-old female who we are following regarding her cervical fractures. She is in a [place] J collar and is fairly comfortable. She began complaining of some weakness to her right arm today as well as some urinary retention. The patient states that she does have a history of urinary retention occasionally in the past. She complains of no numbness or tingling to the extremities at this time. Objective - Vital Signs Vital signs: Vital Signs Temp 97.8 F 04/27/19 11:17 Pulse 60 04/27/19 11:17 Resp 18 04/27/19 11:17 BP 147/65 04/27/19 11:17 Pulse Ox 94 L 04/27/19 11:17 Intake & Output 04/26/19 04/27/19 04/27/19 18:59 06:59 18:59 Intake Total 222 356 Output Total 300 1200 Balance 222 -300 -844 Weight 84 kg 84.5 kg Intake: Oral 222 356 Output: Urine 300 1200 Straight 1200 Other: # Bowel Movements 0 - Exam This is a pleasant 84-year-old female in no acute distress. She is alert and oriented 3. Exam of the head neck reveal that her hard cervical collar is in place and seems to be fitting well. Exam of the upper extremity reveals full shoulder, elbow, wrist and finger motion bilaterally. 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 She is able to extend her thumbs against resistance as well as her fingers. She is able to spread her fingers with some weakness to the right hand. Exam the lower extremities reveals no deformity. She is able to move each leg independently. She has full foot ankle motion bilaterally. Neurovascular status to the upper and lower extremities is intact. - Labs CBC & Chem 7: 04/25/19 20:40 04/25/19 20:40 Labs: Abnormal Lab Results - Last 24 Hours (Table) 04/25/19 04/26/19 04/26/19 Range/Units 20:40 16:42 20:33 POC Glucose (mg/dL) 206 H 125 H (75-99) mg/dL Hemoglobin A1c 6.6 H (4.0-6.0) % 04/27/19 Range/Units 12:04 POC Glucose (mg/dL) 134 H (75-99) mg/dL Hemoglobin A1c (4.0-6.0) % Microbiology - Last 24 Hours (Table) 04/26/19 03:00 Urine Culture - Final Urine,Voided Assessment and Plan (1) Fracture of C6 vertebra, closed Current Visit: Yes Status: Acute Code(s): S12.500A - UNSP DISP FX OF SIXTH CERVICAL VERTEBRA, INIT FOR CLOS FX SNOMED Code(s): 716845494 (2) Compression fracture of C7 vertebra Current Visit: Yes Status: Acute Code(s): S12.690A - OTH DISP FX OF SEVENTH CERVICAL VERTEBRA, INIT FOR CLOS FX SNOMED Code(s): 451872916 (3) Fall Current Visit: Yes Status: Acute Code(s): W19.XXXA - UNSPECIFIED FALL, INITIAL ENCOUNTER SNOMED Code(s): 5502083 Plan: The patient is evaluated by Dr. Lo as well today. Clinically, there is very little change from exam yesterday. The patient does state that she has history of urinary retention in the past. We will place her on site Medrol 60 mg IV 3 doses prophylactically. We will continue to follow and we'll ask nursing staff to report any changes in neurologic status.
--- NOTE | 2019-04-27 14:49 | P.PN ---
Subjective Progress Note Date: 04/27/19 This is a pleasant 84-year-old female who follows regularly with Dr. Abernathy in the office. She has a past medical history significant for coronary artery disease and prior bypass surgery with an SVG to the diagonal branch of the HERNANDEZ to the LAD, prior angioplasty, diabetes, hyperlipidemia, hypertension, chronic kidney disease, former nicotine dependence. On review of prior admissions, it does appear that the patient had an admission to the hospital in August 2018 with syncope, she was found at that time to have significant orthostatic hypotension. Medication adjustments have been made. On this occasion she presented to the hospital after finding herself on the kitchen floor between the fridge instilled. Patient does not recall passing out, only remembers waking up on the floor. She does state however that she has been more short of breath than usual, with exertion, walking short distances, she also states that she has been quite dizzy, more than her usual. Her appetite overall has been poor and she's recently lost approximately 20 pounds of weight. She denies any recent chest discomfort. Patient had a CT of the brain and C-spine performed which revealed a mild compression fracture of C7 which was new as compared with prior exam, likely representing an acute fracture. There is also a nondisplaced facet and lamina fracture of C6 on the right side. No acute intracranial abnormality. Chest x-ray did not reveal any acute disease. EKG shows a normal sinus rhythm with nonspecific ST-T wave changes noted. Blood pressure on arrival here 182/90 with a heart rate in the 80s, 97% on room air blood pressure this morning 150/70 with a heart rate in the 70s, 99% on room air. White blood cell count 14.3, hemoglobin 13.6, platelet count 202. Sodium 136, potassium 3.8, BUN 29 and creatinine 1.3. Magnesium 2.0. Troponin 0.07, 0.28. Positive UTI. 04/27/2019 Patient was seen and examined this morning, she is complaining of some numbness and tingling in her leg, this is apparently chronic for her however she states it was worse than usual. She is running blood pressures in the 90s. No significant arrhythmias have been noted on the monitor. We will decrease her dose of metoprolol to 12-1/2 mg daily, we will also decrease the Aldactone to 12-1/2 mg daily. Continue with lisinopril at 2-1/2 mg daily. Objective - Vital Signs Vital signs: Vital Signs Temp 97.8 F 04/27/19 11:17 Pulse 60 04/27/19 11:17 Resp 18 04/27/19 11:17 BP 147/65 04/27/19 11:17 Pulse Ox 94 L 04/27/19 11:17 Intake & Output 04/26/19 04/27/19 04/27/19 18:59 06:59 18:59 Intake Total 222 356 Output Total 300 1200 Balance 222 -300 -844 Weight 84 kg 84.5 kg Intake: Oral 222 356 Output: Urine 300 1200 Straight 1200 Other: # Bowel Movements 0 - Exam PHYSICAL EXAMINATION: GENERAL: 84-year-old female in no acute distress at the time of my examination HEENT: Head is atraumatic, normocephalic. Pupils equal, round. Sclera anicteric. Conjunctiva are clear. Mucous membranes of the mouth are moist. Neck is supple. C-collar in place. There is no elevated jugular venous pressure. No carotid bruit is heard. HEART EXAMINATION: Heart S1 and S2 systolic murmur is heard CHEST EXAMINATION: Lungs are clear to auscultation anteriorly . No chest wall tenderness is noted on palpation or with deep breathing. ABDOMEN: Soft, nontender. Bowel sounds are heard. No organomegaly noted. EXTREMITIES: 2+ peripheral pulses with no evidence of peripheral edema and no calf tenderness noted. NEUROLOGIC patient is awake, alert and oriented X3. . - Labs CBC & Chem 7: 04/25/19 20:40 04/25/19 20:40 Labs: Abnormal Lab Results - Last 24 Hours (Table) 04/25/19 04/26/19 04/26/19 Range/Units 20:40 16:42 20:33 POC Glucose (mg/dL) 206 H 125 H (75-99) mg/dL Hemoglobin A1c 6.6 H (4.0-6.0) % 04/27/19 Range/Units 12:04 POC Glucose (mg/dL) 134 H (75-99) mg/dL Hemoglobin A1c (4.0-6.0) % Microbiology - Last 24 Hours (Table) 04/26/19 03:00 Urine Culture - Final Urine,Voided Assessment and Plan Plan: Assessment and plan #1 syncope and fall with evidence of C7 fracture #2 known history of coronary artery disease with prior bypass surgery and PCI #3 diabetes #4 hypertension #5 hyperlipidemia #6 acute on chronic chronic kidney disease #7 abnormal troponins, cannot rule out acute coronary syndrome, patient however denies any chest discomfort, she has been experiencing exertional dyspnea. #8 2 prior hospitalizations with syncope, evidence of that time of orthostatic hypotension #9 positive UTI Plan Patient is running blood pressures in the 90 systolic range, we will decrease the dose of beta imani and Aldactone, continue JANINA inhibitor at 2-1/2 mg daily. DNP note has been reviewed, I agree with a documented findings and plan of care. Patient was seen and examined.
[2019-04-27] MEDS: methylPREDNISolone SOD SUCCI 125 MG/2 ML VIAL IV SCH ×2 (15:24→23:15)
[2019-04-27] MEDS ORDERED: HYDROmorphone 0.5 MG/0.5 ML SYRINGE IVP PRN (16:40)
[2019-04-27] MEDS: SODIUM CHLORIDE 0.9% 1,000 ML IV SCH (16:50)
[2019-04-27 17:16] LABS: Glucose,Whole Blood 123 mg/dL (75-99)
[2019-04-27] MEDS: ATORVASTATIN 80 MG TAB PO SCH (20:52)
[2019-04-27 21:08] LABS: Glucose,Whole Blood 219 mg/dL (75-99)
[2019-04-27] MEDS: INSULIN DETEMIR (LEVEMIR) 100 UNIT/ML SYR SQ SCH (21:18)
[2019-04-27 22:41] LABS: Appearance,Urine Clear (Clear); Bilirubin,Urine Negative (Negative); Blood,Urine Negative (Negative); Color,Urine Light Yellow; Glucose,Urine (UA) Negative (Negative); Ketones,Urine Negative (Negative); Leukocyte Esterase,Urine Negative (Negative); Nitrite,Urine Negative (Negative); Protein,Urine Trace (Negative); Specific Gravity,Urine 1.005 (1.001-1.035); Urobilinogen,Urine <2.0 mg/dL (<2.0)
[2019-04-28] MEDS: LEVOTHYROXINE 100 MCG TAB PO SCH (06:34)
[2019-04-28] MEDS: PANTOPRAZOLE 40 MG TABLET PO SCH (06:34)
[2019-04-28] MEDS: CIPROFLOXACIN HCL 500 MG TAB PO SCH (06:34)
[2019-04-28 06:49] LABS: Glucose,Whole Blood 193 mg/dL (75-99)
[2019-04-28] MEDS: INSULIN ASPART (NovoLOG) 100 UNIT/ML VIAL SQ SCH ×6 (06:53→20:27)
[2019-04-28 06:57] LABS: HCT 37.2 % (34.0-46.0); HGB 12.1 gm/dL (11.4-16.0); MCH 29.7 pg (25.0-35.0); MCHC 32.6 g/dL (31.0-37.0); MCV 91.1 fL (80.0-100.0); Mean Platelet Volume 8.1; Platelet Count 176 k/uL (150-450); RBC 4.09 m/uL (3.80-5.40); RDW 14.6 % (11.5-15.5); WBC 5.9 k/uL (3.8-10.6)
[2019-04-28 07:24] LABS: Albumin 3.2 g/dL (3.5-5.0); Calcium 9.1 mg/dL (8.4-10.2); Potassium 4.6 mmol/L (3.5-5.1); Total Bilirubin 0.5 mg/dL (0.2-1.3); Total Protein 5.9 g/dL (6.3-8.2)
[2019-04-28] MEDS: methylPREDNISolone SOD SUCCI 125 MG/2 ML VIAL IV SCH (08:53)
[2019-04-28] MEDS: LISINOPRIL 2.5 MG TAB PO SCH (08:54)
[2019-04-28] MEDS: SPIRONOLACTONE 25 MG TAB PO SCH (08:54)
[2019-04-28] MEDS: CLOPIDOGREL 75 MG TAB PO SCH (08:54)
[2019-04-28] MEDS: PREGABALIN 75 MG CAP PO SCH ×2 (08:54→20:26)
[2019-04-28] MEDS: OXYBUTYNIN 10 MG TAB.ER.24 PO SCH (08:54)
[2019-04-28] MEDS: SERTRALINE 50 MG TAB PO SCH (08:55)
[2019-04-28] MEDS: METOPROLOL SUCCINATE (ER) 25 MG TAB.ER.24H PO SCH (08:55)
[2019-04-28] MEDS: CHOLECALCIFEROL 1,000 UNIT TAB PO SCH (08:55)
[2019-04-28] MEDS: ASPIRIN 81 MG PO SCH (08:56)
[2019-04-28] MEDS: FUROSEMIDE 20 MG TAB PO SCH ×2 (08:56→20:26)
--- NOTE | 2019-04-28 09:06 | P.PN ---
Subjective Progress Note Date: 04/28/19 Principal diagnosis: Cervical fractures. This is an 84-year-old female who we are following regarding her cervical fractures. She is in a [place] J collar and is fairly comfortable. She began complaining of some weakness to her right arm yesterday as well as some urinary retention. The patient states that she does have a history of urinary retention occasionally in the past. She complains of no numbness or tingling to the extremities at this time. She states that she has no neck pain at this time. Objective - Vital Signs Vital signs: Vital Signs Temp 98.4 F 04/28/19 03:35 Pulse 57 L 04/28/19 03:35 Resp 18 04/28/19 03:35 BP 148/67 04/28/19 03:35 Pulse Ox 99 04/28/19 03:35 Intake & Output 04/27/19 04/28/19 04/28/19 18:59 06:59 18:59 Intake Total 896 100 480 Output Total 1200 1000 Balance -304 -900 480 Intake: Oral 896 100 480 Output: Urine 1200 1000 Straight 1200 1000 - Exam This is a pleasant 84-year-old female in no acute distress. She is alert and oriented 3. Exam of the head neck reveal that her hard cervical collar is in place and seems to be fitting well. Exam of the upper extremity reveals full shoulder, elbow, wrist and finger motion bilaterally. 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 She is able to extend her thumbs against resistance as well as her fingers. She is able to spread her fingers with some weakness to the right hand. Upper extremity exam is essentially unchanged from yesterday. Exam the lower extremities reveals no deformity. She is able to move each leg independently. She has full foot ankle motion bilaterally. Neurovascular status to the upper and lower extremities is intact. - Labs CBC & Chem 7: 04/28/19 06:43 04/28/19 06:43 Labs: Abnormal Lab Results - Last 24 Hours (Table) 04/25/19 04/27/19 04/27/19 Range/Units 20:40 12:04 17:02 Sodium (137-145) mmol/L BUN (7-17) mg/dL Creatinine (0.52-1.04) mg/dL Glucose (74-99) mg/dL POC Glucose (mg/dL) 134 H 123 H (75-99) mg/dL Hemoglobin A1c 6.6 H (4.0-6.0) % Total Protein (6.3-8.2) g/dL Albumin (3.5-5.0) g/dL Urine Protein (Negative) 04/27/19 04/27/19 04/28/19 Range/Units 21:06 21:49 06:43 Sodium 133 L (137-145) mmol/L BUN 41 H (7-17) mg/dL Creatinine 1.78 H (0.52-1.04) mg/dL Glucose 191 H (74-99) mg/dL POC Glucose (mg/dL) 219 H (75-99) mg/dL Hemoglobin A1c (4.0-6.0) % Total Protein 5.9 L (6.3-8.2) g/dL Albumin 3.2 L (3.5-5.0) g/dL Urine Protein Trace H (Negative) 04/28/19 Range/Units 06:45 Sodium (137-145) mmol/L BUN (7-17) mg/dL Creatinine (0.52-1.04) mg/dL Glucose (74-99) mg/dL POC Glucose (mg/dL) 193 H (75-99) mg/dL Hemoglobin A1c (4.0-6.0) % Total Protein (6.3-8.2) g/dL Albumin (3.5-5.0) g/dL Urine Protein (Negative) Microbiology - Last 24 Hours (Table) 04/26/19 03:00 Urine Culture - Final Urine,Voided Assessment and Plan (1) Fracture of C6 vertebra, closed Current Visit: Yes Status: Acute Code(s): S12.500A - UNSP DISP FX OF SIXTH CERVICAL VERTEBRA, INIT FOR CLOS FX SNOMED Code(s): 612779440 (2) Compression fracture of C7 vertebra Current Visit: Yes Status: Acute Code(s): S12.690A - OTH DISP FX OF SEVENTH CERVICAL VERTEBRA, INIT FOR CLOS FX SNOMED Code(s): 817746081 (3) Fall Current Visit: Yes Status: Acute Code(s): W19.XXXA - UNSPECIFIED FALL, INITIAL ENCOUNTER SNOMED Code(s): 7939525 (4) Urinary retention Current Visit: Yes Status: Acute Code(s): R33.9 - RETENTION OF URINE, UNSPECIFIED SNOMED Code(s): 074989405 Plan: Clinically, there is very little change from exam yesterday. The patient does state that she has history of urinary retention in the past. I have discussed t he case with Dr. Lo who recommends evaluation by urology for her acute on chronic urinary retention. We will continue to follow and we'll ask nursing staff to report any changes in neurologic status.
[2019-04-28] MEDS: SODIUM CHLORIDE 0.9% 1,000 ML IV SCH (12:15)
[2019-04-28 12:16] LABS: Glucose,Whole Blood 251 mg/dL (75-99)
--- NOTE | 2019-04-28 13:16 | P.PN ---
Subjective On-call hospitalist covering for Dr. Bai over the weekend. This pleasant 84 years old female with past medical history of hypertension, hyperlipidemia, hypothyroidism, insulin-dependent diabetes mellitus type 2, coronary artery disease, diabetes mellitus, GERD, chronic back pain, diabetic neuropathy, he presents with syncope and fall. Elevated troponin. Patient was found to have acute fracture of C7, mild. With no overt neurological defic iency. Patient has been complaining of from some mild weakness in her right upper extremity. Patient is being followed closely by orthopedic team. Patient has cervical collar in place and she feels comfortable, with no headache or neck pain. Neurology team has been consulted for her urinary retention. Repeat urine analysis is negative for infection. Urine culture showed no growth other than normal fidel. Her creatinine is been fluctuating 1.3-1.78. Repeat labs showing no leukocytosis and hemoglobin is stable. Cartilage team has been following the patient and the lower Blood pressure medication of metoprolol down to 12.5 mg, and Aldactone down to 12.5 mg while keeping lisinopril 2.5 mg. Also patient on oral Lasix at small dose. Patient planned to go to [facility] upon discharge for rehab Objective - Vital Signs Vital signs: Vital Signs Temp 98.2 F 04/28/19 12:00 Pulse 59 L 04/28/19 12:00 Resp 20 04/28/19 12:00 BP 148/71 04/28/19 12:00 Pulse Ox 93 L 04/28/19 12:00 Intake & Output 04/27/19 04/28/19 04/28/19 18:59 06:59 18:59 Intake Total 896 100 480 Output Total 1200 1000 Balance -304 -900 480 Intake: Oral 896 100 480 Output: Urine 1200 1000 Straight 1200 1000 Other: Voiding Method Indwelling Catheter - Exam -GENERAL: The patient is alert and oriented x3, not in any acute distress. Neck collar Is in a Place HEENT: Pupils are round and equally reacting to light. EOMI. No scleral icterus. No conjunctival pallor. Normocephalic, atraumatic. No pharyngeal erythema. No thyromegaly. CARDIOVASCULAR: S1 and S2 present. No murmurs, rubs, or gallops. PULMONARY: Chest is clear to auscultation, no wheezing or crackles. ABDOMEN: Soft, nontender, nondistended, normoactive bowel sounds. No palpable organomegaly. MUSCULOSKELETAL: No joint swelling or deformity. EXTREMITIES: No cyanosis, clubbing, or pedal edema. -NEUROLOGICAL: Cranial nerves are grossly intact. Strength is 5/5 in all e xtremities. Including the upper extremity although there was suspicion of mild weakness. Sensation is intact. Meningeal signs are absent SKIN: No rashes. . - Labs CBC & Chem 7: 04/28/19 06:43 04/28/19 06:43 Labs: Abnormal Lab Results - Last 24 Hours (Table) 04/27/19 04/27/19 04/27/19 Range/Units 17:02 21:06 21:49 Sodium (137-145) mmol/L BUN (7-17) mg/dL Creatinine (0.52-1.04) mg/dL Glucose (74-99) mg/dL POC Glucose (mg/dL) 123 H 219 H (75-99) mg/dL Total Protein (6.3-8.2) g/dL Albumin (3.5-5.0) g/dL Urine Protein Trace H (Negative) 04/28/19 04/28/19 04/28/19 Range/Units 06:43 06:45 11:51 Sodium 133 L (137-145) mmol/L BUN 41 H (7-17) mg/dL Creatinine 1.78 H (0.52-1.04) mg/dL Glucose 191 H (74-99) mg/dL POC Glucose (mg/dL) 193 H 251 H (75-99) mg/dL Total Protein 5.9 L (6.3-8.2) g/dL Albumin 3.2 L (3.5-5.0) g/dL Urine Protein (Negative) Microbiology - Last 24 Hours (Table) 04/26/19 03:00 Urine Culture - Final Urine,Voided Assessment and Plan Assessment: Syncope Fall Mild acute cervical spine fracture at C7 Mild urinary tract infection, resolved Elevated troponin Hypertension/orthostatic hypotension. Blood pressure medications were adjusted Urinary retention. Urology team have been consulted Type 2 diabetes mellitus Hypertension Hyperlipidemia Hypothyroidism Diabetic neuropathy Chronic back pain History of GERD History of coronary artery disease status post stent placement Plan: This is a pleasant 84 years old female who presents with multiple problems including syncope, the troponin, C7 fracture and urinary retention and UTI. Repeat urinalysis showing infection cleared and patient is asymptomatic. Therefore we'll DC the Cipro antibiotics. Patient blood pressure medication has been adjusted and [place] by cartilage team. Orthopedic team are following the patient closely for her neck fracture and they placed her on a prophylactic dose of steroids for short course. Her leukocytosis has improved. Creatinine is at baseline, follow-up level closely. Labs and medication were reviewed.. Continue same treatment. Continue with symptomatic treatment. Resume home medication. Monitor lytes and vitals. DVT and GI prophylaxis. Further recommendations of the clinical course of the patient DVT prophylaxis: Subcutaneous heparin GI Prophylaxis: Protonix PT/OT: Patient might benefit from ECF for rehab Prognosis is guarded
--- NOTE | 2019-04-28 16:08 | P.PN ---
Subjective Progress Note Date: 04/28/19 this is a 84-year-old female with history of ischemic heart disease with previous bypass surgery with SVG to the diagonal branch and HERNANDEZ to the LAD, history of angioplasty, diabetes, hyperlipidemia and hypertension. Patient is admitted to the hospital with history of a fall and a fracture of the C7 which is new. Patient had a neck collar. Yesterday her blood pressure was running low. The dose of the metoprolol was cut back to 12.5 mg daily. Aldactone is cut back to 12.5 mg via today. Her blood pressures running high in the range of 140-150 systolic. Denies any chest pain or shortness of breath. I will discontinue lisinopril because her creatinine is going up. I may start her on he amlodipine for blood pressure control.Further recommendations depend upon the critical course Objective - Vital Signs Vital signs: Vital Signs Temp 98.2 F 04/28/19 15:54 Pulse 60 04/28/19 15:54 Resp 20 04/28/19 15:54 BP 152/79 04/28/19 15:54 Pulse Ox 91 L 04/28/19 15:54 Intake & Output 04/27/19 04/28/19 04/28/19 18:59 06:59 18:59 Intake Total 896 100 720 Output Total 1200 1000 Balance -304 -900 720 Intake: Oral 896 100 720 Output: Urine 1200 1000 Straight 1200 1000 Other: Voiding Method Indwelling Catheter # Bowel Movements 1 - Exam GENERAL EXAM: Patient is alert and oriented and doesn't appear to be in any acute distress HEENT: Normocephalic. Normal reaction of pupils, equal size, normal range of extraocular motion. No erythema or exudates in the throat. NECK: No masses, no nuchal rigidity. CHEST: No chest wall deformity. LUNGS: equal air entry. No wheezing or rhonchi HEART: S1 and S2 normal, abdomen is soft CENTRAL NERVOUS SYSTEM: No focal deficits. EXTREMITIES: [No cyanosis, clubbing or edema. - Labs CBC & Chem 7: 04/28/19 06:43 04/28/19 06:43 Labs: Abnormal Lab Results - Last 24 Hours (Table) 04/27/19 04/27/19 04/27/19 Range/Units 17:02 21:06 21:49 Sodium (137-145) mmol/L BUN (7-17) mg/dL Creatinine (0.52-1.04) mg/dL Glucose (74-99) mg/dL POC Glucose (mg/dL) 123 H 219 H (75-99) mg/dL Total Protein (6.3-8.2) g/dL Albumin (3.5-5.0) g/dL Urine Protein Trace H (Negative) 04/28/19 04/28/19 04/28/19 Range/Units 06:43 06:45 11:51 Sodium 133 L (137-145) mmol/L BUN 41 H (7-17) mg/dL Creatinine 1.78 H (0.52-1.04) mg/dL Glucose 191 H (74-99) mg/dL POC Glucose (mg/dL) 193 H 251 H (75-99) mg/dL Total Protein 5.9 L (6.3-8.2) g/dL Albumin 3.2 L (3.5-5.0) g/dL Urine Protein (Negative) Microbiology - Last 24 Hours (Table) 04/26/19 03:00 Urine Culture - Final Urine,Voided Assessment and Plan (1) Compression fracture of C7 vertebra Current Visit: Yes Status: Acute Code(s): S12.690A - OTH DISP FX OF SEVENTH CERVICAL VERTEBRA, INIT FOR CLOS FX SNOMED Code(s): 830090599 (2) Coronary artery disease Current Visit: No Status: Chronic Code(s): I25.10 - ATHSCL HEART DISEASE OF [place] CORONARY ARTERY W/O ANG PCTRS SNOMED Code(s): 25680355 (3) Hypertension Current Visit: No Status: Chronic Code(s): I10 - ESSENTIAL (PRIMARY) HYPERTENSION SNOMED Code(s): 14042378 (4) Lipidemia Current Visit: No Status: Chronic Code(s): E78.5 - HYPERLIPIDEMIA, UNSPECIFIED SNOMED Code(s): 39723734 Plan: her creatinine is going up. I will discontinue lisinopril. I will add amlodipine 2.5 mg. Further recommendations depend upon the clinical course
[2019-04-28 17:12] LABS: Glucose,Whole Blood 258 mg/dL (75-99)
[2019-04-28 20:05] LABS: Glucose,Whole Blood 261 mg/dL (75-99)
[2019-04-28] MEDS: HEPARIN SODIUM,PORCINE 5,000 UNIT/ML 1 ML VIAL SQ SCH (20:26)
[2019-04-28] MEDS: INSULIN DETEMIR (LEVEMIR) 100 UNIT/ML SYR SQ SCH (20:26)
[2019-04-28] MEDS: ATORVASTATIN 80 MG TAB PO SCH (20:26)
[2019-04-29] MEDS: PANTOPRAZOLE 40 MG TABLET PO SCH (06:18)
[2019-04-29] MEDS: LEVOTHYROXINE 100 MCG TAB PO SCH (06:18)
[2019-04-29 06:37] LABS: Glucose,Whole Blood 103 mg/dL (75-99)
[2019-04-29] MEDS: INSULIN ASPART (NovoLOG) 100 UNIT/ML VIAL SQ SCH ×6 (07:09→21:03)
[2019-04-29] MEDS: CHOLECALCIFEROL 1,000 UNIT TAB PO SCH (08:26)
[2019-04-29] MEDS: METOPROLOL SUCCINATE (ER) 25 MG TAB.ER.24H PO SCH (08:26)
[2019-04-29] MEDS: SPIRONOLACTONE 25 MG TAB PO SCH (08:27)
[2019-04-29] MEDS: SERTRALINE 50 MG TAB PO SCH (08:27)
[2019-04-29] MEDS: HEPARIN SODIUM,PORCINE 5,000 UNIT/ML 1 ML VIAL SQ SCH ×2 (08:28→20:51)
[2019-04-29] MEDS: PREGABALIN 75 MG CAP PO SCH ×2 (08:28→20:49)
[2019-04-29] MEDS: amLODIPine 2.5 MG TAB PO SCH (08:28)
[2019-04-29] MEDS: CLOPIDOGREL 75 MG TAB PO SCH (08:28)
[2019-04-29] MEDS: FUROSEMIDE 20 MG TAB PO SCH ×2 (08:28→20:51)
[2019-04-29] MEDS: ASPIRIN 81 MG PO SCH (08:28)
[2019-04-29] MEDS: OXYBUTYNIN 10 MG TAB.ER.24 PO SCH (08:30)
[2019-04-29] MEDS: CALCITRIOL 0.25 MCG CAP PO SCH (08:33)
[2019-04-29] MEDS ORDERED: LISINOPRIL 2.5 MG TAB PO SCH (09:00)
--- NOTE | 2019-04-29 10:06 | P.GSCN ---
History of Present Illness Consult date: 04/29/19 Reason for Consult: Urinary retention History of present illness: The patient is an 84-year-old female who fell sustaining a C7 neck fracture on 04/25. She has been fitted with a neck brace and there are plans for her to go to the [facility] for rehab. She had difficulty voiding on 04/27 and was catheterized on 2 occasions for 1000 mL and then 1200 mL. This morning a catheter was inserted at 4 AM and drained 1400 mL. The catheter has remained in place. I was asked to see the patient due to her urinary retention. The patient said that she had an episode of urinary retention approximately 6 months ago while she was hospitalized and had a catheter for a short period of time. She says over the last 1-2 months she has had sensations of incomplete bladder emptying. She says she usually voids nearly every hour during the day and every 2 hours at night. She denies any urinary incontinence but has had some fecal incontinence related to severe fecal urgency off and on in the past. She does not have a history of recurrent urinary tract infections or gross hematuria. She was suspected to have had a urinary tract infection at the time of this admission due to some pyuria but a urine culture grew genital fidel consistent with contamination. The patient denies any weakness in her legs. She has chronic burning in her feet which she attributes to diabetic neuropathy. This has not changed since she was admitted. Review of Systems - Gastrointestinal Reports as per HPI - Genitourinary Genitourinary: Reports as per HPI Past Medical History Past Medical History: Coronary Artery Disease (CAD), Chest Pain / Angina, Diabetes Mellitus, GERD/Reflux, Hyperlipidemia, Hypertension, Osteoarthritis (OA), Renal Disease, Thyroid Disorder Additional Past Medical History / Comment(s): IDDM TYPE II, 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 History of Any Multi-Drug Resistant Organisms: None Reported Past Surgical History: Appendectomy, Cholecystectomy, Heart Catheterization, Heart Catheterization With Stent, Hernia Repair Additional Past Surgical History / Comment(s): 07/08/17 PCI with stent to LCX, bilateral carpal tunnel; right and left finger release; CABG - 1998. Spinal cord stimulator implantation (2009) AND REMOVED. Bilateral cataract removal with lens implants,. Right hip surgery - too put in, T LT HIP REPLACEMENT. HIATAL HERNIA REPAIR. Stents placed 07/09/17. Past Anesthesia/Blood Transfusion Reactions: No Reported Reaction Additional Past Anesthesia/Blood Transfusion Reaction / Comm: contracted hepatits after blood transfusion (1971) Date of Last Stent Placement:: 07/08/17 Past Psychological History: No Psychological Hx Reported Smoking Status: Never smoker Past Alcohol Use History: Rare Past Drug Use History: None Reported - Past Family History Mother Family Medical History: Cancer Additional Family Medical History / Comment(s): HODGKINS Son(s) Family Medical History: Cancer Additional Family Medical History / Comment(s): KIDNEY CANCER Father History Unknown: Yes Additional Family Medical History / Comment(s): Father at the age of 48yrs. Pt was little when he passed and is not sure what his cause of was. Medications and Allergies Home Medications Medication Instructions Recorded Confirmed Type Atorvastatin [Lipitor] 80 mg PO HS 10/16/14 04/26/19 History Nitroglycerin Sl Tabs [Nitrostat] 0.4 mg SUBLINGUAL Q5M PRN 11/07/14 04/26/19 History Calcitriol 0.5 mcg PO SUTH 09/09/16 04/26/19 History Levothyroxine Sodium [Synthroid] 100 mcg PO DAILY@0630 #30 tab 06/17/17 04/26/19 Rx Clopidogrel [Plavix] 75 mg PO DAILY #90 tab 07/09/17 04/26/19 Rx Sertraline [Zoloft] 50 mg PO DAILY 08/27/18 04/26/19 History Cholecalciferol [Vitamin D3 (25 1,000 unit PO DAILY 02/02/19 04/26/19 History Mcg = 1000 Iu)] Pregabalin [Lyrica] 150 mg PO BID 14 Days #30 cap 02/03/19 04/26/19 Rx Furosemide [Lasix] 20 mg PO BID 04/26/19 04/26/19 History Insulin Aspart [NovoLOG Flexpen] 7 units SQ BID 04/26/19 04/26/19 History Insulin Glargine,Hum.rec.anlog 24 units SQ HS 04/26/19 04/26/19 History [Lantus Solostar] Metoprolol Succinate (ER) [Toprol 25 mg PO DAILY 04/26/19 04/26/19 History XL] Omeprazole Magnesium [PriLOSEC 20 mg PO DAILY 04/26/19 04/26/19 History Oral Susp] Tolterodine Tartrate [Detrol LA] 4 mg PO DAILY 04/26/19 04/26/19 History Allergies Allergy/AdvReac Type Severity Reaction Status Date / Time Iodinated Contrast- Oral and Allergy Severe Anaphylaxis Verified 04/26/19 08:19 IV Dye [Iodinated Contrast Media - IV Dye] captopril [From Capoten] Allergy Unknown PASSED OUT Verified 04/26/19 08:19 morphine Allergy Unknown Verified 04/26/19 08:19 Penicillins Allergy Unknown Verified 04/26/19 08:19 sulfamethoxazole AdvReac Unknown Diarrhea Verified 04/26/19 08:19 [From Bactrim] trimethoprim [From Bactrim] AdvReac Unknown Diarrhea Verified 04/26/19 08:19 X-RAY CONTRAST Allergy Unknown Unknown Uncoded 02/09/19 14:54 Surgical - Exam Vital Signs Temp Pulse Resp BP Pulse Ox 97.3 F L 85 16 182/93 97 04/25/19 20:18 04/25/19 20:18 04/25/19 20:18 04/25/19 20:18 04/25/19 20:18 - General well nourished, no distress - ENT no hearing loss - Neck no masses, no lymphadectomy - Respiratory normal respiratory effort - Abdomen Abdomen: soft, non tender, no organomegaly Results - Labs 04/28/19 06:43 04/28/19 06:43 Abnormal Lab Results - Last 24 Hours (Table) 04/28/19 04/28/19 04/28/19 Range/Units 11:51 17:07 20:04 POC Glucose (mg/dL) 251 H 258 H 261 H (75-99) mg/dL 04/29/19 Range/Units 06:36 POC Glucose (mg/dL) 103 H (75-99) mg/dL Assessment and Plan (1) Urinary retention Narrative/Plan: It's unclear whether the patient developed urinary retention at the time of this admission or whether she had chronic urinary retention. The latter is more consistent with her symptoms over the last few weeks. Unfortunately her bladder has been allowed to over distend to ove 1000 mL on several occasions since she was admitted and even if her urinary retention was acute it is likely that she may have some temporary bladder atony from the overdistention. The patient will not be able to perform intermittent catheterization and at the present time the most reasonable option is an indwelling catheter. Her catheter should remain in place for at least 7-10 days prior to a voiding trial. If she is in a fdc it should be possible to monitor her post void residuals using a bladder scan. If her post void residuals remain persistently elevated then she may require a long-term indwelling catheter. Current Visit: Yes Status: Acute Code(s): R33.9 - RETENTION OF URINE, UNSPECIFIED SNOMED Code(s): 512741071
--- NOTE | 2019-04-29 10:32 | P.PN ---
<Trinity Durant - Last Filed: 04/29/19 10:29> Subjective Progress Note Date: 04/29/19 Principal diagnosis: Cervical fractures. This is an 84-year-old female who we are following regarding her cervical fractures. She is in a [place] collar and is fairly comfortable. She began complaining of some weakness to her right arm yesterday as well as some urinary retention. The patient states that she does have a history of urinary retention occasionally in the past. She complains of no numbness or tingling to the extremities at this time. She states that she has no neck pain at this time. She has some burning to the left leg which is a chronic issue secondary to her neuropathy. She was seen by urology yesterday who recommended a Wang catheter for about 10 days. Objective - Vital Signs Vital signs: Vital Signs Temp 98.2 F 04/29/19 08:00 Pulse 68 04/29/19 08:00 Resp 20 04/29/19 08:00 BP 122/65 04/29/19 08:00 Pulse Ox 94 L 04/29/19 08:00 Intake & Output 04/28/19 04/29/19 04/29/19 18:59 06:59 18:59 Intake Total 1280 Output Total 2850 900 Balance -1570 -900 Weight 86 kg Intake: Intake, IV Titration 320 Amount Sodium Chloride 0.9% 1, 320 000 ml @ 30 mls/hr IV . Q24H [facility] Rx#:[id number] Oral 960 Output: Urine 2850 900 Other: Voiding Method Indwelling Catheter Indwelling Catheter Indwelling Catheter # Bowel Movements 1 - Exam This is a pleasant 84-year-old female in no acute distress. She is alert and oriented 3. Her granddaughter is present at bedside. Exam of the head neck reveal that her hard cervical collar is in place and seems to be fitting well. Exam of the upper extremity reveals full shoulder, elbow, wrist and finger motion bilaterally. Her strength remains pretty good to the upper extremities. 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 She is able to extend her thumbs against resistance as well as her fingers. She is able to spread her fingers against resistance. Exam the lower extremities reveals no deformity. She is able to move each leg independently. She has full foot ankle motion bilaterally. Neurovascular status to the upper and lower extremities is intact. - Labs CBC & Chem 7: 04/28/19 06:43 04/28/19 06:43 Labs: Abnormal Lab Results - Last 24 Hours (Table) 04/28/19 04/28/19 04/28/19 Range/Units 11:51 17:07 20:04 POC Glucose (mg/dL) 251 H 258 H 261 H (75-99) mg/dL 04/29/19 Range/Units 06:36 POC Glucose (mg/dL) 103 H (75-99) mg/dL Assessment and Plan (1) Fracture of C6 vertebra, closed Current Visit: Yes Status: Acute Code(s): S12.500A - UNSP DISP FX OF SIXTH CERVICAL VERTEBRA, INIT FOR CLOS FX SNOMED Code(s): 534028804 (2) Compression fracture of C7 vertebra Current Visit: Yes Status: Acute Code(s): S12.690A - OTH DISP FX OF SEVENTH CERVICAL VERTEBRA, INIT FOR CLOS FX SNOMED Code(s): 518073921 (3) Fall Current Visit: Yes Status: Acute Code(s): W19.XXXA - UNSPECIFIED FALL, INITIAL ENCOUNTER SNOMED Code(s): 8595736 (4) Urinary retention Current Visit: Yes Status: Acute Code(s): R33.9 - RETENTION OF URINE, UNSPECIFIED SNOMED Code(s): 968898850 Plan: The clinical findings are discussed the patient and her granddaughter. She is to remain in the hard cervical collar. She is to follow-up with Dr. Thomas 1-2 weeks after discharge to rehab. Report any neurologic changes to Dr. Thomas. Continue Wang catheter per urology. <Chaparrita Thomas - Last Filed: 04/30/19 14:21> Objective - Vital Signs Vital signs: Vital Signs Temp 97.5 F L 04/30/19 07:00 Pulse 61 04/30/19 08:00 Resp 18 04/30/19 08:00 BP 110/58 04/30/19 07:00 Pulse Ox 95 04/30/19 07:00 Intake & Output 04/29/19 04/30/19 04/30/19 18:59 06:59 18:59 Intake Total 960 100 Output Total 1700 300 Balance -740 -300 100 Weight 86.5 kg Intake: Intake, IV Titration 240 Amount Sodium Chloride 0.9% 1, 240 000 ml @ 30 mls/hr IV . Q24H [facility] Rx#:[id number] Oral 720 100 Output: Urine 1700 300 Other: Voiding Method Indwelling Catheter Indwelling Catheter Indwelling Catheter - Labs CBC & Chem 7: 04/28/19 06:43 04/30/19 06:29 Labs: Abnormal Lab Results - Last 24 Hours (Table) 04/29/19 04/30/19 04/30/19 Range/Units 16:47 06:29 11:50 BUN 57 H (7-17) mg/dL Creatinine 1.97 H (0.52-1.04) mg/dL Glucose 64 L (74-99) mg/dL POC Glucose (mg/dL) 102 H 107 H (75-99) mg/dL Assessment and Plan Plan: I reviewed the images and reviewed the case with any Durant. I reviewed the images today as well. She has a compression fracture at C7 and T1 with a laminar fracture at C7. She is neurologically intact and I think she can continue treatment conservatively with a hard cervical collar. It is okay for her to try to mobilize with the collar intact. She will likely need con servative treatment and bracing for at least 12 weeks to allow the fracture to fully heal before we can start significant motion and therapy for her neck. We will continue her closely as outpatient basis.
--- NOTE | 2019-04-29 11:14 | P.PN ---
Subjective On-call hospitalist covering for Dr. Bai over the weekend. This pleasant 84 years old female with past medical history of hypertension, hyperlipidemia, hypothyroidism, insulin-dependent diabetes mellitus type 2, coronary artery disease, diabetes mellitus, GERD, chronic back pain, diabetic neuropathy, he presents with syncope and fall. Elevated troponin. Patient was found to have acute fracture of C7, mild. With no overt neurological defic iency. Patient has been complaining of from some mild weakness in her right upper extremity. Patient is being followed closely by orthopedic team. Patient has cervical collar in place and she feels comfortable, with no headache or neck pain. Neurology team has been consulted for her urinary retention. Repeat urine analysis is negative for infection. Urine culture showed no growth other than normal fidel. Her creatinine is been fluctuating 1.3-1.78. Repeat labs showing no leukocytosis and hemoglobin is stable. Cartilage team has been following the patient and the lower Blood pressure medication of metoprolol down to 12.5 mg, and Aldactone down to 12.5 mg while keeping lisinopril 2.5 mg. Also patient on oral Lasix at small dose. Patient planned to go to [facility] upon discharge for rehab 04/29/2019 Patient clinically looks the same, she still have same right arm weakness, and the numbness in the legs and the burning of from her diabetic neuropathy. Wang catheter was inserted 2 days ago. Urology evaluation is appreciated, they recommended to keep the Wang for 7-10 days and followed up by a bladder training, if urinary retention persists, patient might need long-term indwelling catheter. This couldn't be part of her chronic urinary retention, as per urologist team and patient herself as well. Vitals is stable with a blood pressure 122/65. Sugar is controlled. Patient remains on hard cervical collar Dr. Bai will resume the care of the patient tomorrow 04/30/2019 Objective - Vital Signs Vital signs: Vital Signs Temp 98.2 F 04/29/19 08:00 Pulse 68 04/29/19 08:00 Resp 20 04/29/19 08:00 BP 122/65 04/29/19 08:00 Pulse Ox 94 L 04/29/19 08:00 Intake & Output 04/28/19 04/29/19 04/29/19 18:59 06:59 18:59 Intake Total 1280 Output Total 2850 900 Balance -1570 -900 Weight 86 kg Intake: Intake, IV Titration 320 Amount Sodium Chloride 0.9% 1, 320 000 ml @ 30 mls/hr IV . Q24H [facility] Rx#:[id number] Oral 960 Output: Urine 2850 900 Other: Voiding Method Indwelling Catheter Indwelling Catheter Indwelling Catheter # Bowel Movements 1 - Exam -GENERAL: The patient is alert and oriented x3, not in any acute distress. Neck collar Is in a Place HEENT: Pupils are round and equally reacting to light. EOMI. No scleral icterus. No conjunctival pallor. Normocephalic, atraumatic. No pharyngeal erythema. No thyromegaly. CARDIOVASCULAR: S1 and S2 present. No murmurs, rubs, or gallops. PULMONARY: Chest is clear to auscultation, no wheezing or crackles. ABDOMEN: Soft, nontender, nondistended, normoactive bowel sounds. No palpable organomegaly. MUSCULOSKELETAL: No joint swelling or deformity. EXTREMITIES: No cyanosis, clubbing, or pedal edema. -NEUROLOGICAL: Cranial nerves are grossly intact. Strength is 5/5 in all extremities. Including the upper extremity although there was suspicion of mild weakness. Sensation is intact. Meningeal signs are absent SKIN: No rashes. . - Labs CBC & Chem 7: 04/28/19 06:43 04/28/19 06:43 Labs: Abnormal Lab Results - Last 24 Hours (Table) 04/28/19 04/28/19 04/28/19 Range/Units 11:51 17:07 20:04 POC Glucose (mg/dL) 251 H 258 H 261 H (75-99) mg/dL 04/29/19 Range/Units 06:36 POC Glucose (mg/dL) 103 H (75-99) mg/dL Assessment and Plan Assessment: Syncope Fall Mild acute cervical spine fracture at C7 Mild urinary tract infection, resolved Urinary retention Ama status post Wang catheter insertion. Elevated troponin Hypertension/orthostatic hypotension. Blood pressure medications were adjusted Type 2 diabetes mellitus Hypertension Hyperlipidemia Hypothyroidism Diabetic neuropathy Chronic back pain History of GERD History of coronary artery disease status post stent placement Plan: This is a pleasant 84 years old female who presents with multiple problems including syncope, the troponin, C7 fracture and urinary retention and UTI. Repeat urinalysis showing infection cleared and patient is asymptomatic. T herefore we'll DC the Cipro antibiotics. Orthopedic team are following the patient closely for her neck fracture and they placed her on a prophylactic dose of steroids for short course. Her leukocytosis has improved. Follow-up with orthopedics in 1-2 weeks. Urology evaluation is appreciated, they recommended to keep the catheter for 7-10 days, after that check postvoid residual, if urinary retention persists patient might need chronic indwelling catheter. Follow-up with urology as an outpatient. Creatinine is at baseline, follow-up level closely. Labs and medication were reviewed.. Continue same treatment. Continue with symptomatic treatment. Resume home medication. Monitor lytes and vitals. DVT and GI prophylaxis. Further recommendations of the clinical course of the patient DVT prophylaxis: Subcutaneous heparin GI Prophylaxis: Protonix PT/OT: Patient might benefit from ECF for rehab Prognosis is guarded Dr. Bai will resume the care of the patient tomorrow 04/30/2019
[2019-04-29 11:53] LABS: Glucose,Whole Blood 81 mg/dL (75-99)
--- NOTE | 2019-04-29 12:51 | P.PN ---
Subjective This is a pleasant 84-year-old female admitted to the hospital status post fall with fracture of C7. Adjustments are being made to her blood pressure regimen secondary fluctuating blood pressures and creatinine elevation. She has also been seen by urology this morning secondary to urinary retention. She is seen and examined resting comfortably in bed with family at the bedside. She denies symptoms of chest discomfort, shortness of breath, dizziness or palpitations. Blood pressure today 118/71 heart rate 61 afebrile maintaining oxygen saturation on room air. No current labs for today. GENERAL: Well-appearing, well-nourished and in no acute distress. NECK: Supple without JVD or thyromegaly. LUNGS: Breath sounds clear to auscultation bilaterally. Respiration equal and unlabored. No wheezes, rales or rhonchi. HEART: Regular rate and rhythm without murmurs, rubs or gallops. S1 and S2 heard. EXTREMITIES: Normal range of motion, no edema. No clubbing or cyanosis. Peripheral pulses intact. ASSESSMENT Compression fracture of C7 History of coronary artery disease Hypertension Dyslipidemia Acute kidney injury Urinary retention PLAN Continue current medical regimen. Follow-up kidney function tomorrow. Nurse Practitioner note has been reviewed, I agree with a documented findings and plan of care. Patient was seen and examined. Objective - Vital Signs Vital signs: Vital Signs Temp 97.6 F 04/29/19 11:26 Pulse 61 04/29/19 11:26 Resp 20 04/29/19 11:26 BP 118/71 04/29/19 11:26 Pulse Ox 92 L 04/29/19 11:26 Intake & Output 04/28/19 04/29/19 04/29/19 18:59 06:59 18:59 Intake Total 1280 480 Output Total 2850 900 Balance -1570 -900 480 Weight 86 kg Intake: Intake, IV Titration 320 Amount Sodium Chloride 0.9% 1, 320 000 ml @ 30 mls/hr IV . Q24H [facility]ACED BY [facility] Rx#:[id number] Oral 960 480 Output: Urine 2850 900 Other: Voiding Method Indwelling Catheter Indwelling Catheter Indwelling Catheter # Bowel Movements 1 - Labs CBC & Chem 7: 04/28/19 06:43 04/28/19 06:43 Labs: Abnormal Lab Results - Last 24 Hours (Table) 07/20/19 07/20/19 07/21/19 Range/Units 17:07 20:04 06:36 POC Glucose (mg/dL) 258 H 261 H 103 H (75-99) mg/dL
[2019-04-29 16:50] LABS: Glucose,Whole Blood 102 mg/dL (75-99)
[2019-04-29] MEDS: SODIUM CHLORIDE 0.9% 1,000 ML IV SCH (17:07)
[2019-04-29] MEDS: ATORVASTATIN 80 MG TAB PO SCH (20:49)
[2019-04-29] MEDS: HYDROcodone/APAP 5-325MG 1 EACH TAB PO PRN (20:49)
[2019-04-29] MEDS: INSULIN DETEMIR (LEVEMIR) 100 UNIT/ML SYR SQ SCH (20:51)
[2019-04-29 20:55] LABS: Glucose,Whole Blood 94 mg/dL (75-99)
[2019-04-30 06:33] LABS: Glucose,Whole Blood 76 mg/dL (75-99)
[2019-04-30] MEDS: INSULIN ASPART (NovoLOG) 100 UNIT/ML VIAL SQ SCH ×3 (06:34→12:19)
[2019-04-30 07:41] LABS: Calcium 9.2 mg/dL (8.4-10.2); Potassium 4.4 mmol/L (3.5-5.1)
--- NOTE | 2019-04-30 08:13 | P.DS ---
Providers Date of admission: 04/25/19 23:02 Attending physician: Johan Bai Consults: 04/25/19 22:43 Consult Physician Stat Consulting Provider: Johan Bai Consult Reason/Comments: C7 compression fx, medical management, mildly elevated troponin Do you want consulting provider notified?: Yes Consult Physician Urgent Consulting Provider: Dandre Callahan Consult Reason/Comments: elevated troponin, no chest pain Do you want consulting provider notified?: Yes, Notify in am 04/26/19 11:12 Consult Physician Stat Consulting Provider: David Lo Consult Reason/Comments: C7 fracture Do you want consulting provider notified?: Already Contacted 04/28/19 08:59 Consult Physician Urgent Consulting Provider: Alex Jeffery Consult Reason/Comments: Eval urinary retention Do you want consulting provider notified?: Yes Primary care physician: Johan Bai - Discharge Diagnosis(es) (1) Compression fracture of C7 vertebra Current Visit: Yes Status: Acute (2) Fall Current Visit: Yes Status: Acute (3) Chronic kidney disease, stage 3 Current Visit: No Status: Chronic (4) Coronary artery disease Current Visit: No Status: Chronic (5) Hypertension Current Visit: No Status: Chronic (6) Type II diabetes mellitus with peripheral circulatory disorder, uncontrolled Current Visit: No Status: Chronic Priority: Medium Hospital Course: This is a discharge summary a 84-year-old white female with history of fall presyncope and diabetes who essentially had C7 fracture. The patient was medically stabilized but developed urinary retention. She now has a Wang catheter. We will continue this for a week to 10 days and discontinue. I had a long discussion with the family about the possibility of having to straight catheter intermittent May versus permanent Wang catheter due to her retention. She is now stabilized with appropriate pain control and will follow-up with me in about 2-3 weeks. Patient Condition at Discharge: Fair Plan - Discharge Summary Discharge Rx Participant: No New Discharge Prescriptions: New Spironolactone [Aldactone] 12.5 mg PO DAILY #30 tab Aspirin 81 mg PO DAILY chew HYDROcodone/APAP 5-325MG [Irving 5-325] 1 each PO Q4HR PRN #150 tab PRN Reason: Pain amLODIPine [Norvasc] 2.5 mg PO DAILY #30 tab Metoprolol Succinate (ER) [Toprol XL] 12.5 mg PO DAILY tab.er.24h Continue Atorvastatin [Lipitor] 80 mg PO HS Nitroglycerin Sl Tabs [Nitrostat] 0.4 mg SUBLINGUAL Q5M PRN PRN Reason: Chest Pain Calcitriol 0.5 mcg PO SUTH Levothyroxine Sodium [Synthroid] 100 mcg PO DAILY@0630 #30 tab Clopidogrel [Plavix] 75 mg PO DAILY #90 tab Sertraline [Zoloft] 50 mg PO DAILY Cholecalciferol [Vitamin D3 (25 Mcg = 1000 Iu)] 1,000 unit PO DAILY Pregabalin [Lyrica] 150 mg PO BID 14 Days #30 cap Omeprazole Magnesium [PriLOSEC Oral Susp] 20 mg PO DAILY Insulin Aspart [NovoLOG Flexpen] 7 units SQ BID Insulin Glargine,Hum.rec.anlog [Lantus Solostar] 24 units SQ HS Tolterodine Tartrate [Detrol LA] 4 mg PO DAILY Furosemide [Lasix] 20 mg PO BID Discontinued Metoprolol Succinate (ER) [Toprol XL] 25 mg PO DAILY Discharge Medication List Atorvastatin [Lipitor] 80 mg PO HS 10/16/14 [History] Nitroglycerin Sl Tabs [Nitrostat] 0.4 mg SUBLINGUAL Q5M PRN 11/07/14 [History] Calcitriol 0.5 mcg PO SUTH 09/09/16 [History] Levothyroxine Sodium [Synthroid] 100 mcg PO DAILY@0630 #30 tab 06/17/17 [Rx] Clopidogrel [Plavix] 75 mg PO DAILY #90 tab 07/09/17 [Rx] Sertraline [Zoloft] 50 mg PO DAILY 08/27/18 [History] Cholecalciferol [Vitamin D3 (25 Mcg = 1000 Iu)] 1,000 unit PO DAILY 02/02/19 [History] Pregabalin [Lyrica] 150 mg PO BID 14 Days #30 cap 02/03/19 [Rx] Furosemide [Lasix] 20 mg PO BID 04/26/19 [History] Insulin Aspart [NovoLOG Flexpen] 7 units SQ BID 04/26/19 [History] Insulin Glargine,Hum.rec.anlog [Lantus Solostar] 24 units SQ HS 04/26/19 [History] Omeprazole Magnesium [PriLOSEC Oral Susp] 20 mg PO DAILY 04/26/19 [History] Tolterodine Tartrate [Detrol LA] 4 mg PO DAILY 04/26/19 [History] Aspirin 81 mg PO DAILY chew 04/30/19 [Rx] HYDROcodone/APAP 5-325MG [Irving 5-325] 1 each PO Q4HR PRN #150 tab 04/30/19 [Rx] Metoprolol Succinate (ER) [Toprol XL] 12.5 mg PO DAILY tab.er.24h 04/30/19 [Rx] Spironolactone [Aldactone] 12.5 mg PO DAILY #30 tab 04/30/19 [Rx] amLODIPine [Norvasc] 2.5 mg PO DAILY #30 tab 04/30/19 [Rx] Follow up Appointment(s)/Referral(s): Chaparrita Thomas DO [Doctor of Osteopathic Medicine] - 2 Weeks [facility], [NON-STAFF] - 1 Week Alex Jeffery MD [STAFF PHYSICIAN] - 1 Week (Neurologist, for urinary retention) Johan Bai MD [Primary Care Provider] - 2 Weeks Activity/Diet/Wound Care/Special Instructions: Her catheter should remain in place for at least 7-10 days prior to a voiding trial. If she is in a alf it should be possible to monitor her post void residuals using a bladder scan. If her post void residuals remain persistently elevated then she may require a long-term indwelling catheter. Follow-up with urology as an outpatient
[2019-04-30] MEDS: PANTOPRAZOLE 40 MG TABLET PO SCH (09:42)
[2019-04-30] MEDS: METOPROLOL SUCCINATE (ER) 25 MG TAB.ER.24H PO SCH (09:42)
[2019-04-30] MEDS: FUROSEMIDE 20 MG TAB PO SCH (09:43)
[2019-04-30] MEDS: PREGABALIN 75 MG CAP PO SCH (09:43)
[2019-04-30] MEDS: SPIRONOLACTONE 25 MG TAB PO SCH (09:43)
[2019-04-30] MEDS: ASPIRIN 81 MG PO SCH (09:43)
[2019-04-30] MEDS: amLODIPine 2.5 MG TAB PO SCH (09:43)
[2019-04-30] MEDS: LEVOTHYROXINE 100 MCG TAB PO SCH (09:43)
[2019-04-30] MEDS: HEPARIN SODIUM,PORCINE 5,000 UNIT/ML 1 ML VIAL SQ SCH (09:43)
[2019-04-30] MEDS: CLOPIDOGREL 75 MG TAB PO SCH (09:43)
[2019-04-30] MEDS: CHOLECALCIFEROL 1,000 UNIT TAB PO SCH (09:43)
[2019-04-30] MEDS: SERTRALINE 50 MG TAB PO SCH (09:44)
[2019-04-30] MEDS: OXYBUTYNIN 10 MG TAB.ER.24 PO SCH (09:44)
[2019-04-30 10:12] VITALS: PULSE 61; RESP 18
[2019-04-30] MEDS: HYDROcodone/APAP 5-325MG 1 EACH TAB PO PRN (11:25)
[2019-04-30 11:32] VITALS: BP 110/58; TEMP 97.5
[2019-04-30 12:18] LABS: Glucose,Whole Blood 107 mg/dL (75-99)
[2019-04-30] MEDS: SODIUM CHLORIDE 0.9% 1,000 ML IV SCH (12:20)
--- NOTE | 2019-04-30 12:27 | P.PN ---
Subjective Progress Note Date: 04/30/19 This is a pleasant 84-year-old female who follows regularly with Dr. Abernathy in the office. She has a past medical history significant for coronary artery disease and prior bypass surgery with an SVG to the diagonal branch of the HERNANDEZ to the LAD, prior angioplasty, diabetes, hyperlipidemia, hypertension, chronic kidney disease, former nicotine dependence. On review of prior admissions, it does appear that the patient had an admission to the hospital in August 2018 with syncope, she was found at that time to have significant orthostatic hypotension. Medication adjustments have been made. On this occasion she presented to the hospital after finding herself on the kitchen floor between the fridge instilled. Patient does not recall passing out, only remembers waking up on the floor. She does state however that she has been more short of breath than usual, with exertion, walking short distances, she also states that she has been quite dizzy, more than her usual. Her appetite overall has been poor and she's recently lost approximately 20 pounds of weight. She denies any recent chest discomfort. Patient had a CT of the brain and C-spine performed which revealed a mild compression fracture of C7 which was new as compared with prior exam, likely representing an acute fracture. There is also a nondisplaced facet and lamina fracture of C6 on the right side. No acute intracranial abnormality. Chest x-ray did not reveal any acute disease. EKG shows a normal sinus rhythm with nonspecific ST-T wave changes noted. Blood pressure on arrival here 182/90 with a heart rate in the 80s, 97% on room air blood pressure this morning 150/70 with a heart rate in the 70s, 99% on room air. White blood cell count 14.3, hemoglobin 13.6, platelet count 202. Sodium 136, potassium 3.8, BUN 29 and creatinine 1.3. Magnesium 2.0. Troponin 0.07, 0.28. Positive UTI. 04/27/2019 Patient was seen and examined this morning, she is complaining of some numbness and tingling in her leg, this is apparently chronic for her however she states it was worse than usual. She is running blood pressures in the 90s. No significant arrhythmias have been noted on the monitor. We will decrease her dose of metoprolol to 12-1/2 mg daily, we will also decrease the Aldactone to 12-1/2 mg daily. Continue with lisinopril at 2-1/2 mg daily. 04/30/2018 Patient was seen and examined this morning, overall doing well. Blood pressure and heart rate stable. Anticipating discharge today. Objective - Vital Signs Vital signs: Vital Signs Temp 97.5 F L 04/30/19 07:00 Pulse 61 04/30/19 08:00 Resp 18 04/30/19 08:00 BP 110/58 04/30/19 07:00 Pulse Ox 95 04/30/19 07:00 Intake & Output 04/29/19 04/30/19 04/30/19 18:59 06:59 18:59 Intake Total 960 100 Output Total 1700 300 Balance -740 -300 100 Weight 86.5 kg Intake: Intake, IV Titration 240 Amount Sodium Chloride 0.9% 1, 240 000 ml @ 30 mls/hr IV . Q24H [facility] Rx#:[id number] Oral 720 100 Output: Urine 1700 300 Other: Voiding Method Indwelling Catheter Indwelling Catheter Indwelling Catheter - Exam PHYSICAL EXAMINATION: GENERAL: 84-year-old female in no acute distress at the time of my examination HEENT: Head is atraumatic, normocephalic. Pupils equal, round. Sclera anicteric. Conjunctiva are clear. Mucous membranes of the mouth are moist. Neck is supple. C-collar in place. There is no elevated jugular venous pr essure. No carotid bruit is heard. HEART EXAMINATION: Heart S1 and S2 systolic murmur is heard CHEST EXAMINATION: Lungs are clear to auscultation anteriorly . No chest wall tenderness is noted on palpation or with deep breathing. ABDOMEN: Soft, nontender. Bowel sounds are heard. No organomegaly noted. EXTREMITIES: 2+ peripheral pulses with no evidence of peripheral edema and no calf tenderness noted. NEUROLOGIC patient is awake, alert and oriented X3. . - Labs CBC & Chem 7: 04/28/19 06:43 04/30/19 06:29 Labs: Abnormal Lab Results - Last 24 Hours (Table) 04/29/19 04/30/19 04/30/19 Range/Units 16:47 06:29 11:50 BUN 57 H (7-17) mg/dL Creatinine 1.97 H (0.52-1.04) mg/dL Glucose 64 L (74-99) mg/dL POC Glucose (mg/dL) 102 H 107 H (75-99) mg/dL Assessment and Plan Plan: Assessment and plan #1 syncope and fall with evidence of C7 fracture #2 known history of coronary artery disease with prior bypass surgery and PCI #3 diabetes #4 hypertension #5 hyperlipidemia #6 acute on chronic chronic kidney disease #7 abnormal troponins, cannot rule out acute coronary syndrome, patient however denies any chest discomfort, she has been experiencing exertional dyspnea. #8 2 prior hospitalizations with syncope, evidence of that time of orthostatic hypotension #9 positive UTI Plan From cardiology's perspective, patient may be able to be discharged home today. We will make a follow-up appointment in the office post discharge. DNP note has been reviewed, I agree with a documented findings and plan of care. Patient was seen and examined.
[2019-04-30 15:07] VITALS: BMI 38.5
== END 2019-04-30 15:50 | DRG 552 ==
LOC: EC 20:17 → 3SCARD 23:02
PROVIDERS: ADMIT Family Medicine; ATTEND Family Medicine
DX: S12.600A Unspecified displaced fracture of seventh cervical vertebra, initial encounter for closed fracture (principal); N17.9 Acute kidney failure, unspecified; N39.0 Urinary tract infection, site not specified; E03.9 Hypothyroidism, unspecified; E11.22 Type 2 diabetes mellitus with diabetic chronic kidney disease; E11.40 Type 2 diabetes mellitus with diabetic neuropathy, unspecified; E11.51 Type 2 diabetes mellitus with diabetic peripheral angiopathy without gangrene; E78.5 Hyperlipidemia, unspecified; G89.29 Other chronic pain; I12.9 Hypertensive chronic kidney disease with stage 1 through stage 4 chronic kidney disease, or unspecified chronic kidney disease; I25.10 Atherosclerotic heart disease of native coronary artery without angina pectoris; K21.9 Gastro-esophageal reflux disease without esophagitis; N18.3 Chronic kidney disease, stage 3 (moderate); W19.XXXA Unspecified fall, initial encounter; Y92.099 Unspecified place in other non-institutional residence as the place of occurrence of the external cause; Z79.02 Long term (current) use of antithrombotics/antiplatelets; Z79.4 Long term (current) use of insulin; Z79.890 Hormone replacement therapy; Z79.899 Other long term (current) drug therapy; Z80.51 Family history of malignant neoplasm of kidney; Z80.7 Family history of other malignant neoplasms of lymphoid, hematopoietic and related tissues; Z87.891 Personal history of nicotine dependence; Z95.1 Presence of aortocoronary bypass graft; Z95.5 Presence of coronary angioplasty implant and graft; Z96.1 Presence of intraocular lens; Z96.642 Presence of left artificial hip joint; Z98.41 Cataract extraction status, right eye; Z98.42 Cataract extraction status, left eye
CPT/HCPCS: 36415; 70450; 71045; 72125; 80048; 80053; 80061; 81001; 81003; 83036; 83735; 84100; 84484; 85025; 85027; 85610; 85730; 87086; 93005; 94760; 96361; 96374; 96376; 99285

== ENCOUNTER → 2019-08-15 | Outpatient (CLI) | payer MEDICARE, BC ==
--- NOTE | 2019-08-17 04:19 | CT ---
EXAMINATION TYPE: CT pelvis wo con DATE OF EXAM: 08/15/2019 COMPARISON: 02/21/2015 HISTORY: 84-year-old female fell 3 months ago, breaking neck, but now experiencing pain in RT hip TECHNIQUE: Contiguous axial scanning of the pelvis without IV contrast. Coronal and sagittal reconstr uctions performed. 3-D reconstructions generated on a dedicated workstation. CT DLP: 570 mGycm Automated exposure control for dose reduction was used. FINDINGS: Posterior lumbar fusion hardware partially visualized. Intramedullary nail with hip screw fixation al so present. Metal hardware artifacts cause some limitation in assessment. Further limitation due to the degree of osteopenia. Moderate stool seen within the visualized colon. Moderate atherosclerotic calcifications throughout t he abdominal aorta and iliac arteries. No abnormal fluid collection in the pelvis or pelvic lymphaden opathy seen. Moderate to advanced degenerative disc disease old fusion at L5-S1 with hypertrophic facet arthropath y and grade 1 anterolisthesis. Some coils along the right lower quadrant anterior abdominal wall from prior mesh repair. Degenerative changes at the right SI joint. There are mild degenerative spurring of both hips. No displaced fracture seen. Small amount of heterotopic ossification or fragmented spurs from the greater trochanter gluteus medi us insertion are unchanged back to 2014. The distal aspect of the intramedullary nail through the proximal right femur is incompletely visuali zed. IMPRESSION: 1. LIMITATIONS DUE TO PROMINENT METAL HARDWARE ARTIFACT RELATED TO THE PATIENT'S LOWER LUMBAR FUSION WELL THE INTRAMEDULLARY NAIL WITH HIP SCREW FIXATION ALONG THE PROXIMAL RIGHT FEMUR. 2. NO DISPLACED FRACTURE SEEN. 3. MODERATE TO ADVANCED DEGENERATIVE DISC DISEASE AND HYPERTROPHIC FACET ARTHROPATHY BELOW THE LUMBAR FUSION AT L5-S1 WITH GRADE 1 ANTEROLISTHESIS. 4. MILD OSTEOARTHROSIS AT BOTH HIPS AND MODERATE AT THE RIGHT SI JOINT.
== END | disposition home or self-care (01) ==
LOC: RADCTMAIN 15:38
PROVIDERS: ATTEND Orthopaedic Surgery
DX: M16.0 Bilateral primary osteoarthritis of hip (principal); M51.36 Other intervertebral disc degeneration, lumbar region; M51.37 Other intervertebral disc degeneration, lumbosacral region; M43.17 Spondylolisthesis, lumbosacral region; M53.3 Sacrococcygeal disorders, not elsewhere classified; Z98.1 Arthrodesis status
CPT/HCPCS: 72192

== ENCOUNTER → 2019-09-10 | Outpatient (CLI) | payer MEDICARE, BC ==
--- NOTE | 2019-09-11 08:33 | MR ---
EXAMINATION TYPE: MR lumbar spine wo con DATE OF EXAM: 09/10/2019 COMPARISON: CT chest abdomen and pelvis February 21, 2015. HISTORY: Low Back Pain, lumbar disc disease L-1-L2 and L2-L3, compression deformity L3, status post f usion L3-L5, and scoliosis are per order. Back pain for long time radiating into right lower extremit y per patient. TECHNIQUE: Multiplanar, multisequence imaging of the lumbar spine is performed without IV contrast. FINDINGS: Sagittal images of the lumbar spine show mild compression plate fracture deformity or heigh t loss L2 level. Alignment is straightened. Artifact from posterior intrapedicular rods and screws tr ansfix L3-L5 levels. Multilevel disc desiccation is seen with relative sparing the L3-L4 level. There is mild to moderate multilevel disc space narrowing with moderate to advanced findings noted L4-L5 l evel. There is moderate multilevel anterior spurring heterogeneous endplate changes. The conus medull ryne is somewhat low in position ending superior L2 level without abnormal signal. Axial images at T12-L1 levels are mild broad disc bulge minimally effaces the anterior thecal sac wit h mild facet degenerative changes ligament hypertrophy. Axial images at L1-L2 level to moderate broad-based posterior disc protrusion effacing anterior theca l sac with mild/moderate facet degenerative changes and ligamentum flavum hypertrophy pedicles effaci ng the posterior lateral thecal sac. There is mild to moderate left greater than right bilateral neur al foraminal narrowing. Axial images at L2-L3 level show artifact from surgical change. There is moderate broad disc bulge ef faces the anterior thecal sac. There is mild marked structures are unchanged with multiple in number protrudes into posterior lateral thecal sac. There is moderate to severe right and mild to moderate l eft-sided neural foraminal narrowing. Axial images at L3-L4 level show artifact from surgical change. Posterior scar tissue is present. The re is mild broad disc bulge minimally effaces the anterior thecal sac. Bilateral neural foramina are patent. Axial images at L4-L5 level show artifact from posterior fusion hardware making evaluation suboptimal . There is facet arthropathy. Right-sided neural foramina shows mild to moderate anterior inferior ne ural foraminal narrowing left-sided neural foramina patent. Axial images at L5-S1 level show artifact from posterior fusion hardware. Spinal canal grossly preser isadora but there is surrounding scar tissue thought present. Artifact limits evaluation of bilateral marquis ral foramina at this level especially on sagittal images. No suspicious incidental retroperitoneal findings. Generalized posterior paraspinal muscular atrophy inferiorly noted. IMPRESSION: Surgical change L3-L5 level with stable and satisfactory alignment. Multilevel degenerati ve changes are present as detailed above. Slightly suboptimal evaluation surgical levels due to artif act noted.
== END | disposition home or self-care (01) ==
LOC: RADMRIMAIN 08:07
PROVIDERS: ATTEND Orthopaedic Surgery Orthopaedic Surgery of the Spine
DX: M47.896 Other spondylosis, lumbar region (principal); Z98.1 Arthrodesis status; Z91.81 History of falling; S12.600D Unspecified displaced fracture of seventh cervical vertebra, subsequent encounter for fracture with routine healing; M50.30 Other cervical disc degeneration, unspecified cervical region; X58.XXXD Exposure to other specified factors, subsequent encounter
CPT/HCPCS: 72148

== ENCOUNTER → 2019-10-23 | Outpatient (CLI) | payer MEDICARE, BC ==
[2019-10-23 09:23] LABS: Anisocytosis Slight; Basophils # (A) 0.2 k/uL (0-0.2); Basophils % (A) 3 %; Eosinophils # (A) 0.3 k/uL (0-0.7); Eosinophils % (A) 5 %; HCT 36.1 % (34.0-46.0); Hypochromasia Slight; Lymphocytes # (A) 1.4 k/uL (1.0-4.8); Lymphocytes % (A) 25 %; MCH 28.4 pg (25.0-35.0); MCHC 30.4 g/dL (31.0-37.0); MCV 93.3 fL (80.0-100.0); Mean Platelet Volume 11.7; Monocytes # (A) 0.3 k/uL (0-1.0); Monocytes % (A) 5 %; Neutrophils # (A) 3.4 k/uL (1.3-7.7); Neutrophils % (A) 60 %; Platelet Count 180 k/uL (150-450); RBC 3.88 m/uL (3.80-5.40); RDW 16.1 % (11.5-15.5); WBC 5.7 k/uL (3.8-10.6)
[2019-10-23 15:56] LABS: % Iron Saturation 20.25 (12.00-45.00); African American GFR (CKD) 31.3 (60.0-200.0); Anion Gap 9.5 mmol/L (4.00-12.00); BUN/Creat Ratio 27.06 Ratio (12.00-20.00); Calcium 9.6 mg/dL (8.7-10.3); Carbon Dioxide 27.5 mmol/L (21.6-31.8); Magnesium 1.9 mg/dL (1.5-2.4); Phosphorus 4.3 mg/dL (2.4-5.1); Potassium 4.4 mmol/L (3.5-5.5); Uric Acid 4.5 mg/dL (2.9-7.7)
[2019-10-23 16:07] LABS: Ferritin 363.4 ng/mL (10.0-291.0)
[2019-10-23 16:15] LABS: Appearance,Urine Clear (Clear); Bilirubin,Urine Negative (Negative); Blood,Urine Negative (Negative); Color,Urine Yellow; Glucose,Urine (UA) Negative (Negative); Hyaline Casts,Urine 1 /lpf (0-2); Ketones,Urine Negative (Negative); Leukocyte Esterase,Urine Large (Negative); Mucus,Urine Rare /hpf; Nitrite,Urine Negative (Negative); Protein,Urine 1+ (Negative); RBC,Urine 1 /hpf (0-5); Specific Gravity,Urine 1.013 (1.001-1.035); Squamous Epithelial Cell,Urine 3 /hpf (0-4); Urobilinogen,Urine <2.0 mg/dL (<2.0); WBC,Urine 45 /hpf (0-5)
[2019-10-24 00:45] LABS: Total Protein,Urine Random 76.1 mg/dL (0.0-13.5)
== END | disposition home or self-care (01) ==
LOC: LABWHC1 08:25
PROVIDERS: ATTEND Nurse Practitioner Family
DX: N39.0 Urinary tract infection, site not specified (principal); M10.9 Gout, unspecified; D63.1 Anemia in chronic kidney disease; N18.4 Chronic kidney disease, stage 4 (severe); E55.0 Rickets, active; N25.81 Secondary hyperparathyroidism of renal origin; R80.9 Proteinuria, unspecified
CPT/HCPCS: 36415; 80048; 81001; 82040; 82570; 82728; 83540; 83550; 83735; 83970; 84100; 84156; 84550; 85025

== ENCOUNTER 2019-11-01 21:51 | Inpatient (IN) | payer MEDICARE, BC ==
[2019-11-01] MEDS ORDERED: IPRATROPIUM-ALBUTEROL 3 ML NEB INHALATION STA (22:33)
--- NOTE | 2019-11-01 22:58 | XR ---
EXAMINATION TYPE: XR chest 1V portable DATE OF EXAM: 11/01/2019 COMPARISON: 04/25/2019 HISTORY: Chest pain TECHNIQUE: Single view FINDINGS: Heart is enlarged. There are sternal wires. There is no gross heart failure. There is coars ening of the lung markings. There is no pleural effusion. IMPRESSION: Mild pulmonary fibrosis. Inspiration decreased compared to old exam. No obvious heart jose lure.
[2019-11-01 23:08] LABS: Anisocytosis Slight; Basophils # (A) 0.2 k/uL (0-0.2); Basophils % (A) 2 %; Eosinophils # (A) 0.2 k/uL (0-0.7); Eosinophils % (A) 2 %; HCT 34.1 % (34.0-46.0); HGB 10.7 gm/dL (11.4-16.0); Hypochromasia Slight; Lymphocytes # (A) 2.8 k/uL (1.0-4.8); Lymphocytes % (A) 27 %; MCH 29.1 pg (25.0-35.0); MCHC 31.5 g/dL (31.0-37.0); MCV 92.4 fL (80.0-100.0); Mean Platelet Volume 13.4; Monocytes # (A) 0.6 k/uL (0-1.0); Monocytes % (A) 6 %; Neutrophils # (A) 6.2 k/uL (1.3-7.7); Neutrophils % (A) 61 %; Platelet Count 188 k/uL (150-450); RBC 3.69 m/uL (3.80-5.40); RDW 16.3 % (11.5-15.5); WBC 10.2 k/uL (3.8-10.6)
[2019-11-01 23:21] LABS: Albumin 3.9 g/dL (3.5-5.0); Calcium 9.2 mg/dL (8.4-10.2); Potassium 4.3 mmol/L (3.5-5.1); Total Bilirubin 0.7 mg/dL (0.2-1.3); Total Protein 6.9 g/dL (6.3-8.2)
[2019-11-01 23:32] LABS: Partial Thromboplastin Time 23.8 sec (22.0-30.0); Prothrombin Time 10.7 sec (9.0-12.0)
[2019-11-01 23:42] LABS: D-Dimer 1.29 mg/L FEU (<0.60)
[2019-11-02 00:38] LABS: Polychromasia Present
[2019-11-02 00:44] LABS: Large Platelets Present; Poikilocytosis (M) Present
--- NOTE | 2019-11-02 00:53 | ED ---
SOB HPI - General Chief Complaint: Shortness of Breath Stated Complaint: Diff Breathing Time Seen by Provider: 11/01/19 22:16 Source: EMS Mode of arrival: EMS Limitations: no limitations - History of Present Illness Initial Comments: This patient is 84-year-old woman who is brought by ambulance to be evaluated for shortness of breath. Patient states her breathing had been worsening for 3 days, so EMS was finally called and brought her here. The report that she was hypoxic on their monitor, and that they placed her on nonrebreather oxygen, they did give dose of Solu-Medrol 125 mg by the. They also did give multiple nebulized treatments, it appears she had 3 albuterol and 2 ipratropium. Patient states that she does feel a little better on arrival. Patient neurologist history of congestive heart failure. She is not aware of having history of COPD however she did live with a smoker who was actively smoking for 40 years. Patient denies history of smoking however there is a previous mentioned in her chart of being nicotine dependent. Patient has not noted fever or chills. She states there is an occasional cough without much sputum. She is not having chest pains. She does find that her breathing is worse if she is lying flat so she usually sleeps in a recliner chair. No other worsening or relieving factors. She believes that her weight has increased over 20 pounds over number weeks. She believes that she is having some bilateral leg edema, but she denies any leg pains. She has not noted change in urination or any bloody or tarry stools. Complaint: shortness of breath Onset/Timin -: days(s) Severity scale (1-10): 0 Improves With: upright position Worsens With: lying flat Known History Of: congestive heart failure Associated Symptoms: denies other symptoms Treatments Prior to Arrival: oxygen, bronchodilator - Related Data Home Oxygen Therapy: No Home Medications Medication Instructions Recorded Confirmed Atorvastatin [Lipitor] 80 mg PO HS 10/16/14 04/26/19 Nitroglycerin Sl Tabs [Nitrostat] 0.4 mg SUBLINGUAL Q5M PRN 11/07/14 04/26/19 Calcitriol 0.5 mcg PO SUTH 09/09/16 04/26/19 Sertraline [Zoloft] 50 mg PO DAILY 08/27/18 04/26/19 Cholecalciferol [Vitamin D3 (25 1,000 unit PO DAILY 02/02/19 04/26/19 Mcg = 1000 Iu)] Furosemide [Lasix] 20 mg PO BID 04/26/19 04/26/19 Insulin Aspart [NovoLOG Flexpen] 7 units SQ BID 04/26/19 04/26/19 Insulin Glargine,Hum.rec.anlog 24 units SQ HS 04/26/19 04/26/19 [Lantus Solostar] Omeprazole Magnesium [PriLOSEC 20 mg PO DAILY 04/26/19 04/26/19 Oral Susp] Tolterodine Tartrate [Detrol LA] 4 mg PO DAILY 04/26/19 04/26/19 Previous Rx's Medication Instructions Recorded Levothyroxine Sodium [Synthroid] 100 mcg PO DAILY@0630 #30 tab 06/17/17 Clopidogrel [Plavix] 75 mg PO DAILY #90 tab 07/09/17 Aspirin 81 mg PO DAILY chew 04/30/19 HYDROcodone/APAP 5-325MG [[place] 1 each PO Q4HR PRN #150 tab 04/30/19 5-325] Metoprolol Succinate (ER) [Toprol 12.5 mg PO DAILY tab.er.24h 04/30/19 XL] Pregabalin [Lyrica] 150 mg PO BID #12 cap 04/30/19 Spironolactone [Aldactone] 12.5 mg PO DAILY #30 tab 04/30/19 amLODIPine [Norvasc] 2.5 mg PO DAILY #30 tab 04/30/19 Allergies Allergy/AdvReac Type Severity Reaction Status Date / Time Iodinated Contrast Media Allergy Severe Anaphylaxis Verified 11/01/19 22:05 [Iodinated Contrast Media - IV Dye] captopril [From Capoten] Allergy Unknown PASSED OUT Verified 11/01/19 22:05 morphine Allergy Unknown Verified 11/01/19 22:05 Penicillins Allergy Unknown Verified 11/01/19 22:05 sulfamethoxazole AdvReac Unknown Diarrhea Verified 11/01/19 22:05 [From Bactrim] trimethoprim [From Bactrim] AdvReac Unknown Diarrhea Verified 11/01/19 22:05 Review of Systems ROS Statement: Those systems with pertinent positive or pertinent negative responses have been documented in the HPI. ROS Other: All systems not noted in ROS Statement are negative. Constitutional: Denies: fever, chills, weakness Respiratory: Reports: as per HPI, dyspnea, wheezes. Denies: cough, hemoptysis, stridor Cardiovascular: Reports: orthopnea, edema. Denies: chest pain, palpitations, syncope Gastrointestinal: Reports: constipation. Denies: abdominal pain, vomiting, diarrhea, melena, hematochezia Genitourinary: Denies: dysuria, hematuria Musculoskeletal: Denies: back pain Skin: Denies: rash Neurological: Denies: headache, weakness, numbness Past Medical History Past Medical History: Coronary Artery Disease (CAD), Chest Pain / Angina, Rox betes Mellitus, GERD/Reflux, Hyperlipidemia, Hypertension, Osteoarthritis (OA), Renal Disease, Thyroid Disorder Additional Past Medical History / Comment(s): IDDM TYPE II, 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 History of Any Multi-Drug Resistant Organisms: None Reported Past Surgical History: Appendectomy, Cholecystectomy, Heart Catheterization, Heart Catheterization With Stent, Hernia Repair Additional Past Surgical History / Comment(s): 07/08/17 PCI with stent to LCX, bilateral carpal tunnel; right and left finger release; CABG - 1998. Spinal cord stimulator implantation (2009) AND REMOVED. Bilateral cataract removal with lens implants,. Right hip surgery - too put in, T LT HIP REPLACEMENT. Pt states she broke her neck in May 2019; was seen by Dr Nelson. HIATAL HERNIA REPAIR. Stents placed 07/09/17. Past Anesthesia/Blood Transfusion Reactions: No Reported Reaction Additional Past Anesthesia/Blood Transfusion Reaction / Comment(s): contracted hepatits after blood transfusion (1971) Date of Last Stent Placement:: 07/08/17 Past Psychological History: No Psychological Hx Reported Smoking Status: Never smoker Past Alcohol Use History: Rare Past Drug Use History: None Reported - Past Family History Mother Family Medical History: Cancer Son(s) Family Medical History: Cancer Father History Unknown: Yes Additional Family Medical History / Comment(s): Father at the age of 48yrs. Pt was little when he passed and is not sure what his cause of was. General Exam Limitations: no limitations General appearance: alert, in no apparent distress Head exam: Present: atraumatic, normocephalic Eye exam: Present: normal appearance. Absent: scleral icterus, conjunctival injection ENT exam: Present: normal oropharynx Neck exam: Present: normal inspection Respiratory exam: Present: respiratory distress (There is mild tachypnea), wheezes, decreased breath sounds. Absent: rales, rhonchi, stridor, accessory muscle use, prolonged expiratory Cardiovascular Exam: Present: regular rate, normal rhythm, normal heart sounds. Absent: systolic murmur, diastolic murmur, rubs, gallop GI/Abdominal exam: Present: soft. Absent: distended, tenderness, guarding, rebound, rigid, mass Extremities exam: Present: normal inspection, normal capillary refill, pedal edema (Trace edema at the ankles bilaterally), other (No Homans sign). Absent: calf tenderness Back exam: Present: normal inspection. Absent: CVA tenderness (R), CVA tenderness (L) Neurological exam: Present: alert Skin exam: Present: warm, dry, intact, normal color. Absent: rash Course Vital Signs 11/01/19 11/01/19 11/01/19 21:56 22:11 22:30 Temperature 97.6 F Pulse Rate 77 79 Respiratory 22 22 17 Rate Blood Pressure 167/94 159/72 O2 Sat by Pulse 100 100 Oximetry 11/01/19 11/01/19 11/01/19 23:00 23:06 23:16 Temperature Pulse Rate 75 78 78 Respiratory 18 Rate Blood Pressure 142/70 O2 Sat by Pulse 100 Oximetry 11/01/19 11/01/19 11/02/19 23:30 23:44 00:00 Temperature Pulse Rate 78 75 76 Respiratory 18 18 17 Rate Blood Pressure 148/80 149/85 149/85 O2 Sat by Pulse 99 99 99 Oximetry 11/02/19 11/02/19 11/02/19 01:00 01:17 01:31 Temperature Pulse Rate 74 76 78 Respiratory 18 Rate Blood Pressure 138/61 O2 Sat by Pulse 98 Oximetry 11/02/19 02:00 Temperature Pulse Rate 75 Respiratory 19 Rate Blood Pressure 134/58 O2 Sat by Pulse 99 Oximetry Medical Decision Making - Medical Decision Making Patient is an 84-year-old woman brought by ambulance for shortness of breath. She states that she is feeling much better after having had the treatment by EMS. The workup does reveal that there is a moderately elevated d-dimer, and not able to CT scanned due to patients kidney function. She is given 1 dose of Lovenox and VQ scan is ordered at her earliest possibility. I patient's BNP is elevated versus her baseline. Patient be admitted for further treatment and to have the VQ scan an echo cardiogram. - Lab Data Result diagrams: 11/01/19 22:00 11/01/19 22:00 Lab Results 11/01/19 11/01/19 11/01/19 Range/Units 22:00 22:00 22:00 WBC 10.2 (3.8-10.6) k/uL RBC 3.69 L (3.80-5.40) m/uL Hgb 10.7 L (11.4-16.0) gm/dL Hct 34.1 (34.0-46.0) % MCV 92.4 (80.0-100.0) fL MCH 29.1 (25.0-35.0) pg MCHC 31.5 (31.0-37.0) g/dL RDW 16.3 H (11.5-15.5) % Plt Count 188 (150-450) k/uL Neutrophils % 61 % Lymphocytes % 27 % Monocytes % 6 % Eosinophils % 2 % Basophils % 2 % Neutrophils # 6.2 (1.3-7.7) k/uL Lymphocytes # 2.8 (1.0-4.8) k/uL Monocytes # 0.6 (0-1.0) k/uL Eosinophils # 0.2 (0-0.7) k/uL Basophils # 0.2 (0-0.2) k/uL Manual Slide Review Performed Large Platelets Present Polychromasia Present Hypochromasia Slight Poikilocytosis (manual Present Anisocytosis Slight PT 10.7 (9.0-12.0) sec INR 1.0 (<1.2) APTT 23.8 (22.0-30.0) sec D-Dimer 1.29 H (<0.60) mg/L FEU Sodium 143 (137-145) mmol/L Potassium 4.3 (3.5-5.1) mmol/L Chloride 108 H (98-107) mmol/L Carbon Dioxide 27 (22-30) mmol/L Anion Gap 8 mmol/L BUN 47 H (7-17) mg/dL Creatinine 1.69 H (0.52-1.04) mg/dL Est GFR (CKD-EPI)AfAm 32 (>60 ml/min/1.73 sqM) Est GFR (CKD-EPI)NonAf 27 (>60 ml/min/1.73 sqM) Glucose 140 H (74-99) mg/dL Plasma Lactic Acid Mal[place] (0.7-2.0) mmol/L Calcium 9.2 (8.4-10.2) mg/dL Total Bilirubin 0.7 (0.2-1.3) mg/dL AST 24 (14-36) U/L ALT 16 (4-34) U/L Alkaline Phosphatase 127 H (38-126) U/L Troponin I (0.000-0.034) ng/mL NT-Pro-B Natriuret Pep pg/mL Total Protein 6.9 (6.3-8.2) g/dL Albumin 3.9 (3.5-5.0) g/dL 11/01/19 11/01/19 11/01/19 Range/Units 22:00 22:00 23:05 WBC (3.8-10.6) k/uL RBC (3.80-5.40) m/uL Hgb (11.4-16.0) gm/dL Hct (34.0-46.0) % MCV (80.0-100.0) fL MCH (25.0-35.0) pg MCHC (31.0-37.0) g/dL RDW (11.5-15.5) % Plt Count (150-450) k/uL Neutrophils % % Lymphocytes % % Monocytes % % Eosinophils % % Basophils % % Neutrophils # (1.3-7.7) k/uL Lymphocytes # (1.0-4.8) k/uL Monocytes # (0-1.0) k/uL Eosinophils # (0-0.7) k/uL Basophils # (0-0.2) k/uL Manual Slide Review Large Platelets Polychromasia Hypochromasia Poikilocytosis (manual Anisocytosis PT (9.0-12.0) sec INR (<1.2) APTT (22.0-30.0) sec D-Dimer (<0.60) mg/L FEU Sodium (137-145) mmol/L Potassium (3.5-5.1) mmol/L Chloride (98-107) mmol/L Carbon Dioxide (22-30) mmol/L Anion Gap mmol/L BUN (7-17) mg/dL Creatinine (0.52-1.04) mg/dL Est GFR (CKD-EPI)AfAm (>60 ml/min/1.73 sqM) Est GFR (CKD-EPI)NonAf (>60 ml/min/1.73 sqM) Glucose (74-99) mg/dL Plasma Lactic Acid [place] 1.1 (0.7-2.0) mmol/L Calcium (8.4-10.2) mg/dL Total Bilirubin (0.2-1.3) mg/dL AST (14-36) U/L ALT (4-34) U/L Alkaline Phosphatase (38-126) U/L Troponin I 0.029 (0.000-0.034) ng/mL NT-Pro-B Natriuret Pep 34382 pg/mL Total Protein (6.3-8.2) g/dL Albumin (3.5-5.0) g/dL - EKG Data -: EKG Interpreted by Nh EKG shows normal: sinus rhythm (With occasional PVC. Rate 78 bpm), axis ([place] axis), intervals (Normal) Interpretation: nonspecific ST-T wave changes Disposition Clinical Impression: Dyspnea, Elevated d-dimer, CHF exacerbation Disposition: ADMITTED IP TO THIS HOSP Condition: Fair Referrals: None,Stated [Primary Care Provider] - 1-2 days
[2019-11-02] MEDS ORDERED: predniSONE 20 MG TAB PO STA (00:54)
[2019-11-02] MEDS ORDERED: ALBUTEROL NEBULIZED 2.5 MG/3 ML INHALATION STA (00:54)
[2019-11-02] MEDS ORDERED: ENOXAPARIN 100 MG/ML SYRINGE SQ ONE (01:00)
[2019-11-02] MEDS ORDERED: ALBUTEROL NEBULIZED 2.5 MG/3 ML INHALATION PRN (05:00)
[2019-11-02 06:55] LABS: Glucose,Whole Blood 378 mg/dL (75-99)
--- NOTE | 2019-11-02 08:56 | NM ---
EXAMINATION TYPE: NM pul vent and perfuse DATE OF EXAM: 11/02/2019 COMPARISON: Chest x-ray 11/01/2019 HISTORY: Elevated d-dimer TECHNIQUE: Utilizing inhalation of 69.5 mCi Tc 99m DTPA aerosol and intravenous injection of 5.14 mC i of Tc 99m MAA, ventilation and perfusion images are acquired post injection in multiple projections . FINDINGS: No moderate or large mismatched defects are evident. Small mismatched defects are not identified. No triple matched defects are evident. IMPRESSION: Low probability for pulmonary embolism.
[2019-11-02] MEDS: predniSONE 20 MG TAB PO SCH (09:09)
[2019-11-02] MEDS: HEPARIN SODIUM,PORCINE 5,000 UNIT/ML 1 ML VIAL SQ SCH ×2 (09:09→20:07)
[2019-11-02] MEDS: INSULIN ASPART (NovoLOG) 100 UNIT/ML VIAL SQ SCH ×5 (09:16→20:21)
[2019-11-02] MEDS: IPRATROPIUM-ALBUTEROL 3 ML NEB INHALATION SCH ×4 (10:59→19:52)
[2019-11-02] MEDS ORDERED: FUROSEMIDE 10 MG/ML 2 ML VIAL IV ONE (11:07)
[2019-11-02 11:17] LABS: Glucose,Whole Blood 349 mg/dL (75-99)
[2019-11-02] MEDS ORDERED: MAG HYDROX/AL HYDROX/SIMETH 30 ML CUP PO PRN (11:37)
[2019-11-02] MEDS ORDERED: NITROGLYCERIN SL TABS 0.4 MG TAB SUBLINGUAL PRN (11:37)
[2019-11-02] MEDS ORDERED: OXYMETAZOLINE 0.05% NASL SPRAY 1 SPRAY BOTTLE EA NOSTRIL PRN (11:37)
[2019-11-02] MEDS ORDERED: ALBUTEROL INHALER 60 PUFF/8 GM INHALER INHALATION PRN (11:37)
[2019-11-02] MEDS ORDERED: HYDROcodone/APAP 5-325MG 1 EACH TAB PO PRN (11:37)
[2019-11-02] MEDS ORDERED: INSULIN ASPART (NovoLOG) 100 UNIT/ML VIAL SQ SCH (12:30)
--- NOTE | 2019-11-02 16:45 | P.HPIM ---
History of Present Illness H&P Date: 11/02/19 Chief Complaint: 2 day history of worsening SOB This is a history and physical on a 84-year-old white female with history of heart failure and COPD who for the last several days has been having worsening shortness of breath. The patient is primarily wheelchair-bound but tries to get up minimally. Multiple falls are otherwise noted. No fever or chills stated. However some cough and productive. No significant nausea, vomiting or diarrhea is stated. Evaluation emergency room did did show element of CHF with her history of COPD, she is appropriately admitted. Review of Systems Constitutional: Denies chills, Denies fever Eyes: denies blurred vision, denies pain Ears, nose, mouth and throat: Denies headache, Denies sore throat Cardiovascular: Reports as per HPI Respiratory: Reports as per HPI, Reports cough, Reports dyspnea, Reports wheezing, Denies hemoptysis Gastrointestinal: Denies abdominal pain, Denies diarrhea, Denies nausea, Denies vomiting Genitourinary: Denies dysuria, Denies hematuria Past Medical History Past Medical History: Coronary Artery Disease (CAD), Chest Pain / Angina, Diabetes Mellitus, GERD/Reflux, Hyperlipidemia, Hypertension, Osteoarthritis (OA), Renal Disease, Thyroid Disorder Additional Past Medical History / Comment(s): IDDM TYPE II, ARTHRITIS GENERALIZED AND ESPECIALLY IN BACK, CHRONIC BACK PAIN-CAN ONLY STAND FEW MINUTES AT A TIME with a wheelchair/walker, CHRONIC BILATERAL LEG NUMBNESS/BURNING, HYPOTHYROID, PAST HEPATITIS IN 1971 R/T BLOOD TRANSFUSION, CURRENT KIDNEY CYST, SOB WITH ACTIVITY, Stage 4 CKD (pt states she urinates 2-3/day). History of Any Multi-Drug Resistant Organisms: None Reported Past Surgical History: Appendectomy, Cholecystectomy, Heart Catheterization, Heart Catheterization With Stent, Hernia Repair Additional Past Surgical History / Comment(s): 07/08/17 PCI with stent to LCX, bilateral carpal tunnel; right and left finger release; CABG - 1998. Spinal cord stimulator implantation (2009) AND REMOVED. Bilateral cataract removal with lens implants,. Right hip surgery - too put in, T LT HIP REPLACEMENT. Pt states she broke her neck in May 2019; was seen by Dr Nelson. HIATAL HERNIA REPAIR. Stents placed 07/09/17. Past Anesthesia/Blood Transfusion Reactions: No Reported Reaction Additional Past Anesthesia/Blood Transfusion Reaction / Comment(s): contracted hepatits after blood transfusion (1971) Date of Last Stent Placement:: 07/08/17 Past Psychological History: No Psychological Hx Reported Additional Psychological History / Comment(s): Pt resides alone at [facility]. She uses a rolling walker to ambulate. She has a glucometer. She manages her own medication. She has installer helper for house work and laundry. She goes to the dining room for lunch, pt does not cook. Smoking Status: Never smoker Past Alcohol Use History: Rare Past Drug Use History: None Reported - Past Family History Mother Family Medical History: Cancer Son(s) Family Medical History: Cancer Father History Unknown: Yes Additional Family Medical History / Comment(s): Father at the age of 48yrs. Pt was little when he passed and is not sure what his cause of was. Medications and Allergies Home Medications Medication Instructions Recorded Confirmed Type Atorvastatin [Lipitor] 80 mg PO HS@2100 10/16/14 11/02/19 History Nitroglycerin Sl Tabs [Nitrostat] 0.4 mg SUBLINGUAL Q5M PRN 11/07/14 11/02/19 History Calcitriol 0.5 mcg PO SUTH@0800 09/09/16 11/02/19 History Sertraline [Zoloft] 50 mg PO DAILY@0800 08/27/18 11/02/19 History Cholecalciferol [Vitamin D3 (25 1,000 unit PO DAILY@0800 02/02/19 11/02/19 History Mcg = 1000 Iu)] Insulin Aspart [NovoLOG Flexpen] 5 units SQ BID@0800,1600 04/26/19 11/02/19 History Insulin Glargine,Hum.rec.anlog 12 units SQ HS@2100 04/26/19 11/02/19 History [Lantus Solostar] Tolterodine Tartrate [Detrol LA] 4 mg PO DAILY@0800 04/26/19 11/02/19 History Metoprolol Succinate (ER) [Toprol 12.5 mg PO DAILY tab.er.24h 04/30/19 11/02/19 Rx XL] Acetaminophen Tab [Tylenol Tab] 650 mg PO BID@0800,1600 11/02/19 11/02/19 History Albuterol Inhaler [Ventolin Hfa 2 puff INHALATION RT-Q6H PRN 11/02/19 11/02/19 History Inhaler] Allopurinol [Zyloprim] 100 mg PO HS@209911/02/19 11/02/19 History Aspirin 81 mg PO DAILY@0800 11/02/19 11/02/19 History Calcium Acetate [Phoslo] 667 mg PO DAILY@1600 11/02/19 11/02/19 History Colchicine [Colcrys] 0.6 mg PO DAILY@0811/02/19 11/02/19 History DULoxetine HCL [Cymbalta] 30 mg PO HS@209911/02/19 11/02/19 History Docusate [Colace] 200 mg PO DAILY PRN 11/02/19 11/02/19 History Furosemide [Lasix] 40 mg PO DAILY@0811/02/19 11/02/19 History HYDROcodone/APAP 5-325MG [[place] 1 tab PO Q6H PRN 11/02/19 11/02/19 History 5-325] Levothyroxine Sodium [Synthroid] 100 mcg PO DAILY@0811/02/19 11/02/19 History Mag Hydrox/Aluminum Hyd/Simeth 30 ml PO Q4H PRN 11/02/19 11/02/19 History [Mylanta Maximum Strength Liq] Omeprazole 20 mg PO DAILY@0800 11/02/19 11/02/19 History Oxymetazoline 0.05% Nasl [place] 1 spray EA NOSTRIL DAILY PRN 11/02/19 11/02/19 History [Afrin 0.05% Nasal [place]] Pregabalin [Lyrica] 150 mg PO BID@0800,1700 11/02/19 11/02/19 History Sennosides/Docusate Sodium [[place] 1 tab PO HS PRN 11/02/19 11/02/19 History Plus 8.6-50 mg Tablet] Spironolactone [Aldactone] 12.5 mg PO DAILY@0800 11/02/19 11/02/19 History Allergies Allergy/AdvReac Type Severity Reaction Status Date / Time Iodinated Contrast Media Allergy Severe Anaphylaxis Verified 11/02/19 08:55 [Iodinated Contrast Media - IV Dye] morphine Allergy Unknown Verified 11/02/19 08:55 Penicillins Allergy Unknown Verified 11/02/19 08:55 captopril [From Capoten] AdvReac Unknown PASSED OUT Verified 11/02/19 08:55 sulfamethoxazole AdvReac Unknown Diarrhea Verified 11/02/19 08:55 [From Bactrim] trimethoprim [From Bactrim] AdvReac Unknown Diarrhea Verified 11/02/19 08:55 Physical Exam Vitals: Vital Signs Temp Pulse Pulse Resp BP BP Pulse Ox 11/02/19 11:08 80 11/02/19 11:03 76 11/02/19 06:24 97.5 F L 78 16 151/70 98 11/02/19 05:59 78 18 130/61 98 11/02/19 02:00 75 19 134/58 99 11/02/19 01:31 78 11/02/19 01:17 76 11/02/19 01:00 74 18 138/61 98 11/02/19 00:00 76 17 149/85 99 11/01/19 23:44 75 18 149/85 99 11/01/19 23:30 78 18 148/80 99 11/01/19 23:16 78 11/01/19 23:06 78 11/01/19 23:00 75 18 142/70 100 11/01/19 22:30 79 17 159/72 100 11/01/19 22:11 22 11/01/19 21:56 97.6 F 77 22 167/94 100 Intake and Output 11/02/19 11/02/19 11/02/19 06:59 14:59 22:59 Other: Voiding Method Bedside Commode Weight 90.265 kg - Constitutional General appearance: mild distress - EENT Eyes: EOMI - Neck Neck: no lymphadenopathy - Respiratory Respiratory: bilateral: wheezing - Cardiovascular Rhythm: regular Heart sounds: normal: S1, S2 Abnormal Heart Sounds: no S3 Gallop - Gastrointestinal General gastrointestinal: soft, no tenderness - Neurologic Neurologic: CNII-XII intact - Musculoskeletal Musculoskeletal: generalized weakness - Psychiatric Psychiatric: A&O x's 3 Results CBC & Chem 7: 11/01/19 22:00 11/01/19 22:00 Labs: Abnormal Lab Results - Last 24 Hours (Table) 11/01/19 11/01/19 11/01/19 Range/Units 22:00 22:00 22:00 RBC 3.69 L (3.80-5.40) m/uL Hgb 10.7 L (11.4-16.0) gm/dL RDW 16.3 H (11.5-15.5) % D-Dimer 1.29 H (<0.60) mg/L FEU Chloride 108 H (98-107) mmol/L BUN 47 H (7-17) mg/dL Creatinine 1.69 H (0.52-1.04) mg/dL Glucose 140 H (74-99) mg/dL POC Glucose (mg/dL) (75-99) mg/dL Alkaline Phosphatase 127 H (38-126) U/L 11/02/19 11/02/19 Range/Units 06:53 11:02 RBC (3.80-5.40) m/uL Hgb (11.4-16.0) gm/dL RDW (11.5-15.5) % D-Dimer (<0.60) mg/L FEU Chloride (98-107) mmol/L BUN (7-17) mg/dL Creatinine (0.52-1.04) mg/dL Glucose (74-99) mg/dL POC Glucose (mg/dL) 378 H 349 H (75-99) mg/dL Alkaline Phosphatase (38-126) U/L Thrombosis Risk Factor Assmnt - Choose All That Apply Any of the Below Risk Factors Present?: Yes Each Factor Represents 1 point: Abnormal pulmonary function (COPD), Medical pt on bed rest Each Risk Factor Represents 3 Points: Age 75 years or older Thrombosis Risk Factor Assessment Total Risk Factor Score: 5 Thrombosis Risk Factor Assessment Level: High Risk Assessment and Plan (1) CHF exacerbation Current Visit: Yes Status: Acute Code(s): I50.9 - HEART FAILURE, UNSPECIFIED SNOMED Code(s): 233479683 (2) Dyspnea Current Visit: Yes Status: Acute Code(s): R06.00 - DYSPNEA, UNSPECIFIED SNOMED Code(s): 048792966 (3) Elevated d-dimer Current Visit: Yes Status: Acute Code(s): R79.89 - OTHER SPECIFIED ABNORMAL FINDINGS OF BLOOD CHEMISTRY SNOMED Code(s): 800249407 (4) Compression fracture of C7 vertebra Current Visit: No Status: Acute Code(s): S12.690A - OTH DISP FX OF SEVENTH CERVICAL VERTEBRA, INIT FOR CLOS FX SNOMED Code(s): 952096974 (5) Chronic kidney disease, stage 3 Current Visit: No Status: Chronic Code(s): N18.3 - CHRONIC KIDNEY DISEASE, STAGE 3 (MODERATE) SNOMED Code(s): 376748239 (6) Coronary artery disease Current Visit: No Status: Chronic Code(s): I25.10 - ATHSCL HEART DISEASE OF [place] CORONARY ARTERY W/O ANG PCTRS SNOMED Code(s): 84871040 (7) Hypertension Current Visit: No Status: Chronic Code(s): I10 - ESSENTIAL (PRIMARY) HYPERTENSION SNOMED Code(s): 25277305 (8) Type II diabetes mellitus with peripheral circulatory disorder, uncontrolled Current Visit: No Status: Chronic Priority: Medium Code(s): E11.51 - TYPE 2 DIABETES W DIABETIC PERIPHERAL ANGIOPATH W/O GANGRENE SNOMED Code(s): 27629450 Plan: Continue appropriate diuresis. Consult appropriate pulmonology and cardiology. GI prophylaxis as necessary. VQ scan is pending. Check CBC and CMP in a.m. Dr. Isbell's group will covering for the weekend.
[2019-11-02 17:34] LABS: Glucose,Whole Blood 233 mg/dL (75-99)
[2019-11-02] MEDS: PREGABALIN 75 MG CAP PO SCH (17:47)
[2019-11-02] MEDS: ACETAMINOPHEN TAB 325 MG TAB PO SCH (17:47)
[2019-11-02] MEDS: CALCIUM ACETATE 667 MG TAB PO SCH (17:47)
[2019-11-02] MEDS: ALLOPURINOL 100 MG TAB PO SCH (20:07)
[2019-11-02] MEDS: ATORVASTATIN 80 MG TAB PO SCH (20:07)
[2019-11-02] MEDS: DULoxetine HCL 30 MG CAPSULE.DR PO SCH (20:07)
[2019-11-02 20:11] LABS: Glucose,Whole Blood 286 mg/dL (75-99)
[2019-11-02] MEDS: INSULIN DETEMIR (LEVEMIR) 100 UNIT/ML SYR SQ SCH (21:28)
[2019-11-03 07:21] LABS: Glucose,Whole Blood 198 mg/dL (75-99)
[2019-11-03] MEDS: PREGABALIN 75 MG CAP PO SCH ×2 (07:42→17:25)
[2019-11-03] MEDS: LEVOTHYROXINE 100 MCG TAB PO SCH (07:42)
[2019-11-03] MEDS: METOPROLOL SUCCINATE (ER) 25 MG TAB.ER.24H PO SCH (07:44)
[2019-11-03 07:45] LABS: Anisocytosis Slight; HCT 30.8 % (34.0-46.0); HGB 9.6 gm/dL (11.4-16.0); Hypochromasia Slight; MCH 29.2 pg (25.0-35.0); Mean Platelet Volume 11.9; Platelet Count 164 k/uL (150-450); RBC 3.28 m/uL (3.80-5.40); RDW 16.3 % (11.5-15.5); WBC 13.4 k/uL (3.8-10.6)
[2019-11-03] MEDS: SERTRALINE 50 MG TAB PO SCH (07:45)
[2019-11-03] MEDS: ACETAMINOPHEN TAB 325 MG TAB PO SCH ×2 (07:45→15:47)
[2019-11-03] MEDS: PANTOPRAZOLE 40 MG TABLET PO SCH (07:46)
[2019-11-03] MEDS: COLCHICINE 0.6 MG EACH PO SCH (07:47)
[2019-11-03] MEDS: OXYBUTYNIN 10 MG TAB.ER.24 PO SCH (07:47)
[2019-11-03] MEDS: ASPIRIN 81 MG PO SCH (07:47)
[2019-11-03] MEDS: predniSONE 20 MG TAB PO SCH (07:47)
[2019-11-03] MEDS: HEPARIN SODIUM,PORCINE 5,000 UNIT/ML 1 ML VIAL SQ SCH ×2 (07:55→21:07)
[2019-11-03] MEDS: INSULIN ASPART (NovoLOG) 100 UNIT/ML VIAL SQ SCH ×6 (07:55→21:07)
[2019-11-03 07:58] LABS: Albumin 3.5 g/dL (3.5-5.0); Calcium 8.9 mg/dL (8.4-10.2); Potassium 4.6 mmol/L (3.5-5.1); Total Bilirubin 0.4 mg/dL (0.2-1.3); Total Protein 6.5 g/dL (6.3-8.2)
[2019-11-03] MEDS ORDERED: SPIRONOLACTONE 25 MG TAB PO SCH (08:00)
[2019-11-03] MEDS: IPRATROPIUM-ALBUTEROL 3 ML NEB INHALATION SCH ×4 (09:21→20:29)
[2019-11-03 12:11] LABS: Glucose,Whole Blood 270 mg/dL (75-99)
--- NOTE | 2019-11-03 14:03 | P.NPCON ---
History of Present Illness - Reason for Consult Consult date: 11/03/19 acute renal failure - Chief Complaint Acute kidney injury. - History of Present Illness 84-year-old white lady coming to the hospital with shortness of breath. She has CKD4 with a baseline creatinine of 1.4-1.8 MG per DL follows with Dr. Ortega as outpatient. She presented to the hospital for shortness of breath. Chest x-ray showed interstitial lung disease. She had a VQ scan which was negative for pulmonary embolism currently on oxygen. She had diarrhea watery for 2-3 days prior to hospital admission. Currently no diarrhea at this time. No nausea or vomiting. No NSAID use or recent contrast studies. She has hospice meeting today. And planning to enroll into hospice soon. Past Medical History Past Medical History: Coronary Artery Disease (CAD), Chest Pain / Angina, Diabetes Mellitus, GERD/Reflux, Hyperlipidemia, Hypertension, Osteoarthritis (OA), Renal Disease, Thyroid Disorder Additional Past Medical History / Comment(s): IDDM TYPE II, ARTHRITIS GENERALIZED AND ESPECIALLY IN BACK, CHRONIC BACK PAIN-CAN ONLY STAND FEW MINUTES AT A TIME with a wheelchair/walker, CHRONIC BILATERAL LEG NUMBNESS/BURNING, HYP OTHYROID, PAST HEPATITIS IN 1971 R/T BLOOD TRANSFUSION, CURRENT KIDNEY CYST, SOB WITH ACTIVITY, Stage 4 CKD (pt states she urinates 2-3/day). History of Any Multi-Drug Resistant Organisms: None Reported Past Surgical History: Appendectomy, Cholecystectomy, Heart Catheterization, Heart Catheterization With Stent, Hernia Repair Additional Past Surgical History / Comment(s): 07/08/17 PCI with stent to LCX, bilateral carpal tunnel; right and left finger release; CABG - 1998. Spinal cord stimulator implantation (2009) AND REMOVED. Bilateral cataract removal with lens implants,. Right hip surgery - too put in, T LT HIP REPLACEMENT. Pt states she broke her neck in May 2019; was seen by Dr Nelson. HIATAL HERNIA REPAIR. Stents placed 07/09/17. Past Anesthesia/Blood Transfusion Reactions: No Reported Reaction Additional Past Anesthesia/Blood Transfusion Reaction / Comment(s): contracted hepatits after blood transfusion (1971) Date of Last Stent Placement:: 07/08/17 Past Psychological History: No Psychological Hx Reported Additional Psychological History / Comment(s): Pt resides alone at [facility]. She uses a rolling walker to ambulate. She has a glucometer. She manages her own medication. She has lead burner helper for house work and laundry. She goes to the dining room for lunch, pt does not cook. Smoking Status: Never smoker Past Alcohol Use History: Rare Past Drug Use History: None Reported - Past Family History Mother Family Medical History: Cancer Son(s) Family Medical History: Cancer Father History Unknown: Yes Additional Family Medical History / Comment(s): Father at the age of 48yrs. Pt was little when he passed and is not sure what his cause of was. Medications and Allergies Home Medications Medication Instructions Recorded Confirmed Type Atorvastatin [Lipitor] 80 mg PO HS@209910/16/14 11/02/19 History Nitroglycerin Sl Tabs [Nitrostat] 0.4 mg SUBLINGUAL Q5M PRN 11/07/14 11/02/19 History Calcitriol 0.5 mcg PO SUTH@0800 09/09/16 11/02/19 History Sertraline [Zoloft] 50 mg PO DAILY@0800 08/27/18 11/02/19 History Cholecalciferol [Vitamin D3 (25 1,000 unit PO DAILY@0800 02/02/19 11/02/19 History Mcg = 1000 Iu)] Insulin Aspart [NovoLOG Flexpen] 5 units SQ BID@0800,1600 04/26/19 11/02/19 History Insulin Glargine,Hum.rec.anlog 12 units SQ HS@209904/26/19 11/02/19 History [Lantus Solostar] Tolterodine Tartrate [Detrol LA] 4 mg PO DAILY@0800 04/26/19 11/02/19 History Metoprolol Succinate (ER) [Toprol 12.5 mg PO DAILY tab.er.24h 04/30/19 11/02/19 Rx XL] Acetaminophen Tab [Tylenol Tab] 650 mg PO BID@0800,1600 11/02/19 11/02/19 History Albuterol Inhaler [Ventolin Hfa 2 puff INHALATION RT-Q6H PRN 11/02/19 11/02/19 History Inhaler] Allopurinol [Zyloprim] 100 mg PO HS@209911/02/19 11/02/19 History Aspirin 81 mg PO DAILY@0800 11/02/19 11/02/19 History Calcium Acetate [Phoslo] 667 mg PO DAILY@1600 11/02/19 11/02/19 History Colchicine [Colcrys] 0.6 mg PO DAILY@0800 11/02/19 11/02/19 History DULoxetine HCL [Cymbalta] 30 mg PO HS@2100 11/02/19 11/02/19 History Docusate [Colace] 200 mg PO DAILY PRN 11/02/19 11/02/19 History Furosemide [Lasix] 40 mg PO DAILY@0800 11/02/19 11/02/19 History HYDROcodone/APAP 5-325MG [[place] 1 tab PO Q6H PRN 11/02/19 11/02/19 History 5-325] Levothyroxine Sodium [Synthroid] 100 mcg PO DAILY@0800 11/02/19 11/02/19 History Mag Hydrox/Aluminum Hyd/Simeth 30 ml PO Q4H PRN 11/02/19 11/02/19 History [Mylanta Maximum Strength Liq] Omeprazole 20 mg PO DAILY@0800 11/02/19 11/02/19 History Oxymetazoline 0.05% Nasl [place] 1 spray EA NOSTRIL DAILY PRN 11/02/19 11/02/19 History [Afrin 0.05% Nasal [place]] Pregabalin [Lyrica] 150 mg PO BID@0800,1700 11/02/19 11/02/19 History Sennosides/Docusate Sodium [Senna 1 tab PO HS PRN 11/02/19 11/02/19 History Plus 8.6-50 mg Tablet] Spironolactone [Aldactone] 12.5 mg PO DAILY@0800 11/02/19 11/02/19 History Allergies Allergy/AdvReac Type Severity Reaction Status Date / Time Iodinated Contrast Media Allergy Severe Anaphylaxis Verified 11/02/19 08:55 [Iodinated Contrast Media - IV Dye] morphine Allergy Unknown Verified 11/02/19 08:55 Penicillins Allergy Unknown Verified 11/02/19 08:55 captopril [From Capoten] AdvReac Unknown PASSED OUT Verified 11/02/19 08:55 sulfamethoxazole AdvReac Unknown Diarrhea Verified 11/02/19 08:55 [From Bactrim] trimethoprim [From Bactrim] AdvReac Unknown Diarrhea Verified 11/02/19 08:55 Physical Exam Vitals: Vital Signs Temp Pulse Pulse Resp BP Pulse Ox 11/03/19 12:43 78 11/03/19 12:32 78 11/03/19 12:05 97.9 F 76 16 148/65 96 11/03/19 09:34 76 11/03/19 09:21 74 99 11/03/19 05:00 97.5 F L 69 16 136/70 100 11/02/19 21:00 97.5 F L 80 16 135/62 96 11/02/19 20:07 74 11/02/19 19:52 74 11/02/19 17:12 80 11/02/19 17:04 72 11/02/19 14:15 98 F 78 18 146/88 93 L Intake and Output 11/02/19 11/03/19 11/03/19 22:59 06:59 14:59 Other: Voiding Method Bedside Commode Bedside Commode Toilet Bedside Commode # Voids 2 1 1 No acute distress S1-S2 heard Decreased breath sounds Abdomen soft Trace edema Results - Lab Results Most recent lab results Calcium 8.9 mg/dL (8.4-10.2) 11/03/19 07:10 11/03/19 07:02 11/03/19 07:10 Assessment and Plan Assessment: #1 acute kidney injury suspect prerenal process from diarrhea. She also takes Lasix at home. #2 chronic kidney disease stage IV secondary to nephrosclerosis with a baseline creatinine of 1.4-1.8 MG per DL. #3 hypertension with chronic kidney disease #4 complicated diabetes #5 metabolic alkalosis Plan: #1 add saline at 75 ML's an hour. Hold Lasix at this time. #2 check bladder scan, urinalysis and urine electrolytes. #3 patient clearly expressed the view of not pursuing for dialysis if need arises. #4 labs in the morning.
[2019-11-03] MEDS: SODIUM CHLORIDE 0.9% 1,000 ML IV SCH (15:47)
[2019-11-03] MEDS: CALCIUM ACETATE 667 MG TAB PO SCH (15:48)
[2019-11-03 16:49] LABS: Glucose,Whole Blood 341 mg/dL (75-99)
--- NOTE | 2019-11-03 17:11 | P.PN ---
Subjective Progress Note Date: 11/03/19 Principal diagnosis: Acute exacerbation CHF Worsening renal failure Elevated d-dimer rule out PE 80-year-old female patient admitted with acute exacerbations CHF and acute on chronic kidney disease stage IV; patient is started on IV diuretic therapy in ED resulting in gradual worsening cough chronic kidney disease 11/03/2019 Patient is seen and evaluated in room with nursing staff at bedside; patient reports improvement in dyspnea; VQ scan is done and shows low probability; lab review shows an increased creatinine up to 12.02 this morning; patient has stage for kidney disease secondary to nephrocalcinosis with baseline creatinine of 1.4-1.8; nephrology is consulted and patient has been started on slow IV fluid hydration with normal saline at a rate of 75 mL an hour; Lasix has been put on hold; nephrology recommending to monitor bladder scan, urinalysis and urine electrolytes; further recommendations after testing is available Objective - Vital Signs Vital signs: Vital Signs Temp 97.9 F 11/03/19 12:05 Pulse 76 11/03/19 12:05 Resp 16 11/03/19 12:05 BP 148/65 11/03/19 12:05 Pulse Ox 96 11/03/19 12:05 Intake & Output 11/02/19 11/03/19 11/03/19 18:59 06:59 18:59 Other: Voiding Method Bedside Commode Bedside Commode Toilet Bedside Commode # Voids 2 1 1 - Exam - Constitutional General appearance: Present: average body habitus, cooperative, no acute distress - EENT Eyes: Present: anicteric sclerae, EOMI, PERRLA, normal appearance ENT: Present: hearing grossly normal, normal oropharynx Ears: bilateral: normal - Neck Neck: Present: normal ROM. Absent: lymphadenopathy, rigidity, thyromegaly Carotids: negative: bruit present Thyroid: bilateral: normal size, negative: enlarged, nodule - Respiratory Respiratory: bilateral: CTA, negative: rales, rhonchi, wheezing - Cardiovascular Rhythm: regular Heart sounds: normal: S1, S2 Abnormal Heart Sounds: Absent: systolic murmur, diastolic murmur - Gastrointestinal General gastrointestinal: Present: normal bowel sounds, soft. Absent: distende d, organomegaly, tenderness - Genitourinary Genitourinary Comment(s): deferred - Integumentary Integumentary: Present: normal turgor. Absent: jaundiced, rash, ulcer - Neurologic Neurologic: Present: CNII-XII intact. Absent: focal deficits - Musculoskeletal Musculoskeletal: Present: gait normal, strength equal bilaterally - Psychiatric Psychiatric: Present: A&O x's 3, appropriate affect, intact judgment & insight - Labs CBC & Chem 7: 11/03/19 07:02 11/03/19 07:10 Labs: Abnormal Lab Results - Last 24 Hours (Table) 11/02/19 11/02/19 11/03/19 Range/Units 17:32 20:09 07:02 WBC 13.4 H (3.8-10.6) k/uL RBC 3.28 L (3.80-5.40) m/uL Hgb 9.6 L (11.4-16.0) gm/dL Hct 30.8 L (34.0-46.0) % RDW 16.3 H (11.5-15.5) % BUN (7-17) mg/dL Creatinine (0.52-1.04) mg/dL Glucose (74-99) mg/dL POC Glucose (mg/dL) 233 H 286 H (75-99) mg/dL 11/03/19 11/03/19 11/03/19 Range/Units 07:10 07:20 12:10 WBC (3.8-10.6) k/uL RBC (3.80-5.40) m/uL Hgb (11.4-16.0) gm/dL Hct (34.0-46.0) % RDW (11.5-15.5) % BUN 54 H (7-17) mg/dL Creatinine 2.02 H (0.52-1.04) mg/dL Glucose 195 H (74-99) mg/dL POC Glucose (mg/dL) 198 H 270 H (75-99) mg/dL Assessment and Plan Assessment: 1. Acute exacerbation CHF 2. Dyspnea 3. Elevated d-dimer rule out PE 4. Compression fracture of C7 vertebra 5. Acute on chronic kidney disease stage IV 6. Hypertension 7. DVT prophylaxis CODE STATUS; full code Plan is to continue with slow IV fluid hydration and hold Lasix as recommended by nephrology; continue all current medications and monitor renal function and electrolytes closely with strict KHANH's
[2019-11-03 20:12] LABS: Glucose,Whole Blood 339 mg/dL (75-99)
[2019-11-03] MEDS: ATORVASTATIN 80 MG TAB PO SCH (21:07)
[2019-11-03] MEDS: DULoxetine HCL 30 MG CAPSULE.DR PO SCH (21:07)
[2019-11-03] MEDS: ALLOPURINOL 100 MG TAB PO SCH (21:07)
[2019-11-03] MEDS: INSULIN DETEMIR (LEVEMIR) 100 UNIT/ML SYR SQ SCH (21:08)
[2019-11-03 21:18] LABS: Appearance,Urine Clear (Clear); Bacteria,Urine Rare /hpf; Bilirubin,Urine Negative (Negative); Blood,Urine Negative (Negative); Color,Urine Light Yellow; Glucose,Urine (UA) Trace (Negative); Hyaline Casts,Urine 6 /lpf (0-2); Ketones,Urine Negative (Negative); Leukocyte Esterase,Urine Small (Negative); Mucus,Urine Rare /hpf; Nitrite,Urine Negative (Negative); PH, Urine 5.5 (5.0-8.0); Protein,Urine 1+ (Negative); RBC,Urine 1 /hpf (0-5); Specific Gravity,Urine 1.015 (1.001-1.035); Squamous Epithelial Cell,Urine 2 /hpf (0-4); Urobilinogen,Urine <2.0 mg/dL (<2.0); WBC,Urine 5 /hpf (0-5)
[2019-11-04] MEDS: SODIUM CHLORIDE 0.9% 1,000 ML IV SCH ×2 (05:34→17:11)
[2019-11-04 07:04] LABS: Glucose,Whole Blood 163 mg/dL (75-99)
[2019-11-04] MEDS: IPRATROPIUM-ALBUTEROL 3 ML NEB INHALATION SCH ×4 (07:20→19:08)
[2019-11-04] MEDS: PREGABALIN 75 MG CAP PO SCH ×2 (07:32→17:10)
[2019-11-04] MEDS: predniSONE 20 MG TAB PO SCH (07:32)
[2019-11-04] MEDS: ACETAMINOPHEN TAB 325 MG TAB PO SCH ×2 (07:33→15:37)
[2019-11-04] MEDS: DOCUSATE 100 MG CAP PO PRN (07:33)
[2019-11-04] MEDS: SERTRALINE 50 MG TAB PO SCH (07:34)
[2019-11-04] MEDS: ASPIRIN 81 MG PO SCH (07:34)
[2019-11-04] MEDS: METOPROLOL SUCCINATE (ER) 25 MG TAB.ER.24H PO SCH (07:34)
[2019-11-04] MEDS: PANTOPRAZOLE 40 MG TABLET PO SCH (07:34)
[2019-11-04] MEDS: HEPARIN SODIUM,PORCINE 5,000 UNIT/ML 1 ML VIAL SQ SCH ×2 (07:34→21:06)
[2019-11-04] MEDS: INSULIN ASPART (NovoLOG) 100 UNIT/ML VIAL SQ SCH ×6 (07:35→21:06)
[2019-11-04] MEDS: COLCHICINE 0.6 MG EACH PO SCH (07:36)
[2019-11-04] MEDS: LEVOTHYROXINE 100 MCG TAB PO SCH (07:36)
[2019-11-04] MEDS: OXYBUTYNIN 10 MG TAB.ER.24 PO SCH (07:36)
[2019-11-04 07:43] LABS: Calcium 8.7 mg/dL (8.4-10.2); Potassium 4.5 mmol/L (3.5-5.1)
[2019-11-04] MEDS ORDERED: CALCITRIOL 0.25 MCG CAP PO SCH (08:00)
[2019-11-04 11:49] LABS: Glucose,Whole Blood 209 mg/dL (75-99)
--- NOTE | 2019-11-04 12:15 | P.PN ---
Subjective Progress Note Date: 11/04/19 Follow-up for acute kidney injury feeling better today. No nausea vomiting diarrhea. Objective - Vital Signs Vital signs: Vital Signs Temp 97.5 F L 11/04/19 05:00 Pulse 70 11/04/19 11:12 Resp 16 11/04/19 05:00 BP 145/74 11/04/19 05:00 Pulse Ox 96 11/04/19 05:00 Intake & Output 11/03/19 11/04/19 11/04/19 18:59 06:59 18:59 Intake Total 1760 1490 Balance 1760 1490 Weight 75 kg Intake: Intake, IV Titration 900 Amount Sodium Chloride 0.9% 1, 900 000 ml @ 75 mls/hr IV . [id number] [facility] Rx#:[id number] Oral 1760 590 Other: Voiding Method Toilet Toilet Bedside Commode Bedside Commode Bedside Commode Diaper # Voids 2 1 2 - Exam No acute distress S1-S2 heard Lungs clear No edema - Labs CBC & Chem 7: 11/03/19 07:02 11/04/19 07:00 Labs: Abnormal Lab Results - Last 24 Hours (Table) 11/03/19 11/03/19 11/03/19 Range/Units 16:48 20:11 20:30 BUN (7-17) mg/dL Creatinine (0.52-1.04) mg/dL Glucose (74-99) mg/dL POC Glucose (mg/dL) 341 H 339 H (75-99) mg/dL Urine Protein 1+ H (Negative) Urine Glucose (UA) Trace H (Negative) Ur Leukocyte Esterase Small H (Negative) Urine WBC Clumps Rare H (None) /hpf Urine Bacteria Rare H (None) /hpf Hyaline Casts 6 H (0-2) /lpf Urine Mucus Rare H (None) /hpf 11/04/19 11/04/19 11/04/19 Range/Units 07:00 07:01 11:39 BUN 57 H (7-17) mg/dL Creatinine 2.09 H (0.52-1.04) mg/dL Glucose 151 H (74-99) mg/dL POC Glucose (mg/dL) 163 H 209 H (75-99) mg/dL Urine Protein (Negative) Urine Glucose (UA) (Negative) Ur Leukocyte Esterase (Negative) Urine WBC Clumps (None) /hpf Urine Bacteria (None) /hpf Hyaline Casts (0-2) /lpf Urine Mucus (None) /hpf Assessment and Plan Assessment: #1 acute kidney injury suspect prerenal process from diarrhea. She also takes Lasix at home. #2 chronic kidney disease stage IV secondary to nephrosclerosis with a baseline creatinine of 1.4-1.8 MG per DL. #3 hypertension with chronic kidney disease #4 complicated diabetes #5 metabolic alkalosis Plan: #1 renal function stable continue with saline 75 ML's an hour. #2 patient clearly expressed the view of not pursuing for dialysis if need arises. #3 avoid nephrotoxic agents and hypotensive episodes.
[2019-11-04] MEDS: CALCIUM ACETATE 667 MG TAB PO SCH (15:37)
--- NOTE | 2019-11-04 15:50 | P.PN ---
Subjective Progress Note Date: 11/04/19 Principal diagnosis: Acute exacerbation CHF Worsening renal failure Elevated d-dimer rule out PE 80-year-old female patient admitted with acute exacerbations CHF and acute on chronic kidney disease stage IV; patient is started on IV diuretic therapy in ED resulting in gradual worsening cough chronic kidney disease 11/03/2019 Patient is seen and evaluated in room with nursing staff at bedside; patient reports improvement in dyspnea; VQ scan is done and shows low probability; lab review shows an increased creatinine up to 12.02 this morning; patient has stage for kidney disease secondary to nephrocalcinosis with baseline creatinine of 1.4-1.8; nephrology is consulted and patient has been started on slow IV fluid hydration with normal saline at a rate of 75 mL an hour; Lasix has been put on hold; nephrology recommending to monitor bladder scan, urinalysis and urine electrolytes; further recommendations after testing is available 11/04/2019 Patient is sitting up in bedside chair; seems to be in no acute distress Lab review shows stabilization and renal function with her creatinine remained stable at 2.09; nephrology is following for worsening renal function and patient has been taken off IV diuretics and is started on slow IV fluid hydration with normal saline at rate of 75 mL an hour; plan to continue with IV fluids for another 24 hours and monitor electrolytes and renal function closely; continue to avoid nephrotoxic agents and hypotension; lab work reveals slight elevation in white blood count and UA was obtained yesterday; patient is afebrile and asymptomatic so we will hold off on using antibiotic treatment and monitor CBC closely and start antibiotics if white blood count continues to trend up Objective - Vital Signs Vital signs: Vital Signs Temp 97.5 F L 11/04/19 05:00 Pulse 70 11/04/19 11:12 Resp 16 11/04/19 05:00 BP 145/74 11/04/19 05:00 Pulse Ox 96 11/04/19 05:00 Intake & Output 11/03/19 11/04/19 11/04/19 18:59 06:59 18:59 Intake Total 1760 1490 Balance 1760 1490 Weight 75 kg Intake: Intake, IV Titration 900 Amount Sodium Chloride 0.9% 1, 900 000 ml @ 75 mls/hr IV . [id number] [facility] Rx#:[id number] Oral 1760 590 Other: Voiding Method Toilet Toilet Bedside Commode Bedside Commode Bedside Commode Diaper # Voids 2 1 2 - Exam - Constitutional General appearance: Present: average body habitus, cooperative, no acute distress - EENT Eyes: Present: anicteric sclerae, EOMI, PERRLA, normal appearance ENT: Present: hearing grossly normal, normal oropharynx Ears: bilateral: normal - Neck Neck: Present: normal ROM. Absent: lymphadenopathy, rigidity, thyromegaly Carotids: negative: bruit present Thyroid: bilateral: normal size, negative: enlarged, nodule - Respiratory Respiratory: bilateral: CTA, negative: rales, rhonchi, wheezing - Cardiovascular Rhythm: regular Heart sounds: normal: S1, S2 Abnormal Heart Sounds: Absent: systolic murmur, diastolic murmur - Gastrointestinal General gastrointestinal: Present: normal bowel sounds, soft. Absent: distended, organomegaly, tenderness - Genitourinary Genitourinary Comment(s): deferred - Integumentary Integumentary: Present: normal turgor. Absent: jaundiced, rash, ulcer - Neurologic Neurologic: Present: CNII-XII intact. Absent: focal deficits - Musculoskeletal Musculoskeletal: Present: gait normal, strength equal bilaterally - Psychiatric Psychiatric: Present: A&O x's 3, appropriate affect, intact judgment & insight - Labs CBC & Chem 7: 11/03/19 07:02 11/04/19 07:00 Labs: Abnormal Lab Results - Last 24 Hours (Table) 11/03/19 11/03/19 11/03/19 Range/Units 12:10 16:48 20:11 BUN (7-17) mg/dL Creatinine (0.52-1.04) mg/dL Glucose (74-99) mg/dL POC Glucose (mg/dL) 270 H 341 H 339 H (75-99) mg/dL Urine Protein (Negative) Urine Glucose (UA) (Negative) Ur Leukocyte Esterase (Negative) Urine WBC Clumps (None) /hpf Urine Bacteria (None) /hpf Hyaline Casts (0-2) /lpf Urine Mucus (None) /hpf 11/03/19 11/04/19 11/04/19 Range/Units 20:30 07:00 07:01 BUN 57 H (7-17) mg/dL Creatinine 2.09 H (0.52-1.04) mg/dL Glucose 151 H (74-99) mg/dL POC Glucose (mg/dL) 163 H (75-99) mg/dL Urine Protein 1+ H (Negative) Urine Glucose (UA) Trace H (Negative) Ur Leukocyte Esterase Small H (Negative) Urine WBC Clumps Rare H (None) /hpf Urine Bacteria Rare H (None) /hpf Hyaline Casts 6 H (0-2) /lpf Urine Mucus Rare H (None) /hpf Assessment and Plan Assessment: 1. Acute exacerbation CHF 2. Dyspnea 3. Elevated d-dimer rule out PE 4. Compression fracture of C7 vertebra 5. Acute on chronic kidney disease stage IV 6. Hypertension 7. DVT prophylaxis CODE STATUS; full code Plan is to continue with slow IV fluid hydration and hold Lasix as recommended by nephrology; continue all current medications and monitor renal function and electrolytes closely with strict KHANH's Time with Patient: Greater than 30
[2019-11-04 16:54] LABS: Glucose,Whole Blood 343 mg/dL (75-99)
[2019-11-04 20:07] LABS: Glucose,Whole Blood 326 mg/dL (75-99)
[2019-11-04] MEDS: ATORVASTATIN 80 MG TAB PO SCH (21:05)
[2019-11-04] MEDS: DULoxetine HCL 30 MG CAPSULE.DR PO SCH (21:05)
[2019-11-04] MEDS: INSULIN DETEMIR (LEVEMIR) 100 UNIT/ML SYR SQ SCH (21:05)
[2019-11-04] MEDS: ALLOPURINOL 100 MG TAB PO SCH (21:05)
[2019-11-05 07:02] LABS: Glucose,Whole Blood 181 mg/dL (75-99)
[2019-11-05] MEDS: IPRATROPIUM-ALBUTEROL 3 ML NEB INHALATION SCH ×4 (07:23→21:41)
--- NOTE | 2019-11-05 07:53 | P.PN ---
Subjective Progress Note Date: 11/05/19 Principal diagnosis: Generalized weakness. SHAMAR This is a continue pressure 84-year-old white female essentially admitted for COPD exacerbation with acute kidney injury. Generalized weakness is otherwise noted. She complains of significant hypersomnia. Overall weakness otherwise stated. Objective - Vital Signs Vital signs: Vital Signs Temp 96.7 F L 11/05/19 04:56 Pulse 72 11/05/19 07:41 Resp 20 11/05/19 04:56 BP 156/87 11/05/19 04:56 Pulse Ox 97 11/05/19 04:56 Intake & Output 11/04/19 11/05/19 11/05/19 18:59 06:59 18:59 Intake Total 900 590 Balance 900 590 Weight 65.5 kg Intake: Intake, IV Titration 900 Amount Sodium Chloride 0.9% 1, 900 000 ml @ 75 mls/hr IV . [id number] [facility] Rx#:[id number] Oral 590 Other: Voiding Method Bedside Commode Bedside Commode Diaper Diaper # Voids 3 2 - Constitutional General appearance: Present: cooperative, no acute distress - EENT Eyes: Absent: abnormal pupil - Respiratory Respiratory: bilateral: diminished - Cardiovascular Rhythm: regular Heart sounds: normal: S1, S2 Abnormal Heart Sounds: Absent: S3 Gallop - Gastrointestinal General gastrointestinal: Present: soft. Absent: tenderness - Psychiatric Psychiatric: Present: A&O x's 3 - Labs CBC & Chem 7: 11/03/19 07:02 11/04/19 07:00 Labs: Abnormal Lab Results - Last 24 Hours (Table) 11/04/19 11/04/19 11/04/19 Range/Units 11:39 16:52 20:05 POC Glucose (mg/dL) 209 H 343 H 326 H (75-99) mg/dL 11/05/19 Range/Units 07:01 POC Glucose (mg/dL) 181 H (75-99) mg/dL Assessment and Plan (1) CHF exacerbation Current Visit: Yes Status: Acute Code(s): I50.9 - HEART FAILURE, UNSPECIFIED SNOMED Code(s): 638742187 (2) Dyspnea Current Visit: Yes Status: Acute Code(s): R06.00 - DYSPNEA, UNSPECIFIED SNOMED Code(s): 325460326 (3) Elevated d-dimer Current Visit: Yes Status: Acute Code(s): R79.89 - OTHER SPECIFIED ABNORMAL FINDINGS OF BLOOD CHEMISTRY SNOMED Code(s): 751679137 (4) Compression fracture of C7 vertebra Current Visit: No Status: Acute Code(s): S12.690A - OTH DISP FX OF SEVENTH CERVICAL VERTEBRA, INIT FOR CLOS FX SNOMED Code(s): 733611066 (5) Chronic kidney disease, stage 3 Current Visit: No Status: Chronic Code(s): N18.3 - CHRONIC KIDNEY DISEASE, STAGE 3 (MODERATE) SNOMED Code(s): 985248646 (6) Coronary artery disease Current Visit: No Status: Chronic Code(s): I25.10 - ATHSCL HEART DISEASE OF [place] CORONARY ARTERY W/O ANG PCTRS SNOMED Code(s): 17320647 (7) Hypertension Current Visit: No Status: Chronic Code(s): I10 - ESSENTIAL (PRIMARY) HYPERTENSION SNOMED Code(s): 72747247 (8) Type II diabetes mellitus with peripheral circulatory disorder, uncontrolled Current Visit: No Status: Chronic Priority: Medium Code(s): E11.51 - TYPE 2 DIABETES W DIABETIC PERIPHERAL ANGIOPATH W/O GANGRENE SNOMED Code(s): 14980071 Plan: Continue appropriate diuresis. Check CBC and CMP in a.m. Prognosis is guarded secondary to multiple comorbidities and advancing age. Hopefully we can discharge in next 24-48 hours. Time with Patient: Less than 30
[2019-11-05] MEDS: ACETAMINOPHEN TAB 325 MG TAB PO SCH ×2 (08:27→16:52)
[2019-11-05] MEDS: INSULIN ASPART (NovoLOG) 100 UNIT/ML VIAL SQ SCH ×6 (08:27→20:23)
[2019-11-05] MEDS: predniSONE 20 MG TAB PO SCH (08:27)
[2019-11-05] MEDS: PANTOPRAZOLE 40 MG TABLET PO SCH (08:28)
[2019-11-05] MEDS: PREGABALIN 75 MG CAP PO SCH ×2 (08:28→16:52)
[2019-11-05] MEDS: METOPROLOL SUCCINATE (ER) 25 MG TAB.ER.24H PO SCH (08:28)
[2019-11-05] MEDS: HEPARIN SODIUM,PORCINE 5,000 UNIT/ML 1 ML VIAL SQ SCH ×2 (08:28→20:23)
[2019-11-05] MEDS: OXYBUTYNIN 10 MG TAB.ER.24 PO SCH (08:29)
[2019-11-05] MEDS: ASPIRIN 81 MG PO SCH (08:29)
[2019-11-05] MEDS: SERTRALINE 50 MG TAB PO SCH (08:29)
[2019-11-05] MEDS: LEVOTHYROXINE 100 MCG TAB PO SCH (08:29)
[2019-11-05] MEDS: COLCHICINE 0.6 MG EACH PO SCH (08:31)
[2019-11-05 08:36] LABS: Calcium 8.7 mg/dL (8.4-10.2); Potassium 4.7 mmol/L (3.5-5.1)
[2019-11-05] MEDS: DOCUSATE 100 MG CAP PO PRN (09:09)
[2019-11-05] MEDS: SODIUM CHLORIDE 0.9% 1,000 ML IV SCH ×2 (09:10→20:28)
[2019-11-05 11:43] LABS: Glucose,Whole Blood 137 mg/dL (75-99)
[2019-11-05 15:39] VITALS: BMI 29.1
[2019-11-05] MEDS: CALCIUM ACETATE 667 MG TAB PO SCH (16:52)
[2019-11-05 17:25] LABS: Glucose,Whole Blood 341 mg/dL (75-99)
[2019-11-05 20:17] LABS: Glucose,Whole Blood 263 mg/dL (75-99)
[2019-11-05] MEDS: INSULIN DETEMIR (LEVEMIR) 100 UNIT/ML SYR SQ SCH (20:23)
[2019-11-05] MEDS: SENNOSIDES-DOCUSATE SODIUM 1 EACH TAB PO PRN (20:23)
[2019-11-05] MEDS: ALLOPURINOL 100 MG TAB PO SCH (20:23)
[2019-11-05] MEDS: DULoxetine HCL 30 MG CAPSULE.DR PO SCH (20:23)
[2019-11-05] MEDS: ATORVASTATIN 80 MG TAB PO SCH (20:23)
--- NOTE | 2019-11-05 21:38 | PN ---
PROGRESS NOTE Patient is seen for followup for acute kidney injury. Her renal function has been fairly stable. The patient had diarrhea initially on admission. She is maintained on IV fluids. Her serum creatinine is down to 1.5 from 2.0 for the last couple of days. PHYSICAL EXAMINATION: On examination today, blood pressure this morning was 156/87, heart rate 76 per minute, she is afebrile. Examination of the heart S1, S2. Examination of the lungs, bilateral breath sounds are heard. Abdomen soft, nontender. Examination of lower extremities shows no evidence of edema. MICROPALEONTOLOGIST exam grossly intact. LABS: Show sodium 139, potassium 4.7, BUN 54, creatinine 1.5. ASSESSMENT: 1. Acute kidney injury, prerenal, now improved, maintained on IV fluids. 2. Volume depletion, improving. 3. Chronic kidney disease, stage IV, secondary to nephrosclerosis. Creatinine 1.4- 1.8. 4. Hypertension with chronic kidney disease. 5. Chronic obstructive pulmonary disease exacerbation, now improved. PLAN: May continue IV fluids, repeat labs in a.m. MMODL / IJN: [id number] /
[2019-11-06 07:03] LABS: Glucose,Whole Blood 152 mg/dL (75-99)
--- NOTE | 2019-11-06 07:25 | P.PN ---
Subjective Principal diagnosis: Generalized weakness. SHAMAR This is a continue pressure 84-year-old white female essentially admitted for COPD exacerbation with acute kidney injury. Generalized weakness is otherwise noted. She complains of significant hypersomnia. Overall weakness otherwise stated. The patient's family bedside commode within normal respiration. No other voiding difficulties otherwise stated Objective - Vital Signs Vital signs: Vital Signs Temp 97.3 F L 11/06/19 05:00 Pulse 94 11/06/19 05:00 Resp 20 11/06/19 05:00 BP 138/76 11/06/19 05:00 Pulse Ox 94 L 11/06/19 05:00 Intake & Output 11/05/19 11/06/19 11/06/19 18:59 06:59 18:59 Intake Total 840 Output Total 500 Balance -500 840 Weight 65.5 kg 72.6 kg Intake: Intake, IV Titration 600 Amount Sodium Chloride 0.9% 1, 600 000 ml @ 75 mls/hr IV . [id number] FRITZ Rx#:[id number] Oral 240 Output: Urine 500 Other: Voiding Method Bedside Commode Diaper # Voids 3 1 # Bowel Movements 1 - Constitutional General appearance: Present: average body habitus - EENT Eyes: Absent: abnormal pupil - Neck Neck: Absent: lymphadenopathy - Respiratory Respiratory: bilateral: wheezing - Cardiovascular Rhythm: regular Heart sounds: normal: S1, S2 Abnormal Heart Sounds: Absent: S3 Gallop - Gastrointestinal General gastrointestinal: Present: soft. Absent: tenderness - Psychiatric Psychiatric: Present: A&O x's 3 - Labs CBC & Chem 7: 11/03/19 07:02 11/05/19 07:34 Labs: Abnormal Lab Results - Last 24 Hours (Table) 11/05/19 11/05/19 11/05/19 Range/Units 07:34 11:42 17:24 BUN 54 H (7-17) mg/dL Creatinine 1.52 H (0.52-1.04) mg/dL Glucose 146 H (74-99) mg/dL POC Glucose (mg/dL) 137 H 341 H (75-99) mg/dL 11/05/19 11/06/19 Range/Units 20:16 06:57 BUN (7-17) mg/dL Creatinine (0.52-1.04) mg/dL Glucose (74-99) mg/dL POC Glucose (mg/dL) 263 H 152 H (75-99) mg/dL Assessment and Plan (1) CHF exacerbation Current Visit: Yes Status: Acute Code(s): I50.9 - HEART FAILURE, UNSPECIFIED SNOMED Code(s): 181996858 (2) Dyspnea Current Visit: Yes Status: Acute Code(s): R06.00 - DYSPNEA, UNSPECIFIED SNOMED Code(s): 977466672 (3) Elevated d-dimer Current Visit: Yes Status: Acute Code(s): R79.89 - OTHER SPECIFIED ABNORMAL FINDINGS OF BLOOD CHEMISTRY SNOMED Code(s): 886380247 (4) Compression fracture of C7 vertebra Current Visit: No Status: Acute Code(s): S12.690A - OTH DISP FX OF SEVENTH CERVICAL VERTEBRA, INIT FOR CLOS FX SNOMED Code(s): 132392261 (5) Chronic kidney disease, stage 3 Current Visit: No Status: Chronic Code(s): N18.3 - CHRONIC KIDNEY DISEASE, STAGE 3 (MODERATE) SNOMED Code(s): 354117438 (6) Coronary artery disease Current Visit: No Status: Chronic Code(s): I25.10 - ATHSCL HEART DISEASE OF [place] CORONARY ARTERY W/O ANG PCTRS SNOMED Code(s): 39705244 (7) Hypertension Current Visit: No Status: Chronic Code(s): I10 - ESSENTIAL (PRIMARY) HYPERTENSION SNOMED Code(s): 73081284 (8) Type II diabetes mellitus with peripheral circulatory disorder, uncontrolled Current Visit: No Status: Chronic Priority: Medium Code(s): E11.51 - TYPE 2 DIABETES W DIABETIC PERIPHERAL ANGIOPATH W/O GANGRENE SNOMED Code(s): 76092299 Plan: Continue appropriate diuresis. Check CBC and CMP in a.m. Prognosis is guarded secondary to multiple comorbidities and advancing age. Anticipate discharge in next 24 hours. Question need for repeat PA and lateral chest x-ray
[2019-11-06] MEDS: IPRATROPIUM-ALBUTEROL 3 ML NEB INHALATION SCH ×4 (07:59→20:44)
[2019-11-06] MEDS: PREGABALIN 75 MG CAP PO SCH ×2 (08:00→17:48)
[2019-11-06] MEDS: LEVOTHYROXINE 100 MCG TAB PO SCH (08:00)
[2019-11-06] MEDS: SERTRALINE 50 MG TAB PO SCH (08:00)
[2019-11-06] MEDS: METOPROLOL SUCCINATE (ER) 25 MG TAB.ER.24H PO SCH (08:00)
[2019-11-06] MEDS: PANTOPRAZOLE 40 MG TABLET PO SCH (08:01)
[2019-11-06] MEDS: ACETAMINOPHEN TAB 325 MG TAB PO SCH ×2 (08:01→17:48)
[2019-11-06] MEDS: predniSONE 20 MG TAB PO SCH (08:01)
[2019-11-06] MEDS: HEPARIN SODIUM,PORCINE 5,000 UNIT/ML 1 ML VIAL SQ SCH ×2 (08:01→21:08)
[2019-11-06] MEDS: ASPIRIN 81 MG PO SCH (08:01)
[2019-11-06] MEDS: COLCHICINE 0.6 MG EACH PO SCH (08:02)
[2019-11-06] MEDS: OXYBUTYNIN 10 MG TAB.ER.24 PO SCH (08:02)
[2019-11-06] MEDS: INSULIN ASPART (NovoLOG) 100 UNIT/ML VIAL SQ SCH ×6 (08:03→21:08)
[2019-11-06] MEDS: SODIUM CHLORIDE 0.9% 1,000 ML IV SCH (08:04)
[2019-11-06 09:54] LABS: Albumin 3.3 g/dL (3.5-5.0); Calcium 8.9 mg/dL (8.4-10.2); Potassium 5.2 mmol/L (3.5-5.1); Total Bilirubin 0.4 mg/dL (0.2-1.3); Total Protein 6.2 g/dL (6.3-8.2)
[2019-11-06 10:06] LABS: Anisocytosis Slight; HCT 34.4 % (34.0-46.0); HGB 10.2 gm/dL (11.4-16.0); Hypochromasia Marked; MCH 28.4 pg (25.0-35.0); MCHC 29.6 g/dL (31.0-37.0); MCV 95.8 fL (80.0-100.0); Mean Platelet Volume 15.4; Platelet Count 156 k/uL (150-450); RBC 3.59 m/uL (3.80-5.40); WBC 7.9 k/uL (3.8-10.6)
[2019-11-06 11:26] LABS: Glucose,Whole Blood 177 mg/dL (75-99)
[2019-11-06 17:01] LABS: Glucose,Whole Blood 260 mg/dL (75-99)
[2019-11-06] MEDS: CALCIUM ACETATE 667 MG TAB PO SCH (17:48)
[2019-11-06 20:31] LABS: Glucose,Whole Blood 278 mg/dL (75-99)
--- NOTE | 2019-11-06 20:46 | PN ---
PROGRESS NOTE Patient is seen for followup for chronic kidney disease and acute kidney injury. The patient is comfortable. She is maintained on IV fluids. She has been eating fairly well. She denies any chest pains or shortness of breath. Renal function has improved with creatinine down to 1.6 from 2.0 mg/dL. PHYSICAL EXAMINATION: On examination, blood pressure 140/64, heart rate 79 per minute, patient is afebrile. Examination of the heart S1, S2. Examination of the lungs, bilateral breath sounds are heard. ABDOMEN: Soft, nontender. Examination of lower extremities shows no significant edema. OVEN HEATER exam grossly intact. LABS: Show sodium 138, potassium 5.2, chloride 108, BUN 48, creatinine 1.6, hemoglobin 10.2. ASSESSMENT: 1. Acute kidney injury, prerenal, improved with IV fluids. 2. Volume depletion, improving. 3. Chronic kidney disease stage III. Baseline creatinine about 1.4-1.8. 4. Hypertension with chronic kidney disease. 5. Chronic obstructive pulmonary disease exacerbation. PLAN: Discontinue IV fluids. Continue to encourage increased oral intake. MMODL / IJN: [id number] /
[2019-11-06] MEDS: DULoxetine HCL 30 MG CAPSULE.DR PO SCH (21:08)
[2019-11-06] MEDS: SENNOSIDES-DOCUSATE SODIUM 1 EACH TAB PO PRN (21:08)
[2019-11-06] MEDS: INSULIN DETEMIR (LEVEMIR) 100 UNIT/ML SYR SQ SCH (21:08)
[2019-11-06] MEDS: ATORVASTATIN 80 MG TAB PO SCH (21:08)
[2019-11-06] MEDS: ALLOPURINOL 100 MG TAB PO SCH (21:08)
[2019-11-07 07:24] LABS: Glucose,Whole Blood 202 mg/dL (75-99)
[2019-11-07] MEDS: IPRATROPIUM-ALBUTEROL 3 ML NEB INHALATION SCH ×2 (07:48→11:31)
[2019-11-07] MEDS: INSULIN ASPART (NovoLOG) 100 UNIT/ML VIAL SQ SCH ×3 (08:11→12:21)
--- NOTE | 2019-11-07 08:50 | P.DS ---
Providers Date of admission: 11/03/19 14:47 Attending physician: Johan Bai Consults: 11/03/19 12:28 Consult Physician Routine Consulting Provider: Shabbir Espinosa Consult Reason/Comments: Worsening renal failure Do you want consulting provider notified?: Yes 11/06/19 13:39 Consult Physician Routine Consulting Provider: Nile Blanc Consult Reason/Comments: mental health status Do you want consulting provider notified?: Already Contacted Primary care physician: Stated None - Discharge Diagnosis(es) (1) CHF exacerbation Current Visit: Yes Status: Acute (2) Dyspnea Current Visit: Yes Status: Acute (3) Elevated d-dimer Current Visit: Yes Status: Acute (4) Compression fracture of C7 vertebra Current Visit: No Status: Acute (5) Chronic kidney disease, stage 3 Current Visit: No Status: Chronic (6) Coronary artery disease Current Visit: No Status: Chronic (7) Hypertension Current Visit: No Status: Chronic (8) Type II diabetes mellitus with peripheral circulatory disorder, uncontrolled Current Visit: No Status: Chronic Priority: Medium Hospital Course: This is a discharge summary 4-year-old white female with known history of labile diabetes generalized weakness and COPD exacerbation with hypertension. The patient was admitted essentially for acute kidney injury. Stabilized with nephrology. The patient has generalized weakness but I suspect this is more to her poor baseline. She is quite fatigued but is stable enough for discharge once cleared by consultants. We will follow-up as needed only because she has visiting physicians due to her immobility. Patient Condition at Discharge: Fair Plan - Discharge Summary New Discharge Prescriptions: Continue Atorvastatin [Lipitor] 80 mg PO HS@2100 Nitroglycerin Sl Tabs [Nitrostat] 0.4 mg SUBLINGUAL Q5M PRN PRN Reason: Chest Pain Calcitriol 0.5 mcg PO SUTH@0800 Sertraline [Zoloft] 50 mg PO DAILY@0800 Cholecalciferol [Vitamin D3 (25 Mcg = 1000 Iu)] 1,000 unit PO DAILY@0800 Insulin Aspart [NovoLOG Flexpen] 5 units SQ BID@0800,1600 Insulin Glargine,Hum.rec.anlog [Lantus Solostar] 12 units SQ HS@2100 Tolterodine Tartrate [Detrol LA] 4 mg PO DAILY@0800 Metoprolol Succinate (ER) [Toprol XL] 12.5 mg PO DAILY tab.er.24h Docusate [Colace] 200 mg PO DAILY PRN PRN Reason: Constipation Sennosides/Docusate Sodium [Senna Plus 8.6-50 mg Tablet] 1 tab PO HS PRN PRN Reason: Constipation HYDROcodone/APAP 5-325MG [[place] 5-325] 1 tab PO Q6H PRN PRN Reason: Pain Albuterol Inhaler [Ventolin Hfa Inhaler] 2 puff INHALATION RT-Q6H PRN PRN Reason: Shortness Of Breath Oxymetazoline 0.05% Nasl [place] [Afrin 0.05% Nasal [place]] 1 spray EA NOSTRIL DAILY PRN PRN Reason: Nasal Congestion Spironolactone [Aldactone] 12.5 mg PO DAILY@0800 Pregabalin [Lyrica] 150 mg PO BID@0800,1700 Omeprazole 20 mg PO DAILY@0800 Levothyroxine Sodium [Synthroid] 100 mcg PO DAILY@0800 Furosemide [Lasix] 40 mg PO DAILY@0800 DULoxetine HCL [Cymbalta] 30 mg PO HS@2100 Colchicine [Colcrys] 0.6 mg PO DAILY@0800 Calcium Acetate [PhosLo] 667 mg PO DAILY@1600 Aspirin 81 mg PO DAILY@0800 Allopurinol [Zyloprim] 100 mg PO HS@2100 Acetaminophen Tab [Tylenol] 650 mg PO BID@0800,1600 Mag Hydrox/Aluminum Hyd/Simeth [Mylanta Maximum Strength Liq] 30 ml PO Q4H PRN PRN Reason: GAS Discharge Medication List Atorvastatin [Lipitor] 80 mg PO HS@2100 10/16/14 [History] Nitroglycerin Sl Tabs [Nitrostat] 0.4 mg SUBLINGUAL Q5M PRN 11/07/14 [History] Calcitriol 0.5 mcg PO SUTH@0800 09/09/16 [History] Sertraline [Zoloft] 50 mg PO DAILY@0800 08/27/18 [History] Cholecalciferol [Vitamin D3 (25 Mcg = 1000 Iu)] 1,000 unit PO DAILY@0800 02/02/19 [History] Insulin Aspart [NovoLOG Flexpen] 5 units SQ BID@0800,1600 04/26/19 [History] Insulin Glargine,Hum.rec.anlog [Lantus Solostar] 12 units SQ HS@209904/26/19 [History] Tolterodine Tartrate [Detrol LA] 4 mg PO DAILY@79904/26/19 [History] Metoprolol Succinate (ER) [Toprol XL] 12.5 mg PO DAILY tab.er.24h 04/30/19 [Rx] Acetaminophen Tab [Tylenol] 650 mg PO BID@0800,159911/02/19 [History] Albuterol Inhaler [Ventolin Hfa Inhaler] 2 puff INHALATION RT-Q6H PRN 11/02/19 [History] Allopurinol [Zyloprim] 100 mg PO HS@209911/02/19 [History] Aspirin 81 mg PO DAILY@79911/02/19 [History] Calcium Acetate [PhosLo] 667 mg PO DAILY@159911/02/19 [History] Colchicine [Colcrys] 0.6 mg PO DAILY@79911/02/19 [History] DULoxetine HCL [Cymbalta] 30 mg PO HS@209911/02/19 [History] Docusate [Colace] 200 mg PO DAILY PRN 11/02/19 [History] Furosemide [Lasix] 40 mg PO DAILY@79911/02/19 [History] HYDROcodone/APAP 5-325MG [[place] 5-325] 1 tab PO Q6H PRN 11/02/19 [History] Levothyroxine Sodium [Synthroid] 100 mcg PO DAILY@79911/02/19 [History] Mag Hydrox/Aluminum Hyd/Simeth [Mylanta Maximum Strength Liq] 30 ml PO Q4H PRN 11/02/19 [History] Omeprazole 20 mg PO DAILY@0811/02/19 [History] Oxymetazoline 0.05% Nasl [place] [Afrin 0.05% Nasal [place]] 1 spray EA NOSTRIL DAILY PRN 11/02/19 [History] Pregabalin [Lyrica] 150 mg PO BID@0800,1700 11/02/19 [History] Sennosides/Docusate Sodium [Senna Plus 8.6-50 mg Tablet] 1 tab PO HS PRN 0 [History] Spironolactone [Aldactone] 12.5 mg PO DAILY@0820 [History] Follow up Appointment(s)/Referral(s): None,Stated [Primary Care Provider] - 1-2 days Discharge Disposition: HOME SELF-CARE
[2019-11-07] MEDS: ACETAMINOPHEN TAB 325 MG TAB PO SCH (10:06)
[2019-11-07] MEDS: predniSONE 20 MG TAB PO SCH (10:07)
[2019-11-07] MEDS: HEPARIN SODIUM,PORCINE 5,000 UNIT/ML 1 ML VIAL SQ SCH (10:07)
[2019-11-07] MEDS: LEVOTHYROXINE 100 MCG TAB PO SCH (10:08)
[2019-11-07] MEDS: SERTRALINE 50 MG TAB PO SCH (10:08)
[2019-11-07] MEDS: PANTOPRAZOLE 40 MG TABLET PO SCH (10:09)
[2019-11-07] MEDS: METOPROLOL SUCCINATE (ER) 25 MG TAB.ER.24H PO SCH (10:09)
[2019-11-07] MEDS: ASPIRIN 81 MG PO SCH (10:10)
[2019-11-07] MEDS: PREGABALIN 75 MG CAP PO SCH (10:10)
[2019-11-07] MEDS: COLCHICINE 0.6 MG EACH PO SCH (10:11)
[2019-11-07] MEDS: OXYBUTYNIN 10 MG TAB.ER.24 PO SCH (10:11)
[2019-11-07 11:45] LABS: Glucose,Whole Blood 181 mg/dL (75-99)
[2019-11-07 12:34] VITALS: BP 169/70; PULSE 73; RESP 18; TEMP 97.9
--- NOTE | 2019-11-07 14:19 | P.CN ---
Psychiatric Consult - . Consult date: 11/07/19 Consult:: 11/07/19 13:25 IDENTIFYING DATA: This patient is a 84-year-old female who currently lives at [facility] with has 4 children and collects Social Security HISTORY OF PRESENT ILLNESS: The patient presented to the hospital with fatigue, weakness and was admitted for a chaotic. Patient has multiple medical comorbidities and has a poor baseline. Patient has a significant history for CHF [place] CAD diabetes mellitus. Psychiatry was consulted for capacity. Job Specification Writer spoke with patient at the bedside who states she couldn't breathe at home as having shortness of breath and chest pain came back in the hospital. Patient claims that she is feeling better now and is ready to go home. She states that where she lives the cleaning and cooking housework and laundry are taking care of and she does need some assistance with toileting. Patient states that her son takes care of her finances as she has trouble reading. She states that her mood is "okay" and states that she did feel sad due to her and her daughter dying within the past couple years. Patient states that she is on Zoloft which she claims is making her have nightmares. She claims that she does have a mild history of depression. Patient has fair judgment and is appropriately during conversation and attempts to cooperate as best she can. At this time patient denies any suicidal or homical ideations, intent or plan. Patient denies any auditory, visual hallucinations and denies any paranoia or delusions. Patient denies using any recreational drugs cigarettes or alcohol. PAST PSYCHIATRIC HISTORY: Patient denies ever being admitted to a psychiatric hospital. Patient admits to having depression which is mild. She denies any psychiatric outpatient follow-up. She currently currently follows up with her primary care physician. She denies any suicide attempts the past. She is currently on Zoloft 50 mg daily and Cymbalta 30 mg daily at bedtime.. PAST MEDICAL HISTORY: CHF, [place] stage III, CAD, hypertension, diabetes mellitus, thyroid disorder. ALLERGIES: as per EMR. CHEMICAL DEPENDENCY HISTORY: as per HPI. FAMILY PSYCHIATRIC/SUBSTANCE USE HISTORY: denies SOCIAL HISTORY: She states that she has born and raised in [facility] and moved to [place]. 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 Patient is currently and lives at [facility] and has 4 children. MENTAL STATUS EXAM: General Appearance: Patient appears to be stated age is alert, pleasant, and attempts to cooperate. Patient has fair hygiene and grooming and is sitting on her chair. Behavior: Patient is calmly sitting on her chair without any agitated behavior. Speech: Patient's speech is fluent and nonpressured. Soft tone at times. Mood/Affect: Patient reports their mood is "ok", affect is congruent Suicidality/Homicidality: Patient denies having any suicidal or homicidal ideation intent or plan. Perceptions: Patient denies any auditory or visual hallucinations. Though content/process: There is no evidence of any delusional thought content and thought process is linear and goal-directed. Memory and concentration: AOX3, patient has fair judgment, fair insight,with the current president is, has 2 out of 3 memory recall after 5 minutes. Patient has fair abstraction and can identify objects. Judgment and insight: Fair IMPRESSIONS: Major depressive disorder, mild PLAN: -At this time patient does NOT meet criteria for inpatient psychiatric admission. -Patient DOES have decision making capacity at this time and is able to reason through and communicate/appreciate the risks, benefits and alternatives to treatment. -Delirium precautions recommended with patient including - avoiding use of narcotics and FRONT END JAVA DEVELOPER sedatives, limit anticholinergic medications when possible, frequent re-orientation, minimize use of restraints, open window shades during the day and close them at night -Would recommend the following medication changes/additions: Decreased Zoloft to 25 mg daily for mood as patient may be exhibiting some side effects and continue to monitor. Continue with Cymbalta at current dose. -Can continue with discharge and outpatient follow-up. Patient will be returning back to [facility]. -Psychiatry will sign off at this point 11/07/19 14:11
--- NOTE | 2019-11-07 15:51 | CDI ---
Documentation Clarification Form Date: 11/07/2019 03:39:07 PM From: Jackeline Maurice CCS, CCDS Admit Date: 11/03/2019 02:47:00 PM Patient Name: Chantell Tom Visit Number: [id number] Discharge Date: 11/07/2019 03:00:00 PM ATTENTION: The Clinical Documentation Specialists (CDI) and [facility] Coding Staff appreciate your assistance in clarifying documentation. Please respond to the clarification below the line at the bottom and electronically sign. The CDI & [facility] Coding staff will review the response and follow-up if needed. Please note: Queries are made part of the Legal Health Record. If you have any questions, please contact the author of this message via ITS. Dr. Johan Bai: CHF exacerbation is documented in the 11/02 History & Physical, subsequent progress notes & the 11/07 Discharge Summary without further specificity. 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 Clinical Indicators: Presented to the ED 11/02 with SOB x2 days. Patient is wheelchair bound, has had multiple falls, has some productive cough, bilateral leg edema, admitted with CHF exacerbation. Admitting VS: T 97.6, ,P 77, R 22 (sob, cough, deep breaths), BP 167/94^, PO 100 2Lnc BNP 11/01: 46,600 Echocardiogram Results (most recent): 04/25/2018: Borderline concentric LVH, left ventricular systolic function moderately impaired with EF 35-40%, Mild TR. Moderate MR. Chest X Ray 11/01: Mild pulmonary fibrosis, Inspiration decreased in comparison, No obvious heart failure. Treatment: INH Albuterol, Lovenox sq, Heparin sq, po Prednisone, Insulin sq, IV Lasix 11/02 In your professional opinion, can you please clarify the acuity and type of CHF if known? Heart Failure ruled out Heart Failure ruled in: Systolic Heart Failure: o Acute o Chronic o Acute on Chronic this is the correct choice for this patient Systolic and/or Diastolic Heart Failure: o Acute o Chronic o Acute on Chronic Heart Failure Unable to Determine Other, please specify (Last Revision: January 2018) MTDD
[2019-11-08] MEDS ORDERED: SERTRALINE 25 MG TAB PO SCH (08:00)
== END 2019-11-07 15:00 | disposition home or self-care (01) | DRG 291 ==
LOC: EC 21:51 → 5NMEDONC 11-02 05:03 → OBSVTOIN 11-03 14:47
PROVIDERS: ADMIT Family Medicine; ATTEND Family Medicine
DX: I13.0 Hypertensive heart and chronic kidney disease with heart failure and stage 1 through stage 4 chronic kidney disease, or unspecified chronic kidney disease (principal); I50.23 Acute on chronic systolic (congestive) heart failure; N17.9 Acute kidney failure, unspecified; E87.3 Alkalosis; J44.1 Chronic obstructive pulmonary disease with (acute) exacerbation; J84.9 Interstitial pulmonary disease, unspecified; N18.4 Chronic kidney disease, stage 4 (severe); E86.9 Volume depletion, unspecified; E83.59 Other disorders of calcium metabolism; E11.22 Type 2 diabetes mellitus with diabetic chronic kidney disease; E11.51 Type 2 diabetes mellitus with diabetic peripheral angiopathy without gangrene; F32.9 Major depressive disorder, single episode, unspecified; E03.9 Hypothyroidism, unspecified; I25.10 Atherosclerotic heart disease of native coronary artery without angina pectoris; E78.5 Hyperlipidemia, unspecified; G47.10 Hypersomnia, unspecified; K21.9 Gastro-esophageal reflux disease without esophagitis; R09.02 Hypoxemia; N28.1 Cyst of kidney, acquired; R19.7 Diarrhea, unspecified; M54.9 Dorsalgia, unspecified; G89.29 Other chronic pain; M15.3 Secondary multiple arthritis; R29.6 Repeated falls; M48.52XD Collapsed vertebra, not elsewhere classified, cervical region, subsequent encounter for fracture with routine healing; Z77.22 Contact with and (suspected) exposure to environmental tobacco smoke (acute) (chronic); Z79.82 Long term (current) use of aspirin; Z79.4 Long term (current) use of insulin; Z79.890 Hormone replacement therapy; Z79.899 Other long term (current) drug therapy; Z95.1 Presence of aortocoronary bypass graft; Z90.49 Acquired absence of other specified parts of digestive tract; Z95.5 Presence of coronary angioplasty implant and graft; Z98.890 Other specified postprocedural states; Z98.42 Cataract extraction status, left eye; Z98.41 Cataract extraction status, right eye; Z96.1 Presence of intraocular lens; Z96.642 Presence of left artificial hip joint; Z99.3 Dependence on wheelchair; Z87.81 Personal history of (healed) traumatic fracture; Z86.19 Personal history of other infectious and parasitic diseases; Z88.5 Allergy status to narcotic agent; Z88.0 Allergy status to penicillin; Z88.2 Allergy status to sulfonamides; Z88.8 Allergy status to other drugs, medicaments and biological substances; Z91.041 Radiographic dye allergy status; Z80.9 Family history of malignant neoplasm, unspecified
CPT/HCPCS: 36415; 71045; 78582; 80048; 80053; 81001; 82570; 83605; 83880; 84300; 84484; 84540; 85025; 85027; 85379; 85610; 85730; 93005; 94640; 94760; 96372; 99285

== ENCOUNTER 2019-11-15 16:50 | Inpatient (IN) | payer MEDICARE, BC ==
--- NOTE | 2019-11-15 17:23 | ED ---
SOB HPI - General Chief Complaint: Nausea/Vomiting/Diarrhea Stated Complaint: Dehydrated Time Seen by Provider: 11/15/19 17:07 Source: patient, EMS, RN notes reviewed, old records reviewed Mode of arrival: EMS Limitations: no limitations - History of Present Illness Initial Comments: This is an 84-year-old female DF for evaluation patient is persistent shortness of breath cough and congestion nausea vomiting and diarrhea going on for a few days now. Sent here by her son for evaluation, clinical history the patient is poor historian history obtained from EMS patient's chart MD Complaint: shortness of breath, cough, anxiety -: days(s) Severity: moderate Severity scale (1-10): 6 Quality: aching (body pain) Consistency: constant Improves With: oxygen, rest, bronchodilators, upright position Worsens With: lying flat, exertion Known History Of: congestive heart failure Associated Symptoms: pain with inspiration, cough Treatments Prior to Arrival: none - Related Data Home Medications Medication Instructions Recorded Confirmed Atorvastatin [Lipitor] 80 mg PO HS@209910/16/14 11/02/19 Nitroglycerin Sl Tabs [Nitrostat] 0.4 mg SUBLINGUAL Q5M PRN 11/07/14 11/02/19 Calcitriol 0.5 mcg PO SUTH@0800 09/09/16 11/02/19 Sertraline [Zoloft] 50 mg PO DAILY@0800 08/27/18 11/02/19 Cholecalciferol [Vitamin D3 (25 1,000 unit PO DAILY@0800 02/02/19 11/02/19 Mcg = 1000 Iu)] Insulin Aspart [NovoLOG Flexpen] 5 units SQ BID@0800,159904/26/19 11/02/19 Insulin Glargine,Hum.rec.anlog 12 units SQ HS@209904/26/19 11/02/19 [Lantus Solostar] Tolterodine Tartrate [Detrol LA] 4 mg PO DAILY@0800 04/26/19 11/02/19 Acetaminophen Tab [Tylenol] 650 mg PO BID@0800,159911/02/19 11/02/19 Albuterol Inhaler [Ventolin Hfa 2 puff INHALATION RT-Q6H PRN 11/02/19 11/02/19 Inhaler] Allopurinol [Zyloprim] 100 mg PO HS@209911/02/19 11/02/19 Aspirin 81 mg PO DAILY@0800 11/02/19 11/02/19 Calcium Acetate [PhosLo] 667 mg PO DAILY@1600 11/02/19 11/02/19 Colchicine [Colcrys] 0.6 mg PO DAILY@0800 11/02/19 11/02/19 DULoxetine HCL [Cymbalta] 30 mg PO HS@2100 11/02/19 11/02/19 Docusate [Colace] 200 mg PO DAILY PRN 11/02/19 11/02/19 Furosemide [Lasix] 40 mg PO DAILY@0800 11/02/19 11/02/19 HYDROcodone/APAP 5-325MG [[place] 1 tab PO Q6H PRN 11/02/19 11/02/19 5-325] Levothyroxine Sodium [Synthroid] 100 mcg PO DAILY@0800 11/02/19 11/02/19 Mag Hydrox/Aluminum Hyd/Simeth 30 ml PO Q4H PRN 11/02/19 11/02/19 [Mylanta Maximum Strength Liq] Omeprazole 20 mg PO DAILY@0800 11/02/19 11/02/19 Oxymetazoline 0.05% Nasl [place] 1 spray EA NOSTRIL DAILY PRN 11/02/19 11/02/19 [Afrin 0.05% Nasal Elizabeth] Pregabalin [Lyrica] 150 mg PO BID@0800,1700 11/02/19 11/02/19 Sennosides/Docusate Sodium [Senna 1 tab PO HS PRN 11/02/19 11/02/19 Plus 8.6-50 mg Tablet] Spironolactone [Aldactone] 12.5 mg PO DAILY@0800 11/02/19 11/02/19 Previous Rx's Medication Instructions Recorded Metoprolol Succinate (ER) [Toprol 12.5 mg PO DAILY tab.er.24h 04/30/19 XL] Allergies Allergy/AdvReac Type Severity Reaction Status Date / Time Iodinated Contrast Media Allergy Severe Anaphylaxis Verified 11/02/19 08:55 [Iodinated Contrast Media - IV Dye] morphine Allergy Unknown Verified 11/02/19 08:55 Penicillins Allergy Unknown Verified 11/02/19 08:55 captopril [From Capoten] AdvReac Unknown PASSED OUT Verified 11/02/19 08:55 sulfamethoxazole AdvReac Unknown Diarrhea Verified 11/02/19 08:55 [From Bactrim] trimethoprim [From Bactrim] AdvReac Unknown Diarrhea Verified 11/02/19 08:55 Review of Systems ROS Statement: Those systems with pertinent positive or pertinent negative responses have been documented in the HPI. ROS Other: All systems not noted in ROS Statement are negative. 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 History of Any Multi-Drug Resistant Organisms: None Reported Past Surgical History: Appendectomy, Cholecystectomy, Heart Catheterization, Heart Catheterization With Stent, Hernia Repair Additional Past Surgical History / Comment(s): 07/08/17 PCI with stent to LCX, bilateral carpal tunnel; right and left finger release; CABG - 1998. Spinal cord stimulator implantation (2009) AND REMOVED. Bilateral cataract removal with lens implants,. Right hip surgery - too put in, T LT HIP REPLACEMENT. Pt states she broke her neck in May 2019; was seen by Dr Nelson. HIATAL HERNIA REPAIR. Stents placed 07/09/17. Past Anesthesia/Blood Transfusion Reactions: No Reported Reaction Additional Past Anesthesia/Blood Transfusion Reaction / Comment(s): contracted hepatits after blood transfusion (1971) Date of Last Stent Placement:: 07/08/17 Past Psychological History: No Psychological Hx Reported Smoking Status: Never smoker Past Alcohol Use History: Rare Past Drug Use History: None Reported - Past Family History Mother Family Medical History: Cancer Son(s) Family Medical History: Cancer Father History Unknown: Yes Additional Family Medical History / Comment(s): Father at the age of 48yrs. Pt was little when he passed and is not sure what his cause of was. General Exam Limitations: no limitations General appearance: alert, anxious, lethargic Head exam: Present: atraumatic, normocephalic, normal inspection Eye exam: Present: normal appearance, PERRL, EOMI. Absent: scleral icterus, conjunctival injection, periorbital swelling ENT exam: Present: normal exam, mucous membranes moist Neck exam: Present: normal inspection. Absent: tenderness, meningismus, lymphadenopathy Respiratory exam: Present: normal lung sounds bilaterally, wheezes, accessory muscle use, decreased breath sounds, prolonged expiratory. Absent: respiratory distress, rales, rhonchi, stridor Cardiovascular Exam: Present: regular rate, normal rhythm, normal heart sounds. Absent: systolic murmur, diastolic murmur, rubs, gallop, clicks GI/Abdominal exam: Present: soft, normal bowel sounds. Absent: distended, tenderness, guarding, rebound, rigid Extremities exam: Present: normal inspection, full ROM, normal capillary refill. Absent: tenderness, pedal edema, joint swelling, calf tenderness Back exam: Present: normal inspection Neurological exam: Present: alert, oriented X3, CN II-XII intact Psychiatric exam: Present: normal affect, normal mood Skin exam: Present: warm, dry, intact, normal color. Absent: rash Course Vital Signs 11/15/19 11/15/19 11/15/19 17:09 17:10 17:12 Temperature 96.9 F L Pulse Rate 84 Respiratory 20 18 Rate Blood Pressure 166/108 O2 Sat by Pulse 96 98 Oximetry 11/15/19 11/15/19 11/15/19 17:30 18:00 18:12 Temperature Pulse Rate 76 Respiratory Rate Blood Pressure 166/108 165/95 O2 Sat by Pulse 99 99 Oximetry 11/15/19 11/15/19 11/15/19 18:30 18:31 18:43 Temperature Pulse Rate 76 77 Respiratory Rate Blood Pressure 166/98 O2 Sat by Pulse 100 Oximetry 11/15/19 19:25 Temperature 97.8 F Pulse Rate 77 Respiratory 18 Rate Blood Pressure 147/95 O2 Sat by Pulse 99 Oximetry - Reevaluation(s) Reevaluation #1: 11/15/19 17:23 Medical records reviewed Reevaluation #2: 11/15/19 20:19 Still unable to give any medical history but is without complaint - Consultations Consultation #1: Spoke with Dr. Bai and was agreeable to admit Medical Decision Making - Medical Decision Making 84 female will admit for persistent troponins otherwise normal x-ray. We'll continue breathing treatments and IV hydration, nausea vomiting management - Lab Data Result diagrams: 11/15/19 18:10 11/15/19 18:10 Lab Results 11/15/19 11/15/19 11/15/19 Range/Units 18:10 18:10 18:10 WBC 9.9 (3.8-10.6) k/uL RBC 3.57 L (3.80-5.40) m/uL Hgb 10.6 L (11.4-16.0) gm/dL Hct 32.9 L (34.0-46.0) % MCV 92.2 (80.0-100.0) fL MCH 29.7 (25.0-35.0) pg MCHC 32.2 (31.0-37.0) g/dL RDW 17.2 H (11.5-15.5) % Plt Count 131 L (150-450) k/uL Neutrophils % 87 % Lymphocytes % 8 % Monocytes % 3 % Eosinophils % 1 % Basophils % 1 % Neutrophils # 8.6 H (1.3-7.7) k/uL Lymphocytes # 0.8 L (1.0-4.8) k/uL Monocytes # 0.3 (0-1.0) k/uL Eosinophils # 0.1 (0-0.7) k/uL Basophils # 0.1 (0-0.2) k/uL Manual Slide Review Performed Hypochromasia Slight Anisocytosis Slight PT (9.0-12.0) sec INR (<1.2) APTT (22.0-30.0) sec Sodium 137 (137-145) mmol/L Potassium 4.9 (3.5-5.1) mmol/L Chloride 103 (98-107) mmol/L Carbon Dioxide 26 (22-30) mmol/L Anion Gap 8 mmol/L BUN 36 H (7-17) mg/dL Creatinine 1.75 H (0.52-1.04) mg/dL Est GFR (CKD-EPI)AfAm 30 (>60 ml/min/1.73 sqM) Est GFR (CKD-EPI)NonAf 26 (>60 ml/min/1.73 sqM) Glucose 262 H (74-99) mg/dL Plasma Lactic Acid Marlo 1.7 (0.7-2.0) mmol/L Calcium 8.7 (8.4-10.2) mg/dL Phosphorus 4.3 (2.5-4.5) mg/dL Magnesium 2.0 (1.6-2.3) mg/dL Total Bilirubin 1.3 (0.2-1.3) mg/dL AST 84 H (14-36) U/L ALT 39 H (4-34) U/L Alkaline Phosphatase 88 (38-126) U/L Creatine Kinase 152 H (30-135) U/L Troponin I (0.000-0.034) ng/mL NT-Pro-B Natriuret Pep pg/mL Total Protein 6.6 (6.3-8.2) g/dL Albumin 3.6 (3.5-5.0) g/dL Lipase 60 (23-300) U/L Influenza Type A RNA (Not Detectd) Influenza Type B (PCR) (Not Detectd) 11/15/19 11/15/19 11/15/19 Range/Units 18:10 18:10 18:10 WBC (3.8-10.6) k/uL RBC (3.80-5.40) m/uL Hgb (11.4-16.0) gm/dL Hct (34.0-46.0) % MCV (80.0-100.0) fL MCH (25.0-35.0) pg MCHC (31.0-37.0) g/dL RDW (11.5-15.5) % Plt Count (150-450) k/uL Neutrophils % % Lymphocytes % % Monocytes % % Eosinophils % % Basophils % % Neutrophils # (1.3-7.7) k/uL Lymphocytes # (1.0-4.8) k/uL Monocytes # (0-1.0) k/uL Eosinophils # (0-0.7) k/uL Basophils # (0-0.2) k/uL Manual Slide Review Hypochromasia Anisocytosis PT 11.1 (9.0-12.0) sec INR 1.1 (<1.2) APTT 23.7 (22.0-30.0) sec Sodium (137-145) mmol/L Potassium (3.5-5.1) mmol/L Chloride (98-107) mmol/L Carbon Dioxide (22-30) mmol/L Anion Gap mmol/L BUN (7-17) mg/dL Creatinine (0.52-1.04) mg/dL Est GFR (CKD-EPI)AfAm (>60 ml/min/1.73 sqM) Est GFR (CKD-EPI)NonAf (>60 ml/min/1.73 sqM) Glucose (74-99) mg/dL Plasma Lactic Acid Marlo (0.7-2.0) mmol/L Calcium (8.4-10.2) mg/dL Phosphorus (2.5-4.5) mg/dL Magnesium (1.6-2.3) mg/dL Total Bilirubin (0.2-1.3) mg/dL AST (14-36) U/L ALT (4-34) U/L Alkaline Phosphatase (38-126) U/L Creatine Kinase (30-135) U/L Troponin I 0.092 H* (0.000-0.034) ng/mL NT-Pro-B Natriuret Pep pg/mL Total Protein (6.3-8.2) g/dL Albumin (3.5-5.0) g/dL Lipase (23-300) U/L Influenza Type A RNA Not Detected (Not Detectd) Influenza Type B (PCR) Not Detected (Not Detectd) 11/15/19 Range/Units 18:10 WBC (3.8-10.6) k/uL RBC (3.80-5.40) m/uL Hgb (11.4-16.0) gm/dL Hct (34.0-46.0) % MCV (80.0-100.0) fL MCH (25.0-35.0) pg MCHC (31.0-37.0) g/dL RDW (11.5-15.5) % Plt Count (150-450) k/uL Neutrophils % % Lymphocytes % % Monocytes % % Eosinophils % % Basophils % % Neutrophils # (1.3-7.7) k/uL Lymphocytes # (1.0-4.8) k/uL Monocytes # (0-1.0) k/uL Eosinophils # (0-0.7) k/uL Basophils # (0-0.2) k/uL Manual Slide Review Hypochromasia Anisocytosis PT (9.0-12.0) sec INR (<1.2) APTT (22.0-30.0) sec Sodium (137-145) mmol/L Potassium (3.5-5.1) mmol/L Chloride (98-107) mmol/L Carbon Dioxide (22-30) mmol/L Anion Gap mmol/L BUN (7-17) mg/dL Creatinine (0.52-1.04) mg/dL Est GFR (CKD-EPI)AfAm (>60 ml/min/1.73 sqM) Est GFR (CKD-EPI)NonAf (>60 ml/min/1.73 sqM) Glucose (74-99) mg/dL Plasma Lactic Acid Marlo (0.7-2.0) mmol/L Calcium (8.4-10.2) mg/dL Phosphorus (2.5-4.5) mg/dL Magnesium (1.6-2.3) mg/dL Total Bilirubin (0.2-1.3) mg/dL AST (14-36) U/L ALT (4-34) U/L Alkaline Phosphatase (38-126) U/L Creatine Kinase (30-135) U/L Troponin I (0.000-0.034) ng/mL NT-Pro-B Natriuret Pep 64836 pg/mL Total Protein (6.3-8.2) g/dL Albumin (3.5-5.0) g/dL Lipase (23-300) U/L Influenza Type A RNA (Not Detectd) Influenza Type B (PCR) (Not Detectd) - EKG Data -: EKG Interpreted by Me (EKG shows sinus a rate of 77, CO 184, QRS 96, QTc 479) - Radiology Data Radiology results: report reviewed (Chest x-rays negative for acute disease), image reviewed Disposition Clinical Impression: Unstable angina pectoris, Dehydration, Nausea and vomiting, Elevated troponin Disposition: ADMITTED IP TO THIS HOSP Condition: Good Is patient prescribed a controlled substance at d/c from ED?: No Referrals: Johan Bai MD [Primary Care Provider] - 1-2 days
[2019-11-15] MEDS ORDERED: IPRATROPIUM-ALBUTEROL 3 ML NEB INHALATION STA (17:24)
[2019-11-15] MEDS ORDERED: ONDANSETRON 4 MG/2 ML VIAL IVP STA (17:24)
[2019-11-15 18:25] LABS: Anisocytosis Slight; Basophils # (A) 0.1 k/uL (0-0.2); Basophils % (A) 1 %; Eosinophils # (A) 0.1 k/uL (0-0.7); Eosinophils % (A) 1 %; HCT 32.9 % (34.0-46.0); HGB 10.6 gm/dL (11.4-16.0); Hypochromasia Slight; Lymphocytes # (A) 0.8 k/uL (1.0-4.8); Lymphocytes % (A) 8 %; MCH 29.7 pg (25.0-35.0); MCHC 32.2 g/dL (31.0-37.0); MCV 92.2 fL (80.0-100.0); Mean Platelet Volume 11.7; Monocytes # (A) 0.3 k/uL (0-1.0); Monocytes % (A) 3 %; Neutrophils # (A) 8.6 k/uL (1.3-7.7); Neutrophils % (A) 87 %; RBC 3.57 m/uL (3.80-5.40); RDW 17.2 % (11.5-15.5); WBC 9.9 k/uL (3.8-10.6)
[2019-11-15 18:32] LABS: INR 1.1 (<1.2); Partial Thromboplastin Time 23.7 sec (22.0-30.0); Prothrombin Time 11.1 sec (9.0-12.0)
[2019-11-15 18:40] LABS: Albumin 3.6 g/dL (3.5-5.0); Calcium 8.7 mg/dL (8.4-10.2); Phosphorus 4.3 mg/dL (2.5-4.5); Potassium 4.9 mmol/L (3.5-5.1); Total Bilirubin 1.3 mg/dL (0.2-1.3); Total Protein 6.6 g/dL (6.3-8.2)
[2019-11-15 18:54] LABS: Platelet Count 131 k/uL (150-450)
--- NOTE | 2019-11-15 20:07 | XR ---
EXAMINATION TYPE: XR abdomen acute w cxr, 4 views DATE OF EXAM: 11/15/2019 COMPARISON: NONE HISTORY: Nausea and vomiting and diarrhea and pain TECHNIQUE: 4 views FINDINGS: Chest: The lungs are clear and the pleural spaces are negative. Sternal sutures are noted and moderat e plus enlargement of the cardiac silhouette noted. No acute skeletal or soft tissue findings. Abdomen and pelvis: There is no evidence for pneumoperitoneum. The bowel gas pattern is unremarkable as there is air throughout nondilated small and large bowel. No sizeable air fluid levels. No mass ef fects are seen. No unusual calcifications. IMPRESSION: No definite acute radiographic findings.
[2019-11-15] MEDS ORDERED: ASPIRIN 81 MG PO STA (20:16)
[2019-11-15] MEDS ORDERED: NITROGLYCERIN SL TABS 0.4 MG TAB SUBLINGUAL PRN (20:16)
[2019-11-15] MEDS ORDERED: ONDANSETRON 4 MG/2 ML VIAL IVP PRN (20:17)
[2019-11-15] MEDS: SODIUM CHLORIDE 0.9% 1,000 ML IV SCH (20:55)
[2019-11-15] MEDS: METOPROLOL TARTRATE 25 MG TAB PO SCH (22:41)
[2019-11-16 04:58] LABS: Glucose,Whole Blood 196 mg/dL (75-99)
[2019-11-16 07:35] LABS: Cholesterol 130 mg/dL (<200); HDL Cholesterol 53 mg/dL (40-60); LDL Cholesterol,Calculated 59 mg/dL (0-99); Triglycerides 88 mg/dL (<150)
[2019-11-16] MEDS ORDERED: NITROGLYCERIN SL TABS 0.4 MG TAB SUBLINGUAL PRN (08:15)
[2019-11-16] MEDS ORDERED: DOCUSATE 100 MG CAP PO PRN (08:15)
[2019-11-16] MEDS ORDERED: OXYMETAZOLINE 0.05% NASL SPRAY 1 SPRAY BOTTLE EA NOSTRIL PRN (08:15)
[2019-11-16] MEDS ORDERED: MAG HYDROX/AL HYDROX/SIMETH 30 ML CUP PO PRN (08:15)
[2019-11-16] MEDS ORDERED: ALBUTEROL NEBULIZED 2.5 MG/3 ML INHALATION PRN (08:15)
[2019-11-16] MEDS ORDERED: SENNOSIDES-DOCUSATE SODIUM 1 EACH TAB PO PRN (08:15)
[2019-11-16] MEDS: SODIUM CHLORIDE 0.9% 1,000 ML IV SCH (08:16)
[2019-11-16] MEDS: METOPROLOL TARTRATE 25 MG TAB PO SCH (08:21)
--- NOTE | 2019-11-16 08:22 | P.HPIM ---
History of Present Illness H&P Date: 11/16/19 Chief Complaint: Weakness and nausea This is a history of physical and 84-year-old white female with known history of diabetic nephropathy with CHF and history of COPD. She comes in related to generalized weakness with a little bit of nausea and vomiting. Question element of influenza however testing is negative as of now. The patient was recently discharged for CHF and COPD and is now readmitted for such. Troponin is slightly elevated and cardiology is now consulted. Review of Systems Constitutional: Denies chills, Denies fever Eyes: denies blurred vision, denies pain Ears, nose, mouth and throat: Denies headache, Denies sore throat Cardiovascular: Reports shortness of breath, Denies chest pain Respiratory: Denies cough Musculoskeletal: Reports as per HPI Integumentary: Denies pruritus, Denies rash Neurological: Reports balance difficulties, Reports weakness, Denies numbness Psychiatric: Denies anxiety, Denies depression Endocrine: Denies fatigue, Denies weight change Past Medical History Past Medical History: Coronary Artery Disease (CAD), Chest Pain / Angina, Diabetes Mellitus, GERD/Reflux, Hyperlipidemia, Hypertension, Osteoarthritis (OA), Renal Disease, Thyroid Disorder Additional Past Medical History / Comment(s): IDDM TYPE II, ARTHRITIS GENERALIZED AND ESPECIALLY IN BACK, CHRONIC BACK PAIN-CAN ONLY STAND FEW MINUTES AT A TIME with a wheelchair/walker, CHRONIC BILATERAL LEG NUMBNESS/BURNING, HYPOTHYROID, PAST HEPATITIS IN 1971 R/T BLOOD TRANSFUSION, CURRENT KIDNEY CYST, SOB WITH ACTIVITY, Stage 4 CKD (pt states she urinates 2-3/day). History of Any Multi-Drug Resistant Organisms: None Reported Past Surgical History: Appendectomy, Cholecystectomy, Heart Catheterization, Heart Catheterization With Stent, Hernia Repair Additional Past Surgical History / Comment(s): 07/08/17 PCI with stent to LCX, bilateral carpal tunnel; right and left finger release; CABG - 1998. Spinal cord stimulator implantation (2009) AND REMOVED. Bilateral cataract removal with lens implants,. Right hip surgery - too put in, T LT HIP REPLACEMENT. Pt states she broke her neck in May 2019; was seen by Dr Nelson. HIATAL HERNIA REPAIR. Stents placed 07/09/17. Past Anesthesia/Blood Transfusion Reactions: No Reported Reaction Additional Past Anesthesia/Blood Transfusion Reaction / Comment(s): contracted hepatits after blood transfusion (1971) Date of Last Stent Placement:: 07/08/17 Past Psychological History: No Psychological Hx Reported Additional Psychological History / Comment(s): Pt resides alone at [facility]. She uses a rolling walker to ambulate. She has a glucometer. She manages her own medication. 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 She goes to the dining room for lunch, pt does not cook. Smoking Status: Never smoker Past Alcohol Use History: Rare Past Drug Use History: None Reported - Past Family History Mother Family Medical History: Cancer Son(s) Family Medical History: Cancer Father History Unknown: Yes Additional Family Medical History / Comment(s): Father at the age of 48yrs. Pt was little when he passed and is not sure what his cause of was. Medications and Allergies Home Medications Medication Instructions Recorded Confirmed Type Atorvastatin [Lipitor] 80 mg PO HS@2100 10/16/14 11/15/19 History Nitroglycerin Sl Tabs [Nitrostat] 0.4 mg SUBLINGUAL Q5M PRN 11/07/14 11/15/19 History Calcitriol 0.5 mcg PO SUTH@0800 09/09/16 11/15/19 History Sertraline [Zoloft] 50 mg PO DAILY@0800 08/27/18 11/15/19 History Cholecalciferol [Vitamin D3 (25 1,000 unit PO DAILY@0800 02/02/19 11/15/19 History Mcg = 1000 Iu)] Insulin Aspart [NovoLOG Flexpen] 5 units SQ BID@0800,1600 04/26/19 11/15/19 History Insulin Glargine,Hum.rec.anlog 12 units SQ HS@209904/26/19 11/15/19 History [Lantus Solostar] Tolterodine Tartrate [Detrol LA] 4 mg PO DAILY@0800 04/26/19 11/15/19 History Metoprolol Succinate (ER) [Toprol 12.5 mg PO DAILY tab.er.24h 04/30/19 11/15/19 Rx XL] Acetaminophen Tab [Tylenol] 650 mg PO BID@0800,1600 11/02/19 11/15/19 History Albuterol Inhaler [Ventolin Hfa 2 puff INHALATION RT-Q6H PRN 11/02/19 11/15/19 History Inhaler] Allopurinol [Zyloprim] 100 mg PO HS@209911/02/19 11/15/19 History Aspirin 81 mg PO DAILY@0811/02/19 11/15/19 History Calcium Acetate [PhosLo] 667 mg PO DAILY@1600 11/02/19 11/15/19 History Colchicine [Colcrys] 0.6 mg PO DAILY@0811/02/19 11/15/19 History DULoxetine HCL [Cymbalta] 30 mg PO HS@209911/02/19 11/15/19 History Docusate [Colace] 200 mg PO DAILY PRN 11/02/19 11/15/19 History Furosemide [Lasix] 40 mg PO DAILY@0811/02/19 11/15/19 History HYDROcodone/APAP 5-325MG [[place] 1 tab PO Q6H PRN 11/02/19 11/15/19 History 5-325] Levothyroxine Sodium [Synthroid] 100 mcg PO DAILY@0811/02/19 11/15/19 History Mag Hydrox/Aluminum Hyd/Simeth 30 ml PO Q4H PRN 11/02/19 11/15/19 History [Mylanta Maximum Strength Liq] Omeprazole 20 mg PO DAILY@0811/02/19 11/15/19 History Oxymetazoline 0.05% Nasl [place] 1 spray EA NOSTRIL DAILY PRN 11/02/19 11/15/19 History [Afrin 0.05% Nasal [place]] Sennosides/Docusate Sodium [Senna 1 tab PO HS PRN 11/02/19 11/15/19 History Plus 8.6-50 mg Tablet] Spironolactone [Aldactone] 12.5 mg PO DAILY@0800 11/02/19 11/15/19 History Ferrous Sulfate [Feosol] 325 mg PO DAILY@0811/15/19 11/15/19 History Pregabalin [Lyrica] 75 mg PO BID@0800,1700 11/15/19 11/15/19 History Allergies Allergy/AdvReac Type Severity Reaction Status Date / Time Iodinated Contrast Media Allergy Severe Anaphylaxis Verified 11/15/19 21:57 [Iodinated Contrast Media - IV Dye] morphine Allergy Unknown Verified 11/15/19 21:57 Penicillins Allergy Unknown Verified 11/15/19 21:57 captopril [From Capoten] AdvReac Unknown PASSED OUT Verified 11/15/19 21:57 sulfamethoxazole AdvReac Unknown Diarrhea Verified 11/15/19 21:57 [From Bactrim] trimethoprim [From Bactrim] AdvReac Unknown Diarrhea Verified 11/15/19 21:57 Physical Exam Vitals: Vital Signs Temp Pulse Pulse Resp BP BP Pulse Ox 11/16/19 04:00 97.6 F 65 20 154/90 100 11/15/19 23:54 20 11/15/19 22:00 97.9 F 75 16 161/81 100 11/15/19 20:55 98.8 F 73 14 150/82 100 11/15/19 19:25 97.8 F 77 18 147/95 99 11/15/19 18:43 77 11/15/19 18:31 76 11/15/19 18:30 166/98 100 11/15/19 18:12 76 11/15/19 18:00 165/95 99 11/15/19 17:30 166/108 99 11/15/19 17:12 18 11/15/19 17:10 96.9 F L 84 20 166/108 98 11/15/19 17:09 96 Intake and Output 11/15/19 11/16/19 11/16/19 22:59 06:59 14:59 Output Total 0 Balance 0 Output: Urine 0 Other: Weight 86.183 kg 85.6 kg - Constitutional General appearance: no acute distress, obese - EENT Eyes: EOMI - Neck Neck: no lymphadenopathy - Respiratory Respiratory: bilateral: CTA - Cardiovascular Rhythm: regular Heart sounds: normal: S1, S2 Abnormal Heart Sounds: no S3 Gallop - Gastrointestinal General gastrointestinal: soft, no tenderness - Integumentary Integumentary: no cellulitis - Psychiatric Psychiatric: A&O x's 3, appropriate affect Results CBC & Chem 7: 11/15/19 18:10 11/15/19 18:10 Labs: Abnormal Lab Results - Last 24 Hours (Table) 11/15/19 11/15/19 11/15/19 Range/Units 18:10 18:10 18:10 RBC 3.57 L (3.80-5.40) m/uL Hgb 10.6 L (11.4-16.0) gm/dL Hct 32.9 L (34.0-46.0) % RDW 17.2 H (11.5-15.5) % Plt Count 131 L (150-450) k/uL Neutrophils # 8.6 H (1.3-7.7) k/uL Lymphocytes # 0.8 L (1.0-4.8) k/uL BUN 36 H (7-17) mg/dL Creatinine 1.75 H (0.52-1.04) mg/dL Glucose 262 H (74-99) mg/dL POC Glucose (mg/dL) (75-99) mg/dL AST 84 H (14-36) U/L ALT 39 H (4-34) U/L Creatine Kinase 152 H (30-135) U/L Troponin I 0.092 H* (0.000-0.034) ng/mL 11/16/19 11/16/19 11/16/19 Range/Units 00:43 04:56 06:36 RBC (3.80-5.40) m/uL Hgb (11.4-16.0) gm/dL Hct (34.0-46.0) % RDW (11.5-15.5) % Plt Count (150-450) k/uL Neutrophils # (1.3-7.7) k/uL Lymphocytes # (1.0-4.8) k/uL BUN (7-17) mg/dL Creatinine (0.52-1.04) mg/dL Glucose (74-99) mg/dL POC Glucose (mg/dL) 196 H (75-99) mg/dL AST (14-36) U/L ALT (4-34) U/L Creatine Kinase (30-135) U/L Troponin I 0.089 H* 0.071 H* (0.000-0.034) ng/mL Thrombosis Risk Factor Assmnt - Choose All That Apply Each Risk Factor Represents 3 Points: Age 75 years or older Thrombosis Risk Factor Assessment Total Risk Factor Score: 3 Thrombosis Risk Factor Assessment Level: Moderate Risk Assessment and Plan (1) Dehydration Current Visit: Yes Status: Acute Code(s): E86.0 - DEHYDRATION SNOMED Code(s): 23704274 (2) Elevated troponin Current Visit: Yes Status: Acute Code(s): R79.89 - OTHER SPECIFIED ABNORMAL FINDINGS OF BLOOD CHEMISTRY SNOMED Code(s): 231298284 (3) Nausea and vomiting Current Visit: Yes Status: Acute Code(s): R11.2 - NAUSEA WITH VOMITING, UNSPECIFIED SNOMED Code(s): 22640474 (4) Dyspnea Current Visit: No Status: Acute Code(s): R06.00 - DYSPNEA, UNSPECIFIED SNOMED Code(s): 166082379 (5) Chronic kidney disease, stage 3 Current Visit: No Status: Chronic Code(s): N18.3 - CHRONIC KIDNEY DISEASE, STAGE 3 (MODERATE) SNOMED Code(s): 214597866 (6) Hypertension Current Visit: No Status: Chronic Code(s): I10 - ESSENTIAL (PRIMARY) HYPERTENSION SNOMED Code(s): 44935704 (7) Lipidemia Current Visit: No Status: Chronic Code(s): E78.5 - HYPERLIPIDEMIA, UNSPECIFIED SNOMED Code(s): 95823941 (8) Type II diabetes mellitus with peripheral circulatory disorder, uncontrolled Current Visit: No Status: Chronic Priority: Medium Code(s): E11.51 - TYPE 2 DIABETES W DIABETIC PERIPHERAL ANGIOPATH W/O GANGRENE SNOMED Code(s): 47975581 Plan: I suspect her elements of her most likely related to advancing age and multiple comorbidities. Rule out myocardial infarction. Question element of home health versus placement for rehab. There is appropriate family support from my recollection of her family. Dr. Isbell's group will be covering for the weekend. We will go ahead and rehydrate and if she is tolerating diet and cleared by consultants I anticipate discharge in a.m. Check CBC and CMP in a.m. Reconcile medications and watch blood sugar closely.
[2019-11-16] MEDS ORDERED: PANTOPRAZOLE 40 MG TABLET PO ONE (09:00)
[2019-11-16] MEDS ORDERED: COLCHICINE 0.6 MG EACH PO ONE (09:00)
[2019-11-16] MEDS ORDERED: SPIRONOLACTONE 25 MG TAB PO ONE (09:00)
[2019-11-16] MEDS ORDERED: FERROUS SULFATE 325 MG TAB PO ONE (09:00)
[2019-11-16] MEDS ORDERED: CHOLECALCIFEROL 1,000 UNIT TAB PO ONE (09:00)
[2019-11-16] MEDS ORDERED: FUROSEMIDE 40 MG TAB PO ONE (09:00)
[2019-11-16] MEDS ORDERED: LEVOTHYROXINE 100 MCG TAB PO ONE (09:00)
[2019-11-16] MEDS ORDERED: OXYBUTYNIN XL 5 MG TAB.ER.24 PO ONE (09:00)
[2019-11-16] MEDS ORDERED: SERTRALINE 50 MG TAB PO ONE (09:00)
[2019-11-16] MEDS ORDERED: ASPIRIN 325 MG TAB PO SCH (09:00)
[2019-11-16] MEDS: METOPROLOL SUCCINATE (ER) 25 MG TAB.ER.24H PO SCH (09:10)
--- NOTE | 2019-11-16 10:48 | P.CRDCN ---
History of Present Illness Consult date: 11/16/19 Requesting physician: Johan Bai Consult reason: congestive heart failure Chief complaint: Shortness of breath History of present illness: This is an 84-year-old female who follows with Dr. Abernathy in the office. She has a known history of coronary artery disease with prior bypass surgery, prior PCI, hypertension, hyperlipidemia, diabetes, chronic kidney disease, family history of premature coronary artery disease. Her bypass surgery was performed in 1998, at that time she underwent a HERNANDEZ to the LAD, saphenous vein graft to the OM. In June 2017 she underwent successful daya nting of the distal left main, proximal circumflex, and ostial circumflex. Most recent echocardiogram with Doppler study was performed in April 2018 which revealed an ejection fraction of 35-40%, moderate mitral regurgitation. She presents to the hospital on this occasion with symptoms of progressively worsening shortness of breath over a 3-4 day duration. She also states that she was having diarrhea stools at home, and feeling like she may get sick to her stomach however denies having any episodes of vomiting. An x-ray of the abdomen was performed which did not reveal any acute radiographic findings. EKG showed a normal sinus rhythm with ST-T wave changes noted in the anterior lateral l juliet. No chest x-ray was performed. Blood pressure 162/80, heart rate in the 60s, afebrile. White blood cell count 9.9, hemoglobin 10.6, platelet count 131, sodium 137, potassium 4.9, BUN 36, creatinine 1.7. Magnesium is 1.7. Troponins 0.092, 0.089, 0.071. BNP level 98,500. Influenza A and B were negative. At the time of my examination this morning, patient's main complaint is that of shortness of breath. Positive PND and orthopnea. Past Medical History Past Medical History: Coronary Artery Disease (CAD), Chest Pain / Angina, Diabetes Mellitus, GERD/Reflux, Hyperlipidemia, Hypertension, Osteoarthritis (OA), Renal Disease, Thyroid Disorder Additional Past Medical History / Comment(s): IDDM TYPE II, ARTHRITIS GENERALI ZED AND ESPECIALLY IN BACK, CHRONIC BACK PAIN-CAN ONLY STAND FEW MINUTES AT A TIME with a wheelchair/walker, CHRONIC BILATERAL LEG NUMBNESS/BURNING, HYPOTHYROID, PAST HEPATITIS IN 1971 R/T BLOOD TRANSFUSION, CURRENT KIDNEY CYST, SOB WITH ACTIVITY, Stage 4 CKD (pt states she urinates 2-3/day). History of Any Multi-Drug Resistant Organisms: None Reported Past Surgical History: Appendectomy, Cholecystectomy, Heart Catheterization, Heart Catheterization With Stent, Hernia Repair Additional Past Surgical History / Comment(s): 07/08/17 PCI with stent to LCX, bilateral carpal tunnel; right and left finger release; CABG - 1998. Spinal cord stimulator implantation (2009) AND REMOVED. Bilateral cataract removal with lens implants,. Right hip surgery - too put in, T LT HIP REPLACEMENT. Pt states she broke her neck in May 2019; was seen by Dr Nelson. HIATAL HERNIA REPAIR. Stents placed 07/09/17. Past Anesthesia/Blood Transfusion Reactions: No Reported Reaction Additional Past Anesthesia/Blood Transfusion Reaction / Comment(s): contracted hepatits after blood transfusion (1971) Date of Last Stent Placement:: 07/08/17 Past Psychological History: No Psychological Hx Reported Additional Psychological History / Comment(s): Pt resides alone at [facility]. She uses a rolling walker to ambulate. She has a glucometer. She manages her own medication. 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 She goes to the dining room for lunch, pt does not cook. Smoking Status: Never smoker Past Alcohol Use History: Rare Past Drug Use History: None Reported - Past Family History Mother Family Medical History: Cancer Son(s) Family Medical History: Cancer Father History Unknown: Yes Additional Family Medical History / Comment(s): Father at the age of 48yrs. Pt was little when he passed and is not sure what his cause of was. Medications and Allergies Home Medications Medication Instructions Recorded Confirmed Type Atorvastatin [Lipitor] 80 mg PO HS@2100 10/16/14 11/15/19 History Nitroglycerin Sl Tabs [Nitrostat] 0.4 mg SUBLINGUAL Q5M PRN 11/07/14 11/15/19 History Calcitriol 0.5 mcg PO SUTH@0800 09/09/16 11/15/19 History Sertraline [Zoloft] 50 mg PO DAILY@0800 08/27/18 11/15/19 History Cholecalciferol [Vitamin D3 (25 1,000 unit PO DAILY@0800 02/02/19 11/15/19 History Mcg = 1000 Iu)] Insulin Aspart [NovoLOG Flexpen] 5 units SQ BID@0800,1600 04/26/19 11/15/19 History Insulin Glargine,Hum.rec.anlog 12 units SQ HS@209904/26/19 11/15/19 History [Lantus Solostar] Tolterodine Tartrate [Detrol LA] 4 mg PO DAILY@0804/26/19 11/15/19 History Metoprolol Succinate (ER) [Toprol 12.5 mg PO DAILY tab.er.24h 04/30/19 11/15/19 Rx XL] Acetaminophen Tab [Tylenol] 650 mg PO BID@0800,159911/02/19 11/15/19 History Albuterol Inhaler [Ventolin Hfa 2 puff INHALATION RT-Q6H PRN 11/02/19 11/15/19 History Inhaler] Allopurinol [Zyloprim] 100 mg PO HS@209911/02/19 11/15/19 History Aspirin 81 mg PO DAILY@79911/02/19 11/15/19 History Calcium Acetate [PhosLo] 667 mg PO DAILY@159911/02/19 11/15/19 History Colchicine [Colcrys] 0.6 mg PO DAILY@79911/02/19 11/15/19 History DULoxetine HCL [Cymbalta] 30 mg PO HS@209911/02/19 11/15/19 History Docusate [Colace] 200 mg PO DAILY PRN 11/02/19 11/15/19 History Furosemide [Lasix] 40 mg PO DAILY@79911/02/19 11/15/19 History HYDROcodone/APAP 5-325MG [[place] 1 tab PO Q6H PRN 11/02/19 11/15/19 History 5-325] Levothyroxine Sodium [Synthroid] 100 mcg PO DAILY@79911/02/19 11/15/19 History Mag Hydrox/Aluminum Hyd/Simeth 30 ml PO Q4H PRN 11/02/19 11/15/19 History [Mylanta Maximum Strength Liq] Omeprazole 20 mg PO DAILY@79911/02/19 11/15/19 History Oxymetazoline 0.05% Nasl [place] 1 spray EA NOSTRIL DAILY PRN 11/02/19 11/15/19 History [Afrin 0.05% Nasal [place]] Sennosides/Docusate Sodium [Senna 1 tab PO HS PRN 11/02/19 11/15/19 History Plus 8.6-50 mg Tablet] Spironolactone [Aldactone] 12.5 mg PO DAILY@0800 11/02/19 11/15/19 History Ferrous Sulfate [Feosol] 325 mg PO DAILY@0800 11/15/19 11/15/19 History Pregabalin [Lyrica] 75 mg PO BID@0800,1700 11/15/19 11/15/19 History Allergies Allergy/AdvReac Type Severity Reaction Status Date / Time Iodinated Contrast Media Allergy Severe Anaphylaxis Verified 11/15/19 21:57 [Iodinated Contrast Media - IV Dye] morphine Allergy Unknown Verified 11/15/19 21:57 Penicillins Allergy Unknown Verified 11/15/19 21:57 captopril [From Capoten] AdvReac Unknown PASSED OUT Verified 11/15/19 21:57 sulfamethoxazole AdvReac Unknown Diarrhea Verified 11/15/19 21:57 [From Bactrim] trimethoprim [From Bactrim] AdvReac Unknown Diarrhea Verified 11/15/19 21:57 Physical Exam Vitals: Vital Signs Temp Pulse Pulse Resp BP BP Pulse Ox 11/16/19 08:23 97.8 F 69 20 163/82 97 11/16/19 04:00 97.6 F 65 20 154/90 100 11/15/19 23:54 20 11/15/19 22:00 97.9 F 75 16 161/81 100 11/15/19 20:55 98.8 F 73 14 150/82 100 11/15/19 19:25 97.8 F 77 18 147/95 99 11/15/19 18:43 77 11/15/19 18:31 76 11/15/19 18:30 166/98 100 11/15/19 18:12 76 11/15/19 18:00 165/95 99 11/15/19 17:30 166/108 99 11/15/19 17:12 18 11/15/19 17:10 96.9 F L 84 20 166/108 98 11/15/19 17:09 96 Intake and Output 11/15/19 11/16/19 11/16/19 22:59 06:59 14:59 Output Total 0 Balance 0 Output: Urine 0 Other: Weight 86.183 kg 85.6 kg PHYSICAL EXAMINATION: GENERAL: 84-year-old female in no acute distress at the time of my examination HEENT: Head is atraumatic, normocephalic. Pupils equal, round. Sclera anicteric. Conjunctiva are clear. Mucous membranes of the mouth are moist. Neck is supple. There is elevated jugular venous pressure. No carotid bruit is heard. HEART EXAMINATION: Heart S1 and S2 systolic murmur is heard CHEST EXAMINATION: Lungs reveal diminished air entry bilaterally . No chest wall tenderness is noted on palpation or with deep breathing. ABDOMEN: Soft, nontender. Bowel sounds are heard. No organomegaly noted. EXTREMITIES: 2+ peripheral pulses with trace to 1 + evidence of peripheral edema and no calf tenderness noted. NEUROLOGIC patient is awake, alert and oriented X3. Results 11/15/19 18:10 11/15/19 18:10 Cardiac Enzymes 11/15/19 11/15/19 11/16/19 Range/Units 18:10 18:10 00:43 AST 84 H (14-36) U/L Troponin I 0.092 H* 0.089 H* (0.000-0.034) ng/mL 11/16/19 Range/Units 06:36 AST (14-36) U/L Troponin I 0.071 H* (0.000-0.034) ng/mL Coagulation 11/15/19 Range/Units 18:10 PT 11.1 (9.0-12.0) sec APTT 23.7 (22.0-30.0) sec Lipids 11/16/19 Range/Units 06:36 Triglycerides 88 (<150) mg/dL Cholesterol 130 (<200) mg/dL HDL Cholesterol 53 (40-60) mg/dL CBC 11/15/19 Range/Units 18:10 WBC 9.9 (3.8-10.6) k/uL RBC 3.57 L (3.80-5.40) m/uL Hgb 10.6 L (11.4-16.0) gm/dL Hct 32.9 L (34.0-46.0) % Plt Count 131 L (150-450) k/uL Comprehensive Metabolic Panel 11/15/19 Range/Units 18:10 Sodium 137 (137-145) mmol/L Potassium 4.9 (3.5-5.1) mmol/L Chloride 103 (98-107) mmol/L Carbon Dioxide 26 (22-30) mmol/L BUN 36 H (7-17) mg/dL Creatinine 1.75 H (0.52-1.04) mg/dL Glucose 262 H (74-99) mg/dL Calcium 8.7 (8.4-10.2) mg/dL AST 84 H (14-36) U/L ALT 39 H (4-34) U/L Alkaline Phosphatase 88 (38-126) U/L Total Protein 6.6 (6.3-8.2) g/dL Albumin 3.6 (3.5-5.0) g/dL Current Medications Generic Name Dose Route Start Last Admin Trade Name Freq PRN Reason Stop Dose Admin Acetaminophen 650 mg 11/16/19 16:00 Tylenol Tab PO BID@0800,1600 [facility] Hydrocodone Bitart/Acetaminophen 1 each 11/16/19 08:15 [place] 5-325 PO Q6H PRN Pain Al Hydroxide/Mg Hydroxide 30 ml 11/16/19 08:15 Maalox PO Q4H PRN GAS Albuterol Sulfate 2.5 mg 11/16/19 08:15 Ventolin Nebulized INHALATION RT-Q6H PRN Shortness Of Breath Allopurinol 100 mg 11/16/19 21:00 Zyloprim PO HS@2100 [facility] Aspirin 81 mg 11/17/19 08:00 Aspirin PO DAILY@0800 [facility] Atorvastatin Calcium 80 mg 11/16/19 21:00 Lipitor PO HS@2100 [facility] Calcitriol 0.5 mcg 11/18/19 08:00 Rocaltrol PO SUTH@0800 [facility] Calcium Acetate 667 mg 11/16/19 16:00 Phoslo PO DAILY@1600 [facility] Cholecalciferol 1,000 unit 11/17/19 08:00 Vitamin D3 (25 Mcg = 1000 Iu) PO DAILY@0800 [facility] Colchicine 0.6 mg 11/17/19 08:00 Colcrys PO DAILY@0800 [facility] Docusate Sodium 200 mg 11/16/19 08:15 Colace PO DAILY PRN Constipation Duloxetine HCl 30 mg 11/16/19 21:00 Cymbalta PO HS@2100 [facility] Ferrous Sulfate 325 mg 11/17/19 08:00 Feosol PO DAILY@0800 [facility] Furosemide 40 mg 11/17/19 08:00 Lasix PO DAILY@0800 [facility] Insulin Aspart 5 unit 11/16/19 16:00 Novolog SQ BID@0800,1600 [facility] Insulin Detemir 12 unit 11/16/19 21:00 Levemir SQ HS@2100 [facility] Levothyroxine Sodium 100 mcg 11/17/19 08:00 Synthroid PO DAILY@0800 [facility] Metoprolol Succinate 12.5 mg 11/16/19 09:00 11/16/19 09:10 Toprol Xl PO Not Given DAILY [facility] Nitroglycerin 0.4 mg 11/16/19 08:15 Nitrostat SUBLINGUAL Q5M PRN Chest Pain Ondansetron HCl 4 mg 11/15/19 20:17 Zofran IVP Q6HR PRN Nausea And Vomiting Oxybutynin Chloride 10 mg 11/17/19 08:00 Ditropan Xl PO DAILY@0800 [facility] Oxymetazoline HCl 1 spray 11/16/19 08:15 Afrin 0.05% Nasal [place] EA NOSTRIL DAILY PRN Nasal Congestion Pantoprazole Sodium 40 mg 11/17/19 08:00 Protonix PO DAILY@0800 [facility] Pregabalin 75 mg 11/16/19 17:00 Lyrica PO BID@0800,1700 [facility] Senna/Docusate Sodium 1 each 11/16/19 08:15 Senokot-S PO HS PRN Constipation Sertraline HCl 50 mg 11/17/19 08:00 Zoloft PO DAILY@0800 [facility] Spironolactone 12.5 mg 11/17/19 08:00 Aldactone PO DAILY@0800 [facility] Intake and Output 11/15/19 11/16/19 11/16/19 22:59 06:59 14:59 Output Total 0 Balance 0 Output: Urine 0 Other: Weight 86.183 kg 85.6 kg 11/15/19 18:10 11/15/19 18:10 EKG Interpretations (text) EKG shows a normal sinus rhythm with anterior lateral T-wave inversion Assessment and Plan Plan: Assessment and Plan #1 systolic congestive heart failure acute on chronic #2 known history of coronary artery disease with prior bypass surgery and PCI #3 diabetes #4 hypertension #5 hyperlipidemia #6 acute on chronic chronic kidney disease #7 abnormal troponins, cannot rule out acute coronary syndrome, troponins 0.092, 0.089, 0.071. Is in normal sinus rhythm with T wave inversion noted in the anterior lateral leads #8 history of recurrent syncope #9 diarrhea stools with episodes of nausea and abdominal x-ray did not reveal any acute abnormality. Plan We will repeat an echocardiogram with Doppler study. Obtain a chest x-ray. We will also start the patient on IV Lasix. Continue metoprolol and Aldactone, p atient is not on an JANINA inhibitor because of abnormal renal function. Continue to monitor the intake and output along with daily weights daily lytes BUN and creatinine. Once the heart failure resolves, patient may need to undergo stress testing or heart catheterization. DNP note has been reviewed, I agree with a documented findings and plan of care. Patient was seen and examined.
[2019-11-16] MEDS: FUROSEMIDE 10 MG/ML 4 ML VIAL IV SCH ×2 (11:12→19:49)
[2019-11-16 11:42] LABS: Glucose,Whole Blood 230 mg/dL (75-99)
--- NOTE | 2019-11-16 12:11 | XR ---
EXAMINATION TYPE: XR chest 2V DATE OF EXAM: 11/16/2019 COMPARISON: 11/01/2019 TECHNIQUE: PA and lateral views submitted. HISTORY: Shortness of breath FINDINGS: Diffuse osteopenia. Cardiomegaly and postsurgical changes. Coarsened central interstitium. Linear sub segmental changes. Small bilateral effusions. Degenerative changes of the spine. Atherosclerotic jacobo ge aorta. IMPRESSION: 1. Correlate for mild interstitial edema. Basilar atelectasis favored over early pneumonia. Correlate clinically for confirmation.
[2019-11-16 16:48] LABS: Glucose,Whole Blood 227 mg/dL (75-99)
[2019-11-16] MEDS: ACETAMINOPHEN TAB 325 MG TAB PO SCH (16:51)
[2019-11-16] MEDS: PREGABALIN 75 MG CAP PO SCH (16:51)
[2019-11-16] MEDS: CALCIUM ACETATE 667 MG TAB PO SCH (16:51)
[2019-11-16] MEDS: INSULIN ASPART (NovoLOG) 100 UNIT/ML VIAL SQ SCH (16:51)
[2019-11-16] MEDS: ALLOPURINOL 100 MG TAB PO SCH (19:49)
[2019-11-16] MEDS: DULoxetine HCL 30 MG CAPSULE.DR PO SCH (19:49)
[2019-11-16] MEDS: ATORVASTATIN 80 MG TAB PO SCH (19:49)
[2019-11-16 20:14] LABS: Glucose,Whole Blood 181 mg/dL (75-99)
[2019-11-16] MEDS: INSULIN DETEMIR (LEVEMIR) 100 UNIT/ML SYR SQ SCH (20:37)
[2019-11-17 06:26] LABS: Glucose,Whole Blood 166 mg/dL (75-99)
[2019-11-17 06:37] LABS: Anisocytosis Slight; HGB 9.9 gm/dL (11.4-16.0); Hypochromasia Slight; MCH 29.4 pg (25.0-35.0); MCHC 30.9 g/dL (31.0-37.0); MCV 95.2 fL (80.0-100.0); Platelet Count 137 k/uL (150-450); RBC 3.36 m/uL (3.80-5.40); RDW 17.1 % (11.5-15.5); WBC 8.3 k/uL (3.8-10.6)
[2019-11-17 06:53] LABS: Albumin 3.1 g/dL (3.5-5.0); Calcium 8.5 mg/dL (8.4-10.2); Potassium 3.7 mmol/L (3.5-5.1); Total Bilirubin 0.8 mg/dL (0.2-1.3); Total Protein 5.7 g/dL (6.3-8.2)
[2019-11-17] MEDS ORDERED: FUROSEMIDE 40 MG TAB PO SCH (08:00)
--- NOTE | 2019-11-17 08:04 | P.PN ---
Subjective Progress Note Date: 11/17/19 This is an 84-year-old female who follows with Dr. Abernathy in the office. She has a known history of coronary artery disease with prior bypass surgery, prior PCI, hypertension, hyperlipidemia, diabetes, chronic kidney disease, family history of premature coronary artery disease. Her bypass surge ry was performed in 1998, at that time she underwent a HERNANDEZ to the LAD, saphenous vein graft to the OM. In June 2017 she underwent successful stenting of the distal left main, proximal circumflex, and ostial circumflex. Most recent echocardiogram with Doppler study was performed in April 2018 which revealed an ejection fraction of 35-40%, moderate mitral regurgitation. She presents to the hospital on this occasion with symptoms of progressively worsening shortness of breath over a 3-4 day duration. She also states that she was having diarrhea stools at home, and feeling like she may get sick to her stomach however denies having any episodes of vomiting. An x-ray of the abdomen was performed which did not reveal any acute radiographic findings. EKG showed a normal sinus rhythm with ST-T wave changes noted in the anterior lateral leads. No chest x-ray was performed. Blood pressure 162/80, heart rate in the 60s, afebrile. White blood cell count 9.9, hemoglobin 10.6, platelet count 131, sodium 137, potassium 4.9, BUN 36, creatinine 1.7. Magnesium is 1.7. Troponins 0.092, 0.089, 0.071. BNP level 98,500. Influenza A and B were negative. At the time of my examination this morning, patient's main complaint is that of shortness of breath. Positive PND and orthopnea. 11/17: Patient is complaining of lower sternal chest pain today. It is tender to palpation and worsens when she moves. She states she has all the time it's not going away. She is currently on IV Lasix 40 mg IV every 12 hours along with metoprolol and Aldactone. She has weight loss of 0.8 kg from yesterday. Repeat chest x-ray reveals mild interstitial edema, basilar atelectasis. She has been afebrile, blood pressure 154/70, pulse ox 96% on 2 L. Patient is not O2 dependent. Heart rate 65. She has mild rise in her renal function with a BUN of 39 and creatinine 2.03. AST 44, ALT 40, alkaline phosphatase 96. Objective - Vital Signs Vital signs: Vital Signs Temp 97.8 F 11/17/19 02:59 Pulse 65 11/17/19 02:59 Resp 18 11/17/19 02:59 BP 154/78 11/17/19 02:59 Pulse Ox 96 11/17/19 02:59 Intake & Output 11/16/19 11/17/19 11/17/19 18:59 06:59 18:59 Intake Total 540 Balance 540 Weight 85.3 kg Intake: Oral 540 Other: # Voids 1 1 # Bowel Movements 1 1 - Exam PHYSICAL EXAMINATION: GENERAL: 84-year-old female in mild acute distress at the time of my examination HEENT: Head is atraumatic, normocephalic. Pupils equal, round. Sclera anicteric. Conjunctiva are clear. Mucous membranes of the mouth are moist. Neck is supple. There is elevated jugular venous pressure. No carotid bruit is heard. HEART EXAMINATION: Heart S1 and S2 systolic murmur is heard CHEST EXAMINATION: Lungs reveal diminished air entry bilaterally. Chest wall tenderness midsternal. Patient is mildly tachypneic with movement in her bed. ABDOMEN: Soft, nontender. Bowel sounds are heard. No organomegaly noted. EXTREMITIES: 2+ peripheral pulses with trace to 1 + evidence of peripheral edema and no calf tenderness noted. NEUROLOGIC patient is awake, alert and oriented X3. - Labs CBC & Chem 7: 11/17/19 05:40 11/17/19 05:40 Labs: Abnormal Lab Results - Last 24 Hours (Table) 11/16/19 11/16/19 11/16/19 Range/Units 06:36 11:40 16:46 RBC (3.80-5.40) m/uL Hgb (11.4-16.0) gm/dL Hct (34.0-46.0) % MCHC (31.0-37.0) g/dL RDW (11.5-15.5) % Plt Count (150-450) k/uL BUN (7-17) mg/dL Creatinine (0.52-1.04) mg/dL Glucose (74-99) mg/dL POC Glucose (mg/dL) 230 H 227 H (75-99) mg/dL AST (14-36) U/L ALT (4-34) U/L Troponin I 0.071 H* (0.000-0.034) ng/mL Total Protein (6.3-8.2) g/dL Albumin (3.5-5.0) g/dL 11/16/19 11/17/19 11/17/19 Range/Units 20:12 05:40 05:40 RBC 3.36 L (3.80-5.40) m/uL Hgb 9.9 L (11.4-16.0) gm/dL Hct 32.0 L (34.0-46.0) % MCHC 30.9 L (31.0-37.0) g/dL RDW 17.1 H (11.5-15.5) % Plt Count 137 L (150-450) k/uL BUN 39 H (7-17) mg/dL Creatinine 2.03 H (0.52-1.04) mg/dL Glucose 133 H (74-99) mg/dL POC Glucose (mg/dL) 181 H (75-99) mg/dL AST 44 H (14-36) U/L ALT 40 H (4-34) U/L Troponin I (0.000-0.034) ng/mL Total Protein 5.7 L (6.3-8.2) g/dL Albumin 3.1 L (3.5-5.0) g/dL 11/17/19 Range/Units 06:25 RBC (3.80-5.40) m/uL Hgb (11.4-16.0) gm/dL Hct (34.0-46.0) % MCHC (31.0-37.0) g/dL RDW (11.5-15.5) % Plt Count (150-450) k/uL BUN (7-17) mg/dL Creatinine (0.52-1.04) mg/dL Glucose (74-99) mg/dL POC Glucose (mg/dL) 166 H (75-99) mg/dL AST (14-36) U/L ALT (4-34) U/L Troponin I (0.000-0.034) ng/mL Total Protein (6.3-8.2) g/dL Albumin (3.5-5.0) g/dL Assessment and Plan Plan: Assessment and Plan #1 systolic congestive heart failure acute on chronic #2 known history of coronary artery disease with prior bypass surgery and PCI #3 diabetes #4 hypertension #5 hyperlipidemia #6 acute on chronic chronic kidney disease #7 abnormal troponins, cannot rule out acute coronary syndrome, troponins 0.092, 0.089, 0.071. Is in normal sinus rhythm with T wave inversion noted in the anterior lateral leads #8 history of recurrent syncope #9 diarrhea stools with episodes of nausea and abdominal x-ray did not reveal any acute abnormality. Plan We will repeat an echocardiogram with Doppler study long report is pending. Maintain IV Lasix 40 mg twice daily, monitor I&O, daily weights, electrolyte and renal function. Continue metoprolol and Aldactone, patient is not on an JANINA inhibitor because of abnormal renal function. Once the heart failure resolves, patient may need to undergo stress testing or heart catheterization. Nurse practitioner note his been reviewed, I agree with the documented findings and plan of care. Patient was seen and examined.
[2019-11-17] MEDS: CHOLECALCIFEROL 1,000 UNIT TAB PO SCH (08:20)
[2019-11-17] MEDS: FERROUS SULFATE 325 MG TAB PO SCH (08:20)
[2019-11-17] MEDS: METOPROLOL SUCCINATE (ER) 25 MG TAB.ER.24H PO SCH (08:20)
[2019-11-17] MEDS: PANTOPRAZOLE 40 MG TABLET PO SCH (08:21)
[2019-11-17] MEDS: ACETAMINOPHEN TAB 325 MG TAB PO SCH ×2 (08:21→17:54)
[2019-11-17] MEDS: OXYBUTYNIN XL 5 MG TAB.ER.24 PO SCH (08:21)
[2019-11-17] MEDS: PREGABALIN 75 MG CAP PO SCH ×2 (08:21→17:54)
[2019-11-17] MEDS: LEVOTHYROXINE 100 MCG TAB PO SCH (08:21)
[2019-11-17] MEDS: SERTRALINE 50 MG TAB PO SCH (08:21)
[2019-11-17] MEDS: INSULIN ASPART (NovoLOG) 100 UNIT/ML VIAL SQ SCH ×2 (08:22→17:55)
[2019-11-17] MEDS: COLCHICINE 0.6 MG EACH PO SCH (08:22)
[2019-11-17] MEDS: ASPIRIN 81 MG PO SCH (08:22)
[2019-11-17] MEDS: FUROSEMIDE 10 MG/ML 4 ML VIAL IV SCH ×2 (08:22→20:49)
[2019-11-17] MEDS: SPIRONOLACTONE 25 MG TAB PO SCH (08:23)
[2019-11-17 11:28] LABS: Glucose,Whole Blood 144 mg/dL (75-99)
--- NOTE | 2019-11-17 15:08 | US ---
EXAMINATION TYPE: US kidneys/renal and bladder DATE OF EXAM: 11/17/2019 COMPARISON: NONE CLINICAL HISTORY: obstruction. back pain EXAM MEASUREMENTS: Right Kidney: 9.4 x 4.4 x 3.9 cm Left Kidney: 9.0 x 3.9 x 3.6 cm Right Kidney: echogenic, thin renal cortex, cystic area upper pole = 1.6 x 1.6 x 1.2cm Left Kidney: echogenic, thin renal cortex, cystic area lower pole = 1.1 x 0.9 x 1.3cm, dense echogeni c area mid = 0.5cm possible stone Bladder: appears wnl Bilateral Jets seen: no IMPRESSION: Symmetric renal cortical atrophy. No evidence of renal obstruction. Shadowing focus interpolar left k idney consistent with nonobstructing 5 mm calculus.
[2019-11-17 16:41] LABS: Glucose,Whole Blood 249 mg/dL (75-99)
[2019-11-17] MEDS: CALCIUM ACETATE 667 MG TAB PO SCH (17:54)
[2019-11-17 20:26] LABS: Glucose,Whole Blood 249 mg/dL (75-99)
[2019-11-17] MEDS: ALLOPURINOL 100 MG TAB PO SCH (20:48)
[2019-11-17] MEDS: ATORVASTATIN 80 MG TAB PO SCH (20:48)
[2019-11-17] MEDS: DULoxetine HCL 30 MG CAPSULE.DR PO SCH (20:48)
[2019-11-17] MEDS: INSULIN DETEMIR (LEVEMIR) 100 UNIT/ML SYR SQ SCH (20:49)
[2019-11-18 06:18] LABS: Glucose,Whole Blood 95 mg/dL (75-99)
[2019-11-18 07:06] LABS: Calcium 8.3 mg/dL (8.4-10.2); Potassium 3.4 mmol/L (3.5-5.1)
[2019-11-18] MEDS: METOPROLOL SUCCINATE (ER) 25 MG TAB.ER.24H PO SCH (07:53)
[2019-11-18] MEDS: OXYBUTYNIN XL 5 MG TAB.ER.24 PO SCH (07:53)
[2019-11-18] MEDS: COLCHICINE 0.6 MG EACH PO SCH (07:53)
[2019-11-18] MEDS: FERROUS SULFATE 325 MG TAB PO SCH (07:53)
[2019-11-18] MEDS: LEVOTHYROXINE 100 MCG TAB PO SCH (07:53)
[2019-11-18] MEDS: ASPIRIN 81 MG PO SCH (07:53)
[2019-11-18] MEDS: SERTRALINE 50 MG TAB PO SCH (07:53)
[2019-11-18] MEDS: PANTOPRAZOLE 40 MG TABLET PO SCH (07:54)
[2019-11-18] MEDS: ACETAMINOPHEN TAB 325 MG TAB PO SCH ×2 (07:54→16:50)
[2019-11-18] MEDS: CHOLECALCIFEROL 1,000 UNIT TAB PO SCH (07:54)
[2019-11-18] MEDS: PREGABALIN 75 MG CAP PO SCH ×2 (07:54→16:49)
[2019-11-18] MEDS: FUROSEMIDE 10 MG/ML 4 ML VIAL IV SCH (07:54)
[2019-11-18] MEDS: SPIRONOLACTONE 25 MG TAB PO SCH (07:54)
[2019-11-18] MEDS ORDERED: POTASSIUM CHLORIDE ER 20 MEQ TAB.ER PO STA (07:59)
[2019-11-18] MEDS ORDERED: CALCITRIOL 0.25 MCG CAP PO SCH (08:00)
[2019-11-18] MEDS: INSULIN ASPART (NovoLOG) 100 UNIT/ML VIAL SQ SCH ×2 (08:04→16:50)
--- NOTE | 2019-11-18 08:11 | P.PN ---
Subjective Progress Note Date: 11/18/19 This is an 84-year-old female who follows with Dr. Abernathy in the office. She has a known history of coronary artery disease with prior bypass surgery, prior PCI, hypertension, hyperlipidemia, diabetes, chronic kidney disease, family history of premature coronary artery disease. Her bypass surge ry was performed in 1998, at that time she underwent a HERNANDEZ to the LAD, saphenous vein graft to the OM. In June 2017 she underwent successful stenting of the distal left main, proximal circumflex, and ostial circumflex. Most recent echocardiogram with Doppler study was performed in April 2018 which revealed an ejection fraction of 35-40%, moderate mitral regurgitation. She presents to the hospital on this occasion with symptoms of progressively worsening shortness of breath over a 3-4 day duration. She also states that she was having diarrhea stools at home, and feeling like she may get sick to her stomach however denies having any episodes of vomiting. An x-ray of the abdomen was performed which did not reveal any acute radiographic findings. EKG showed a normal sinus rhythm with ST-T wave changes noted in the anterior lateral leads. No chest x-ray was performed. Blood pressure 162/80, heart rate in the 60s, afebrile. White blood cell count 9.9, hemoglobin 10.6, platelet count 131, sodium 137, potassium 4.9, BUN 36, creatinine 1.7. Magnesium is 1.7. Troponins 0.092, 0.089, 0.071. BNP level 98,500. Influenza A and B were negative. At the time of my examination this morning, patient's main complaint is that of shortness of breath. Positive PND and orthopnea. 11/17: Patient is complaining of lower sternal chest pain today. It is tender to palpation and worsens when she moves. She states she has all the time it's not going away. She is currently on IV Lasix 40 mg IV every 12 hours along with metoprolol and Aldactone. She has weight loss of 0.8 kg from yesterday. Repeat chest x-ray reveals mild interstitial edema, basilar atelectasis. She has been afebrile, blood pressure 154/70, pulse ox 96% on 2 L. Patient is not O2 dependent. Heart rate 65. She has mild rise in her renal function with a BUN of 39 and creatinine 2.03. AST 44, ALT 40, alkaline phosphatase 96. 2/9: The patient is seen today in follow-up. She is resting in bed and denies any chest pain or shortness of breath at rest. She does state that she has some shortness of breath with exertion also has some tremors because it difficult to ambulate. Chest pain is located on the right with tenderness to palpation. Patient has been afebrile, heart rate 65, surveillance system monitor sinus rhythm, blood pressure 120/65, pulse ox 97% on room air. Sodium 1:30, potassium 3.4, chloride 100, CO2 31, BUN 41 and creatinine 2.07. Renal ultrasound reveals symmetric renal cortical atrophy. No renal obstruction. She is currently on Lasix 40 mg IV twice daily. Nephrology consult has been added. Patient will be scheduled for Lexiscan stress test tomorrow. Objective - Vital Signs Vital signs: Vital Signs Temp 98.2 F 11/18/19 04:00 Pulse 65 11/18/19 04:00 Resp 18 11/18/19 04:00 BP 128/65 11/18/19 04:00 Pulse Ox 97 11/18/19 04:00 Intake & Output 11/17/19 11/18/19 11/18/19 18:59 06:59 18:59 Intake Total 240 Balance 240 Weight 86 kg Intake: Oral 240 Other: # Voids 2 1 - Exam PHYSICAL EXAMINATION: GENERAL: 84-year-old female in no acute distress at the time of my examination HEENT: Head is atraumatic, normocephalic. Pupils equal, round. Sclera anicteric. Conjunctiva are clear. Mucous membranes of the mouth are moist. Neck is supple. No carotid bruit is heard. HEART EXAMINATION: Heart S1 and S2 systolic murmur is heard CHEST EXAMINATION: Lungs clear to auscultation. Chest wall tenderness right side of sternum. ABDOMEN: Soft, nontender. Bowel sounds are heard. No organomegaly noted. EXTREMITIES: 2+ peripheral pulses with trace to trace evidence of peripheral edema and no calf tenderness noted. NEUROLOGIC patient is awake, alert and oriented X3. - Labs CBC & Chem 7: 11/17/19 05:40 11/18/19 06:12 Labs: Abnormal Lab Results - Last 24 Hours (Table) 11/17/19 11/17/19 11/17/19 Range/Units 11:27 16:40 20:24 Potassium (3.5-5.1) mmol/L Carbon Dioxide (22-30) mmol/L BUN (7-17) mg/dL Creatinine (0.52-1.04) mg/dL POC Glucose (mg/dL) 144 H 249 H 249 H (75-99) mg/dL Calcium (8.4-10.2) mg/dL 11/18/19 Range/Units 06:12 Potassium 3.4 L (3.5-5.1) mmol/L Carbon Dioxide 31 H (22-30) mmol/L BUN 41 H (7-17) mg/dL Creatinine 2.07 H (0.52-1.04) mg/dL POC Glucose (mg/dL) (75-99) mg/dL Calcium 8.3 L (8.4-10.2) mg/dL Assessment and Plan Plan: Assessment and Plan #1 systolic congestive heart failure acute on chronic #2 known history of coronary artery disease with prior bypass surgery and PCI #3 diabetes #4 hypertension #5 hyperlipidemia #6 acute on chronic chronic kidney disease #7 abnormal troponins, cannot rule out acute coronary syndrome, troponins 0.092, 0.089, 0.071. Is in normal sinus rhythm with T wave inversion noted in the anterior lateral leads #8 history of recurrent syncope #9 diarrhea stools with episodes of nausea and abdominal x-ray did not reveal any acute abnormality. Plan Physician IV Lasix to 40 mg oral twice daily Continue to monitor I&O, daily weights, electrolyte and renal function. Continue metoprolol and Aldactone, patient is not on an JANINA inhibitor because of abnormal renal function. She will be scheduled for a Lexiscan stress test tomorrow Further recommendations to follow based upon clinical course Nurse practitioner note his been reviewed, I agree with the documented findings and plan of care. Patient was seen and examined.
[2019-11-18] MEDS ORDERED: FUROSEMIDE 40 MG TAB PO SCH (09:00)
--- NOTE | 2019-11-18 09:34 | P.PN ---
Subjective Progress Note Date: 11/17/19 Principal diagnosis: Acute exacerbation systolic CHF Acute on chronic kidney disease Elevated troponin; demand ischemia versus non-ST elevation MD 84-year-old female; history of CAD with prior bypass surgery, prior PCI, HTN, hyperlipidemia, diabetes, chronic kidney disease, presenting to ED with complaint of progressively worsening shortness of breath over past 3-4 day s, diarrhea along with nausea and vomiting; abdominal x-ray done in ED did not reveal any acute findings; EKG showed normal sinus rhythm with STT wave changes in the anterior/lateral leads; Most recent echocardiogram with Doppler study was performed in April 2018 which revealed an ejection fraction of 35-40%, moderate mitral regurgitation. Patient is admitted to hospital for further treatment of CHF and further cardiology evaluation. 11/17/2019 Patient is seen and evaluated in room at bedside; complains of persistent lower sternal chest pain which worsens with movement and on palpation Her vital signs are stable with a temperature of 97.8, pulse 65, respiration 18 and blood pressure of 154/78 with SpO2 of 96% Repeat chest x-ray reveals mild interstitial edema and basilar atelectasis Patient remains on IV Lasix 40 mg every 12 hours along with Aldactone; patient demonstrates gradual weight loss; cardiology recommending stress testing versus cardiac catheterization once CHF stabilizes Lab review shows gradual worsening of the renal failure with creatinine at 2.03 this morning; we will consult nephrology for further recommendations Objective - Vital Signs Vital signs: Vital Signs Temp 98.3 F 11/17/19 12:08 Pulse 63 11/17/19 12:08 Resp 18 11/17/19 12:08 BP 135/63 11/17/19 12:08 Pulse Ox 94 L 11/17/19 12:08 Intake & Output 11/16/19 11/17/19 11/17/19 18:59 06:59 18:59 Intake Total 540 240 Balance 540 240 Weight 85.3 kg Intake: Oral 540 240 Other: # Voids 1 1 # Bowel Movements 1 1 - Exam General appearance: Present: average body habitus, cooperative, no acute distress Neck: Present: normal ROM. Absent: lymphadenopathy, rigidity, thyromegaly Respiratory: bilateral: CTA, negative: rales, rhonchi, wheezing Cardiovascular;Rhythm: regular; normal: S1, S2 General gastrointestinal: Present: normal bowel sounds, soft. Absent: distended, organomegaly, tenderness Integumentary: Present: normal turgor. Absent: jaundiced, rash, ulcer Neurologic: Present: CNII-XII intact. Absent: focal deficits Musculoskeletal: Present: gait normal, strength equal bilaterally - Labs CBC & Chem 7: 11/17/19 05:40 11/18/19 06:12 Labs: Abnormal Lab Results - Last 24 Hours (Table) 11/16/19 11/16/19 11/17/19 Range/Units 16:46 20:12 05:40 RBC 3.36 L (3.80-5.40) m/uL Hgb 9.9 L (11.4-16.0) gm/dL Hct 32.0 L (34.0-46.0) % MCHC 30.9 L (31.0-37.0) g/dL RDW 17.1 H (11.5-15.5) % Plt Count 137 L (150-450) k/uL BUN (7-17) mg/dL Creatinine (0.52-1.04) mg/dL Glucose (74-99) mg/dL POC Glucose (mg/dL) 227 H 181 H (75-99) mg/dL AST (14-36) U/L ALT (4-34) U/L Total Protein (6.3-8.2) g/dL Albumin (3.5-5.0) g/dL 11/17/19 11/17/19 11/17/19 Range/Units 05:40 06:25 11:27 RBC (3.80-5.40) m/uL Hgb (11.4-16.0) gm/dL Hct (34.0-46.0) % MCHC (31.0-37.0) g/dL RDW (11.5-15.5) % Plt Count (150-450) k/uL BUN 39 H (7-17) mg/dL Creatinine 2.03 H (0.52-1.04) mg/dL Glucose 133 H (74-99) mg/dL POC Glucose (mg/dL) 166 H 144 H (75-99) mg/dL AST 44 H (14-36) U/L ALT 40 H (4-34) U/L Total Protein 5.7 L (6.3-8.2) g/dL Albumin 3.1 L (3.5-5.0) g/dL Assessment and Plan Assessment: 1. Acute exacerbation systolic CHF; patient remains on Lasix 40 mg IV every 12 hours along with Aldactone; monitor strict KHANH's and daily weights; continue with low-salt and fluid restricted diet 2. Elevated troponin; demand ischemia versus non-ST elevation [place]; patient remains stable on aspirin, statins and beta blockers therapy; cardiology on board and planning to complete ischemic workup with stress test versus cardiac catheterization prior to discharge 3. Acute on chronic renal failure; patient is being diuresed aggressively for congestive heart failure resulting in worsening of chronic renal failure; we'll monitor strict KHANH's, daily weights, renal function and electrolytes; avoid hypotension and nephrotoxins; consult nephrology for further recommendations 4. Transaminitis; possibly secondary to passive congestion; we will trend liver enzymes and plan to obtain abdominal ultrasound if liver enzymes continue to trend up 5. Anemia; chronic disease; at baseline; we will continue to monitor H&H cl osely 6. Hypertension; metoprolol 12.5 mg daily 7. Hyperlipidemia; atorvastatin 80 mg by mouth daily at bedtime 8. Hypothyroidism; levothyroxin 100 MCG daily 9. Diabetes mellitus type 1; continue with home dose of Levemir 12 units subcu daily at bedtime along with NovoLog 5 units subcu twice a day; Accu-Cheks every before meals and at bedtime with insulin sliding scale DVT prophylaxis; SCDs/ subcu heparin CODE STATUS; full code
[2019-11-18 10:38] LABS: Appearance,Urine Clear (Clear); Bilirubin,Urine Negative (Negative); Blood,Urine Negative (Negative); Color,Urine Yellow; Glucose,Urine (UA) Negative (Negative); Hyaline Casts,Urine 9 /lpf (0-2); Ketones,Urine Negative (Negative); Leukocyte Esterase,Urine Moderate (Negative); Mucus,Urine Rare /hpf; Nitrite,Urine Negative (Negative); PH, Urine 5.5 (5.0-8.0); Protein,Urine 1+ (Negative); RBC,Urine 1 /hpf (0-5); Specific Gravity,Urine 1.011 (1.001-1.035); Squamous Epithelial Cell,Urine 2 /hpf (0-4); Urobilinogen,Urine <2.0 mg/dL (<2.0); WBC,Urine 17 /hpf (0-5)
--- NOTE | 2019-11-18 10:59 | P.NPCON ---
History of Present Illness - Reason for Consult Consult date: 11/18/19 acute renal failure - Chief Complaint Weakness and nausea. - History of Present Illness 84-year-old white lady coming to the hospital with the above complaints. She has chronic kidney disease stage III secondary to diabetic nephropathy with a baseline creatinine of 1.5 to 1.7 MG per DL. She comes in with nausea not feeling well. Chest x-ray showed pulmonary vascular congestion with lower extr emity edema. She was started on Lasix 40 mg IV twice a day. She feels better today. No nausea vomiting diarrhea. Denied taking NSAID use. No recent contrast studies. Review of Systems Constitutional: Reports as per HPI Past Medical History Past Medical History: Coronary Artery Disease (CAD), Chest Pain / Angina, Diabetes Mellitus, GERD/Reflux, Hyperlipidemia, Hypertension, Osteoarthritis (OA), Renal Disease, Thyroid Disorder Additional Past Medical History / Comment(s): IDDM TYPE II, ARTHRITIS GENERALIZED AND ESPECIALLY IN BACK, CHRONIC BACK PAIN-CAN ONLY STAND FEW MINUTES AT A TIME with a wheelchair/walker, CHRONIC BILATERAL LEG NUMBNESS/BURNING, HYPOTHYROID, PAST HEPATITIS IN 1971 R/T BLOOD TRANSFUSION, CURRENT KIDNEY CYST, SOB WITH ACTIVITY, Stage 4 CKD (pt states she urinates 2-3/day). History of Any Multi-Drug Resistant Organisms: None Reported Past Surgical History: Appendectomy, Cholecystectomy, Heart Catheterization, Heart Catheterization With Stent, Hernia Repair Additional Past Surgical History / Comment(s): 07/08/17 PCI with stent to LCX, bilateral carpal tunnel; right and left finger release; CABG - 1998. Spinal cord stimulator implantation (2009) AND REMOVED. Bilateral cataract removal with lens implants,. Right hip surgery - too put in, T LT HIP REPLACEMENT. Pt states she broke her neck in May 2019; was seen by Dr Nelson. HIATAL HERNIA REPAIR. Stents placed 07/09/17. Past Anesthesia/Blood Transfusion Reactions: No Reported Reaction Additional Past Anesthesia/Blood Transfusion Reaction / Comment(s): contracted hepatits after blood transfusion (1971) Date of Last Stent Placement:: 07/08/17 Past Psychological History: No Psychological Hx Reported Additional Psychological History / Comment(s): Pt resides alone at [facility]. She uses a rolling walker to ambulate. She has a glucometer. She manages her own medication. 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 She goes to the dining room for lunch, pt does not cook. Smoking Status: Never smoker Past Alcohol Use History: Rare Past Drug Use History: None Reported - Past Family History Mother Family Medical History: Cancer Son(s) Family Medical History: Cancer Father History Unknown: Yes Additional Family Medical History / Comment(s): Father at the age of 48yrs. Pt was little when he passed and is not sure what his cause of was. Medications and Allergies Home Medications Medication Instructions Recorded Confirmed Type Atorvastatin [Lipitor] 80 mg PO HS@209910/16/14 11/15/19 History Nitroglycerin Sl Tabs [Nitrostat] 0.4 mg SUBLINGUAL Q5M PRN 11/07/14 11/15/19 History Calcitriol 0.5 mcg PO SUTH@0800 09/09/16 11/15/19 History Sertraline [Zoloft] 50 mg PO DAILY@0800 08/27/18 11/15/19 History Cholecalciferol [Vitamin D3 (25 1,000 unit PO DAILY@0800 02/02/19 11/15/19 History Mcg = 1000 Iu)] Insulin Aspart [NovoLOG Flexpen] 5 units SQ BID@0800,1600 04/26/19 11/15/19 [facility] Insulin Glargine,Hum.rec.anlog 12 units SQ HS@209904/26/19 11/15/19 History [Lantus Solostar] Tolterodine Tartrate [Detrol LA] 4 mg PO DAILY@0800 04/26/19 11/15/19 History Metoprolol Succinate (ER) [Toprol 12.5 mg PO DAILY tab.er.24h 04/30/19 11/15/19 Rx XL] Acetaminophen Tab [Tylenol] 650 mg PO BID@0800,1600 11/02/19 11/15/19 History Albuterol Inhaler [Ventolin Hfa 2 puff INHALATION RT-Q6H PRN 11/02/19 11/15/19 History Inhaler] Allopurinol [Zyloprim] 100 mg PO HS@209911/02/19 11/15/19 History Aspirin 81 mg PO DAILY@0800 11/02/19 11/15/19 History Calcium Acetate [PhosLo] 667 mg PO DAILY@1600 11/02/19 11/15/19 History Colchicine [Colcrys] 0.6 mg PO DAILY@0800 11/02/19 11/15/19 History DULoxetine HCL [Cymbalta] 30 mg PO HS@2100 11/02/19 11/15/19 History Docusate [Colace] 200 mg PO DAILY PRN 11/02/19 11/15/19 History Furosemide [Lasix] 40 mg PO DAILY@0800 11/02/19 11/15/19 History HYDROcodone/APAP 5-325MG [[place] 1 tab PO Q6H PRN 11/02/19 11/15/19 History 5-325] Levothyroxine Sodium [Synthroid] 100 mcg PO DAILY@0800 11/02/19 11/15/19 History Mag Hydrox/Aluminum Hyd/Simeth 30 ml PO Q4H PRN 11/02/19 11/15/19 History [Mylanta Maximum Strength Liq] Omeprazole 20 mg PO DAILY@0800 11/02/19 11/15/19 History Oxymetazoline 0.05% Nasl [place] 1 spray EA NOSTRIL DAILY PRN 11/02/19 11/15/19 History [Afrin 0.05% Nasal [place]] Sennosides/Docusate Sodium [Senna 1 tab PO HS PRN 11/02/19 11/15/19 History Plus 8.6-50 mg Tablet] Spironolactone [Aldactone] 12.5 mg PO DAILY@0800 11/02/19 11/15/19 History Ferrous Sulfate [Feosol] 325 mg PO DAILY@0800 11/15/19 11/15/19 History Pregabalin [Lyrica] 75 mg PO BID@0800,1700 11/15/19 11/15/19 History Allergies Allergy/AdvReac Type Severity Reaction Status Date / Time Iodinated Contrast Media Allergy Severe Anaphylaxis Verified 11/15/19 21:57 [Iodinated Contrast Media - IV Dye] morphine Allergy Unknown Verified 11/15/19 21:57 Penicillins Allergy Unknown Verified 11/15/19 21:57 captopril [From Capoten] AdvReac Unknown PASSED OUT Verified 11/15/19 21:57 sulfamethoxazole AdvReac Unknown Diarrhea Verified 11/15/19 21:57 [From Bactrim] trimethoprim [From Bactrim] AdvReac Unknown Diarrhea Verified 11/15/19 21:57 Physical Exam Vitals: Vital Signs Temp Pulse Resp BP Pulse Ox 11/18/19 08:05 98.2 F 60 16 125/61 97 11/18/19 04:00 98.2 F 65 18 128/65 97 11/17/19 23:38 69 18 118/58 96 11/17/19 20:00 98.6 F 63 18 112/53 95 11/17/19 16:00 98.2 F 59 L 16 149/67 100 11/17/19 12:08 98.3 F 63 16 135/63 94 L Intake and Output 11/17/19 11/18/19 11/18/19 22:59 06:59 14:59 Other: # Voids 1 1 Weight 86 kg No acute distress S1-S2 heard Decreased breath sounds Abdomen soft No edema Results - Lab Results Most recent lab results Calcium 8.3 mg/dL (8.4-10.2) L 11/18/19 06:12 Phosphorus 4.3 mg/dL (2.5-4.5) 11/15/19 18:10 Magnesium 2.0 mg/dL (1.6-2.3) 11/15/19 18:10 11/17/19 05:40 11/18/19 06:12 Assessment and Plan Assessment: #1 nonoliguric acute kidney injury secondary to cardiorenal syndrome. #2 chronic kidney disease stage III secondary to diabetic nephropathy with a baseline creatinine of 1.5-1.7 MG per DL. #3 anemia with chronic kidney disease #4 hypertension with chronic kidney disease #5 systolic CHF with EF of 35% #6 hypokalemia with alkalosis Plan: #1 continue with diuretics. Agree with decreasing from IV Lasix to by mouth Lasix #2 agree with Aldactone #3 renal function stable anticipate to improve in next few days. #4 stable from nephrology point of view for discharge to be followed up in the clinic in 1-2 weeks.
[2019-11-18 12:08] LABS: Glucose,Whole Blood 65 mg/dL (75-99)
[2019-11-18 12:26] LABS: Glucose,Whole Blood 73 mg/dL (75-99)
--- NOTE | 2019-11-18 16:19 | P.PN ---
Subjective Progress Note Date: 11/18/19 Principal diagnosis: Acute exacerbation systolic CHF Acute on chronic kidney disease Elevated troponin; demand ischemia versus non-ST elevation [place] 84-year-old female; history of CAD with prior bypass surgery, prior PCI, HTN, hyperlipidemia, diabetes, chronic kidney disease, presenting to ED with complaint of progressively worsening shortness of breath over past 3-4 day s, diarrhea along with nausea and vomiting; abdominal x-ray done in ED did not reveal any acute findings; EKG showed normal sinus rhythm with STT wave changes in the anterior/lateral leads; Most recent echocardiogram with Doppler study was performed in April 2018 which revealed an ejection fraction of 35-40%, moderate mitral regurgitation. Patient is admitted to hospital for further treatment of CHF and further cardiology evaluation. 11/17/2019 Patient is seen and evaluated in room at bedside; complains of persistent lower sternal chest pain which worsens with movement and on palpation Her vital signs are stable with a temperature of 97.8, pulse 65, respiration 18 and blood pressure of 154/78 with SpO2 of 96% Repeat chest x-ray reveals mild interstitial edema and basilar atelectasis Patient remains on IV Lasix 40 mg every 12 hours along with Aldactone; patient demonstrates gradual weight loss; cardiology recommending stress testing versus cardiac catheterization once CHF stabilizes Lab review shows gradual worsening of the renal failure with creatinine at 2.03 this morning; we will consult nephrology for further recommendations 11/28/2019 Patient is seen and evaluated in room at bedside; reports persistent chest pain Patient is evaluated by nephrology for nonoliguric acute renal injury possibly secondary to cardiorenal syndrome; creatinine remains stable at 2.07 this morning; patient is recommended to continue with diuretics with Lasix; patient has been/to oral Lasix and Aldactone is continued; no further renal workup was recommended Cardiology is on board for acute on chronic systolic CHF; patient is clinically improved on IV Lasix and is being switched to oral Lasix in form of 40 mg twice a day; patient is scheduled for Lexiscan stress test tomorrow Objective - Vital Signs Vital signs: Vital Signs Temp 98.2 F 11/18/19 08:05 Pulse 60 11/18/19 08:05 Resp 18 11/18/19 08:05 BP 125/61 11/18/19 08:05 Pulse Ox 97 11/18/19 08:05 Intake & Output 11/17/19 11/18/1920 18:59 06:59 18:59 Intake Total 240 Balance 240 Weight 86 kg Intake: Oral 240 Other: # Voids 2 1 - Exam General appearance: Present: average body habitus, cooperative, no acute dis tress Neck: Present: normal ROM. Absent: lymphadenopathy, rigidity, thyromegaly Respiratory: bilateral: CTA, negative: rales, rhonchi, wheezing Cardiovascular;Rhythm: regular; normal: S1, S2 General gastrointestinal: Present: normal bowel sounds, soft. Absent: distended, organomegaly, tenderness Integumentary: Present: normal turgor. Absent: jaundiced, rash, ulcer Neurologic: Present: CNII-XII intact. Absent: focal deficits Musculoskeletal: Present: gait normal, strength equal bilaterally - Labs CBC & Chem 7: 11/17/19 05:40 11/18/19 06:12 Labs: Abnormal Lab Results - Last 24 Hours (Table) 11/17/19 11/17/19 11/17/19 Range/Units 11:27 16:40 20:24 Potassium (3.5-5.1) mmol/L Carbon Dioxide (22-30) mmol/L BUN (7-17) mg/dL Creatinine (0.52-1.04) mg/dL POC Glucose (mg/dL) 144 H 249 H 249 H (75-99) mg/dL Calcium (8.4-10.2) mg/dL Urine Protein (Negative) Ur Leukocyte Esterase (Negative) Urine WBC (0-5) /hpf Hyaline Casts (0-2) /lpf Urine Mucus (None) /hpf 11/18/19 11/18/19 Range/Units 06:12 08:55 Potassium 3.4 L (3.5-5.1) mmol/L Carbon Dioxide 31 H (22-30) mmol/L BUN 41 H (7-17) mg/dL Creatinine 2.07 H (0.52-1.04) mg/dL POC Glucose (mg/dL) (75-99) mg/dL Calcium 8.3 L (8.4-10.2) mg/dL Urine Protein 1+ H (Negative) Ur Leukocyte Esterase Moderate H (Negative) Urine WBC 17 H (0-5) /hpf Hyaline Casts 9 H (0-2) /lpf Urine Mucus Rare H (None) /hpf Assessment and Plan Assessment: 1. Acute exacerbation systolic CHF; patient remains on Lasix 40 mg IV every 12 hours along with Aldactone; monitor strict KHANH's and daily weights; continue with low-salt and fluid restricted diet 2. Elevated troponin; demand ischemia versus non-ST elevation [place]; patient remains stable on aspirin, statins and beta blockers therapy; cardiology on board and planning to complete ischemic workup with stress test versus cardiac catheterization prior to discharge 3. Acute on chronic renal failure; patient is being diuresed aggressively for congestive heart failure resulting in worsening of chronic renal failure; we'll monitor strict KHANH's, daily weights, renal function and electrolytes; avoid hypotension and nephrotoxins; consult nephrology for further recommendations 4. Transaminitis; possibly secondary to passive congestion; we will trend liver enzymes and plan to obtain abdominal ultrasound if liver enzymes continue to trend up 5. Anemia; chronic disease; at baseline; we will continue to monitor H&H closely 6. Hypertension; metoprolol 12.5 mg daily 7. Hyperlipidemia; atorvastatin 80 mg by mouth daily at bedtime 8. Hypothyroidism; levothyroxin 100 MCG daily 9. Diabetes mellitus type 1; continue with home dose of Levemir 12 units subcu daily at bedtime along with NovoLog 5 units subcu twice a day; Accu-Cheks every before meals and at bedtime with insulin sliding scale DVT prophylaxis; SCDs/ subcu heparin CODE STATUS; full code
[2019-11-18] MEDS: CALCIUM ACETATE 667 MG TAB PO SCH (16:50)
[2019-11-18] MEDS: FUROSEMIDE 40 MG TAB PO SCH (16:50)
[2019-11-18 16:57] LABS: Glucose,Whole Blood 289 mg/dL (75-99)
[2019-11-18 20:49] LABS: Glucose,Whole Blood 140 mg/dL (75-99)
[2019-11-18] MEDS: INSULIN DETEMIR (LEVEMIR) 100 UNIT/ML SYR SQ SCH (21:06)
[2019-11-18] MEDS: DULoxetine HCL 30 MG CAPSULE.DR PO SCH (21:06)
[2019-11-18] MEDS: ALLOPURINOL 100 MG TAB PO SCH (21:06)
[2019-11-18] MEDS: ATORVASTATIN 80 MG TAB PO SCH (21:06)
[2019-11-19] MEDS ORDERED: AMINOPHYLLINE 500 MG/20 ML VIAL IV PRN ×2 (06:00)
[2019-11-19] MEDS ORDERED: CAFFEINE CITRATE 60 MG/3 ML VIAL IV PRN ×2 (06:00)
[2019-11-19] MEDS ORDERED: REGADENOSON 0.4 MG/5 ML SYRINGE IV ONE (06:00)
[2019-11-19 06:21] LABS: Glucose,Whole Blood 128 mg/dL (75-99)
[2019-11-19] MEDS: PREGABALIN 75 MG CAP PO SCH ×2 (08:33→16:55)
[2019-11-19] MEDS: OXYBUTYNIN XL 5 MG TAB.ER.24 PO SCH (08:33)
[2019-11-19] MEDS: FUROSEMIDE 40 MG TAB PO SCH ×2 (08:33→16:56)
[2019-11-19] MEDS: SPIRONOLACTONE 25 MG TAB PO SCH (08:33)
[2019-11-19] MEDS: LEVOTHYROXINE 100 MCG TAB PO SCH (08:33)
[2019-11-19] MEDS: ACETAMINOPHEN TAB 325 MG TAB PO SCH ×2 (08:34→16:57)
[2019-11-19] MEDS: ASPIRIN 81 MG PO SCH (08:34)
[2019-11-19] MEDS: SERTRALINE 50 MG TAB PO SCH (08:34)
[2019-11-19] MEDS ORDERED: DIPYRIDAMOLE IV ONE (09:00)
[2019-11-19] MEDS ORDERED: SODIUM CHLORIDE 0.9% IV ONE (09:00)
[2019-11-19 11:44] LABS: Glucose,Whole Blood 85 mg/dL (75-99)
--- NOTE | 2019-11-19 11:47 | NM ---
EXAMINATION TYPE: NM stress persantine cardiolit DATE OF EXAM: 11/19/2019 COMPARISON: NONE HISTORY: Chest pain TECHNIQUE: After the intravenous administration of 9.3 mCi Tc 99m Sestamibi - Cardiolite resting SPE CT images acquired 70 minutes post injection. The patient received 0.4mg Lexiscan, 26 mCi Tc 99m Sestamibi - Stress images obtained 35 minutes post injection FINDINGS: There is diminished radiotracer accumulation within the anterior lateral wall greater at th e cardiac base. This appears larger on the stress images than the resting images. On Polar maps on the anterior lateral wall defect appears to be reversible. Additional reversibility is reported on the inferior wall. Polar maps appear to underestimate the fixed defect on resting and stress images. Ejection fraction is low at 20%. There appears to be septal wall akinesia. Severe hypokinesia is pres ent through the remaining vera appear greatest wall motion appears to be the anterior wall. IMPRESSION: 1. Fixed defect along the anterolateral wall with larger defect in the periinfarct region on the stre ss images. Findings can be compatible with prior infarct with ivy-infarct stress-induced ischemic ch niall. Correlate with EKG changes. 2. Some mild fixed defect throughout the inferior wall is not excluded. 3. Very low ejection fraction 20%. Normal greater than 50%. Global hypokinesia with areas of akinesia are evident.
[2019-11-19] MEDS: INSULIN ASPART (NovoLOG) 100 UNIT/ML VIAL SQ SCH ×2 (11:50→16:45)
[2019-11-19] MEDS: PANTOPRAZOLE 40 MG TABLET PO SCH (11:51)
[2019-11-19] MEDS ORDERED: POTASSIUM CHLORIDE ER 20 MEQ TAB.ER PO STA (12:36)
[2019-11-19] MEDS: FERROUS SULFATE 325 MG TAB PO SCH (12:46)
[2019-11-19] MEDS: COLCHICINE 0.6 MG EACH PO SCH (12:48)
[2019-11-19] MEDS: METOPROLOL SUCCINATE (ER) 25 MG TAB.ER.24H PO SCH (12:48)
[2019-11-19] MEDS: HYDROcodone/APAP 5-325MG 1 EACH TAB PO PRN ×2 (12:51→20:45)
[2019-11-19] MEDS: CHOLECALCIFEROL 1,000 UNIT TAB PO SCH (12:53)
--- NOTE | 2019-11-19 13:49 | P.PN ---
Subjective Progress Note Date: 11/19/19 This is an 84-year-old female who follows with Dr. Abernathy in the office. She has a known history of coronary artery disease with prior bypass surgery, prior PCI, hypertension, hyperlipidemia, diabetes, chronic kidney disease, family history of premature coronary artery disease. Her bypass surge ry was performed in 1998, at that time she underwent a HERNANDEZ to the LAD, saphenous vein graft to the OM. In June 2017 she underwent successful stenting of the distal left main, proximal circumflex, and ostial circumflex. Most recent echocardiogram with Doppler study was performed in April 2018 which revealed an ejection fraction of 35-40%, moderate mitral regurgitation. She presents to the hospital on this occasion with symptoms of progressively worsening shortness of breath over a 3-4 day duration. She also states that she was having diarrhea stools at home, and feeling like she may get sick to her stomach however denies having any episodes of vomiting. An x-ray of the abdomen was performed which did not reveal any acute radiographic findings. EKG showed a normal sinus rhythm with ST-T wave changes noted in the anterior lateral leads. No chest x-ray was performed. Blood pressure 162/80, heart rate in the 60s, afebrile. White blood cell count 9.9, hemoglobin 10.6, platelet count 131, sodium 137, potassium 4.9, BUN 36, creatinine 1.7. Magnesium is 1.7. Troponins 0.092, 0.089, 0.071. BNP level 98,500. Influenza A and B were negative. At the time of my examination this morning, patient's main complaint is that of shortness of breath. Positive PND and orthopnea. 11/19/2019 Patient was seen and examined this morning, doing well overall. Blood pressure 142/70 with a heart rate in the 70s, 98% on room air. Denies any chest discomfort. She is scheduled today to undergo a Lexiscan stress test. Objective - Vital Signs Vital signs: Vital Signs Temp 97.7 F 11/19/19 12:42 Pulse 71 11/19/19 12:42 Resp 12 11/19/19 12:42 BP 155/86 11/19/19 12:42 Pulse Ox 100 11/19/19 12:42 Intake & Output 11/18/19 11/19/19 11/19/19 18:59 06:59 18:59 Intake Total 480 Output Total 800 1300 450 Balance -320 -1300 -450 Weight 86.6 kg 86.6 kg Intake: Oral 480 Output: Urine 800 1300 450 Other: # Voids 2 1 - Exam PHYSICAL EXAMINATION: GENERAL: 84-year-old female in no acute distress at the time of my examination HEENT: Head is atraumatic, normocephalic. Pupils equal, round. Sclera anicteric. Conjunctiva are clear. Mucous membranes of the mouth are moist. Neck is supple. There is elevated jugular venous pressure. No carotid bruit is heard. HEART EXAMINATION: Heart S1 and S2 systolic murmur is heard CHEST EXAMINATION: Lungs reveal diminished air entry bilaterally . No chest wall tenderness is noted on palpation or with deep breathing. ABDOMEN: Soft, nontender. Bowel sounds are heard. No organomegaly noted. EXTREMITIES: 2+ peripheral pulses with trace to 1 + evidence of peripheral edema and no calf tenderness noted. NEUROLOGIC patient is awake, alert and oriented X3. - Labs CBC & Chem 7: 11/17/19 05:40 11/18/19 06:12 Labs: Abnormal Lab Results - Last 24 Hours (Table) 11/18/19 11/18/19 11/19/19 Range/Units 16:56 20:43 06:20 POC Glucose (mg/dL) 289 H 140 H 128 H (75-99) mg/dL Assessment and Plan Plan: Assessment and Plan #1 systolic congestive heart failure acute on chronic #2 known history of coronary artery disease with prior bypass surgery and PCI #3 diabetes #4 hypertension #5 hyperlipidemia #6 acute on chronic chronic kidney disease #7 abnormal troponins, cannot rule out acute coronary syndrome, troponins 0.092, 0.089, 0.071. Is in normal sinus rhythm with T wave inversion noted in the anterior lateral leads #8 history of recurrent syncope #9 diarrhea stools with episodes of nausea and abdominal x-ray did not reveal any acute abnormality. Plan Patient underwent a Lexiscan stress test today, if the stress test is negative patient may be able to be discharged home from our perspective, if positive she may need to undergo cardiac catheterization by Dr. Abernathy. Further recommendations will be based on these findings and patient's clinical course. DNP note has been reviewed, I agree with a documented findings and plan of care. Patient was seen and examined.
[2019-11-19 14:36] VITALS: BMI 38.5
[2019-11-19 16:35] LABS: Glucose,Whole Blood 108 mg/dL (75-99)
[2019-11-19] MEDS: CALCIUM ACETATE 667 MG TAB PO SCH (16:56)
[2019-11-19] MEDS: DULoxetine HCL 30 MG CAPSULE.DR PO SCH (20:28)
[2019-11-19] MEDS: ATORVASTATIN 80 MG TAB PO SCH (20:28)
[2019-11-19] MEDS: ALLOPURINOL 100 MG TAB PO SCH (20:28)
[2019-11-19] MEDS: INSULIN DETEMIR (LEVEMIR) 100 UNIT/ML SYR SQ SCH (20:28)
[2019-11-19 20:58] LABS: Glucose,Whole Blood 133 mg/dL (75-99)
--- NOTE | 2019-11-19 22:34 | EST ---
EXERCISE STRESS AGE: 84 SEX: Female. HT: 4 feet 11 inches WT: 189 PROTOCOL: Persantine Cardiolite STAGE: DURATION OF EXERCISE: HEART RATE REST: 70 BLOOD PRESSURE REST: 157/61 MAXIMUM HEART RATE ACHIEVED: 70 MAXIMUM BLOOD PRESSURE: 157/61 85% MPHR: 115 100% MPHR: 135 METS: INDICATIONS: Chest pain. CLINICAL INFORMATION: Baseline EKG revealed normal sinus rhythm with leftward axis, nonspecific ST and T-wave abnormality. With Persantine administration, heart rate changed from 70 to 68 beats per minute. Blood pressure changed from 157/67 to 148/63. EKG remained inconclusive. Patient was asymptomatic. By EKG criteria, this is an inconclusive Persantine stress test because of resting EKG changes. The patient did not have any significant symptoms. The nuclear scan results, which are more pertinent, will be reported by the radiologist. FINAL IMPRESSION: By EKG criteria this is an inconclusive Persantine stress test. The nuclear scan results, which are more pertinent, will be reported by the radiologist. MMODL / IJN: [id number] /
--- NOTE | 2019-11-19 23:57 | P.PN ---
Subjective Progress Note Date: 11/19/19 Principal diagnosis: The patient is essentially awaiting stres She is quite fatigued. The patient does complain of significant fSleepiness. We are awaiting Persantine stress t Objective - Vital Signs Vital signs: Vital Signs Temp 97.8 F 11/19/19 20:00 Pulse 63 11/19/19 23:21 Resp 20 11/19/19 23:21 BP 138/69 11/19/19 23:21 Pulse Ox 98 11/19/19 23:21 Intake & Output 11/19/19 11/19/19 11/20/19 06:59 18:59 06:59 Intake Total 600 Output Total 1300 1650 550 Balance -1300 -1050 -550 Weight 86.6 kg 86.6 kg Intake: Oral 600 Output: Urine 1300 1650 550 Other: # Voids 2 1 - Constitutional General appearance: Present: cooperative - EENT Eyes: Absent: abnormal pupil - Neck Neck: Absent: lymphadenopathy - Respiratory Respiratory: bilateral: CTA - Cardiovascular Rhythm: regular Heart sounds: normal: S1, S2 Abnormal Heart Sounds: Absent: S3 Gallop - Gastrointestinal General gastrointestinal: Present: soft. Absent: tenderness - Integumentary Integumentary: Absent: cellulitis - Psychiatric Psychiatric: Present: A&O x's 3 - Labs CBC & Chem 7: 11/17/19 05:40 11/19/19 18:30 Labs: Abnormal Lab Results - Last 24 Hours (Table) 11/19/19 11/19/19 11/19/19 Range/Units 06:20 16:34 20:56 POC Glucose (mg/dL) 128 H 108 H 133 H (75-99) mg/dL Assessment and Plan (1) Dehydration Current Visit: Yes Status: Acute Code(s): E86.0 - DEHYDRATION SNOMED Code(s): 12444744 (2) Elevated troponin Current Visit: Yes Status: Acute Code(s): R79.89 - OTHER SPECIFIED ABNORMAL FINDINGS OF BLOOD CHEMISTRY SNOMED Code(s): 549050752 (3) Nausea and vomiting Current Visit: Yes Status: Acute Code(s): R11.2 - NAUSEA WITH VOMITING, UNSPECIFIED SNOMED Code(s): 36064335 (4) Dyspnea Current Visit: No Status: Acute Code(s): R06.00 - DYSPNEA, UNSPECIFIED SNOMED Code(s): 917122040 (5) Chronic kidney disease, stage 3 Current Visit: No Status: Chronic Code(s): N18.3 - CHRONIC KIDNEY DISEASE, STAGE 3 (MODERATE) SNOMED Code(s): 708111502 (6) Hypertension Current Visit: No Status: Chronic Code(s): I10 - ESSENTIAL (PRIMARY) HYPERTENSION SNOMED Code(s): 55278661 (7) Lipidemia Current Visit: No Status: Chronic Code(s): E78.5 - HYPERLIPIDEMIA, UNSPECIFIED SNOMED Code(s): 02741724 (8) Type II diabetes mellitus with peripheral circulatory disorder, uncontrolled Current Visit: No Status: Chronic Priority: Medium Code(s): E11.51 - TYPE 2 DIABETES W DIABETIC PERIPHERAL ANGIOPATH W/O GANGRENE SNOMED Code(s): 14337632 Plan: The patient hopefully will be discharged in the next 24 if stress test is negative. Time with Patient: Less than 30
[2019-11-20 06:30] LABS: Glucose,Whole Blood 119 mg/dL (75-99)
[2019-11-20 08:37] VITALS: RESP 12
[2019-11-20] MEDS: CHOLECALCIFEROL 1,000 UNIT TAB PO SCH (08:42)
[2019-11-20] MEDS: METOPROLOL SUCCINATE (ER) 25 MG TAB.ER.24H PO SCH (08:42)
[2019-11-20] MEDS: PREGABALIN 75 MG CAP PO SCH ×2 (08:43→16:58)
[2019-11-20] MEDS: SPIRONOLACTONE 25 MG TAB PO SCH (08:43)
[2019-11-20] MEDS: ASPIRIN 81 MG PO SCH (08:44)
[2019-11-20] MEDS: OXYBUTYNIN XL 5 MG TAB.ER.24 PO SCH (08:44)
[2019-11-20] MEDS: SERTRALINE 50 MG TAB PO SCH (08:44)
[2019-11-20] MEDS: FUROSEMIDE 40 MG TAB PO SCH ×2 (08:44→16:58)
[2019-11-20] MEDS: LEVOTHYROXINE 100 MCG TAB PO SCH (08:44)
[2019-11-20] MEDS: FERROUS SULFATE 325 MG TAB PO SCH (08:44)
[2019-11-20] MEDS: ACETAMINOPHEN TAB 325 MG TAB PO SCH ×2 (08:45→16:57)
[2019-11-20] MEDS: PANTOPRAZOLE 40 MG TABLET PO SCH (08:45)
[2019-11-20] MEDS: COLCHICINE 0.6 MG EACH PO SCH (08:46)
[2019-11-20] MEDS: INSULIN ASPART (NovoLOG) 100 UNIT/ML VIAL SQ SCH ×2 (08:54→16:58)
[2019-11-20] MEDS ORDERED: ISOSORBIDE MONONITRATE ER 30 MG TAB.ER.24H PO SCH (09:00)
[2019-11-20 11:31] VITALS: BP 143/74; PULSE 65; TEMP 97.5
[2019-11-20 11:50] LABS: Glucose,Whole Blood 148 mg/dL (75-99)
--- NOTE | 2019-11-20 12:27 | P.PN ---
Subjective Progress Note Date: 11/20/19 This is an 84-year-old female who follows with Dr. Abernathy in the office. She has a known history of coronary artery disease with prior bypass surgery, prior PCI, hypertension, hyperlipidemia, diabetes, chronic kidney disease, family history of premature coronary artery disease. Her bypass surge ry was performed in 1998, at that time she underwent a HERNANDEZ to the LAD, saphenous vein graft to the OM. In June 2017 she underwent successful stenting of the distal left main, proximal circumflex, and ostial circumflex. Most recent echocardiogram with Doppler study was performed in April 2018 which revealed an ejection fraction of 35-40%, moderate mitral regurgitation. She presents to the hospital on this occasion with symptoms of progressively worsening shortness of breath over a 3-4 day duration. She also states that she was having diarrhea stools at home, and feeling like she may get sick to her stomach however denies having any episodes of vomiting. An x-ray of the abdomen was performed which did not reveal any acute radiographic findings. EKG showed a normal sinus rhythm with ST-T wave changes noted in the anterior lateral leads. No chest x-ray was performed. Blood pressure 162/80, heart rate in the 60s, afebrile. White blood cell count 9.9, hemoglobin 10.6, platelet count 131, sodium 137, potassium 4.9, BUN 36, creatinine 1.7. Magnesium is 1.7. Troponins 0.092, 0.089, 0.071. BNP level 98,500. Influenza A and B were negative. At the time of my examination this morning, patient's main complaint is that of shortness of breath. Positive PND and orthopnea. 11/19/2019 Patient was seen and examined this morning, doing well overall. Blood pressure 142/70 with a heart rate in the 70s, 98% on room air. Denies any chest discomfort. She is scheduled today to undergo a Lexiscan stress test. 11/20/2019 Patient was seen and examined this morning, she underwent a Persantine stress test yesterday that did reveal possible reversibility in the anterior lateral wall region. Patient however is quite hesitant to proceed with cardiac catheterization, that factor along with her abnormal renal function we'll treat the patient medically at this time. Overall she feels well today. Hemodynamically she is stable. Blood pressure 142/70 with a heart rate in the 60s, 100% on 2 L of oxygen. Objective - Vital Signs Vital signs: Vital Signs Temp 97.5 F L 11/20/19 11:30 Pulse 65 11/20/19 11:36 Resp 12 11/20/19 11:36 BP 143/74 11/20/19 11:30 Pulse Ox 100 11/20/19 11:30 Intake & Output 11/19/19 11/20/19 11/20/19 18:59 06:59 18:59 Intake Total 600 420 Output Total 1650 950 600 Balance -1050 -950 -180 Weight 86.6 kg 84 kg Intake: Oral 600 420 Output: Urine 1650 950 600 Other: # Voids 1 - Exam PHYSICAL EXAMINATION: GENERAL: 84-year-old female in no acute distress at the time of my examination HEENT: Head is atraumatic, normocephalic. Pupils equal, round. Sclera anicteric. Conjunctiva are clear. Mucous membranes of the mouth are moist. Neck is supple. There is elevated jugular venous pressure. No carotid bruit is heard. HEART EXAMINATION: Heart S1 and S2 systolic murmur is heard CHEST EXAMINATION: Lungs reveal diminished air entry bilaterally . No chest wall tenderness is noted on palpation or with deep breathing. ABDOMEN: Soft, nontender. Bowel sounds are heard. No organomegaly noted. EXTREMITIES: 2+ peripheral pulses with trace to 1 + evidence of peripheral edema and no calf tenderness noted. NEUROLOGIC patient is awake, alert and oriented X3. - Labs CBC & Chem 7: 11/17/19 05:40 11/19/19 18:30 Labs: Abnormal Lab Results - Last 24 Hours (Table) 11/19/19 11/19/19 11/20/19 Range/Units 16:34 20:56 06:29 POC Glucose (mg/dL) 108 H 133 H 119 H (75-99) mg/dL 11/20/19 Range/Units 11:49 POC Glucose (mg/dL) 148 H (75-99) mg/dL Assessment and Plan Plan: Assessment and Plan #1 systolic congestive heart failure acute on chronic #2 known history of coronary artery disease with prior bypass surgery and PCI #3 diabetes #4 hypertension #5 hyperlipidemia #6 acute on chronic chronic kidney disease #7 abnormal troponins, cannot rule out acute coronary syndrome, troponins 0.092, 0.089, 0.071. Persantine stress test showed mild reversibility in the anterior lateral region #8 history of recurrent syncope #9 diarrhea stools with episodes of nausea and abdominal x-ray did not reveal any acute abnormality. Plan Patient prefers at this time not to undergo cardiac catheterization, we'll continue current medical therapy, adding some Imdur to her medication regime. She's been encouraged to be up ambulating in the hallway today, if the patient is doing well she may be able to be discharged home and follow-up in the office post discharge. DNP note has been reviewed, I agree with a documented findings and plan of care. Patient was seen and examined.
--- NOTE | 2019-11-20 12:44 | PN ---
PROGRESS NOTE Patient is seen for followup for chronic kidney disease. She is currently sitting up in a bedside chair. Patient denies any significant complaints. She has had good urine output. Serum creatinine was 2.0 on 11/18/2019. Oral intake is fair. PHYSICAL EXAMINATION: On examination, blood pressure this morning 143/74, heart rate 65 per minute. Patient is afebrile. EXAMINATION OF THE HEART: S1 and S2. EXAMINATION OF THE LUNGS: Bilateral breath sounds are heard. Abdomen is soft, nontender. Examination of lower extremities shows no significant edema. PREHEMMER exam grossly intact. LABS: Labs show serum creatinine 2.0 on 11/18/2019. No recent labs available. ASSESSMENT: 1. Chronic kidney disease stage 3 secondary to diabetic nephropathy. Baseline creatinine 1.5 to 1.7 mg/dL. 2. Congestive heart failure, volume overload, somewhat improved. 3. Chest pains, status post stress test. Patient is currently asymptomatic. She denies any chest pains. 4. Congestive heart failure systolic, acute on top of chronic. 5. Cardiomyopathy, ejection fraction 35%. 6. Hypokalemia secondary to diuretics, status post replacement. 7. Chronic kidney disease mineral bone disorder, maintained on PhosLo and Rocaltrol. PLAN: Continue current dose of Lasix. Check labs today. MMODL / IJN: [id number] /
[2019-11-20 13:09] LABS: Calcium 8.5 mg/dL (8.4-10.2); Potassium 4.4 mmol/L (3.5-5.1)
--- NOTE | 2019-11-20 13:34 | P.DS ---
Providers Date of admission: 11/16/19 14:27 Attending physician: Johan Bai Consults: 11/15/19 20:16 Consult Physician Urgent Consulting Provider: Carolyn Olmstead Consult Reason/Comments: trop Do you want consulting provider notified?: Yes 11/17/19 12:57 Consult Physician Routine Consulting Provider: Shabbir Espinosa Consult Reason/Comments: worsening renal failure/chf Do you want consulting provider notified?: Yes Primary care physician: Johan Bai - Discharge Diagnosis(es) (1) Dehydration Current Visit: Yes Status: Acute (2) Elevated troponin Current Visit: Yes Status: Acute (3) Nausea and vomiting Current Visit: Yes Status: Acute (4) Dyspnea Current Visit: No Status: Acute (5) Chronic kidney disease, stage 3 Current Visit: No Status: Chronic (6) Hypertension Current Visit: No Status: Chronic (7) Lipidemia Current Visit: No Status: Chronic (8) Type II diabetes mellitus with peripheral circulatory disorder, uncontrolled Current Visit: No Status: Chronic Priority: Medium Hospital Course: This is a discharge summary 84-year-old white female centimeter for acute coronary syndrome with generalized weakness. She ended up having stress test which showed primarily fixed defect. She had some ivy-infarct area and given her congestive heart failure she was offered cardiac catheterization but has declined given her multiple comorbidities including advancing age. Patient is discharged stable condition to follow-up with me as necessary. Patient Condition at Discharge: Good Plan - Discharge Summary Discharge Rx Participant: Yes New Discharge Prescriptions: New RX: Isosorbide Mononitrate ER [Imdur] 30 mg PO DAILY #30 tab.er.24h Continue RX: Atorvastatin [Lipitor] 80 mg PO HS@2100 RX: Nitroglycerin Sl Tabs [Nitrostat] 0.4 mg SUBLINGUAL Q5M PRN PRN Reason: Chest Pain RX: Calcitriol 0.5 mcg PO SUTH@0800 RX: Sertraline [Zoloft] 50 mg PO DAILY@0800 RX: Cholecalciferol [Vitamin D3 (25 Mcg = 1000 Iu)] 1,000 unit PO DAILY@0800 RX: Insulin Aspart [NovoLOG Flexpen] 5 units SQ BID@0800,1600 RX: Insulin Glargine,Hum.rec.anlog [Lantus Solostar] 12 units SQ HS@2100 RX: Tolterodine Tartrate [Detrol LA] 4 mg PO DAILY@0800 RX: Metoprolol Succinate (ER) [Toprol XL] 12.5 mg PO DAILY tab.er.24h RX: Docusate [Colace] 200 mg PO DAILY PRN PRN Reason: Constipation RX: Sennosides/Docusate Sodium [Senna Plus 8.6-50 mg Tablet] 1 tab PO HS PRN PRN Reason: Constipation RX: HYDROcodone/APAP 5-325MG [[place] 5-325] 1 tab PO Q6H PRN PRN Reason: Pain RX: Albuterol Inhaler [Ventolin Hfa Inhaler] 2 puff INHALATION RT-Q6H PRN PRN Reason: Shortness Of Breath RX: Oxymetazoline 0.05% Nasl [place] [Afrin 0.05% Nasal [place]] 1 spray EA NOSTRIL DAILY PRN PRN Reason: Nasal Congestion RX: Spironolactone [Aldactone] 12.5 mg PO DAILY@0800 RX: Omeprazole 20 mg PO DAILY@0800 RX: Levothyroxine Sodium [Synthroid] 100 mcg PO DAILY@0800 RX: Furosemide [Lasix] 40 mg PO DAILY@0800 RX: DULoxetine HCL [Cymbalta] 30 mg PO HS@2100 RX: Colchicine [Colcrys] 0.6 mg PO DAILY@0800 RX: Calcium Acetate [PhosLo] 667 mg PO DAILY@1600 RX: Aspirin 81 mg PO DAILY@0800 RX: Allopurinol [Zyloprim] 100 mg PO HS@2100 RX: Acetaminophen Tab [Tylenol] 650 mg PO BID@0800,1600 RX: Mag Hydrox/Aluminum Hyd/Simeth [Mylanta Maximum Strength Liq] 30 ml PO Q4H PRN PRN Reason: GAS RX: Pregabalin [Lyrica] 75 mg PO BID@0800,1700 RX: Ferrous Sulfate [Iron (65 MG Elemental)] 325 mg PO DAILY@0800 Discharge Medication List Atorvastatin [Lipitor] 80 mg PO HS@2100 10/16/14 [History] Nitroglycerin Sl Tabs [Nitrostat] 0.4 mg SUBLINGUAL Q5M PRN 11/07/14 [History] Calcitriol 0.5 mcg PO SUTH@0800 09/09/16 [History] Sertraline [Zoloft] 50 mg PO DAILY@0800 18 [History] Cholecalciferol [Vitamin D3 (25 Mcg = 1000 Iu)] 1,000 unit PO DAILY@79902/02/19 [History] Insulin Aspart [NovoLOG Flexpen] 5 units SQ BID@0800,159904/26/19 [History] Insulin Glargine,Hum.rec.anlog [Lantus Solostar] 12 units SQ HS@209904/26/19 [History] Tolterodine Tartrate [Detrol LA] 4 mg PO DAILY@79904/26/19 [History] Metoprolol Succinate (ER) [Toprol XL] 12.5 mg PO DAILY tab.er.24h 04/30/19 [Rx] Acetaminophen Tab [Tylenol] 650 mg PO BID@0800,159911/02/19 [History] Albuterol Inhaler [Ventolin Hfa Inhaler] 2 puff INHALATION RT-Q6H PRN 11/02/19 [History] Allopurinol [Zyloprim] 100 mg PO HS@209911/02/19 [History] Aspirin 81 mg PO DAILY@79911/02/19 [History] Calcium Acetate [PhosLo] 667 mg PO DAILY@159911/02/19 [History] Colchicine [Colcrys] 0.6 mg PO DAILY@79911/02/19 [History] DULoxetine HCL [Cymbalta] 30 mg PO HS@209911/02/19 [History] Docusate [Colace] 200 mg PO DAILY PRN 11/02/19 [History] Furosemide [Lasix] 40 mg PO DAILY@79911/02/19 [History] HYDROcodone/APAP 5-325MG [[place] 5-325] 1 tab PO Q6H PRN 11/02/19 [History] Levothyroxine Sodium [Synthroid] 100 mcg PO DAILY@79911/02/19 [History] Mag Hydrox/Aluminum Hyd/Simeth [Mylanta Maximum Strength Liq] 30 ml PO Q4H PRN 11/02/19 [History] Omeprazole 20 mg PO DAILY@79911/02/19 [History] Oxymetazoline 0.05% Nasl [place] [Afrin 0.05% Nasal [place]] 1 spray EA NOSTRIL DAILY PRN 11/02/19 [History] Sennosides/Docusate Sodium [Senna Plus 8.6-50 mg Tablet] 1 tab PO HS PRN 11/02/19 [History] Spironolactone [Aldactone] 12.5 mg PO DAILY@0800 11/02/19 [History] Ferrous Sulfate [Iron (65 MG Elemental)] 325 mg PO DAILY@0800 11/15/19 [History] Pregabalin [Lyrica] 75 mg PO BID@0800,1700 11/15/19 [History] Isosorbide Mononitrate ER [Imdur] 30 mg PO DAILY #30 tab.er.24h 11/20/19 [Rx] Follow up Appointment(s)/Referral(s): Johan Bai MD [Primary Care Provider] - 1-2 days
[2019-11-20] MEDS: CALCIUM ACETATE 667 MG TAB PO SCH (16:58)
[2019-11-20 16:59] LABS: Glucose,Whole Blood 226 mg/dL (75-99)
--- NOTE | 2019-11-22 14:12 | CDI ---
Documentation Clarification Form Date: 11/22/19 From: Tabby Motley Phone: If you have a question about this query, please contact Nuvia Quijano, Armature Varnisher at [phone] between 8am and 5pm. Admit Date: 11/16/19 Discharge Date:11/20/19 Patient Name: Chantell Tom Visit Number: [id number] ATTENTION: The Clinical Documentation Specialists (CDI) and [facility] Coding Staff appreciate your assistance in clarifying documentation. Please respond to the clarification below the line at the bottom and electronically sign. The CDI & [facility] Coding staff will review the response and follow-up if needed. Please note: Queries are made part of the Legal Health Record. If you have any questions, please contact the author of this message via ITS. Dear Dr. Bai Patient presented with troponin of: 0.092 Patient history/risk factors: CAD, Hypertension, CHF Clinical indicators: Elevated troponin, Chest pain, CHF exacerbation Treatment: IV Lasix, patient declined cardiac catheterization In your professional opinion, can you please specify the diagnosis, if any, indicated by the above clinical indicators and treatment? TYPE II OK NSTEMI-this is the probable choice for this patient. She refused cardiac catheterization -Specific Site -Specific Artery Chest pain -Cause if known Unstable Angina Costochondritis Other, please specify Unable to determine MTDD
== END 2019-11-20 17:47 | DRG 280 ==
LOC: EC 16:50 → 3SCARD 20:17 → OBSVTOIN 11-16 14:27
PROVIDERS: ADMIT Family Medicine; ATTEND Family Medicine
DX: I13.0 Hypertensive heart and chronic kidney disease with heart failure and stage 1 through stage 4 chronic kidney disease, or unspecified chronic kidney disease (principal); I21.4 Non-ST elevation (NSTEMI) myocardial infarction; I50.23 Acute on chronic systolic (congestive) heart failure; N17.9 Acute kidney failure, unspecified; E87.3 Alkalosis; J98.11 Atelectasis; I42.9 Cardiomyopathy, unspecified; D63.1 Anemia in chronic kidney disease; N18.3 Chronic kidney disease, stage 3 (moderate); E86.0 Dehydration; E11.51 Type 2 diabetes mellitus with diabetic peripheral angiopathy without gangrene; E11.22 Type 2 diabetes mellitus with diabetic chronic kidney disease; E78.5 Hyperlipidemia, unspecified; E87.6 Hypokalemia; E66.9 Obesity, unspecified; E03.9 Hypothyroidism, unspecified; F41.9 Anxiety disorder, unspecified; I25.110 Atherosclerotic heart disease of native coronary artery with unstable angina pectoris; I34.0 Nonrheumatic mitral (valve) insufficiency; J44.9 Chronic obstructive pulmonary disease, unspecified; M89.9 Disorder of bone, unspecified; T50.2X5A Adverse effect of carbonic-anhydrase inhibitors, benzothiadiazides and other diuretics, initial encounter; N28.1 Cyst of kidney, acquired; G89.29 Other chronic pain; K21.9 Gastro-esophageal reflux disease without esophagitis; M19.90 Unspecified osteoarthritis, unspecified site; M54.9 Dorsalgia, unspecified; R19.7 Diarrhea, unspecified; Z68.37 Body mass index [BMI] 37.0-37.9, adult; Z79.4 Long term (current) use of insulin; Z79.82 Long term (current) use of aspirin; Z79.890 Hormone replacement therapy; Z79.899 Other long term (current) drug therapy; Z91.041 Radiographic dye allergy status; Z88.1 Allergy status to other antibiotic agents; Z88.5 Allergy status to narcotic agent; Z88.0 Allergy status to penicillin; Z88.2 Allergy status to sulfonamides; Z88.8 Allergy status to other drugs, medicaments and biological substances; Z98.42 Cataract extraction status, left eye; Z98.41 Cataract extraction status, right eye; Z96.642 Presence of left artificial hip joint; Z96.1 Presence of intraocular lens; Z95.5 Presence of coronary angioplasty implant and graft; Z95.1 Presence of aortocoronary bypass graft; Z90.49 Acquired absence of other specified parts of digestive tract; Z82.49 Family history of ischemic heart disease and other diseases of the circulatory system; Z80.9 Family history of malignant neoplasm, unspecified
CPT/HCPCS: 36415; 71046; 74022; 76770; 78452; 80048; 80053; 80061; 81001; 82550; 82570; 83605; 83690; 83735; 83880; 84100; 84132; 84300; 84484; 84540; 85025; 85027; 85610; 85730; 87502; 93005; 93017; 94640; 96374; 99285